=== PATIENT | male | born 1940 | race Caucasian/White ===

== ENCOUNTER → 2017-12-29 06:00 | Outpatient (CLI) | payer MEDICARE, OTHER, SELFPAY ==
--- NOTE | 2017-12-29 15:34 | STRESSREP ---
Stress Test Report Pharmacologic myocardial perfusion stress test. 77-year-old man with a history of coronary artery disease status post carotid bypass surgery. Patient with chest pain. Medications: Iron isosorbide aspirin Cardizem losartan and metformin. Stress protocol: Resting EKG demonstrates normal sinus rhythm with a rate of 67 bpm normal intervals and noted resting blood pressure is 148/72 mmHg. 0.4 mg regadenoson was infused per usual protocol followed by rapid intravenous saline flush injection. Continuous EKG monitoring was performed. Patient maintained sinus rhythm throughout the recording. T-wave inversions were noted in lead I and aVL. The maximum heart rate attained was 84 bpm which was 58% of maximum predicted heart rate maximum workload attained was 1 metabolic equivalent. The final blood pressure is 142/70 mmHg. Myocardial perfusion protocol. 11.5 mCi of technetium 99m sestamibi was injected at rest. 0.4 mg of regadenoson was infused per usual protocol peak infusion 32.9 mCi of technetium 99m sestamibi was injected stress images were obtained stress and rest images were reconstructed and compared in the short axis vertical long and horizontal long axis. Gated images were also obtained pre- Perfusion SPECT analysis: Review of the stress images demonstrate normal uptake of tracer noted in the septum and inferior wall. On the stress images the mid anterolateral segment appears to have reduced perfusion with improvement on the resting images the above is suggestive of mid anterolateral ischemia. The basal to mid inferior wall also has a defect which is present on the stress and resting images there is also GI attenuation noted in this area and this cannot be completely excluded. Gated SPECT analysis: The gated ejection fraction is noted to be 49%. Conclusion: Abnormal pharmacologic myocardial perfusion stress test with evidence of mild to moderate anterolateral ischemia. Previous basal inferior infarct cannot be excluded. Borderline left ventricular systolic function.
== END ==
PROVIDERS: Family Provider Family Medicine; PCP Family Medicine; Visit Provider Physician Assistant Medical
DX: I25.118 Atherosclerotic heart disease of native coronary artery with other forms of angina pectoris (principal); I10 Essential (primary) hypertension; R53.83 Other fatigue
CPT/HCPCS: 78452; 93017; A9500; A4216; J2785

== ENCOUNTER → 2018-01-12 06:45 | Day surgery (SDC) | payer MEDICARE, OTHER, SELFPAY ==
--- NOTE | 2018-01-01 12:58 | RAD_ITS ---
STUDY: X-RAY CHEST REASON FOR EXAM: Male, 77 years old. Preoperative evaluation. TECHNIQUE: PA and lateral views of the chest. COMPARISON: Comparison is made with prior examination dated January 16, 2009. FINDINGS: The lungs are clear and expanded. Calcified granuloma in the right lower lobe. There is no demonstrated pleural abnormality. Sternal cerclage wires and vascular clips are present from a prior sternotomy and coronary artery bypass graft procedure (CABG). Normal mediastinum and dani. Normal visualized pulmonary arteries. There is atherosclerotic calcification of the aortic arch with tortuosity. Normal visualized thoracic spine. Normal visualized ribs, clavicles, and shoulders. There is no demonstrated abnormality of the visualized soft tissue structures of the upper abdomen. RAD/Chest PA and Lateral IMPRESSION: No acute abnormality is seen. Electronically Signed: Alec Thompson MD at 10:26 EDT Tel [phone], Service support ,
[2018-01-01 13:27] LABS: Hematocrit 36.6 % (40-54); Hemoglobin 12.3 g/dl (13.0-16.5); Mean Corp Hgb Conc 33.6 g/gl (32-36); Mean Corpuscular Hgb 32.5 pg (27.0-32.0); Mean Corpuscular Volume 96.6 fL (80-94); Platelet Count 202 K/mm3 (150-450); Red Blood Count 3.79 M/mm3 (4.6-6.2); White Blood Count 8.3 K/mm3 (4.4-11.0)
[2018-01-01 13:28] LABS: Scan Indicated on CBC? Y/N NO
[2018-01-01 13:43] LABS: Anion Gap 9 (5-15); BUN 26 mg/dL (7-18); BUN/Creat Ratio 13.9 RATIO (10-20); Calcium,Total 8.8 mg/dL (8.5-10.1); Chloride 108 mmol/L (98-107); Creatinine, Serum 1.87 mg/dL (0.70-1.30); EST Glomerular Filtration Rate 37 mL/min (>60); Est Glom Filt Rate - Afr Amer 45 mL/min (>60); Glucose 87 mg/dL (74-106); Potassium 4.6 mmol/L (3.5-5.1); Sodium Level 139 mmol/L (136-145)
[2018-01-09 08:09] VITALS: BMI 29.0
--- NOTE | 2018-01-12 14:35 | ECHOD_ITS ---
Reason For Study: SOB, chest pain Procedure This was a 2D Doppler, Color Flow transthoracic echocardiogram. 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 Left Ventricle Normal LV size. Left ventricular systolic function is normal. The estimated ejection fraction is 55 %. Transmitral diastolic flow velocities suggest mild (stage 1) diastolic dysfunction (reversed pattern). No regional wall motion abnormalities noted. Atria The left atrium is moderately enlarged. Normal right atrium. Bubble contrast study negative for right to left interatrial shunt. Mitral Valve There is mild to moderate mitral annular calcification. Mild (1+) eccentric mitral valve insufficiency. Tricuspid Valve Normal tricuspid valve. Mild (1+) tricuspid valve insufficiency. Pulmonary artery systolic pressure is 28 mmHg. Aortic Valve Trisinus/trileaflet aortic valve. Mild focal aortic valve calcification. Mild (1+) eccentric aortic valve insufficiency. Pulmonic Valve Normal pulmonic valve. Great Vessels Normal aortic root. The pulmonary artery is normal size. Normal inferior vena cava. Pericardium/Pleural No pericardial effusion. Medication Performed a rapid injection of agitated mix of 9 cc saline and 1cc air to assess for atrial septal defect. Diluted definity 4.0ml given slow IV push to enhance endocardial definition. MMode/2D Measurements & Calculations LVIDd: 5.3 cm IVSd: 1.1 cm Ao root diam: 3.2 cm LVIDs: 4.0 cm LVPWd: 0.96 cm LA dimension: 4.0 cm RVDd: 2.9 cm FS: 24.3 % LAV(MOD-bp): 73.7 ml LAV(MOD-bp) Indexed: 38.5 ml/m2 LA A4 area: 23.5 cm2 LAV(MOD-sp2): 67.8 ml LAV(MOD-sp4): 77.0 ml Doppler Measurements & Calculations MV E max thang: 68.9 cm/sec Lat Peak E' Thang: 7.9 cm/sec Med Peak E' Thang: 4.9 cm/sec MV A max thang: 102.0 cm/sec E/E' lat: 8.8 E/E' med: 14.0 MV E/A: 0.68 Ao V2 max: 122.3 cm/sec AI max thang: 312.7 cm/sec LV V1 max: 81.0 cm/sec Ao max P.0 mmHg AI max P.2 mmHg LV V1 max P.6 mmHg AI dec slope: 158.5 cm/sec2 AI P1/2t: 577.7 msec PA V2 max: 94.6 cm/sec TR max thang: 250.4 cm/sec TR max P.2 mmHg Interpretation Summary Normal LV size. Left ventricular systolic function is normal. The estimated ejection fraction is 55 %. Transmitral diastolic flow velocities suggest mild (stage 1) diastolic dysfunction (reversed pattern). Mild (1+) tricuspid valve insufficiency. Mild focal aortic valve calcification. Mild (1+) eccentric aortic valve insufficiency. Ordering Physician: Raffaele Theodore Referring Physician: Neal Rodriguez Performed By: Lola Alonso, ADELA, RVT
--- NOTE | 2018-01-19 11:55 | CL.D_ITS ---
Patient Name: JADYN RAMOS Study Date: 01/12/2018 Performing: Raffaele Theodore MD Ht: 66.14 inches 168 cm : 1940 Wt: 180.78 lbs 82 kg Age: 77 Gender: male BSA: 1.92 PROCEDURE(S) PERFORMED [id number]/CABG CLINICAL PROFILE AND INDICATIONS Indications: Stable Known CAD Heart Failure: None Stress/Imaging Stress Test w/SPECT MPI: Yes Result: Positive Intermediate RiskStress Test with SP ECT MPI: Positive Intermediate Risk CAD Presentations: Stable angina. CONCLUSIONS Severe [place] vessel disease, and saphenous vein graft to circumflex artery with a 99% anastomotic si te stenosis and moderate disease of the saphenous vein graft to the right coronary artery RECOMMENDATIONS Interval PCI of the saphenous vein graft to the circumflex artery after appropriate hydration and rep eat chemistry profile obtained DESCRIPTION OF PROCEDURE The patient arrived to the procedure lab. The risks and benefits of the procedure as well as a full d escription of our services here and current unavailability of surgical backup were fully explained to the patient and/or their significant other prior to the catheterization. The Timeout was completed, verifying the correct patient and procedure. The patient's procedural site was prepped and draped in the usual fashion. Local anesthetic was given subcutaneously to right groin region with Lidocaine 2%. Using a modified Seldinger technique, arterial access was obtained via the right femoral artery, a 5 Fr sheath was inserted. Left Coronary Artery selective angiography was performed in multiple views u sing a 5 Fr. JL4 catheter. Right Coronary Artery selective angiography was then performed in multiple views using a 5 Fr. 3DRC (Misha) catheter. Saphenous Vein graft to the Circumflex selective angio graphy was performed in multiple views using a 5 Fr. 3DRC (Misha) catheter. Saphenous Vein graft t o the RCA selective angiography was performed in multiple views using a 5 Fr. 3DRC (Misha) cathete r. Left internal mammary artery graft to the LAD selective angiography was performed in multiple view s using a 5 Fr. 3DRC (Misha) catheter. Saphenous Vein graft to the RCA selective angiography was p erformed in multiple views using a 5 Fr. 3DRC (Misha) catheter.The arterial sheath was pulled and manual compression applied until hemostasis is achieved. CORONARY ANGIOGRAPHY DOMINANCE: Right Dominant LEFT HEART ASSESSMENT Left Ventricular Ejection Fraction: by Echo 50 % Anterior Hypokinesis - Mild LEFT MAIN: 60 % Stenosis LEFT ANTERIOR DECENDING ARTERY: is occluded CIRCUMFLEX ARTERY: MID CIRC: 80 % Stenosis RIGHT CORONARY ARTERY: PROX RCA: Mild luminal irregularities less than 30% MID RCA: Moderate luminal irregularities up to 50% DISTAL RCA: is occluded, 65-70 distal post graft stenosis % Stenosis GRAFTS: Saphenous Vein graft to the 2nd OM has a distal anastomotic lesion of 99 % JOHNSON graft to the LAD is patent Saphenous Vein graft to the RCA has a mid lesion of 50 % Saphenous Vein graft to the RCA has a distal lesion of 65 % Diagnostic Recommendations: Interval PCI of the saphenous vein graft to the circumflex artery after a ppropriate hydration and repeat chemistry profile obtained COMPLICATIONS No Complications PROCEDURE MEDICATIONS Versed 1 mg IV Versed 1 mg IV Fentanyl 50 mcg IV Versed 1 mg IV Oxygen: 2 L/min via nasal cannula IV Bolus: .9 NaCl 500 ml total 01/12/2018 10:38:50 IV Fluids: .9 NaCl decreased to 100 ml/hr 01/12/2018 10:39:02 SUMMARY OF HEMODYNAMIC DATA Time AIR REST ECG 07:12:30 AO 131/53 (82) SA 09:25:52 AO 129/54 (82) 09:47:14 AO 134/58 (86) 10:08:39 Signed By Raffaele Theodore MD On 01/19/2018 11:54:55 Raffaele Theodore MD
== END ==
PROVIDERS: Physician Assistant Medical; Family Provider Family Medicine; PCP Family Medicine; Visit Provider Internal Medicine Cardiovascular Disease
DX: I25.118 Atherosclerotic heart disease of native coronary artery with other forms of angina pectoris (principal); E11.9 Type 2 diabetes mellitus without complications; I10 Essential (primary) hypertension; E78.5 Hyperlipidemia, unspecified; R94.31 Abnormal electrocardiogram [ECG] [EKG]; Z79.84 Long term (current) use of oral hypoglycemic drugs; Z79.02 Long term (current) use of antithrombotics/antiplatelets; Z79.82 Long term (current) use of aspirin; Z79.899 Other long term (current) drug therapy; Z95.5 Presence of coronary angioplasty implant and graft; Z95.1 Presence of aortocoronary bypass graft
CPT/HCPCS: 36415; 71046; 80048; 85027; 93306; 93455; 99152; 99153; J7040; Q9957; Q9967; A4216; C8929

== ENCOUNTER → 2018-01-19 07:12 | Outpatient (CLI) | payer MEDICARE, OTHER, SELFPAY ==
[2018-01-19 07:39] LABS: Anion Gap 8 (5-15); BUN 36 mg/dL (7-18); BUN/Creat Ratio 18.3 RATIO (10-20); Chloride 106 mmol/L (98-107); Creatinine, Serum 1.97 mg/dL (0.70-1.30); EST Glomerular Filtration Rate 35 mL/min (>60); Est Glom Filt Rate - Afr Amer 43 mL/min (>60); Glucose 108 mg/dL (74-106); Potassium 4.6 mmol/L (3.5-5.1); Sodium Level 138 mmol/L (136-145)
== END ==
PROVIDERS: Family Provider Family Medicine; PCP Family Medicine; Visit Provider Internal Medicine Cardiovascular Disease
DX: I10 Essential (primary) hypertension (principal); E78.5 Hyperlipidemia, unspecified; I25.10 Atherosclerotic heart disease of native coronary artery without angina pectoris; R94.31 Abnormal electrocardiogram [ECG] [EKG]; Z95.1 Presence of aortocoronary bypass graft
CPT/HCPCS: 36415; 80048

== ENCOUNTER 2018-01-21 08:11 | Day surgery (SDC) | payer MEDICARE, OTHER, SELFPAY ==
[2018-01-14 07:10] VITALS: BMI 29.0
[2018-01-14 07:43] LABS: Anion Gap 7 (5-15); BUN 30 mg/dL (7-18); BUN/Creat Ratio 14.3 RATIO (10-20); Calcium,Total 8.4 mg/dL (8.5-10.1); Chloride 107 mmol/L (98-107); EST Glomerular Filtration Rate 33 mL/min (>60); Est Glom Filt Rate - Afr Amer 40 mL/min (>60); Estimated Creatinine Clearance 26.58 ml/min; Glucose 123 mg/dL (74-106); Potassium 4.4 mmol/L (3.5-5.1); Sodium Level 138 mmol/L (136-145)
[2018-01-21] VITALS (22 sets, daily range): BP systolic 128–189; BP diastolic 48–142; PULSE 59–82; RESP 12–25; TEMP 36.8; O2SAT 95–100; BMI 63.5; BMI 29.0
[2018-01-21 08:37] LABS: Anion Gap 8 (5-15); BUN 36 mg/dL (7-18); BUN/Creat Ratio 18.8 RATIO (10-20); Chloride 107 mmol/L (98-107); Creatinine, Serum 1.92 mg/dL (0.70-1.30); EST Glomerular Filtration Rate 36 mL/min (>60); Est Glom Filt Rate - Afr Amer 44 mL/min (>60); Estimated Creatinine Clearance 29.08 ml/min; Glucose 119 mg/dL (74-106); Potassium 4.4 mmol/L (3.5-5.1); Sodium Level 140 mmol/L (136-145)
--- NOTE | 2018-01-21 09:26 | PN_ITS ---
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 He is a gentleman with a history of coronary artery disease status post coronary artery bypass surgery. He had a left internal mammary artery to left anterior descending artery which was noted to be preserved and patent the circumflex artery had moderate disease in the mid segment and the saphenous vein graft to the right coronary artery was noted to be patent. Medical therapy was recommended his last stress test was in 2013 which demonstrated a mildly abnormal mid anterior ischemia medical therapy was recommended. He continues to take nitroglycerin prophylactically prior to mowing. He feels that the amount he has been taking has not increased. He has not had any diaphoresis no near syncope or syncope. He has had some dizziness when he changes the position of his head. He denies any claudication. He does not have any palpitations. He does note that when he checks his pulse he has occasional ectopic beats. He does not have any worsening SOB. He does feel that he is more fatigued that he should be. Intake Vital Signs 01/21/18 Height 5 ft 6 in 01/21/18 Weight: 180 lb 01/21/18 Body Mass Index (BMI) 29.0 01/21/18 Blood Pressure 155/80 01/21/18 Blood Pressure Location Lt brachial 01/21/18 Blood Pressure Position Semi-Fowlers 01/21/18 Respiratory Rate 16 01/21/18 Pulse Rate 63 01/21/18 Pulse Source Monitor 01/21/18 Temperature 97.5 F 01/21/18 Pulse Ox 98 Intake Visit Reasons: PCI intervention Allergies ramipril [From Altace] Allergy (Intermediate, Verified 01/21/18 08:42) cough Medications ferrous sulfate 324 mg (65 mg iron) tablet,delayed release 324 mg PO QDAY tab 06/13/17 [History Confirmed 01/13/18] glimepiride 1 mg tablet 1 mg PO QAM 06/13/17 [History Confirmed 01/13/18] isosorbide mononitrate ER 120 mg tablet,extended release 24 hr 120 mg PO QDAY tab 06/13/17 [History Confirmed 01/13/18] loratadine 10 mg tablet 10 mg PO PRN PRN tab 06/13/17 [History Confirmed ] nitroglycerin 0.4 mg sublingual tablet 0.4 mg SUBLINGUAL .COMPLEX PRN 06/13/17 [ History Confirmed 01/13/18] acetaminophen 500 mg tablet 500 mg PO Q4H PRN 06/16/17 [History Confirmed ] multivitamin tablet 1 tab PO QDAY 06/16/17 [History Confirmed 01/13/18] aspirin 81 mg tablet,delayed release 81 mg PO QDAY 06/17/17 [History Confirmed 01/13/18] diltiazem CD 180 mg capsule,extended release 24 hr 180 mg PO ONCE 06/17/17 [ History Confirmed 01/13/18] losartan 50 mg tablet 50 mg PO QDAY 06/17/17 [History Confirmed 01/13/18] metformin ER 500 mg tablet,extended release 24hr 500 mg PO .COMPLEX 12/16/17 [ History Confirmed 01/13/18] clopidogrel 75 mg tablet 75 mg PO QDAY #30 tab 01/01/18 [Rx Confirmed 01/13/18] PFSH Medical History Abnormal nuclear stress test (Acute) steroid injections lumbar (Resolved) HLD (hyperlipidemia) (Chronic) HTN (hypertension) (Chronic) CAD (coronary artery disease) (Chronic) Atherosclerotic heart disease of [place] coronary artery without angina pectoris (Chronic) Abnormal result of cardiovascular function study, unspecified (Chronic) Abnormal electrocardiogram (Chronic) High risk medication use (Chronic) Aftercare following surgery of the circulatory system, NEC (Chronic) Shortness of breath (Chronic) Fatigue (Chronic) Type 2 diabetes mellitus without complications (Chronic) Surgical History Aortocoronary bypass status (Chronic) Hx of CABG (Chronic 08/16/02) S/P PTCA (percutaneous transluminal coronary angioplasty) (Chronic) Family History Father Heart disease Myocardial infarction x3, first CO at age 49 Brother Diabetes History of PTCA Mother HLD (hyperlipidemia) Social History Smoking Status: Never smoker alcohol intake: current alcohol intake frequency: 0-2 drinks per day Alcohol type: hard liquor substance use type: does not use ROS Const Const: Positive for fatigue; negative for weakness, fever(s) or headache(s) Eyes Eyes: Negative for blind spots, loss of peripheral vision or transient loss of vision ENT ENT: Positive for dizziness; negative for headache(s) Cardio Chest Pain: Yes Palpitations: No Edema: None Muscle aches with walking: None Resp Respiratory: Negative for SOB with activity, SOB at rest, SOB orthopnea\SOB lying down or Cough GI GI: Negative nausea, vomiting, heartburn or vomiting blood/hematemesis : Negative for hematuria Musc Musc: Negative for muscle aches/ myalgia Neuro Neuro: Positive for dizziness and lightheadedness; negative for weakness, headache(s), near syncope or syncope Kalpesh Hematologic/Lymphatic: Negative for easy bleeding Endo Endo: Positive for fatigue Cardiology Exam Const Appearance: cooperative, healthy appearing, well developed, well groomed and no acute distress Nutritional Appearance: well nourished and average body habitus Orientation: alert, awake and oriented x3 Head Head: normal to inspection, normocephalic and atraumatic Ears: hearing grossly normal bilaterally and external ears normal Nose: external nose normal, septum normal, no nasal discharge Face and Sinus: face symmetric Mouth: moist mucous membranes Teeth and gingiva: dentition normal Eyes General: appearance normal, both eyes and all related structures Eyelids: eyelids normal Conjunctivae: conjunctivae normal Pupils: PERRL, normal by confrontation and accommodation normal EOM: EOM intact bilaterally Neck Neck: normal visual inspection, trachea midline and no JVD JVD: +5 Carotids: normal carotid upstroke and bounding pulses Chest Chest inspection: normal inspection of the chest, symmetric chest movement and normal respiratory effort Auscultation: Bilateral: Clear to Auscultation Cardio Palpation: normal PMI Rate: regular rate Rhythm: regular rhythm Heart sounds: S1 normal, S2 normal and normal, physiologic split S2; negative rub, gallop or murmur GI GI: normal to inspection, soft, no hepatosplenomegaly and bowel sounds present Neuro General: alert, awake, oriented x3, no focal sensory deficit, gait normal and moves all extremities Skin Skin: no rashes or lesions noted Extremities Pulses: Normal: Right Femoral Pulse, Left Femoral Pulse, Right Dorsalis Pedis Pulse, Left Dorsalis Pedis Pulse, Right Posterior Tibial Pulse, Left Posterior Tibial Pulse, Right Radial Pulse, Left Radial Pulse Lower Extremity Edema: None: Bilateral Musculoskel Musculoskeletal: No joint tenderness Psych Psychological: normal affect Supplemental Info Echocardiogram from January 2018 showed normal LV size, estimated ejection fraction 55%, stage I diastolic dysfunction, mild tricuspid valve insufficiency , mild aortic valve calcification, and mild aortic valve insufficiency. Heart catheterization from January 2018 showed severe [place] vessel disease and SVG to LCx with a 99% anastomotic site stenosis and moderate disease of the SVG to RCA. It was recommended he undergo interval PCI of the SVG to LCx after hydration and repeat chemistry. Stress test from December 2017 was an abnormal pharmacological [place] myocardial perfusion stress test with evidence of mild to moderate anterolateral ischemia, previous basal inferior infarct cannot be excluded, and borderline left ventricular systolic function. Assessment & Plan 1. Atherosclerosis of [place] coronary artery of [place] heart without angina pectoris I25.10 S/P JOHNSON to LAD, SVG to obtuse marginal LCx, sequential SVG to intermediate, and SVG to right PDA in August 2002, PTCA of ramus branch of LCx , PTCA/stent to proximal RCA, PTCA/stent to proximal LCx, attempted/ unsuccessful PTCA LAD in June 2003 Plan - DEANGELO Abreu Patient's most recent heart catheterization showed 99% anastomotic stenosis of SVG to LCx. He will undergo PCI to this vessel. He will continue current medications which include aspirin, Plavix, losartan. 2. Aortocoronary bypass status Z95.1 S/P JOHNSON to LAD, SVG to obtuse marginal branch of LCx, sequential SVG to intermediate coronary artery, and SVG to right PDA in August 1999 Plan - DEANGELO Abreu Patient will proceed with PCI to SVG to OM. 3. Essential hypertension I10 Plan - DEANGELO Abreu Patient's blood pressure is well-controlled today. We will continue to monitor this. We will not make any medication regimen changes. 4. Fatigue, unspecified type R53.83 Plan - DEANGELO Abreu Hopefully after PCI patient's fatigue will improve. She will be recommended that he undergo cardiac rehab to improve overall function and exercise capacity. We will continue to follow this over time. Plan Detail Additional Comments - DEANGELO Abreu Thank you for allowing us to participate in the patients plan of care, if you have any questions please do not hesitate to call. This note was generated using a voice recognition system and there may be incorrect words, spelling or punctuation that were not noted when reviewing the office note prior to saving. Coding Diagnoses Atherosclerosis of [place] coronary artery of [place] heart without angina pectoris I25.10 [place] vs. transplanted heart: [place] heart Aortocoronary bypass status Z95.1 Essential hypertension I10 Hypertension type: essential hypertension Fatigue, unspecified type R53.83 Fatigue type: unspecified
--- NOTE | 2018-01-21 11:00 | EKG12_ITS ---
Test Reason : POSY PCI Blood Pressure : / mmHG Vent. Rate : 076 BPM Atrial Rate : 076 BPM P-R Int : 212 ms QRS Dur : 096 ms QT Int : 416 ms P-R-T Axes : 076 009 093 degrees QTc Int : 468 ms Sinus rhythm with 1st degree A-V block with occasional Premature ventricular complexes Nonspecific ST and T wave abnormality Abnormal ECG When compared with ECG of 08-AUG-2009 11:44, Premature ventricular complexes are now Present T wave inversion less evident in Anterolateral leads Confirmed by MAI MONTE ([id number]), editor producer SAURAV LINARES ([id number]) on 01/27/2018 2:11:49 PM Referred By: Carlos Mujica Confirmed By:MAI MONTE
--- NOTE | 2018-01-21 11:44 | CRPHASE1_ITS ---
Patient Data/Charges Former Patient:: Phase I Waste Hand:: Ramy Rice Phase I Charge:: Level I - Education Risk Factors/Lifestyle Smoking Status: Never smoker Hx Diabetes Mellitus Type 2: Yes - ON MEDS Hx Dyslipidemia: Yes Height: 1.68 m Weight:: 81.647 kg BMI: 29.0 ETOH: No Caffeine: Yes Substance Abuse: No Family History: Family History (Last Reviewed 12/16/17 @ 13:12 by Breanne Adkins) Father Heart disease Myocardial infarction Brother Diabetes History of PTCA Mother HLD (hyperlipidemia) Family History: Heart Disease Past Cardiac Illness: Coronary Artery Disease, Previous PCI w/Stent Phase I Education Given On:: [place], Nutrition, Antiplatelet medication, CHF, Diabetes - Type II Issues Affecting Care:: None Knowledge of Condition:: Yes Hospital Course Cardiac Cath Date:: 01/21/18 Intervention:: CABG 08/2002 AND HE DID CARDIAC REHAB AT THIS TIME Medical/Surgical History CAD:: Yes COPD:: No Asthma:: No Diabetes:: Yes Diabetes Type II:: Yes Hypertension:: Yes Dyslipidemia:: Yes PVD:: No PAD:: No Arthritis:: No GI:: No GERD:: No Cancer:: No Renal:: No Thyroid:: No Depression:: No Anxiety:: No CABG: Yes PTCA:: Yes Discharge/Home/Social Eval Discharge Disposition: Home Marital Status: -
--- NOTE | 2018-01-21 11:46 | CRPH1.INST_ITS ---
General Education CAD and cardiac anatomy and function:: Patient communicates acknowledgment, Family communicates acknowledgment Explanation of diagnoses and procedures:: Patient communicates acknowledgment, Family communicates acknowledgment Sign/Symptoms of CO:: Patient communicates acknowledgment, Family communicates acknowledgment Antiplatelet therapy: Patient communicates acknowledgment, Family communicates acknowledgment Proper use of NTG-SL: Patient communicates acknowledgment, Family communicates acknowledgment Emergency procedures and activation of EMS: Patient communicates acknowledgment , Family communicates acknowledgment Compliance of all prescribed medications: Patient communicates acknowledgment, Family communicates acknowledgment Smoking Patient Nicotine/Smoking Risk Factors Are:: Never smoked Dyslipidemia Recommendations Include:: Lipid profile not available Dyslipidemia Response Code:: Patient communicates acknowledgment, Family communicates acknowledgment Overweight/Obesity Patient Overweight/Obesity Risk Factors Are:: Overweight = 26-29 Hypertension Recommendations Include:: Maintain BP <130/85, BP <130/80 if diabetic, DASH dietary guidelines Hypertension:: Patient communicates acknowledgment, Family communicates acknowledgment Heart Disease Patient Heart Disease Risk Factors Are:: Family history of heart disease < 65 years old, Previous cardiac event Recommendations Include:: Educated family members of their risk Heart Disease Response Code:: Patient communicates acknowledgment, Family communicates acknowledgment Diabetes Recommendations Include:: Maintain fasting blood sugars 70-110 md/dL Diabetes:: Patient communicates acknowledgment, Family communicates acknowledgment Metabolic Syndrome Patient Metabolic Syndrome Risk Factors Are [3 of 5]:: Hypertension, Low HDL < 40 [male] or < 50 [female] Recommendations Include:: Patient is diabetic Sedentary Recommendations Include:: Benefits of regular exercise, Discussed home walking program Sedentary Response Code:: Patient communicates acknowledgment, Family communicates acknowledgment Stress Patient Stress Risk Factors Are:: Patient denies stress as a risk factor
[2018-01-21 12:45] LABS: ACT Activated Clotting Time 235 sec (74-137)
[2018-01-21] MEDS: 0.9% Normal Saline 1,000 ML 150 ML IV (13:30)
[2018-01-21 13:36] LABS: M R Staph aureus DNA By PCR Negative (Negative); Probe Check PASS; Specimen Processing Control PASS
[2018-01-21] MEDS: cloNIDine HCl 0.1 MG Tablet PO (13:55)
[2018-01-21 17:25] LABS: Bedside Glucose 76 mg/dL (70-110)
[2018-01-21 18:16] LABS: Bedside Glucose 138 mg/dL (70-110)
[2018-01-21 21:25] LABS: Bedside Glucose 121 mg/dL (70-110)
[2018-01-22] VITALS (10 sets, daily range): BP systolic 131–171; BP diastolic 45–90; PULSE 60–74; RESP 17–25; TEMP 36.7–36.8; O2SAT 96–97
[2018-01-22 04:10] LABS: Anion Gap 9 (5-15); BUN 36 mg/dL (7-18); BUN/Creat Ratio 20.2 RATIO (10-20); Calcium,Total 8.2 mg/dL (8.5-10.1); Chloride 110 mmol/L (98-107); Creatinine, Serum 1.78 mg/dL (0.70-1.30); EST Glomerular Filtration Rate 40 mL/min (>60); Est Glom Filt Rate - Afr Amer 48 mL/min (>60); Estimated Creatinine Clearance 31.36 ml/min; Glucose 111 mg/dL (74-106); Potassium 4.7 mmol/L (3.5-5.1); Sodium Level 141 mmol/L (136-145)
[2018-01-22 04:11] LABS: Hematocrit 34.7 % (40-54); Hemoglobin 11.9 g/dl (13.0-16.5); Mean Corp Hgb Conc 34.3 g/gl (32-36); Mean Corpuscular Hgb 33.1 pg (27.0-32.0); Mean Corpuscular Volume 96.4 fL (80-94); Mean Platelet Vol. 10.6 fl (6.2-12.0); Platelet Count 173 K/mm3 (150-450); RBC Distribution Width SD 44.8 fl (35.1-43.9); White Blood Count 7.1 K/mm3 (4.4-11.0)
[2018-01-22 04:15] LABS: Scan Indicated on CBC? Y/N NO
--- NOTE | 2018-01-22 07:08 | PCM.DC.CCA ---
Discharge Diet: Low fat/ Low Cholesterol Discharge Activity: Return to Normal Activity May shower in (days): 1 May resume sexual activity in: 1-2 weeks Weight Bearing Status: Weight bearing as tolerated, Full weight bearing, Partial weight bearing, Toe touch weight bearing, No weight bearing Lifting Restrictions: Do not lift anything greater than 10 pounds for 3 days Call your doctor if your incision/area has: Continuous Slow Oozing, Sudden Increased Bleeding, Increased Pain/ Swelling, Increased Redness, Foul Smelling Discharge, Swelling at the incision site Call your doctor if you observe: Fever of 101 or Higher, Shortness of breath, Chest pain Remove Dressing in (days):: 1 Cleanse incision/area with: Soap & Water Additional Instructions: You will remain on Plavix for at least one year. If anyone asks you to stop this, please contact the [facility] first. You will begin your metformin as instructed. You are schedule to see Graciela Physician Board Of Directors, on 02/12/2018 at 10:30 AM. Please contact the [facility] office if you needs this date and time changed. If you have any questions or concerns, please call the [facility] office at [phone]. Allergies/Adverse Reactions: Allergies ramipril [From Altace] Allergy (Intermediate, Verified 01/21/18 08:42) cough Medications to take at Discharge ferrous sulfate 324 mg (65 mg iron) tablet,delayed release 324 mg PO QDAY tab 06/13/17 glimepiride 1 mg tablet 1 mg PO QAM 06/13/17 isosorbide mononitrate ER 120 mg tablet,extended release 24 hr 120 mg PO QDAY tab 06/13/17 loratadine 10 mg tablet 10 mg PO PRN PRN tab 06/13/17 nitroglycerin 0.4 mg sublingual tablet 0.4 mg SUBLINGUAL .COMPLEX PRN 06/13/17 acetaminophen 500 mg tablet 500 mg PO Q4H PRN 06/16/17 multivitamin tablet 1 tab PO QDAY 06/16/17 aspirin 81 mg tablet,delayed release 81 mg PO QDAY 06/17/17 diltiazem CD 180 mg capsule,extended release 24 hr 180 mg PO DAILY 06/17/17 losartan 50 mg tablet 50 mg PO QDAY 06/17/17 metformin ER 500 mg tablet,extended release 24hr 500 mg PO .COMPLEX 12/16/17 clopidogrel 75 mg tablet 75 mg PO QDAY #30 tab 01/01/18 Primary Care Physician: Neal Rodriguez MD [Primary Care Provider] - Test Results: Test results from this visit will be discussed in further detail at your follow-up appointment, if applicable. Please Follow Up With: Graciela Pro Physician Board Of Directors When: 02/12/2018 at 10:30 AM Proposed Discharge Date: 01/22/18 Cardiac Rehabilitation Info Cardiac Rehabilitation Program Information: Cardiac Rehabilitation is important for patients like you who are recovering from a heart problem. Cardiac rehabilitation programs are recognized as integral to the continued care of the patient with coronary heart disease. The cardiac rehabilitation program is designed to optimize a patient's physical, psychological, and social functioning. Health animal caregiver work in cardiac rehabilitation programs and assist you with getting the treatments you need to get stronger and healthier - like exercise, healthy eating habits, and medications. Cardiac rehabilitation has been show to help people with heart problems live longer and have better life enjoyment than people who do not go to cardiac rehabilitation. Please contact the Cardiac Rehabilitation Program at [facility] at in two weeks if you have not heard from them.
--- NOTE | 2018-01-22 07:12 | DCINST_ITS ---
Discharge Diet: Low fat/ Low Cholesterol Discharge Activity: Return to Normal Activity May shower in (days): 1 May resume sexual activity in: 1-2 weeks Weight Bearing Status: Weight bearing as tolerated, Full weight bearing, Partial weight bearing, Toe touch weight bearing, No weight bearing Lifting Restrictions: Do not lift anything greater than 10 pounds for 3 days Call your doctor if your incision/area has: Continuous Slow Oozing, Sudden Increased Bleeding, Increased Pain/ Swelling, Increased Redness, Foul Smelling Discharge, Swelling at the incision site Call your doctor if you observe: Fever of 101 or Higher, Shortness of breath, Chest pain Remove Dressing in (days):: 1 Cleanse incision/area with: Soap & Water Additional Instructions: You will remain on Plavix for at least one year. If anyone asks you to stop this , please contact the [facility] first. You will begin your metformin as instructed. You are schedule to see Graciela Physician Exam Proctor, on 02/12/2018 at 10:30 AM. Please contact the [facility] office if you needs this date and time changed. If you have any questions or concerns, please call the [facility] office at [phone]. Allergies/Adverse Reactions: Allergies ramipril [From Altace] Allergy (Intermediate, Verified 01/21/18 08:42) cough Medications to take at Discharge ferrous sulfate 324 mg (65 mg iron) tablet,delayed release 324 mg PO QDAY tab 06/13/17 glimepiride 1 mg tablet 1 mg PO QAM 06/13/17 isosorbide mononitrate ER 120 mg tablet,extended release 24 hr 120 mg PO QDAY tab 06/13/17 loratadine 10 mg tablet 10 mg PO PRN PRN tab 06/13/17 nitroglycerin 0.4 mg sublingual tablet 0.4 mg SUBLINGUAL .COMPLEX PRN 06/13/17 acetaminophen 500 mg tablet 500 mg PO Q4H PRN 06/16/17 multivitamin tablet 1 tab PO QDAY 06/16/17 aspirin 81 mg tablet,delayed release 81 mg PO QDAY 06/17/17 diltiazem CD 180 mg capsule,extended release 24 hr 180 mg PO DAILY 06/17/17 losartan 50 mg tablet 50 mg PO QDAY 06/17/17 metformin ER 500 mg tablet,extended release 24hr 500 mg PO .COMPLEX 12/16/17 clopidogrel 75 mg tablet 75 mg PO QDAY #30 tab 01/01/18 Primary Care Physician: Neal Rodriguez MD [Primary Care Provider] - Test Results: Test results from this visit will be discussed in further detail at your follow- up appointment, if applicable. Please Follow Up With: Graciela Pro Physician Exam Proctor When: 02/12/2018 at 10:30 AM Proposed Discharge Date: 01/22/18 Cardiac Rehabilitation Info Cardiac Rehabilitation Program Information: Cardiac Rehabilitation is important for patients like you who are recovering from a heart problem. Cardiac rehabilitation programs are recognized as integral to the continued care of the patient with coronary heart disease. The cardiac rehabilitation program is designed to optimize a patient's physical, psychological, and social functioning. Health care transport nurse work in cardiac rehabilitation programs and assist you with getting the treatments you need to get stronger and healthier - like exercise, healthy eating habits, and medications. Cardiac rehabilitation has been show to help people with heart problems live longer and have better life enjoyment than people who do not go to cardiac rehabilitation. Please contact the Cardiac Rehabilitation Program at [facility] at in two weeks if you have not heard from them.
--- NOTE | 2018-01-22 07:24 | PN.CARD_ITS ---
Subjectve: Patient seen and evaluated. Appears to be doing quite well. No chest pain or arm pain. Objective: Vital Signs Temp Pulse Resp BP Pulse Ox 98.1 F 64 20 H 147/60 H 96 01/22/18 04:00 01/22/18 06:00 01/22/18 06:00 01/22/18 06:00 01/22/18 06:00 Oxygen Flow Rate (L/min) 2 Oxygen Delivery Method Room Air Weight: 178 lb 9.191 oz Body Mass Index (BMI) 63.5 Intake and Output for Last 24 Hours 01/20/18 01/21/18 01/22/18 23:59 23:59 23:59 Intake Total 1730 / 1730 350 / 350 Output Total 1600 / 1600 800 / 800 Balance 130 / 130 -450 / -450 General: Awake, Alert, Oriented x 3 HEENT: PERRL, EOMI, Sclera Non Icteric Neck: Supple, Good ROM, No Lymph Node Enlargement Lungs: Clear to auscultation Cardiovascular: Regular Rhythm, Normal S1, Normal S2, No Murmurs, No Rubs, No Gallops Vascular: No Carotid Bruits, Normal Femoral Pulses, Normal Radial Pulses, Normal Dorsalis Pedal Pulse, Normal Posterior Tibial Pulses Abdomen: Bowel Sounds Present, Soft, Non Tender, No HSM, No Organomegaly Extremities: No Cyanosis, No Clubbing, No edema Neurological: No Focal Motor or Sensory Deficit 01/21/18 08:16: Sodium 140, Potassium 4.4, Chloride 107, Carbon Dioxide 25.0, Anion Gap 8, BUN 36 H, Creatinine 1.92 H, Est GFR (MDRD) Af Amer 44 L, Est GFR ( MDRD) Non-Af 36 L, BUN/Creatinine Ratio 18.8, Glucose 119 H, Calcium 9.0 01/22/18 03:50: WBC 7.1, RBC 3.60 L, Hgb 11.9 L, Hct 34.7 L, MCV 96.4 H, MCH 33.1 H, MCHC 34.3, RDW 13.0, RDW Differential 44.8 H, Plt Count 173, MPV 10.6 01/22/18 03:50: Sodium 141, Potassium 4.7, Chloride 110 H, Carbon Dioxide 22.0, Anion Gap 9, BUN 36 H, Creatinine 1.78 H, Est GFR (MDRD) Af Amer 48 L, Est GFR ( MDRD) Non-Af 40 L, BUN/Creatinine Ratio 20.2 H, Glucose 111 H, Calcium 8.2 L Rhythm: EKG: ECHO: Stress Test: Cardiac Cath: PCI: CT Surgery: Holter monitor: EPS: PPM: CXR: Chest CT Scan: Medical Necessity - Tobacco Use Smoking Status: Never smoker Assessment/Plan 1. Coronary artery disease. Patient is status post angioplasty and stenting of the saphenous vein graft to circumflex artery with excellent results. No chest pain noted EKG this morning demonstrates normal sinus rhythm with no acute changes. Hemoglobin has remained stable with no rise in creatinine remains actually lower. Plan will be to discharge patient on the same medications for outpatient follow- up. Follow-up creatinine will be obtained in the week.
--- NOTE | 2018-01-22 07:24 | PCM.DC.CCA ---
Discharge Diet: Low fat/ Low Cholesterol Discharge Activity: Return to Normal Activity May shower in (days): 1 May resume sexual activity in: 1-2 weeks Weight Bearing Status: Weight bearing as tolerated, Full weight bearing, Partial weight bearing, Toe touch weight bearing, No weight bearing Call your doctor if your incision/area has: Continuous Slow Oozing, Sudden Increased Bleeding, Increased Pain/ Swelling, Increased Redness, Foul Smelling Discharge, Swelling at the incision site Call your doctor if you observe: Fever of 101 or Higher, Shortness of breath, Chest pain Remove Dressing in (days):: 1 Cleanse incision/area with: Soap & Water Additional Instructions: You will remain on Plavix for at least one year. If anyone asks you to stop this, please contact the [facility] first. You will begin your metformin as instructed. You are schedule to see Graciela Physician Redeye Gunner, on 02/12/2018 at 10:30 AM. Please contact the [facility] office if you needs this date and time changed. If you have any questions or concerns, please call the [facility] office at [phone]. Allergies/Adverse Reactions: Allergies ramipril [From Altace] Allergy (Intermediate, Verified 01/21/18 08:42) cough Medications to take at Discharge ferrous sulfate 324 mg (65 mg iron) tablet,delayed release 324 mg PO QDAY tab 06/13/17 glimepiride 1 mg tablet 1 mg PO QAM 06/13/17 isosorbide mononitrate ER 120 mg tablet,extended release 24 hr 120 mg PO QDAY tab 06/13/17 loratadine 10 mg tablet 10 mg PO PRN PRN tab 06/13/17 nitroglycerin 0.4 mg sublingual tablet 0.4 mg SUBLINGUAL .COMPLEX PRN 06/13/17 acetaminophen 500 mg tablet 500 mg PO Q4H PRN 06/16/17 multivitamin tablet 1 tab PO QDAY 06/16/17 aspirin 81 mg tablet,delayed release 81 mg PO QDAY 06/17/17 diltiazem CD 180 mg capsule,extended release 24 hr 180 mg PO DAILY 06/17/17 losartan 50 mg tablet 50 mg PO QDAY 06/17/17 metformin ER 500 mg tablet,extended release 24hr 500 mg PO .COMPLEX 12/16/17 clopidogrel 75 mg tablet 75 mg PO QDAY #30 tab 01/01/18 Primary Care Physician: Neal Rodriguez MD [Primary Care Provider] - Test Results: Test results from this visit will be discussed in further detail at your follow-up appointment, if applicable. Please Follow Up With: Graciela Pro Physician Redeye Gunner When: 02/12/2018 at 10:30 AM Proposed Discharge Date: 01/22/18 Cardiac Rehabilitation Info Cardiac Rehabilitation Program Information: Cardiac Rehabilitation is important for patients like you who are recovering from a heart problem. Cardiac rehabilitation programs are recognized as integral to the continued care of the patient with coronary heart disease. The cardiac rehabilitation program is designed to optimize a patient's physical, psychological, and social functioning. Health hiv/aids care nurse work in cardiac rehabilitation programs and assist you with getting the treatments you need to get stronger and healthier - like exercise, healthy eating habits, and medications. Cardiac rehabilitation has been show to help people with heart problems live longer and have better life enjoyment than people who do not go to cardiac rehabilitation. Please contact the Cardiac Rehabilitation Program at [facility] at in two weeks if you have not heard from them.
--- NOTE | 2018-01-22 07:27 | DCINST_ITS ---
Discharge Diet: Low fat/ Low Cholesterol Discharge Activity: Return to Normal Activity May shower in (days): 1 May resume sexual activity in: 1-2 weeks Weight Bearing Status: Weight bearing as tolerated, Full weight bearing, Partial weight bearing, Toe touch weight bearing, No weight bearing Call your doctor if your incision/area has: Continuous Slow Oozing, Sudden Increased Bleeding, Increased Pain/ Swelling, Increased Redness, Foul Smelling Discharge, Swelling at the incision site Call your doctor if you observe: Fever of 101 or Higher, Shortness of breath, Chest pain Remove Dressing in (days):: 1 Cleanse incision/area with: Soap & Water Additional Instructions: You will remain on Plavix for at least one year. If anyone asks you to stop this , please contact the [facility] first. You will begin your metformin as instructed. You are schedule to see Graciela Physician Benefits Representative, on 02/12/2018 at 10:30 AM. Please contact the [facility] office if you needs this date and time changed. If you have any questions or concerns, please call the [facility] office at [phone]. Allergies/Adverse Reactions: Allergies ramipril [From Altace] Allergy (Intermediate, Verified 01/21/18 08:42) cough Medications to take at Discharge ferrous sulfate 324 mg (65 mg iron) tablet,delayed release 324 mg PO QDAY tab 06/13/17 glimepiride 1 mg tablet 1 mg PO QAM 06/13/17 isosorbide mononitrate ER 120 mg tablet,extended release 24 hr 120 mg PO QDAY tab 06/13/17 loratadine 10 mg tablet 10 mg PO PRN PRN tab 06/13/17 nitroglycerin 0.4 mg sublingual tablet 0.4 mg SUBLINGUAL .COMPLEX PRN 06/13/17 acetaminophen 500 mg tablet 500 mg PO Q4H PRN 06/16/17 multivitamin tablet 1 tab PO QDAY 06/16/17 aspirin 81 mg tablet,delayed release 81 mg PO QDAY 06/17/17 diltiazem CD 180 mg capsule,extended release 24 hr 180 mg PO DAILY 06/17/17 losartan 50 mg tablet 50 mg PO QDAY 06/17/17 metformin ER 500 mg tablet,extended release 24hr 500 mg PO .COMPLEX 12/16/17 clopidogrel 75 mg tablet 75 mg PO QDAY #30 tab 01/01/18 Primary Care Physician: Neal Rodriguez MD [Primary Care Provider] - Test Results: Test results from this visit will be discussed in further detail at your follow- up appointment, if applicable. Please Follow Up With: Graciela Pro Physician Benefits Representative When: 02/12/2018 at 10:30 AM Proposed Discharge Date: 01/22/18 Cardiac Rehabilitation Info Cardiac Rehabilitation Program Information: Cardiac Rehabilitation is important for patients like you who are recovering from a heart problem. Cardiac rehabilitation programs are recognized as integral to the continued care of the patient with coronary heart disease. The cardiac rehabilitation program is designed to optimize a patient's physical, psychological, and social functioning. Health foster care case manager work in cardiac rehabilitation programs and assist you with getting the treatments you need to get stronger and healthier - like exercise, healthy eating habits, and medications. Cardiac rehabilitation has been show to help people with heart problems live longer and have better life enjoyment than people who do not go to cardiac rehabilitation. Please contact the Cardiac Rehabilitation Program at [facility] at in two weeks if you have not heard from them.
[2018-01-22] MEDS: Glimepiride 1 MG Tablet PO (08:23)
[2018-01-22] MEDS: Aspirin E.C. 81 MG Tablet PO (08:23)
[2018-01-22] MEDS: dilTIAZem CD 180 MG Capsule PO (08:24)
[2018-01-22] MEDS: Clopidogrel Bisulfate 75 MG Tablet PO (08:24)
--- NOTE | 2018-01-22 08:39 | CL.I_ITS ---
Patient Name: JADYN RAMOS Study Date: 01/21/2018 Performing: Carlos Mujcia MD Ht: 66 inches 168 cm : 1940 Wt: 181 lbs 82 kg Age: 77 Gender: male BSA: 1.92 PROCEDURE(S) PERFORMED [id number] AND/OR PTCA, SINGLE GRAFT CLINICAL PROFILE AND CO-MORBIDITIES Indications: 99% SVG to OM noted on diagnostic cath Heart Failure: None Angina Classification Anginal Classification w/in 2 Weeks: CCS III CAD Presentations: Stable angina. CONCLUSIONS Successful PTCA/ALBAN SVG to OM (distal) using Resolute Integrity 2.75x8 mm RECOMMENDATIONS ASA Indefinitley Plavix for at least 12 months Follow up with Dr. Theodore DESCRIPTION OF PROCEDURE The patient arrived to the procedure lab. The risks and benefits of the procedure as well as a full d escription of our services here and current unavailability of surgical backup were fully explained to the patient and/or their significant other prior to the catheterization. The Timeout was completed, verifying the correct patient and procedure. The patient's procedural site was prepped and draped in the usual fashion. Local anesthetic was given subcutaneously to right radial region with Lidocaine 2% . Using a modified Seldinger technique, arterial access was obtained via the right radial artery, a 6 Fr sheath was inserted.. The images were reviewed and options discussed. A decision was then made to proceed with an Intervention, IVUS or other adjunct procedure. AL 0.75 Guide catheter was inserted and engaged into the SVG to the OM 1. Runthrough Guide wire was a dvanced to SVG to the 1st OM. 2.5 x 8 emerge Balloon catheter was advanced across lesion in the SVG t o first obtuse marginal. PTCA balloon inflated at 6 atms for 10 secs. 2.75 x 8 resolute Drug Eluting stent was inserted. Drug Eluting stent was advanced across the lesion in the SVG to first obtuse danielle inal. Angiogram performed pre stent deployment. Angiogram performed post stent deployment. The arter ial sheath was pulled and a TR Band was applied for hemostasis 18cc INTERVENTION INFORMATION LESION SITE: Vein > to 1st OM Segment Number: 20-First obtuse marginal branch segment - 1st OM , Les ion Location: Body Lesion Complexity: High/C, culprit lesion: Yes Pre Stenosis: 99 % Pre intervention MARY CARMEN flow: 3 PROCEDURE: Drug Eluting Stent with pre dilatation. Post Stenosis: 0 % Post intervention MARY CARMEN flow: 3 Lesion Devices: Terumo .014 Runthrough Extra Floppy 180cm straight Cordis 6 Fr AL.75 100cm Guide Catheter Joaquin Sci EMERGE MR 2.50x08 BALLOON Medtronic Resolute RX ALBAN 2.75x08 COMPLICATIONS No Complications PROCEDURE MEDICATIONS Oxygen: 2 L/min via nasal cannula Adenosine 50 mcg IC 01/21/2018 10:25:44 Adenosine 50 mg IV @ 01/21/2018 10:30:01 Heparin 6000 unit(s) IV 01/21/2018 10:13:49 Heparin given IA 01/21/2018 10:14:18 Heparin 1000 unit(s) IV 01/21/2018 10:45:19 Nipride 20 mcg IC 01/21/2018 10:30:28 Plavix 300 mg PO 01/21/2018 10:47:33 Verapamil 2.5mg, Ntg 100mcgs, 2000 units of Heparin given IA 01/21/2018 10:14:18 SUMMARY OF HEMODYNAMIC DATA Time AIR REST ECG 08:57:10 AO 154/66 (102) SA 10:17:22 Signed By Carlos Mujica MD On 01/22/2018 08:38:40 Carlos Mujica MD
--- NOTE | 2018-01-22 10:00 | EKG12_ITS ---
Test Reason : AM EKG Blood Pressure : / mmHG Vent. Rate : 068 BPM Atrial Rate : 068 BPM P-R Int : 220 ms QRS Dur : 096 ms QT Int : 432 ms P-R-T Axes : 054 002 124 degrees QTc Int : 459 ms Sinus rhythm with 1st degree A-V block with occasional Premature ventricular complexes ST & T wave abnormality, consider lateral ischemia Abnormal ECG When compared with ECG of 21-JAN-2018 11:16, MANUAL COMPARISON REQUIRED, DATA IS UNCONFIRMED Confirmed by MAI MONTE ([id number]), health editor SAURAV LINARES ([id number]) on 01/27/2018 2:13:35 PM Referred By: Carlos Mujica Confirmed By:MAI MONTE
== END 2018-01-22 08:44 | disposition home or self-care (01) ==
LOC: CLSP 08:11 → ICU 10:55
PROVIDERS: Family Provider Family Medicine; PCP Family Medicine; Visit Provider Internal Medicine Cardiovascular Disease
DX: I25.119 Atherosclerotic heart disease of native coronary artery with unspecified angina pectoris (principal); E11.9 Type 2 diabetes mellitus without complications; I10 Essential (primary) hypertension; E78.5 Hyperlipidemia, unspecified; R53.83 Other fatigue; R94.39 Abnormal result of other cardiovascular function study; R94.31 Abnormal electrocardiogram [ECG] [EKG]; Z79.84 Long term (current) use of oral hypoglycemic drugs; Z79.02 Long term (current) use of antithrombotics/antiplatelets; Z79.82 Long term (current) use of aspirin; Z79.899 Other long term (current) drug therapy; Z95.1 Presence of aortocoronary bypass graft
CPT/HCPCS: 36415; 80048; 82962; 85027; 85347; 87641; 92937; 93005; 97802; J7030; J7040; J7050; C1725; C1769; C1874; C1887; C1894; C9604; J0153; Q9967

== ENCOUNTER → 2018-01-30 15:06 | Outpatient (CLI) | payer MEDICARE, OTHER, SELFPAY ==
[2018-01-21 11:44] VITALS: BMI 29.0
[2018-01-30 17:42] LABS: Anion Gap 9 (5-15); BUN 35 mg/dL (7-18); BUN/Creat Ratio 17.9 RATIO (10-20); Calcium,Total 8.6 mg/dL (8.5-10.1); Chloride 107 mmol/L (98-107); Creatinine, Serum 1.96 mg/dL (0.70-1.30); EST Glomerular Filtration Rate 35 mL/min (>60); Est Glom Filt Rate - Afr Amer 43 mL/min (>60); Glucose 84 mg/dL (74-106); Potassium 4.7 mmol/L (3.5-5.1); Sodium Level 140 mmol/L (136-145)
== END ==
PROVIDERS: Family Provider Family Medicine; PCP Family Medicine; Visit Provider Nurse Practitioner Family
DX: I25.10 Atherosclerotic heart disease of native coronary artery without angina pectoris (principal); E11.9 Type 2 diabetes mellitus without complications; I10 Essential (primary) hypertension; E78.5 Hyperlipidemia, unspecified
CPT/HCPCS: 36415; 80048

== ENCOUNTER → 2018-02-25 12:56 | Outpatient (CLI) | payer MEDICARE, OTHER, SELFPAY ==
[2018-01-21 11:44] VITALS: BMI 29.0
--- NOTE | 2018-02-25 13:03 | PCM.CR.HP2 ---
CR - History & Physical - General Arrival date:: 02/25/18 Arrival time:: 13:03 Date of Referral:: 01/21/18 Date of CR Evaluation:: 02/25/18 Referring Physician: Dr. Raffaele Theodore Primary Diagnosis: Z95.5 Coronary artery stenting, I25.10 Atherosclerotic heart disease - History of Present Cardiac Event Onset Date: Enter Onset Date of cardiac illnesses in Comment field below PTCA or coronary stenting:: Yes Interventions with present event:: PTCA - Medications Home Medications: Ambulatory Orders Medication Instructions Recorded ferrous sulfate 324 mg (65 mg 324 mg PO QDAY tab 06/13/17 iron) tablet,delayed release glimepiride 1 mg tablet 1 mg PO QAM 06/13/17 isosorbide mononitrate ER 120 mg 120 mg PO QDAY tab 06/13/17 tablet,extended release 24 hr loratadine 10 mg tablet 10 mg PO PRN PRN tab 06/13/17 nitroglycerin 0.4 mg sublingual 0.4 mg SUBLINGUAL .COMPLEX PRN 06/13/17 tablet acetaminophen 500 mg tablet 500 mg PO Q4H PRN 06/16/17 multivitamin tablet 1 tab PO QDAY 06/16/17 aspirin 81 mg tablet,delayed 81 mg PO QDAY 06/17/17 release diltiazem CD 180 mg 180 mg PO DAILY 06/17/17 capsule,extended release 24 hr losartan 50 mg tablet 50 mg PO QDAY 06/17/17 metformin ER 500 mg 500 mg PO .COMPLEX 12/16/17 tablet,extended release 24hr clopidogrel 75 mg tablet 75 mg PO QDAY #90 tab 01/30/18 - Allergies Allergies/Adverse Reactions: Allergies ramipril [From Altace] Allergy (Intermediate, Verified 02/12/18 10:29) cough - Sleep Disorder Evaluation Hx of Sleep Apnea: No Do you snore loudly (louder than talking or can be heard through closed doors)?: No Do you often feel tired/ fatigued/ sleepy during daytime?: No Has anyone observed you stop breathing during sleep?: Yes History of Hypertension (for STOP score): Yes STOP Results: Positive Advanced Directives - Advanced Directives Power of Storyboard Artist: No Living Will: Yes Advance Directives Information Provided: No Advance Directives on File: No DNR Order?:: No Past Medical History - Past Medical Illness Medical History: Past Medical History (Last Updated 02/12/18 @ 17:18 by BLADIMIR Sandoval) Abnormal nuclear stress test (Acute) R94.39 steroid injections lumbar (Resolved) HLD (hyperlipidemia) (Chronic) E78.5 HTN (hypertension) (Chronic) I10 CAD (coronary artery disease) (Chronic) I25.10 Atherosclerotic heart disease of [place] coronary artery without angina pectoris (Chronic) I25.10 S/P JOHNSON to LAD, SVG to obtuse marginal LCx, sequential SVG to intermediate, and SVG to right PDA in August 2002, PTCA of ramus branch of LCx, PTCA/stent to proximal RCA, PTCA/stent to proximal LCx, attempted/unsuccessful PTCA LAD in June 2003; Stent SVG to OM 2017 Abnormal result of cardiovascular function study, unspecified (Chronic) R94.30 Abnormal electrocardiogram (Chronic) R94.31 High risk medication use (Chronic) Z79.899 Aftercare following surgery of the circulatory system, NEC (Chronic) Z48.812 Shortness of breath (Chronic) R06.02 Fatigue (Chronic) R53.83 Type 2 diabetes mellitus without complications (Chronic) E11.9 - Past Surgical History Surgical History: Past Surgical History (Last Updated 02/12/18 @ 17:18 by BLADIMIR Sandoval) 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 JOHNSON to LAD, SVG to Rt PDA S/P PTCA (percutaneous transluminal coronary angioplasty) Z98.61 PTCA of Ramus branch of CX, PTCA/stent proximal RCA. 03/1999 PTCA/stent proximal CX. Attempted/unsuccessful PTCA LAD 06/2003; stent SVG to OM 2017 - Family History Summary Family History: Family History (Last Reviewed 12/16/17 @ 13:12 by Breanne Adkins) Father Heart disease Myocardial infarction x3, first [place] at age 49 Brother Diabetes History of PTCA Mother HLD (hyperlipidemia) Social History - Smoking History Smoking Status: Never smoker Hx Tobacco Use: No Hx Smoking Exposure: No - Alcohol Use Alcohol Usage: Yes - socially - Substance Abuse Hx Substance Use: No - Occupation Occupation (List type of work in comments):: Retired - Hobbies, Recreation, Social Activities Hobbies: Other - garden Recreational Activities: I am able to engage in a few activities Social Environment - Status Marital Status: - Current Living Arrangements Living Environment:: Spouse - Children How many children do you have?: 2 Do any of your children live nearby?: Yes - Safety Do you feel safe in your surroundings?: Yes - Assistance Do you need any assistance at home?: none Review of Systems - Review of Systems Hints: Right click = Denies ([place]). Left click = Reports ([place]) Review of Present Symptoms: Reports: Fatigue, Heart Arrhythmia/Irregularities, Appetite - Normal, Sleep - Normal. Denies: Shortness of Breath at Rest, Shortness of Breath with Exertion, PVD, Operative Discomfort, Angina, Wound Healing, Dizziness/Lightheadedness, Appetite - Special Diet, Sexual Changes - Pain Is Patient Pain Free?: No Pain Location: back Pain Level: 02/13 Risk Factor Assessment - Chief Complaint Chief Complaint: CP, SOB - Vital Signs Pulse Ox: 97 - Pulse Pulse Rate: 57 Pulse Rhythm: Irregular - Hypertension How long have you been treated?: 20 Blood Pressure Sitting - Left Arm: 132/50 - Diabetes Diabetic History: Type II Nutrition Referral for Diabetes: No - Obesity Height: 1.68 m Weight:: 78.018 kg Weight in Pounds: 172.0 lbs Weight Source: Standing Scale Body Mass Index (BMI): 27.7 Nutritional Referral for Obesity: No - Physical Inactivity Physical Inactivity: None - Risk Stratification Risk Guidelines: Moderate Risk: Risk Factor for Smoking, Risk Factor for Dyslipidemia, Risk Factor for Diabetes, Risk Factor for Obesity, Risk Factor for Hypertension, Risk Factor for Sedentary Lifestyle, Risk Factor for Depression - For Smoking Smoking Risk Guidelines: Smoking Low Risk: None or quit greater than 6 months ago. Smoking Moderate Risk: Smoker or quit 6 months or less ago. Smoking High Risk: Smoker - For Dyslipidemia Dyslipidemia Risk Guidelines: Low Risk: Moderate Risk: High Risk: 15-25% fat 25.1-29% fat >/= 30% fat. <7% sat fat 7-9% sat fat >9% sat fat. <150 mg chol 150-299 mg chol >/= 300 mg chol. LDL <100 LDL 100-129 LDL >/= 130. Chol/HDL ratio <5.0 Chol/HDL ratio 5.0-6.0 Chol/HDL ratio >6.0. Triglycerides <100 Triglycerides 100-149 Triglycerides >/= 150 - For Diabetes Mellitus Diabetes Risk Guidelines: Diabetes Low Risk: HgA1c <6.5% and/or FBG <120. Diabetes Moderate Risk: HgA1c 6.6-7.9% and/or FBG 120-180. Diabetes High Risk: HgA1c >/= 8% and/or FBG >180 - For Obesity/Overweight Obesity/Overweight Risk Guidelines: Obesity Low Risk: BMI <25.0. Obesity Moderate Risk: BMI 25-29.9. Obesity High Risk: BMI >/= 30.0 - For Hypertension Hypertension Risk Guidelines: Hypertension Low Risk: Systolic <120 and Diastolic <80. Hypertension Moderate Risk: Systolic 120-139 and Diastolic 80-89. Hypertension High Risk: Systolic >/= 140 and Diastolic >/= 90 - For Sedentary Lifestyle Sedentary Lifestyle Risk Guidelines: Sedentary Lifestyle Low Risk: >/= 1,500 kcal/week. Sedentary Lifestyle Moderate Risk: 700-1,499 kcal/week. Sedentary Lifestyle High Risk: < 700 kcal/week - For Depression Depression Risk Guidelines: Depression Low Risk: Not clinically depressed. Depression Moderate Risk: Mildly depressed. Depression High Risk: Clinically depressed - Family History Family History: Family History (Last Reviewed 12/16/17 @ 13:12 by Breanne Adkins) Father Heart disease Myocardial infarction Brother Diabetes History of PTCA Mother HLD (hyperlipidemia) Motivation - Motivation to Participate On a scale of 1 to 10, how prepared are you to commit to attending program?: 9 What do you see as barriers to successfully being able to complete the program?: lack of improvement What do you see as the benefits of succesfully completing the program? In other words, what do you hope to get out of participating in the program?: better health Do you have a spouse or signficant other, family or friends who will help support you to complete the program?: yes
--- NOTE | 2018-02-25 13:07 | CR.HP_ITS ---
CR - History & Physical - General Arrival date:: 02/25/18 Arrival time:: 13:03 Date of Referral:: 01/21/18 Date of CR Evaluation:: 02/25/18 Referring Physician: Dr. Raffaele Theodore Primary Diagnosis: Z95.5 Coronary artery stenting, I25.10 Atherosclerotic heart disease - History of Present Cardiac Event Onset Date: Enter Onset Date of cardiac illnesses in Comment field below PTCA or coronary stenting:: Yes Interventions with present event:: PTCA - Medications Home Medications: Ambulatory Orders Medication Instructions Recorded ferrous sulfate 324 mg (65 mg 324 mg PO QDAY tab 06/13/17 iron) tablet,delayed release glimepiride 1 mg tablet 1 mg PO QAM 06/13/17 isosorbide mononitrate ER 120 mg 120 mg PO QDAY tab 06/13/17 tablet,extended release 24 hr loratadine 10 mg tablet 10 mg PO PRN PRN tab 06/13/17 nitroglycerin 0.4 mg sublingual 0.4 mg SUBLINGUAL .COMPLEX PRN 06/13/17 tablet acetaminophen 500 mg tablet 500 mg PO Q4H PRN 06/16/17 multivitamin tablet 1 tab PO QDAY 06/16/17 aspirin 81 mg tablet,delayed 81 mg PO QDAY 06/17/17 release diltiazem CD 180 mg 180 mg PO DAILY 06/17/17 capsule,extended release 24 hr losartan 50 mg tablet 50 mg PO QDAY 06/17/17 metformin ER 500 mg 500 mg PO .COMPLEX 12/16/17 tablet,extended release 24hr clopidogrel 75 mg tablet 75 mg PO QDAY #90 tab 01/30/18 - Allergies Allergies/Adverse Reactions: Allergies ramipril [From Altace] Allergy (Intermediate, Verified 02/12/18 10:29) cough - Sleep Disorder Evaluation Hx of Sleep Apnea: No Do you snore loudly (louder than talking or can be heard through closed doors)? : No Do you often feel tired/ fatigued/ sleepy during daytime?: No Has anyone observed you stop breathing during sleep?: Yes History of Hypertension (for STOP score): Yes STOP Results: Positive Advanced Directives - Advanced Directives Power of Mapping Editor: No Living Will: Yes Advance Directives Information Provided: No Advance Directives on File: No DNR Order?:: No Past Medical History - Past Medical Illness Medical History: Past Medical History (Last Updated 02/12/18 @ 17:18 by BLADIMIR Sandoval) Abnormal nuclear stress test (Acute) R94.39 steroid injections lumbar (Resolved) HLD (hyperlipidemia) (Chronic) E78.5 HTN (hypertension) (Chronic) I10 CAD (coronary artery disease) (Chronic) I25.10 Atherosclerotic heart disease of [place] coronary artery without angina pectoris (Chronic) I25.10 S/P JOHNSON to LAD, SVG to obtuse marginal LCx, sequential SVG to intermediate, and SVG to right PDA in August 2002, PTCA of ramus branch of LCx, PTCA/stent to proximal RCA, PTCA/stent to proximal LCx, attempted/unsuccessful PTCA LAD in June 2003; Stent SVG to OM 2017 Abnormal result of cardiovascular function study, unspecified (Chronic) R94.30 Abnormal electrocardiogram (Chronic) R94.31 High risk medication use (Chronic) Z79.899 Aftercare following surgery of the circulatory system, NEC (Chronic) Z48.812 Shortness of breath (Chronic) R06.02 Fatigue (Chronic) R53.83 Type 2 diabetes mellitus without complications (Chronic) E11.9 - Past Surgical History Surgical History: Past Surgical History (Last Updated 02/12/18 @ 17:18 by BLADIMIR Sandoval ) 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 JOHNSON to LAD, SVG to Rt PDA S/P PTCA (percutaneous transluminal coronary angioplasty) Z98.61 PTCA of Ramus branch of CX, PTCA/stent proximal RCA. 03/1999 PTCA/stent proximal CX. Attempted/unsuccessful PTCA LAD 06/2003; stent SVG to OM 2017 - Family History Summary Family History: Family History (Last Reviewed 12/16/17 @ 13:12 by Breanne Adkins) Father Heart disease Myocardial infarction x3, first [place] at age 49 Brother Diabetes History of PTCA Mother HLD (hyperlipidemia) Social History - Smoking History Smoking Status: Never smoker Hx Tobacco Use: No Hx Smoking Exposure: No - Alcohol Use Alcohol Usage: Yes - socially - Substance Abuse Hx Substance Use: No - Occupation Occupation (List type of work in comments):: Retired - Hobbies, Recreation, Social Activities Hobbies: Other - garden Recreational Activities: I am able to engage in a few activities Social Environment - Status Marital Status: - Current Living Arrangements Living Environment:: Spouse - Children How many children do you have?: 2 Do any of your children live nearby?: Yes - Safety Do you feel safe in your surroundings?: Yes - Assistance Do you need any assistance at home?: none Review of Systems - Review of Systems Hints: Right click = Denies ([place]). Left click = Reports ([place]) Review of Present Symptoms: Reports: Fatigue, Heart Arrhythmia/Irregularities, Appetite - Normal, Sleep - Normal. Denies: Shortness of Breath at Rest, Shortness of Breath with Exertion, PVD, Operative Discomfort, Angina, Wound Healing, Dizziness/Lightheadedness, Appetite - Special Diet, Sexual Changes - Pain Is Patient Pain Free?: No Pain Location: back Pain Level: 02/13 Risk Factor Assessment - Chief Complaint Chief Complaint: CP, SOB - Vital Signs Pulse Ox: 97 - Pulse Pulse Rate: 57 Pulse Rhythm: Irregular - Hypertension How long have you been treated?: 20 Blood Pressure Sitting - Left Arm: 132/50 - Diabetes Diabetic History: Type II Nutrition Referral for Diabetes: No - Obesity Height: 1.68 m Weight:: 78.018 kg Weight in Pounds: 172.0 lbs Weight Source: Standing Scale Body Mass Index (BMI): 27.7 Nutritional Referral for Obesity: No - Physical Inactivity Physical Inactivity: None - Risk Stratification Risk Guidelines: Moderate Risk: Risk Factor for Smoking, Risk Factor for Dyslipidemia, Risk Factor for Diabetes, Risk Factor for Obesity, Risk Factor for Hypertension, Risk Factor for Sedentary Lifestyle, Risk Factor for Depression - For Smoking Smoking Risk Guidelines: Smoking Low Risk: None or quit greater than 6 months ago. Smoking Moderate Risk: Smoker or quit 6 months or less ago. Smoking High Risk: Smoker - For Dyslipidemia Dyslipidemia Risk Guidelines: Low Risk: Moderate Risk: High Risk: 15-25% fat 25.1-29% fat >/= 30% fat. <7% sat fat 7-9% sat fat >9% sat fat. <150 mg chol 150-299 mg chol >/= 300 mg chol. LDL <100 LDL 100-129 LDL >/= 130. Chol/HDL ratio <5.0 Chol/HDL ratio 5.0-6.0 Chol/HDL ratio >6.0. Triglycerides <100 Triglycerides 100-149 Triglycerides >/= 150 - For Diabetes Mellitus Diabetes Risk Guidelines: Diabetes Low Risk: HgA1c <6.5% and/or FBG <120. Diabetes Moderate Risk: HgA1c 6.6-7.9% and/or FBG 120-180. Diabetes High Risk: HgA1c >/= 8% and/or FBG >180 - For Obesity/Overweight Obesity/Overweight Risk Guidelines: Obesity Low Risk: BMI <25.0. Obesity Moderate Risk: BMI 25-29.9. Obesity High Risk: BMI >/= 30.0 - For Hypertension Hypertension Risk Guidelines: Hypertension Low Risk: Systolic <120 and Diastolic <80. Hypertension Moderate Risk: Systolic 120-139 and Diastolic 80-89. Hypertension High Risk: Systolic >/= 140 and Diastolic >/= 90 - For Sedentary Lifestyle Sedentary Lifestyle Risk Guidelines: Sedentary Lifestyle Low Risk: >/= 1 ,500 kcal/week. Sedentary Lifestyle Moderate Risk: 700-1,499 kcal/week. Sedentary Lifestyle High Risk: < 700 kcal/week - For Depression Depression Risk Guidelines: Depression Low Risk: Not clinically depressed. Depression Moderate Risk: Mildly depressed. Depression High Risk: Clinically depressed - Family History Family History: Family History (Last Reviewed 12/16/17 @ 13:12 by Breanne Adkins) Father Heart disease Myocardial infarction Brother Diabetes History of PTCA Mother HLD (hyperlipidemia) Motivation - Motivation to Participate On a scale of 1 to 10, how prepared are you to commit to attending program?: 9 What do you see as barriers to successfully being able to complete the program? : lack of improvement What do you see as the benefits of succesfully completing the program? In other words, what do you hope to get out of participating in the program?: better health Do you have a spouse or signficant other, family or friends who will help support you to complete the program?: yes
[2018-02-25 14:04] VITALS: BP 132/50; PULSE 57; O2SAT 97; BMI 27.7
--- NOTE | 2018-02-25 14:05 | PCM.CR.ITP ---
General Information - General Information Admitting Diagnosis: Z95.5 Coronary artery stenting, I 25.10 atherosclerotic heart disease - Education/Goals Barriers to Learning: None Cardiac Rehabilitation Goals: 1. Maintain the individual as the primary focus of care. 2. To improve the patient's quality of life. 3. Identification of cardiac risk factors and provide cardiac risk factor management. 4. Enhance the psychosocial status of the patient. 5. Reconditioning enough to allow the patient to resume customary activities. 6. Control symptoms of cardiac disease Scale for measuring improvement of personal goals: Enter appropriate number in Comments. 2 = Unchanged. 3 = Slightly Better. 4 = Moderate Improvement. 5 = Met my Goal Personal Goals: Initial Assessment: Improve energy level, Get back to work, or to resume activities faster, Improve muscle strength and endurance Exercise - Initial Assessment - Visit Date of Eval: 02/25/18 - Initial Eval - Stages of Change Stages of Change:: Contemplate - Exercise Prescription Mode:: Treadmill, Biodyne, Rower, Airdyne, NuStep, Arm Ergometer Angina with exercise?: No - Hypertension Do any of the following apply?: Yes Resting Blood Pressure:: 116/56 - Intervention Home Exercise/Activity Goal:: Sitting Time <3 hrs/day - Education Goals:: Warm-up, RPE NISHA Scale, S/S, Safe Exercise, Self-Monitoring - Exercise Program Goals Exercise Program Goals: Aerobic Activity >30 min, B/P <130/80 Nutrition - Initial Assessment - Program Goals Nutrition Program Goals: LDL <70. Total Cholesterol <200. HDL >45. Triglycerides <150. HgbA1C <7%. BMI <25 - Visit Date of Assessment:: 02/25/18 - Stages of Change Stages of Change:: Contemplate - Diabetes Diabetes:: Yes Do you monitor your blood sugar at home?: Yes - Weight Management Height: 1.68 m Weight:: 78.018 kg Total Score:: 2 - Intervention Referral to dietitian:: No Referral to Diabetic Clinic:: No Will attend diet classes:: Yes - Education Gave educational materials for:: Signs & symptoms of hypoglycemia, Signs & symptoms of hyperglycemia, Relate diabetes to coronary artery disease, Healthy eating Tobacco - Initial Assessment - Program Goals Tobacco Program Goals: Complete smoking cessation. Attend education classes. Improve Knowledge Test score - Stage of Change Stages of Change:: Contemplate - Learning Barriers Total Score:: 20 - Family Support Do you have family support?: Yes - Tobacco Use Tobacco Use: Non-smoker Do you use smokeless tobacco?: No - Intervention Smoking Cessation Referral:: No Individual Education/Counseling:: No Education Schedule Given:: Yes - Education Gave educational material for:: Tobacco triggers, Coronary artery disease, Risk factors, Sexuality, Medical compliance, Cardiac A&P, Angina signs & symptoms Psychosocial - Initial Assess - Target Goals Target Goals: Assess presence or absence of depression. Using a valid screening tool, maximizes coping skills. Positive support system - Stages of Change Stages of Change:: Contemplate - Psychosocial Test Tool Used:: HANDS Depression Questionnaire Total Mood Screening Score:: 6 Self-Efficacy Score:: 6 - Intervention PS - Interventions: Yes Attend Stress Management Classes, Yes Uses Stress Management Skills, No Referral to Mental Health, No Referral to [facility] Case Management, No Referral to Physician - Education Gave educational materials for:: Coping techniques, Signs & symptoms of depression, Stress management, Relaxation techniques - Assistive Devices Assistive Devices:: Cane Fall Risk Assessed:: Yes Patient Health Questionnaire Initial Assessment 1. Little interest or pleasure in doing things: Not at all 2. Feeling down, depressed, or hopeless: Not at all 3. Trouble falling or staying asleep, or sleeping too much: Nearly every day 4. Feeling tired or having little energy: Nearly every day 5. Poor appetite or overeating: Not at all 6. Feeling bad about yourself -- or that you are a failure or have let yourself or your family down: Not at all 7. Trouble concentrating on things, such as reading the newspaper or watching television: Not at all 8. Moving or speaking so slowly that other people could have noticed. Or the opposite - being so fidgety or restless that you have been moving around a lot more than usual: Not at all 9. Thoughts that you would be better off , or of hurting yourself in some way: Not at all How difficult have these problems made it for you to do your work, take care of things at home, or get along with other people?: Not difficult at all Total Score: 6 ANDREW-Q SV Test - Statements CAD is a disease of the arteries in the heart: False Examples of risk factors for heart disease: True Angina is chest pain or discomfort: True The benefits of resistance training include: True Eating more meat and dairy products: False Anti-platelet medications such as aspirin are important: True The only effective way to manage stress: False An exercise warm-up slowly increases heart rate: True Prepared, processed foods usually have high sodium: True Depression is common after a heart attack: True The statin medications lower cholesterol: True To control blood pressure, lower the amount of sodium: True If someone gets chest discomfort during walking: False Transfats are partially hydrogenated vegetable oils: True Sleep apnea that is not treated increases the risk: False To control cholesterol, one should become a vegetarian: False Someone knows if he/she is exercising at the right level: True Diabetes cannot be prevented with exercise & health eating: False Stress is a large risk for heart attack: True A diet that can help lower blood pressure is rich in: True - Total Score Total Correct Responses: 20 Self-Efficacy Initial Assessment We would like to know how confident you are in doing certain activities. Please select your confidence level for:: Select your confidence level for the following using the scale 1-10 where 1 is not at all confident and 10 is totally confident. Your score is the average of all 6 responses. Fatigue: How confident are you that you can keep the fatigue caused by your disease from interfering with the things you want to do? Select Number: 5 Physical Discomfort or Pain: How confident are you that you can keep the physical discomfort or pain of your disease from interfering with the things you want to do? Select Number: 5 Emotional Distress: How confident are you that you can keep the emotional distress caused by your disease from interfering with the things you want to do? Select Number: 5 Other Symptoms or Health Problems: How confident are you that you can keep other symptoms or health problems from interfering with the things you want to do? Select Number: 5 Different Tasks and Activities: How confident are you that you can do the different tasks and activities needed to manage your health condition so as to reduce your need to see a doctor? Select Number: 9 Medication: How confident are you that you can do things other than just taking medication to reduce how much your illness affects your everyday life? Select Number: 9 Total Score:: 6 Nutrition Survey - Nutrition Survey Instructions Scoring Instructions: Scoring is as follows: Yes = 1 points. No = 0 point. Patient score that is >/=12 is considered to be at potential nutritional risk and could benefit from a referral to a registered dietitian. - Nutrition Survey Initial Have you lost >10 lbs over the past 2 months without trying?: No Are you following a special diet at home for diabetes, low fat, or low salt?: Yes Are you interested in meeting with a dietitian for help understanding your diet?: No Do you eat less than 3 meals a day?: No Do you eat fatty meats (alberto, sausage, ribs, etc), fried foods, desserts, large amounts of salad dressings, margarine, butter, or cheese most days?: Yes Do you have food allergies? [Enter types in comment field]: No Do you eat in restaurants more than 3 times a week?: No Do you season food with salt, seasoning salt, or garlic salt?: No Do you used canned, boxed, frozen meals, or soups, seasoning packets?: No Total Score:: 2
[2018-02-25 14:21] VITALS: BP 116/56
== END ==
PROVIDERS: Family Provider Family Medicine; PCP Family Medicine; Visit Provider Internal Medicine Cardiovascular Disease
DX: I25.10 Atherosclerotic heart disease of native coronary artery without angina pectoris (principal); Z95.5 Presence of coronary angioplasty implant and graft

== ENCOUNTER 2018-02-27 06:25 | Outpatient (RCR) | payer MEDICARE, OTHER, SELFPAY ==
[2018-01-21 11:44] VITALS: BMI 29.0
== END 2018-03-06 23:59 ==
LOC: CR 06:25
PROVIDERS: Family Provider Family Medicine; PCP Family Medicine; Visit Provider Internal Medicine Cardiovascular Disease
DX: I25.10 Atherosclerotic heart disease of native coronary artery without angina pectoris (principal); E78.5 Hyperlipidemia, unspecified; I10 Essential (primary) hypertension; Z95.5 Presence of coronary angioplasty implant and graft
CPT/HCPCS: 93798

== ENCOUNTER 2018-04-03 13:00 | Outpatient (RCR) | payer MEDICARE, OTHER, SELFPAY ==
[2018-01-21 11:44] VITALS: BMI 29.0
--- NOTE | 2018-04-01 10:13 | CR.ITP_ITS ---
General Information - General Information Admitting Diagnosis: PCI w coronary artery stenting - Education/Goals Cardiac Rehabilitation Goals: 1. Maintain the individual as the primary focus of care. 2. To improve the patient's quality of life. 3. Identification of cardiac risk factors and provide cardiac risk factor management. 4. Enhance the psychosocial status of the patient. 5. Reconditioning enough to allow the patient to resume customary activities. 6. Control symptoms of cardiac disease Scale for measuring improvement of personal goals: Enter appropriate number in Comments. 2 = Unchanged. 3 = Slightly Better. 4 = Moderate Improvement. 5 = Met my Goal Exercise - 30-day Assessment - Visit Date of Eval: 04/01/18 Session #:: 9 - Stages of Change Stages of Change:: Action - Exercise Prescription Mode:: Treadmill, Biodyne, Airdyne, NuStep Frequency (x/week): 3 Duration:: 30 METs - Progression: 0.5-1 MET as tolerated: 2.9 Target Heart Rate:: 107-114 Max HR 112 - Hypertension Resting Blood Pressure:: 122/60 Peak Exercise Blood Pressure:: 140/72 - Intervention Home Exercise/Activity Goal:: Sitting Time <3 hrs/day - Education Goals:: Warm-up, RPE NISHA Scale, S/S, Safe Exercise, Self-Monitoring - Exercise Program Goals Exercise Program Goals: Aerobic Activity >30 min, B/P <130/80 Nutrition - Initial Assessment - Program Goals Nutrition Program Goals: LDL <70. Total Cholesterol <200. HDL >45. Triglycerides <150. HgbA1C <7%. BMI <25 - Diabetes Do you monitor your blood sugar at home?: Yes Nutrition - 30-Day Assessment - Program Goals Nutrition Program Goals: LDL <70. Total Cholesterol <200. HDL >45. Triglycerides <150. HgbA1C <7%. BMI <25 - Visit Date of Eval: 04/01/18 - Stages of Change Stages of Change:: Action - Diabetes Diabetes:: Yes - Weight Management Weight:: 83.007 kg - Intervention Will attend diet classes:: Yes - Education Attended class for:: Signs & symptoms of hypoglycemia, Signs & symptoms of hyperglycemia, Relate diabetes to coronary artery disease, Healthy eating Tobacco - 30-Day Assessment - Program Goals Tobacco Program Goals: Complete smoking cessation. Attend education classes. Improve Knowledge Test score - Stage of Change Stages of Change:: Action - Learning Barriers Learning Barriers: Participates in education - Family Support Do you have family support?: Yes - Tobacco Use Tobacco Use: Non-smoker Do you use smokeless tobacco?: No - Intervention Smoking Cessation Referral:: No Individual Education/Counseling:: No Education Schedule Given:: Yes - Education Attended class for:: Tobacco triggers, Coronary artery disease, Risk factors, Sexuality, Medical compliance, Cardiac A&P, Angina signs & symptoms Psychosocial - Initial Assess - Target Goals Target Goals: Assess presence or absence of depression. Using a valid screening tool, maximizes coping skills. Positive support system - Psychosocial Test Tool Used:: HANDS Depression Questionnaire - Assistive Devices Fall Risk Assessed:: Yes Psychosocial - 30-Day Assess - Target Goals Target Goals: Assess presence or absence of depression. Using a valid screening tool, maximizes coping skills. Positive support system - Stages of Change Stages of Change:: Action - Psychosocial Test Tool Used:: HANDS Depression Questionnaire - Intervention PS - Interventions: Yes Attend Stress Management Classes, Yes Uses Stress Management Skills, No Referral to Mental Health, No Referral to [facility] Case Management, No Referral to Physician - Education Attended classes for:: Coping techniques, Signs & symptoms of depression, Stress management, Relaxation techniques - Assistive Devices Fall Risk Assessed:: Yes Patient Health Questionnaire 30-Day Re-eval Assessment 1. Little interest or pleasure in doing things: Not at all 2. Feeling down, depressed, or hopeless: Not at all 3. Trouble falling or staying asleep, or sleeping too much: Nearly every day 4. Feeling tired or having little energy: Nearly every day 5. Poor appetite or overeating: Not at all 6. Feeling bad about yourself -- or that you are a failure or have let yourself or your family down: Not at all 7. Trouble concentrating on things, such as reading the newspaper or watching television: Not at all 8. Moving or speaking so slowly that other people could have noticed. Or the opposite - being so fidgety or restless that you have been moving around a lot more than usual: Not at all 9. Thoughts that you would be better off , or of hurting yourself in some way: Not at all How difficult have these problems made it for you to do your work, take care of things at home, or get along with other people?: Not difficult at all Total Score: 6 Self-Efficacy 30-Day Re-eval Assessment We would like to know how confident you are in doing certain activities. Please select your confidence level for:: Select your confidence level for the following using the scale 1-10 where 1 is not at all confident and 10 is totally confident. Your score is the average of all 6 responses. Fatigue: How confident are you that you can keep the fatigue caused by your disease from interfering with the things you want to do? Select Number: 6 Physical Discomfort or Pain: How confident are you that you can keep the physical discomfort or pain of your disease from interfering with the things you want to do? Select Number: 6 Emotional Distress: How confident are you that you can keep the emotional distress caused by your disease from interfering with the things you want to do? Select Number: 5 Other Symptoms or Health Problems: How confident are you that you can keep other symptoms or health problems from interfering with the things you want to do? Select Number: 5 Different Tasks and Activities: How confident are you that you can do the different tasks and activities needed to manage your health condition so as to reduce your need to see a doctor? Select Number: 9 Medication: How confident are you that you can do things other than just taking medication to reduce how much your illness affects your everyday life? Select Number: 9 Total Score:: 6
[2018-04-01 10:16] VITALS: BP 122/60; BP 140/72
== END 2018-04-05 23:59 ==
LOC: CR 13:00
PROVIDERS: Family Provider Family Medicine; PCP Family Medicine; Visit Provider Internal Medicine Cardiovascular Disease
DX: I25.10 Atherosclerotic heart disease of native coronary artery without angina pectoris (principal); E78.5 Hyperlipidemia, unspecified; I10 Essential (primary) hypertension; Z95.5 Presence of coronary angioplasty implant and graft
CPT/HCPCS: 93798

== ENCOUNTER 2018-05-06 13:00 | Outpatient (RCR) | payer MEDICARE, OTHER, SELFPAY ==
[2018-01-21 11:44] VITALS: BMI 29.0
[2018-04-06 01:25] VITALS: BP 122/60; BP 140/72
--- NOTE | 2018-05-01 10:26 | PCM.CR.ITP ---
Exercise - 60-Day Assessment - Visit Date of Eval: 05/01/18 Session #:: 21 - Stages of Change Stages of Change:: Action - Exercise Prescription Mode:: Treadmill, Rower, Airdyne, NuStep Frequency (x/week): 3 Duration:: 35 METs: 6 Target Heart Rate:: 107-114 - Hypertension Resting Blood Pressure:: 150/60 Peak Exercise Blood Pressure:: 150/60 Medication Changes:: No - Intervention Home Exercise/Activity Goal:: Moderate Exercise 30 min/day x 5 days/wk - Education Goals:: Warm-up, S/S, Safe Exercise, Self-Monitoring - Exercise Program Goals Exercise Program Goals: Aerobic Activity >30 min Nutrition - Initial Assessment - Program Goals Nutrition Program Goals: LDL <70. Total Cholesterol <200. HDL >45. Triglycerides <150. HgbA1C <7%. BMI <25 - Diabetes Do you monitor your blood sugar at home?: Yes Nutrition - 60-Day Assessment - Program Goals Nutrition Program Goals: LDL <70. Total Cholesterol <200. HDL >45. Triglycerides <150. HgbA1C <7%. BMI <25 - Visit Date of Eval: 05/01/18 - Stages of Change Stages of Change:: Action - Lipids Has the patient seen the dietitian?: No - Diabetes Diabetes:: No - Weight Management Weight:: 183 lb 11.2 oz - Intervention Referral to dietitian:: No Referral to Diabetic Clinic:: No Will attend diet classes:: Yes - Education Attended class for:: Healthy eating Tobacco - 60-Day Assessment - Program Goals Tobacco Program Goals: Complete smoking cessation. Attend education classes. Improve Knowledge Test score - Stage of Change Stages of Change:: Action - Learning Barriers Learning Barriers: Participates in education - Family Support Do you have family support?: Yes - Tobacco Use Tobacco Use: Non-smoker - Intervention Smoking Cessation Referral:: No Individual Education/Counseling:: No Education Schedule Given:: Yes - Education Attended class for:: Coronary artery disease, Risk factors, Sexuality, Medical compliance, Cardiac A&P, Angina signs & symptoms Psychosocial - Initial Assess - Target Goals Target Goals: Assess presence or absence of depression. Using a valid screening tool, maximizes coping skills. Positive support system - Psychosocial Test Tool Used:: HANDS Depression Questionnaire - Assistive Devices Fall Risk Assessed:: Yes Psychosocial - 60-Day Assess - Target Goals Target Goals: Assess presence or absence of depression. Using a valid screening tool, maximizes coping skills. Positive support system - Stages of Change Stages of Change:: Action - Psychosocial Test Tool Used:: HANDS Depression Questionnaire - Intervention PS - Interventions: Yes Attend Stress Management Classes, Yes Uses Stress Management Skills, No Referral to Mental Health, No Referral to [facility] Case Management, No Referral to Physician - Education Attended classes for:: Coping techniques, Signs & symptoms of depression, Stress management, Relaxation techniques - Patient/Program Goal Preventative Medication(s):: Aspirin, Clopidogrel, Beta deneen, Statin/lipid - Assistive Devices Assistive Devices:: None Fall Risk Assessed:: Yes Patient Health Questionnaire 60-Day Re-eval Assessment 1. Little interest or pleasure in doing things: Not at all 2. Feeling down, depressed, or hopeless: Not at all 3. Trouble falling or staying asleep, or sleeping too much: Not at all 4. Feeling tired or having little energy: Not at all 5. Poor appetite or overeating: Not at all 6. Feeling bad about yourself -- or that you are a failure or have let yourself or your family down: Not at all 7. Trouble concentrating on things, such as reading the newspaper or watching television: Not at all 8. Moving or speaking so slowly that other people could have noticed. Or the opposite - being so fidgety or restless that you have been moving around a lot more than usual: Not at all 9. Thoughts that you would be better off , or of hurting yourself in some way: Not at all Total Score: 0 Self-Efficacy 60-Day Re-eval Assessment We would like to know how confident you are in doing certain activities. Please select your confidence level for:: Select your confidence level for the following using the scale 1-10 where 1 is not at all confident and 10 is totally confident. Your score is the average of all 6 responses. Fatigue: How confident are you that you can keep the fatigue caused by your disease from interfering with the things you want to do? Select Number: 10 Physical Discomfort or Pain: How confident are you that you can keep the physical discomfort or pain of your disease from interfering with the things you want to do? Select Number: 10 Emotional Distress: How confident are you that you can keep the emotional distress caused by your disease from interfering with the things you want to do? Select Number: 10 Other Symptoms or Health Problems: How confident are you that you can keep other symptoms or health problems from interfering with the things you want to do? Select Number: 10 Different Tasks and Activities: How confident are you that you can do the different tasks and activities needed to manage your health condition so as to reduce your need to see a doctor? Select Number: 10 Medication: How confident are you that you can do things other than just taking medication to reduce how much your illness affects your everyday life? Select Number: 10 Total Score:: 10
[2018-05-01 10:29] VITALS: BP 150/60
== END 2018-05-06 23:59 ==
LOC: CR 13:00
PROVIDERS: Family Provider Family Medicine; PCP Family Medicine; Referring Provider Internal Medicine Cardiovascular Disease; Visit Provider Internal Medicine Cardiovascular Disease
DX: I25.10 Atherosclerotic heart disease of native coronary artery without angina pectoris (principal); E78.5 Hyperlipidemia, unspecified; I10 Essential (primary) hypertension; Z95.5 Presence of coronary angioplasty implant and graft
CPT/HCPCS: 93798

== ENCOUNTER → 2018-05-11 11:29 | Outpatient (CLI) | payer MEDICARE, OTHER, SELFPAY ==
[2018-01-21 11:44] VITALS: BMI 29.0
[2018-05-11 13:02] LABS: Absolute Lymphocyte Count 2.56 X10^3/ul (0.83-4.51); Absolute Neutrophil Count 4.4 X10^3/uL (2.0-7.7); Basophil# 0.03 X10^3/uL; Basophil% 0.4 % (0-1); Eosinophil# 0.21 X10^3/uL; Eosinophils% 2.6 % (0-5); Hematocrit 36.7 % (40-54); Hemoglobin 11.8 g/dl (13.0-16.5); Lymphocyte # 2.56 X10^3/ul (4.0); Lymphocyte % 31.8 % (19-41); Mean Corp Hgb Conc 32.2 g/gl (32-36); Mean Corpuscular Hgb 31.7 pg (27.0-32.0); Mean Corpuscular Volume 98.7 fL (80-94); Mean Platelet Vol. 10.3 fl (6.2-12.0); Monocyte# 0.84 X10^3/uL; Monocyte% 10.4 % (0-10); Neutrophil % 54.7 % (47-70); Platelet Count 229 K/mm3 (150-450); RBC Distribution Width CV 14.5 % (11.6-14.6); RBC Distribution Width SD 51.8 fl (35.1-43.9); Red Blood Count 3.72 M/mm3 (4.6-6.2); White Blood Count 8.1 K/mm3 (4.4-11.0)
[2018-05-11 13:05] LABS: POSITIVE COUNT NO; POSITIVE DIFFERENTIAL NO; POSITIVE MORPHOLOGY NO
[2018-05-11 13:21] LABS: Albumin, Serum 3.6 g/dL (3.2-5.0); BUN 40 mg/dL (7-18); Calcium,Total 8.7 mg/dL (8.5-10.1); Chloride 107 mmol/L (98-107); EST Glomerular Filtration Rate 33 mL/min (>60); Est Glom Filt Rate - Afr Amer 40 mL/min (>60); Glucose 78 mg/dL (74-106); Phosphorus 3.7 mg/dL (2.5-4.9); Potassium 4.8 mmol/L (3.5-5.1); Sodium Level 140 mmol/L (136-145)
[2018-05-11 13:30] LABS: Vitamin D,25 Hydroxy 19.9 ng/mL (29.95-100.01)
[2018-05-11 15:15] LABS: Protein, Urine (Random) 309.2 mg/dL (<11.9); Protein:Creat Ratio 3725 mg/g CRE (0-200)
[2018-05-11 16:42] LABS: Magnesium 1.9 mg/dL (1.6-2.6)
== END ==
PROVIDERS: Family Provider Family Medicine; PCP Family Medicine; Referring Provider Internal Medicine Nephrology; Visit Provider Internal Medicine Nephrology
DX: I12.9 Hypertensive chronic kidney disease with stage 1 through stage 4 chronic kidney disease, or unspecified chronic kidney disease (principal); N18.3 Chronic kidney disease, stage 3 (moderate); I49.9 Cardiac arrhythmia, unspecified; Z13.0 Encounter for screening for diseases of the blood and blood-forming organs and certain disorders involving the immune mechanism; I25.10 Atherosclerotic heart disease of native coronary artery without angina pectoris; E78.5 Hyperlipidemia, unspecified; Z95.5 Presence of coronary angioplasty implant and graft
CPT/HCPCS: 36415; 80069; 82306; 82570; 83735; 83970; 84156; 85025; 93798

== ENCOUNTER 2018-05-20 13:00 | Outpatient (RCR) | payer MEDICARE, OTHER, SELFPAY ==
[2018-01-21 11:44] VITALS: BMI 29.0
[2018-05-07 01:23] VITALS: BP 150/60
--- NOTE | 2018-05-27 13:33 | PCM.CR.ITP ---
Exercise - 90-Day Assessment - Visit Date of Eval: 05/27/18 Session #:: 30 - Stages of Change Stages of Change:: Action - Exercise Prescription Mode:: Treadmill, Rower, NuStep Frequency (x/week): 3 Duration:: 35 METs: 7 Target Heart Rate:: 107-114 - Hypertension Resting Blood Pressure:: 126/60 Peak Exercise Blood Pressure:: 132/54 Medication Changes:: No - Intervention Home Exercise/Activity Goal:: Moderate Exercise 30 min/day x 5 days/wk - Education Goals:: Warm-up, RPE NISHA Scale, S/S, Safe Exercise, Self-Monitoring - Exercise Program Goals Exercise Program Goals: Aerobic Activity >30 min Nutrition - Initial Assessment - Program Goals Nutrition Program Goals: LDL <70. Total Cholesterol <200. HDL >45. Triglycerides <150. HgbA1C <7%. BMI <25 - Diabetes Do you monitor your blood sugar at home?: Yes Nutrition - 90-Day Assessment - Program Goals Nutrition Program Goals: LDL <70. Total Cholesterol <200. HDL >45. Triglycerides <150. HgbA1C <7%. BMI <25 - Visit Date of Eval: 05/27/18 - Stages of Change Stages of Change:: Action - Lipids Has the patient seen the dietitian?: No - Diabetes Diabetes:: No - Weight Management Weight:: 184 lb 4.8 oz - Intervention Referral to dietitian:: No Referral to Diabetic Clinic:: No Will attend diet classes:: Yes - Education Attended class for:: Healthy eating Tobacco - 90-Day Assessment - Program Goals Tobacco Program Goals: Complete smoking cessation. Attend education classes. Improve Knowledge Test score - Stage of Change Stages of Change:: Action - Learning Barriers Learning Barriers: Participates in education - Family Support Do you have family support?: Yes - Tobacco Use Tobacco Use: Non-smoker Do you use smokeless tobacco?: No - Intervention Education Schedule Given:: Yes - Education Attended class for:: Coronary artery disease, Risk factors, Sexuality, Medical compliance, Cardiac A&P, Angina signs & symptoms Psychosocial - 90-Day Assess - Target Goals Target Goals: Assess presence or absence of depression. Using a valid screening tool, maximizes coping skills. Positive support system - Stages of Change Stages of Change:: Action - Psychosocial Test Tool Used:: HANDS Depression Questionnaire - Intervention PS - Interventions: Yes Attend Stress Management Classes, Yes Uses Stress Management Skills, No Referral to Mental Health, No Referral to [facility] Case Management, No Referral to Physician - Education Attended classes for:: Coping techniques, Signs & symptoms of depression, Stress management, Relaxation techniques - Patient/Program Goal Preventative Medication(s):: Aspirin, Clopidogrel, Beta deneen, Statin/lipid - Assistive Devices Assistive Devices:: None Fall Risk Assessed:: Yes Patient Health Questionnaire 90-Day Re-eval Assessment 1. Little interest or pleasure in doing things: Not at all 2. Feeling down, depressed, or hopeless: Not at all 3. Trouble falling or staying asleep, or sleeping too much: Not at all 4. Feeling tired or having little energy: Not at all 5. Poor appetite or overeating: Not at all 6. Feeling bad about yourself -- or that you are a failure or have let yourself or your family down: Not at all 7. Trouble concentrating on things, such as reading the newspaper or watching television: Not at all 8. Moving or speaking so slowly that other people could have noticed. Or the opposite - being so fidgety or restless that you have been moving around a lot more than usual: Not at all 9. Thoughts that you would be better off , or of hurting yourself in some way: Not at all Total Score: 0 ANDREW-Q SV Test - Statements CAD is a disease of the arteries in the heart: False Examples of risk factors for heart disease: True Angina is chest pain or discomfort: True The benefits of resistance training include: True Eating more meat and dairy products: False Anti-platelet medications such as aspirin are important: True The only effective way to manage stress: False An exercise warm-up slowly increases heart rate: True Prepared, processed foods usually have high sodium: True Depression is common after a heart attack: True The statin medications lower cholesterol: True To control blood pressure, lower the amount of sodium: True If someone gets chest discomfort during walking: False Transfats are partially hydrogenated vegetable oils: True Sleep apnea that is not treated increases the risk: False To control cholesterol, one should become a vegetarian: False Someone knows if he/she is exercising at the right level: True Diabetes cannot be prevented with exercise & health eating: False Stress is a large risk for heart attack: True A diet that can help lower blood pressure is rich in: True - Total Score Total Correct Responses: 20 Self-Efficacy 90-Day Re-eval Assessment We would like to know how confident you are in doing certain activities. Please select your confidence level for:: Select your confidence level for the following using the scale 1-10 where 1 is not at all confident and 10 is totally confident. Your score is the average of all 6 responses. Fatigue: How confident are you that you can keep the fatigue caused by your disease from interfering with the things you want to do? Select Number: 10 Physical Discomfort or Pain: How confident are you that you can keep the physical discomfort or pain of your disease from interfering with the things you want to do? Select Number: 10 Emotional Distress: How confident are you that you can keep the emotional distress caused by your disease from interfering with the things you want to do? Select Number: 10 Other Symptoms or Health Problems: How confident are you that you can keep other symptoms or health problems from interfering with the things you want to do? Select Number: 10 Different Tasks and Activities: How confident are you that you can do the different tasks and activities needed to manage your health condition so as to reduce your need to see a doctor? Select Number: 10 Medication: How confident are you that you can do things other than just taking medication to reduce how much your illness affects your everyday life? Select Number: 10 Total Score:: 10 Nutrition Survey - Nutrition Survey Instructions Scoring Instructions: Scoring is as follows: Yes = 1 points. No = 0 point. Patient score that is >/=12 is considered to be at potential nutritional risk and could benefit from a referral to a registered dietitian. - Nutrition Survey Discharge Have you lost >10 lbs over the past 2 months without trying?: No Are you following a special diet at home for diabetes, low fat, or low salt?: Yes Are you interested in meeting with a dietitian for help understanding your diet?: No Do you eat less than 3 meals a day?: No Do you eat fatty meats (alberto, sausage, ribs, etc), fried foods, desserts, large amounts of salad dressings, margarine, butter, or cheese most days?: No - have cut back on frequency Do you have food allergies? [Enter types in comment field]: No Do you eat in restaurants more than 3 times a week?: No Do you season food with salt, seasoning salt, or garlic salt?: No Do you used canned, boxed, frozen meals, or soups, seasoning packets?: No Total Score:: 1
[2018-05-27 13:39] VITALS: BP 126/60; BP 132/54
== END 2018-06-05 23:59 ==
LOC: CR 13:00
PROVIDERS: Family Provider Family Medicine; PCP Family Medicine; Referring Provider Internal Medicine Cardiovascular Disease; Visit Provider Internal Medicine Cardiovascular Disease
DX: I25.10 Atherosclerotic heart disease of native coronary artery without angina pectoris (principal); E78.5 Hyperlipidemia, unspecified; I10 Essential (primary) hypertension; Z95.5 Presence of coronary angioplasty implant and graft
CPT/HCPCS: 93798

== ENCOUNTER → 2018-05-20 14:14 | Outpatient (CLI) | payer MEDICARE, OTHER, SELFPAY ==
[2018-01-21 11:44] VITALS: BMI 29.0
--- NOTE | 2018-05-20 14:18 | RAD_ITS ---
STUDY: X-RAY - LEFT KNEE REASON FOR EXAM: Male, 77 years old. Pain. TECHNIQUE: 3 view(s) of the knee. COMPARISON: None. FINDINGS: Normal visualized distal femur. Normal visualized proximal tibia and fibula. Normal proximal tibiofibular articulation. There is no demonstrated fracture. Normal medial femorotibial compartment. Normal lateral femorotibial compartment. Normal patellofemoral articulation. There is no demonstrated joint effusion. Soft tissue swelling seen anterior to the patella. This may be prepatellar bursitis. Surgical vascular clips are seen along the medial aspect of the knee. RAD/Knee 3 Views IMPRESSION: Soft tissue swelling seen anterior to the patella. This may be prepatellar bursitis. No fracture or dislocation. Electronically Signed: Drew Jara MD at 13:40 EST , Service support ,
== END ==
PROVIDERS: Family Provider Family Medicine; PCP Family Medicine; Referring Provider Nurse Practitioner Family; Visit Provider Nurse Practitioner Family
DX: M25.562 Pain in left knee (principal); I25.10 Atherosclerotic heart disease of native coronary artery without angina pectoris; E78.5 Hyperlipidemia, unspecified; I10 Essential (primary) hypertension; Z95.5 Presence of coronary angioplasty implant and graft
CPT/HCPCS: 73562; 93798

== ENCOUNTER → 2018-05-21 16:20 | Outpatient (CLI) | payer MEDICARE, OTHER, SELFPAY ==
[2018-01-21 11:44] VITALS: BMI 29.0
[2018-05-21 18:26] LABS: Pathologist Comment May follow
[2018-05-21 18:47] LABS: RBC /Synovial Fluid 0.021 10^6/uL (0); Synovial Fld Mononuclear WBC % 79.4 %; Synovial Fld Polynuclear WBC # 0.039 10^3/ul; Synovial Fld Polynuclear WBC % 20.6 %
[2018-05-21 22:04] LABS: Lymph 15 %; Monocyte /Synovial Fluid 34 %; Neutrophil 26 % (0-25)
[2018-05-21 22:06] LABS: AUTO B FLUID DILUENT BKGD CT WBC <0.1 RBC <0.01 (W<.1,R<.01); Color / Synovial Fluid Pink (Pale Yellow); Source / Synovial Fluid LEFT KNEE; Source- Body Fluid SYNOVIAL
[2018-05-21 22:07] LABS: Appearance /Synovial Fluid Cloudy (CLEAR); Body Fluid QC Type(s) BF1Q,BF2Q
[2018-05-21 22:08] LABS: Other Cell /Synovial Fluid 25 %
[2018-05-25 12:51] LABS: Pathologist Review Reviewed
== END ==
PROVIDERS: Family Provider Family Medicine; PCP Family Medicine; Referring Provider Specialist; Visit Provider Specialist
DX: M25.462 Effusion, left knee (principal)
CPT/HCPCS: 87015; 87070; 87075; 87101; 87116; 87205; 87206; 89050; 89051; 89060

== ENCOUNTER → 2019-04-30 14:25 | Outpatient (CLI) | payer MEDICARE, OTHER, SELFPAY ==
[2018-01-21 11:44] VITALS: BMI 29.0
[2019-04-01 08:29] VITALS: BMI 26.9
--- NOTE | 2019-04-30 14:32 | EKG12_ITS ---
Test Reason : PRE OP Blood Pressure : / mmHG Vent. Rate : 065 BPM Atrial Rate : 065 BPM P-R Int : 256 ms QRS Dur : 100 ms QT Int : 430 ms P-R-T Axes : 070 -06 122 degrees QTc Int : 447 ms Sinus rhythm with 1st degree A-V block ST & T wave abnormality, consider lateral ischemia Abnormal ECG Confirmed by JAYMIE ZAMORA, SUKUMAR ([id number]), television news video editor JASMIN HAND ([id number]) on 05/03/2019 10:45:43 AM Referred By: Dileep Guy Confirmed By:SUKUMAR COON MD
== END ==
PROVIDERS: Family Provider Family Medicine; PCP Family Medicine; Referring Provider Specialist; Visit Provider Specialist
DX: Z01.818 Encounter for other preprocedural examination (principal); E11.9 Type 2 diabetes mellitus without complications
CPT/HCPCS: 93005

== ENCOUNTER 2019-05-24 09:55 | Inpatient (IN) | payer MEDICARE, OTHER, SELFPAY ==
[2018-01-21 11:44] VITALS: BMI 29.0
[2019-04-01 08:29] VITALS: BMI 26.9
[2019-05-24] VITALS (36 sets, daily range): BP systolic 107–160; BP diastolic 63–125; PULSE 81–120; RESP 12–40; TEMP 36.9–37.1; O2SAT 75–100; BMI 30.5; BMI 28.9; BMI 30.6
--- NOTE | 2019-05-24 10:13 | EKG12_ITS ---
Test Reason : POSTERIOR Blood Pressure : / mmHG Vent. Rate : 104 BPM Atrial Rate : 174 BPM P-R Int : 000 ms QRS Dur : 096 ms QT Int : 350 ms P-R-T Axes : 000 -02 149 degrees QTc Int : 460 ms Ectopic Atrial Rhythm Marked ST-abnormalities: consider myocardial ischemia: Anterior Lateral Abnormal ECG Confirmed by EFE ZAMORA, EDWINA ([id number]), news assignment editor SANTIAGO CHAVEZ ([id number]) on 05/26/2019 1:57:09 PM Referred By: Samir Birmingham Confirmed By:EDWINA WILSK MD
--- NOTE | 2019-05-24 10:19 | RAD_ITS ---
STUDY: X-RAY CHEST REASON FOR EXAM: Male, 78 years old. Chest pain and shortness of breath. TECHNIQUE: Single AP portable view of the chest. COMPARISON: Comparison is made with prior study dated January 01, 2018. FINDINGS: EKG electrodes are seen. Patchy bilateral airspace disease more prominent in the right hemithorax. This may represent pulmonary edema or infectious process. Clinical correlation is recommended. Blunting of the costophrenic angles. Sternal cerclage wires and vascular clips are present from a prior sternotomy and coronary artery bypass graft procedure (CABG). Normal mediastinum and dani. Normal visualized pulmonary arteries. There is atherosclerotic calcification of the aortic arch with tortuosity. There are diffuse degenerative changes of the visualized thoracic spine. Normal visualized ribs, clavicles, and shoulders. There is no demonstrated abnormality of the visualized soft tissue structures of the upper abdomen. RAD/Chest 1 View (Portable) IMPRESSION: Bilateral patchy airspace disease worse on the right side. Blunting of both costophrenic angles. Findings suggestive of pulmonary edema versus infectious process. Electronically Signed: Alec Thompson, at 11:08 EST , Service support ,
--- NOTE | 2019-05-24 10:30 | EKG12_ITS ---
Test Reason : SOB Blood Pressure : / mmHG Vent. Rate : 102 BPM Atrial Rate : 105 BPM P-R Int : 000 ms QRS Dur : 098 ms QT Int : 354 ms P-R-T Axes : 000 010 140 degrees QTc Int : 461 ms Sinus vs. Ectopic Atrial Rhythm Marked ST abnormality, possible anterior-lateral subendocardial injury Abnormal ECG Confirmed by EFE ZAMORA, EDWINA ([id number]), avid editor SANTIAGO CHAVEZ ([id number]) on 05/26/2019 1:59:20 PM Referred By: Samir Birmingham Confirmed By:EDWINA WILKS MD
--- NOTE | 2019-05-24 10:31 | ED.DCSUM_ITS ---
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 Has had shortness of breath for the past week. It started about 2 or 3 days after he had a knee surgery. He developed bilateral lower extremity edema, as well as worsening shortness of breath. He has a history of bypass surgery about 20 years ago. He tells me he does not think he had reperfusion since then. He denies any chest pain. Past Medical History - Allergies and Home Meds Allergies/Adverse Reactions: Allergies ramipril [From Altace] Allergy (Intermediate, Verified 05/24/19 10:01) cough Primary Care Physician: Neal Rodrgiuez MD [Primary Care Provider] - Past Medical History: - - Hypertension, hypercholesterolemia, diabetes, or prior heart disease Surgical History: coronary bypass surgery, - - Recent knee surgery as in HPI Smoking Status: Never smoker Review of Systems General: Denies: Fever ENT: Denies: Sore throat Cardiovascular: Denies: Chest pain Respiratory: Reports: Dyspnea, Cough Gastrointestinal: Denies: Abdominal pain, Nausea Genitourinary: Denies: Dysuria, Hematuria Musculoskeletal: Denies: Myalgias, Arthralgias, Neck pain Neurological: Denies: Weakness Psych: Denies: Depression Hematologic: Denies: Easy bruising Allergy: Denies: Uticaria Physical Exam Vital Signs/Narrative: Vital Signs Temp Pulse Resp BP Pulse Ox 05/24/19 10:18 100 05/24/19 10:04 155/79 H 05/24/19 10:01 28 H 05/24/19 09:56 98.7 F 107 H 37 H 155/71 H 75 General: - - When I walked in the room patient was on a BiPAP machine, apparently he was hypoxic on nonrebreather mask per paramedics. He is able to speak in 3-4 word sentences on the BiPAP Head: Normocephalic ENT: Moist mucous membranes Neck: Supple Cardiovascular: Regular rate, Regular rhythm, - - Muffled heart sounds secondary to lung sounds Respiratory: - - Rales present in all lung [place], he is tachypneic Abdomen: Soft Back: Nontender, Normal Inspection. Negative for: CVA tenderness Extremities: Nontender, Edema, - - Symmetric bilateral lower extremity edema. Left knee shows a clean dry and intact incision Skin: Normal color Neurological: Alert Psychological: Normal affect Diagnostic/Tx/Re-eval - Rhythm Strip Rhythm Strip: Sinus Rhythm Rate: 100 Ectopy: None - EKG Initial EKG Interpretation: - - Initial EKG shows sinus rhythm with a rate of 102. There is diffuse ST depression in the precordial leads, as well as T wave inversion in V2 through V6. There is T wave inversion in [address] is [address] elevation in aVR. This EKG shows no acute injury pattern. Follow-up EKG Interpretation: - - A posterior EKG shows widespread ST depression and T wave inversions in the precordial leads T wave inversion in [address] elevation in aVR. This is an acute injury pattern. - Medical Decision Making Based on physical exam as well as chest x-ray patient is fluid overloaded and an acute heart failure. Based on the initial EKG I called interventional cardiology, Dr. Olvera with my concerned for an acute injury pattern on the EKG. He should up to the emergency department right away within 2 to 3 minutes and saw the patient and reviewed both of the initial EKGs. Patient is found to have elevated troponin, as well as acute renal insufficiency which is significantly worsened than before. The decision by fine chemicals operator was made not to do immediate catheterization. I do agree with this decision. Patient continues to be on BiPAP. I will admit him to the intensive care unit I talked to the hospitalist and ICU physician. Patient is on heparin, also received Lasix. - Critical Care Time Critical care time (excluding procedures): 30-74 minutes, Discussing w/Patient &/or Family/Dean Of Graduate Studies, Discussing w/Consultants, Arranging Admission or Transfer, Performing Direct Patient Care at Bedside ED Disposition - Plan for ED Patient: Disposition: Acute Care Hospital [facility] Diagnosis: Acute coronary syndrome, CHF (congestive heart failure), Respiratory failure Referrals: Neal Rodriguez MD [Primary Care Provider] -
[2019-05-24] MEDS: HEPARIN/D5w 25,000 UNITS 25,000 UNITS/250 ML IV.SOLN. 12 UNITS IV (10:49)
[2019-05-24] MEDS: Heparin Injection (Vial) 5,000 UNIT/ML VIAL 6000 UNIT IV (10:52)
--- NOTE | 2019-05-24 10:54 | EKG12_ITS ---
Test Reason : REPEAT Blood Pressure : / mmHG Vent. Rate : 099 BPM Atrial Rate : 099 BPM P-R Int : 204 ms QRS Dur : 094 ms QT Int : 350 ms P-R-T Axes : 072 -02 144 degrees QTc Int : 449 ms Normal sinus rhythm with sinus arrhythmia Marked ST abnormality, possible anterior lateral sebendocardial injury Abnormal ECG Confirmed by EFE ZAMORA, EDWINA ([id number]), movie editor SANTIAGO CHAVEZ ([id number]) on 05/26/2019 2:00:45 PM Referred By: Samir Birmingham Confirmed By:EDWINA WILKS MD
[2019-05-24 10:55] LABS: Absolute Lymphocyte Count 0.76 X10^3/uL (0.83-4.51); Absolute Neutrophil Count 15.3 X10^3/uL (2.0-7.7); Basophil# 0.03 X10^3/uL; Basophil% 0.2 % (0-1); Hematocrit 24.3 % (40-54); Hemoglobin 8.1 g/dL (13.0-16.5); Lymphocyte # 0.76 X10^3/ul (4.0); Lymphocyte % 4.4 % (19-41); Mean Corp Hgb Conc 33.3 g/dL (32-36); Mean Corpuscular Hgb 33.2 pg (27.0-32.0); Mean Corpuscular Volume 99.6 fL (80-94); Mean Platelet Vol. 11.2 fl (6.2-12.0); Monocyte# 1.12 X10^3/uL; Monocyte% 6.5 % (0-10); NRBC Flagged by Analyzer 0 % (0-5); Neutrophil # 15.31 X10^3/uL (2.7-7.7); Neutrophil % 88.1 % (47-70); Platelet Count 179 K/mm3 (150-450); RBC Distribution Width SD 51.4 fl (35.1-43.9); Red Blood Count 2.44 M/mm3 (4.6-6.2); White Blood Count 17.4 K/mm3 (4.4-11.0)
--- NOTE | 2019-05-24 11:04 | CPS ---
Results on ABG given to , results not critical. Ramirez TENTERING MACHINE OFF BEARER
[2019-05-24] MEDS: Furosemide 40 MG/4 ML Vial IV (11:11)
[2019-05-24 11:18] LABS: Anion Gap 11 (5-15); BUN 65 mg/dL (7-18); BUN/Creat Ratio 19.6 RATIO (10-20); Chloride 109 mmol/L (98-107); Creatinine, Serum 3.32 mg/dL (0.70-1.30); EST Glomerular Filtration Rate 19 mL/min (>60); Est Glom Filt Rate - Afr Amer 23 mL/min (>60); Estimated Creatinine Clearance 16.55 ml/min; Glucose 179 mg/dL (74-106); Potassium 5.8 mmol/L (3.5-5.1); Sodium Level 135 mmol/L (136-145)
[2019-05-24 11:21] LABS: BNP,B-Type NATRIURETIC PEPTIDE 2284.2 pg/mL (0-100)
--- NOTE | 2019-05-24 11:21 | ED.RN ---
trop 1.93 called from the lab dr britt aware
[2019-05-24 11:41] LABS: Allen Test POS; Base Excess -12 mmol/L (-2 to +2); Bicarbonate 13.8 mmol/L (22-26); Blood Gas Specimen Type ART; EPAP 8; FI02 70; IPAP 14; PO2 117 mmHG (75-100); SITE R Radial; SO2 99 % (95-99); Time Given 1040; Total Carbon Dioxide 14 mmol/L; pCO2 24.1 mmHg (35-45); pH 7.36 (7.35-7.45)
--- NOTE | 2019-05-24 12:07 | PCM.HP.STD ---
Problem List (1) Acute coronary syndrome Status: Acute (2) CHF (congestive heart failure) Status: Acute (3) Respiratory failure Status: Acute (4) Chronic kidney disease (CKD) Status: Chronic (5) Atherosclerosis of coronary artery bypass graft without angina pectoris Status: Chronic Comment: CABG x 4 JOHNSON to LAD, Sequential SVG-OM and Ramus, RVG-RPDA 08/16/2002 PAO-MOB-FJR-OM w/ 2.75 x 8 mm Resolute 01/21/18 (6) History of coronary artery stent placement Status: Resolved Comment: UKA-VIJ-LSE-OM of LCx w/ 2.75 x 8 mm Resolute 01/22/18 PTCA of ramus branch of LCx, PTCA/stent to proximal RCA, PTCA/stent to proximal LCx, 1998; unsuccessful PTCA LAD 06/2003; (7) H/O coronary artery bypass surgery Status: Chronic Comment: CABG x 4 JOHNSON to LAD, Sequential SVG-OM and Ramus, RVG-RPDA 08/16/2002 (8) Essential (primary) hypertension Status: Chronic (9) HLD (hyperlipidemia) Status: Chronic Qualifiers: Hyperlipidemia type: pure hypercholesterolemia Qualified Code(s): E78.00 - Pure hypercholesterolemia, unspecified; E78.00 - Pure hypercholesterolemia, unspecified; E78.00 - Pure hypercholesterolemia, unspecified; E78.0 - Pure hypercholesterolemia (10) Atherosclerotic heart disease of [place] coronary artery without angina pectoris Status: Chronic Qualifiers: [place] vs. transplanted heart: [place] heart Qualified Code(s): I25.10 - Atherosclerotic heart disease of [place] coronary artery without angina pectoris Comment: CABG x 4 JOHNSON to LAD, SVG to obtuse marginal LCx, sequential SVG to intermediate, and SVG to right PDA 08/2002 PTCA of ramus branch of LCx, PTCA/stent to proximal RCA, PTCA/stent to proximal LCx, 1998; unsuccessful PTCA LAD 06/2003; TSD-LPX-AYN-OM of LCx w/ 2.75 x 8 mm Resolute 01/21/18 History of Present Illness Date of Admission: 05/24/19 Chief Complaint: Shortness of breath The patient is a 78 year old M with past medical history single for CAD with previous CABG and subsequent stent placement, recent arthroscopic knee surgery on 05/14/2019 who presented with shortness of breath. Patient symptoms started 4 days prior to his admission. His had encouraged him to present to the emergency department however patient declined. Over the past couple of days he did notice his breathing was becoming more dyspneic with minimal activity. On the morning of his presentation found patient barely responsive and diaphoretic EMS squad was called and patient was brought to the emergency department in the ED patient was found to be in acute hypoxic respiratory failure secondary to pulmonary edema was placed on BiPAP did receive Lasix. Troponin obtained as part of his initial evaluation came back consistent with non-STEMI patient was started on heparin. Cardiology and adhesive sprayer notified from the ED patient admitted to the intensive care unit for further management. Past Medical History Past Medical History (Chronic Problems): Chronic Problems (Last Reviewed 05/24/19 @ 12:27 by Samir Birmingham MD) Chronic kidney disease (CKD) (Chronic) Atherosclerosis of coronary artery bypass graft without angina pectoris (Chronic) CABG x 4 JOHNSON to LAD, Sequential SVG-OM and Ramus, RVG-RPDA 08/16/2002 QLY-TYU-LEQ-OM w/ 2.75 x 8 mm Resolute 01/21/18 H/O coronary artery bypass surgery (Chronic 08/16/02) CABG x 4 JOHNSON to LAD, Sequential SVG-OM and Ramus, RVG-RPDA 08/16/2002 Essential (primary) hypertension (Chronic) HLD (hyperlipidemia) (Chronic) Atherosclerotic heart disease of [place] coronary artery without angina pectoris (Chronic) CABG x 4 JOHNSON to LAD, SVG to obtuse marginal LCx, sequential SVG to intermediate, and SVG to right PDA 08/2002 PTCA of ramus branch of LCx, PTCA/stent to proximal RCA, PTCA/stent to proximal LCx, 1998; unsuccessful PTCA LAD 06/2003; HDN-NLB-IHB-OM of LCx w/ 2.75 x 8 mm Resolute 01/21/18 Medical History: Medical History (Last Reviewed 05/24/19 @ 12:27 by Samir Birmingham MD) Chronic kidney disease (CKD) (Chronic) N18.9 Atherosclerosis of coronary artery bypass graft without angina pectoris (Chronic) I25.810 CABG x 4 JOHNSON to LAD, Sequential SVG-OM and Ramus, RVG-RPDA 08/16/2002 YPJ-QVL-LRQ-OM w/ 2.75 x 8 mm Resolute 01/21/18 Essential (primary) hypertension (Chronic) I10 HLD (hyperlipidemia) (Chronic) E78.5 Atherosclerotic heart disease of [place] coronary artery without angina pectoris (Chronic) I25.10 CABG x 4 JOHNSON to LAD, SVG to obtuse marginal LCx, sequential SVG to intermediate, and SVG to right PDA 08/2002 PTCA of ramus branch of LCx, PTCA/stent to proximal RCA, PTCA/stent to proximal LCx, 1998; unsuccessful PTCA LAD 06/2003; EQT-BCP-MIZ-OM of LCx w/ 2.75 x 8 mm Resolute 01/21/18 Type 2 diabetes mellitus E11.9 Abnormal nuclear stress test (Resolved) R94.39 Abnormal result of cardiovascular function study, unspecified (Resolved) R94.30 steroid injections lumbar (Resolved) Abnormal electrocardiogram (Inactive) R94.31 Fatigue (Inactive) R53.83 High risk medication use (Inactive) Z79.899 Shortness of breath (Inactive) R06.02 Allergies ramipril [From Altace] Allergy (Intermediate, Verified 05/24/19 10:01) cough Home Medications: Ambulatory Orders Medication Instructions Recorded glimepiride 1 mg tablet 1 mg PO QAM 06/13/17 isosorbide mononitrate ER 120 mg 120 mg PO QDAY tab 06/13/17 tablet,extended release 24 hr aspirin 81 mg tablet,delayed 81 mg PO QDAY 06/17/17 release losartan 50 mg tablet 50 mg PO QDAY 06/17/17 nitroglycerin 0.4 mg sublingual 0.4 mg SUBLINGUAL .COMPLEX PRN #25 05/15/18 tablet tab oxycodone-acetaminophen 5 mg-325 PO 30 Days #90 tab 11/17/18 mg tablet tamsulosin 0.4 mg capsule 0.4 mg PO QHS 90 Days #90 cap 11/17/18 amlodipine 10 mg tablet 10 mg PO DAILY #90 tab 04/01/19 Acetaminophen [Tylenol Extra 500 mg PO TID PRN PRN 05/24/19 Strength] Multivitamin with Minerals 1 tab PO DAILY 05/24/19 [Multiple Vitamin] Surgical History: Surgical History (Last Reviewed 05/24/19 @ 12:24 by Samir Birmingham MD) History of coronary artery stent placement (Resolved) Onset Date: 01/21/18 Z95.5 YYK-DUX-ZKD-OM of LCx w/ 2.75 x 8 mm Resolute 01/22/18 PTCA of ramus branch of LCx, PTCA/stent to proximal RCA, PTCA/stent to proximal LCx, 1998; unsuccessful PTCA LAD 06/2003; H/O coronary artery bypass surgery (Chronic) Onset Date: 08/16/02 Z95.1 CABG x 4 JOHNSON to LAD, Sequential SVG-OM and Ramus, RVG-RPDA 08/16/2002 History of total right knee replacement Z96.651 uvulectomy S/P PTCA (percutaneous transluminal coronary angioplasty) Z98.61 PTCA of Ramus branch of CX, PTCA/stent proximal RCA. 03/1999 PTCA/stent proximal CX. Attempted/unsuccessful PTCA LAD 06/2003; stent SVG to OM 2017 Surgical History: coronary bypass surgery, - - Recent knee surgery as in HPI Smoking Status: Never smoker - *Family History Maternal Family History: Family History (Last Reviewed 05/24/19 @ 12:24 by Samir Birmingham MD) Father Heart disease Myocardial infarction Brother Diabetes History of PTCA Mother HLD (hyperlipidemia) Review of Systems Unable to obtain accurate/complete ROS d/t: Patient being secondarily dyspneic and on BiPAP VTE Information - Inpt Only VTE Present on Admission: No VTE Mechan Device Prophylaxis: None VTE Pharm Prophylaxis ordered?: Yes Patient Problems: Active and Suspected Problems (Last Reviewed 05/24/19 @ 12:27 by Samir Birmingham MD) Acute coronary syndrome (Acute) CHF (congestive heart failure) (Acute) Respiratory failure (Acute) Objective: GENERAL: Dyspneic at rest and on BiPAP HEENT: Atraumatic; EYES; Anicteric, Normal Conjunctiva NECK; supple, normal thyroid, RESPIRATORY: Diminished to auscultation lateral crackles CARDIOVASCULAR: Regular S1 S2, GI: soft, normoactive bowel sounds, : No Renal angle tenderness; EXTREMITIES: No cyanosis, no clubbing, MUSCULOSKELETAL: no muscle waisting NEURO: Awake; no lateralizing signs. SKIN: No Rash PSYCH; Flat affect - Physical Exam Vitals/I&O's: Vital Signs Temp Pulse Resp BP Pulse Ox 98.7 F 98 25 H 136/96 H 97 05/24/19 09:56 05/24/19 11:10 05/24/19 11:10 05/24/19 11:10 05/24/19 11:10 Oxygen Delivery Method Bi-pap Weight: 85.9 kg Body Mass Index (BMI) 30.5 Laboratory Results 05/24/19 10:39: WBC 17.4 H, RBC 2.44 L, Hgb 8.1 L, Hct 24.3 L, MCV 99.6 H, MCH 33.2 H, MCHC 33.3, RDW Std Deviation 51.4 H, RDW Coeff of Nica 14.0, Plt Count 179, MPV 11.2, Immature Gran % (Auto) 0.800, Neut % (Auto) 88.1 H, Lymph % (Auto) 4.4 L, Person % (Auto) 6.5, Eos % (Auto) 0.0, Baso % (Auto) 0.2, Absolute Neuts (auto) 15.3 H, Absolute Lymphs (auto) 0.76 L, Nucleated RBC % 0 05/24/19 10:39: Sodium 135 L, Potassium 5.8 H, Chloride 109 H, Carbon Dioxide 15.0 L, Anion Gap 11, BUN 65 H, Creatinine 3.32 H, Estim Creat Clear Calc 16.55, Est GFR (MDRD) Af Amer 23 L, Est GFR (MDRD) Non-Af 19 L, BUN/Creatinine Ratio 19.6, Glucose 179 H, Calcium 9.0, Troponin I 1.930 H* 05/24/19 10:39: B-Natriuretic Peptide 2284.2 H 05/24/19 10:50: Specimen Type ART, Sample Site R Radial, pH 7.36, Bicarbonate Actual 13.8 L, POC Total CO2 14, Base Excess -12 L, O2 Saturation 99, O2 % 70, ABG pCO2 24.1 L, ABG pO2 117 H, Douglas Test POS, O2 Delivery Device Bi / C PAP, EPAP 8, IPAP 14, Blood Gas Notified Whom ED , Blood Gas Notified Time 1040 Current Medications Heparin Sodium (Porcine) (Heparin Na) 0 unit IV UD PRN; Protocol Heparin Sodium/Dextrose () 25,000 units in 250 mls @ 12 mls/hr IV .[id number] [facility]; Protocol Last Admin: 05/24/19 10:49 Dose: 12 mls/hr Documented by: Assessment/Plan All Active Problems (Last Reviewed 05/24/19 @ 12:27 by Samir Birmingham MD) Acute coronary syndrome (Acute) CHF (congestive heart failure) (Acute) Respiratory failure (Acute) History of coronary artery stent placement (Resolved 01/21/18) Abnormal nuclear stress test (Resolved) Abnormal result of cardiovascular function study, unspecified (Resolved) steroid injections lumbar (Resolved) Patient is a 78-year-old gentleman presented with exertional dyspnea found to be in acute hypoxic respiratory failure secondary to congestive heart failure. Patient was also found to have acute NSTEMI 1. Acute hypoxic respiratory failure secondary to pulmonary edema ~Patient placed on noninvasive ventilation BiPAP admitted to the intensive care unit consultation placed to adhesive sprayer 2. 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 Patient has been placed on noninvasive ventilation BiPAP as stated above, fluid restriction IV Lasix as well as nitroglycerin drip and consultation placed to cardiology. As part of patient's management ordered serial cardiac enzymes and a repeat echo 2. Acute non-STEMI probably precipitated above ?Patient placed on nitroglycerin drip as well as heparin with consultation placed to cardiology. Also did initiate patient on beta-blockers and statin therapy in addition to aspirin 4. Coronary artery disease with previous CABG and subsequent stent placement ~ CABG x 4 JOHNSON to LAD, Sequential SVG-OM and Ramus, RVG-RPDA 08/16/2002 ; QNI-EBK-SBJ-OM w/ 2.75 x 8 mm Resolute 01/21/18 5. 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 Placed on long acting insulin, Accu-Cheks a.c. and at bedtime and covered with sliding scale insulin 6. 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 Hypertension ~ blood pressure controlled, home medications continued with dose adjustment as needed 8. Dyslipidemia ~patient is on statin therapy, continued at home dose 9. DVT prophylaxis ?Patient is on heparin Advance planning; did discuss with the patient and family regarding advanced directives as well as CODE STATUS. Did explain the various scenarios involved ( FULL CODE, DNR CCA, DNR CCA with no intubation, and DNR CC and what each meant) patient elected to be DNR CCA no intubation. Order was placed. Time spent on discussion 18 minutes. Clinical Impression(s) from Imaging Studies Chest X-Ray 05/24/19 10:19 IMPRESSION: Bilateral patchy airspace disease worse on the right side. Blunting of both costophrenic angles. Findings suggestive of pulmonary edema versus infectious process. Electronically Signed: Alec Thompson, at 11:08 EST , Service support , Code Visit Inpatient E&M: 39023 Init Hosp L3 Procedures: 01827 Advncd Care Plan 30 Min
--- NOTE | 2019-05-24 12:16 | CHAPLAIN ---
Type of Pastoral Visit ___ Initial Visit ___ Follow-up Visit ___ On-call Visit ___ General Patient Visit ___ Spiritual Assessment ___ Family Conference ___ Bereavement _x__ Rapid Response ___ Code Blue ___ Other (describe below) Pastoral Care Referral From ___ Patient ___ Family _x__ Nurse ___ Physician ___ Salsa Dance Instructor ___ Dural Mechanic ___ Other (describe below) Sacrament/Intervention ___ Active listening ___ Anointing ___ Episcopal ___ Bereavement ___ Communion ___ Rebecca exploration ___ ___ Life review ___ Prayer ___ Reconciliation ___ Sacrament of Sick _x__ Supportive presence ___ Wedding ___ Other (describe below) Pastoral Comments offer of presence and support given to patient and spouse
--- NOTE | 2019-05-24 12:39 | CON.PCM_ITS ---
Capacity - Capacity Assessment Tool Can the patient make a choice & communicate that choice?: Yes Can the patient understand benefits, risks and alternatives?: Yes Can the patient make a logical, rational choice?: Yes Is there a Surrogate Available?: Yes Reason for Consult Date of Consultation: 05/24/19 Reason for Consultation: Acute respiratory failure History of Present Illness: The patient is a 78-year-old male, with a history as outlined below, who presented to the emergency department on May 24 with complaints of shortness of breath of 1 weeks duration. The patient reports that his dyspnea initially began following arthroscopic knee surgery 1 week ago. The patient does have a known history of coronary artery disease status post CABG x4 in 2002, followed by PCI in January 2018. He is currently followed by Dr. Theodore in the cardiology clinic. The patient has no known history of pulmonary disease. He does not utilize supplemental oxygen at his baseline. The patient denies a history of fevers, chills or night sweats. He denies recent sick contact exposure. He denies the presence of a cough or sputum production. On presentation to the emergency department, the patient was noted to be afebrile, but was mildly tachycardic, tachypneic and hypoxic, noted to be saturating 75% on room air. Initial laboratory evaluation revealed an elevated white blood cell count to 17,000. The patient was also anemic with a hemoglobin of 8.1, previously noted to be around 11 g/dL in May 2018. Chemistry profile was notable for a potassium of 5.8, bicarbonate of 15 and creatinine of 3.32. Initial troponin was elevated to 1.93. BNP was increased to 2284. Plain film chest x-ray revealed multifocal airspace opacities bilaterally. EKG revealed findings concerning for acute coronary syndrome. Cardiology was subsequently contacted, who felt that the patient need to be optimized prior to consideration for cardiac catheterization. Given the patient's tenuous respiratory status, he was placed on BiPAP. Arterial blood gas obtained on BiPAP revealed a pH of 7.36 with a corresponding PO2 of 117 and PCO2 of 24. The patient was subsequently transferred to the medical intensive care unit for further management. Past Medical History Past Medical History (Chronic Problems): Chronic Problems (Last Reviewed 05/24/19 @ 12:27 by Samir Birmingham MD) Chronic kidney disease (CKD) (Chronic) Atherosclerosis of coronary artery bypass graft without angina pectoris (Chronic) CABG x 4 JOHNSON to LAD, Sequential SVG-OM and Ramus, RVG-RPDA 08/16/2002 [id number]-QQL-[id number]-OM w/ 2.75 x 8 mm Resolute 01/21/18 H/O coronary artery bypass surgery (Chronic 08/16/02) CABG x 4 JOHNSON to LAD, Sequential SVG-OM and Ramus, RVG-RPDA 08/16/2002 Essential (primary) hypertension (Chronic) HLD (hyperlipidemia) (Chronic) Atherosclerotic heart disease of [place] coronary artery without angina pectoris (Chronic) CABG x 4 JOHNSON to LAD, SVG to obtuse marginal LCx, sequential SVG to intermediate, and SVG to right PDA 08/2002 PTCA of ramus branch of LCx, PTCA/stent to proximal RCA, PTCA/stent to proximal LCx, 1998; unsuccessful PTCA LAD 06/2003; [id number]-[id number]-OM of LCx w/ 2.75 x 8 mm Resolute 01/21/18 Medical History: Medical History (Last Reviewed 05/24/19 @ 12:27 by Samir Birmingham MD) Chronic kidney disease (CKD) (Chronic) N18.9 Atherosclerosis of coronary artery bypass graft without angina pectoris (Chronic) I25.810 CABG x 4 JOHNSON to LAD, Sequential SVG-OM and Ramus, RVG-RPDA 08/16/2002 UMW-[id number]-[id number]-OM w/ 2.75 x 8 mm Resolute 01/21/18 Essential (primary) hypertension (Chronic) I10 HLD (hyperlipidemia) (Chronic) E78.5 Atherosclerotic heart disease of [place] coronary artery without angina pectoris (Chronic) I25.10 CABG x 4 JOHNSON to LAD, SVG to obtuse marginal LCx, sequential SVG to intermediate, and SVG to right PDA 08/2002 PTCA of ramus branch of LCx, PTCA/stent to proximal RCA, PTCA/stent to proximal LCx, 1998; unsuccessful PTCA LAD 06/2003; [id number]-[id number]-OM of LCx w/ 2.75 x 8 mm Resolute 01/21/18 Type 2 diabetes mellitus E11.9 Abnormal nuclear stress test (Resolved) R94.39 Abnormal result of cardiovascular function study, unspecified (Resolved) R94.30 steroid injections lumbar (Resolved) Abnormal electrocardiogram (Inactive) R94.31 Fatigue (Inactive) R53.83 High risk medication use (Inactive) Z79.899 Shortness of breath (Inactive) R06.02 Allergies ramipril [From Altace] Allergy (Intermediate, Verified 05/24/19 10:01) cough Home Medications: Ambulatory Orders Medication Instructions Recorded glimepiride 1 mg tablet 1 mg PO DAILY 06/13/17 isosorbide mononitrate ER 120 mg 120 mg PO QDAY tab 06/13/17 tablet,extended release 24 hr aspirin 81 mg tablet,delayed 324 mg PO DAILY 06/17/17 release losartan 50 mg tablet 50 mg PO DAILY 06/17/17 nitroglycerin 0.4 mg sublingual 0.4 mg SUBLINGUAL .COMPLEX PRN #25 05/15/18 tablet tab oxycodone-acetaminophen 5 mg-325 1 tab PO TID PRN 30 Days #90 tab 11/17/18 mg tablet tamsulosin 0.4 mg capsule 0.4 mg PO QHS 90 Days #90 cap 11/17/18 amlodipine 10 mg tablet 10 mg PO DAILY #90 tab 04/01/19 Acetaminophen [Tylenol Extra 500 mg PO TID PRN PRN 05/24/19 Strength] Multivitamin with Minerals 1 tab PO DAILY 05/24/19 [Multiple Vitamin] Surgical History: Surgical History (Last Reviewed 05/24/19 @ 12:24 by Samir Birmingham MD) History of coronary artery stent placement (Resolved) Onset Date: 01/21/18 Z95.5 PXF-KIP-AJG-OM of LCx w/ 2.75 x 8 mm Resolute 01/22/18 PTCA of ramus branch of LCx, PTCA/stent to proximal RCA, PTCA/stent to pro ximal LCx, 1998; unsuccessful PTCA LAD 06/2003; H/O coronary artery bypass surgery (Chronic) Onset Date: 08/16/02 Z95.1 CABG x 4 JOHNSON to LAD, Sequential SVG-OM and Ramus, RVG-RPDA 08/16/2002 History of total right knee replacement Z96.651 uvulectomy S/P PTCA (percutaneous transluminal coronary angioplasty) Z98.61 PTCA of Ramus branch of CX, PTCA/stent proximal RCA. 03/1999 PTCA/stent proximal CX. Attempted/unsuccessful PTCA LAD 06/2003; stent SVG to OM 2018 Surgical History: coronary bypass surgery, - - Recent knee surgery as in HPI Smoking Status: Never smoker - *Family History Maternal Family History: Family History (Last Reviewed 05/24/19 @ 12:24 by Samir Birmingham MD) Father Heart disease Myocardial infarction Brother Diabetes History of PTCA Mother HLD (hyperlipidemia) Review of Systems Constitutional: Denies: Chills, Fever, Night Sweats Eyes: Denies: Blurred vision, Double vision HEENT: Denies: Head Aches, Sinus Congestion, Sinus Drainage Cardiovascular: Denies: Chest Pain, Palpitations Respiratory: Reports: Shortness of Breath. Denies: Cough, Sputum production Gastrointestinal: Denies: Abdominal Pain, Nausea, Vomiting Genitourinary: Denies: Dysuria Musculoskeletal: Denies: Joint Pain, Joint Tenderness Skin: Denies: Rash, Wounds Neurological: Denies: Numbness, Tingling, Focal weakness Psychiatric: Denies: Anxiety, Depression, Homicidal Ideations, Suicidal Ideations Hematologic/ Lymphatic: Reports: Anemia Patient Problems: Active and Suspected Problems (Last Reviewed 05/24/19 @ 12:27 by Samir Birmingham MD) Acute coronary syndrome (Acute) CHF (congestive heart failure) (Acute) Respiratory failure (Acute) Objective: The patient's most recent lab work, culture data and imaging studies have all been personally reviewed. - Physical Exam Vitals/I&O's: Vital Signs Temp Pulse Resp BP Pulse Ox 98.7 F 99 24 H 135/74 H 97 05/24/19 09:56 05/24/19 12:33 05/24/19 12:33 05/24/19 12:33 05/24/19 12:33 Oxygen Delivery Method Bi-pap Weight: 189 lb 6.033 oz Body Mass Index (BMI) 30.5 General: Alert, Cooperative, - - Appears comfortable with BiPAP in place. HEENT: Atraumatic, PERRLA, Normocephalic Oral: Dry Mucosa Neck: Supple, No Nodes, Trachea Midline Lungs: No rhonchi, No wheeze, Diminished, Rales, Tachypneic Cardiovascular: Regular rate, Regular Rhythm, Normal S1, Normal S2 Abdomen: Bowel Sounds Present, Soft, Non Tender Extremities: No clubbing, No cyanosis, Edema Skin: No breakdown Musculoskeletal: No Muscle Wasting Lymphatic: No Cervical, Supraclavicular, or Inguinal Adenopathy Neurological: Cranial nerves II-XII grossly intact, Neuro grossly intact Psych/Mental Status: Normal Affect, Appropriate Labs (Last 48 Hours) 05/24/19 05/24/19 05/24/19 10:39 10:39 10:39 WBC 17.4 H RBC 2.44 L Hgb 8.1 L Hct 24.3 L MCV 99.6 H MCH 33.2 H MCHC 33.3 RDW Std Deviation 51.4 H RDW Coeff of Nica 14.0 Plt Count 179 MPV 11.2 Immature Gran % (Auto) 0.800 Neut % (Auto) 88.1 H Lymph % (Auto) 4.4 L [place] % (Auto) 6.5 Eos % (Auto) 0.0 Baso % (Auto) 0.2 Absolute Neuts (auto) 15.3 H Absolute Lymphs (auto) 0.76 L Nucleated RBC % 0 Specimen Type Sample Site pH Bicarbonate Actual POC Total CO2 Base Excess O2 Saturation O2 % ABG pCO2 ABG pO2 Douglas Test O2 Delivery Device EPAP IPAP Blood Gas Notified Whom Blood Gas Notified Time Sodium 135 L Potassium 5.8 H Chloride 109 H Carbon Dioxide 15.0 L Anion Gap 11 BUN 65 H Creatinine 3.32 H Estim Creat Clear Calc 16.55 Est GFR (MDRD) Af Amer 23 L Est GFR (MDRD) Non-Af 19 L BUN/Creatinine Ratio 19.6 Glucose 179 H Calcium 9.0 Troponin I 1.930 H* B-Natriuretic Peptide 2284.2 H 05/24/19 10:50 WBC RBC Hgb Hct MCV MCH MCHC RDW Std Deviation RDW Coeff of Nica Plt Count MPV Immature Gran % (Auto) Neut % (Auto) Lymph % (Auto) [place] % (Auto) Eos % (Auto) Baso % (Auto) Absolute Neuts (auto) Absolute Lymphs (auto) Nucleated RBC % Specimen Type ART Sample Site R Radial pH 7.36 Bicarbonate Actual 13.8 L POC Total CO2 14 Base Excess -12 L O2 Saturation 99 O2 % 70 ABG pCO2 24.1 L ABG pO2 117 H Douglas Test POS O2 Delivery Device Bi / C PAP EPAP 8 IPAP 14 Blood Gas Notified Whom ED Blood Gas Notified Time 1040 Sodium Potassium Chloride Carbon Dioxide Anion Gap BUN Creatinine Estim Creat Clear Calc Est GFR (MDRD) Af Amer Est GFR (MDRD) Non-Af BUN/Creatinine Ratio Glucose Calcium Troponin I B-Natriuretic Peptide Clinical Impression(s) from Imaging Studies Chest X-Ray 05/24/19 10:19 IMPRESSION: Bilateral patchy airspace disease worse on the right side. Blunting of both costophrenic angles. Findings suggestive of pulmonary edema versus infectious process. Electronically Signed: Alec Thompson, at 11:08 EST , Service support , Current Medications Heparin Sodium (Porcine) (Heparin Na) 0 unit IV UD PRN; Protocol Heparin Sodium/Dextrose () 25,000 units in 250 mls @ 12 mls/hr IV .[id number] [facility]; Protocol Last Admin: 05/24/19 10:49 Dose: 12 mls/hr Documented by: Assessment/Plan Active and Suspected Problems (Last Reviewed 05/24/19 @ 12:27 by Samir Birmingham MD) Acute coronary syndrome (Acute) CHF (congestive heart failure) (Acute) Respiratory failure (Acute) RECOMMENDATIONS: 1. Continue heparin infusion and await additional cardiology recommendations. 2. Continue diuretic therapy. 3. Continue BiPAP and wean FiO2 to maintain oxygen saturations at or above 90%. 4. Trend troponins and obtain echocardiogram. 5. Patient to remain n.p.o., given need for BiPAP utilization. IMPRESSIONS: 1. Acute hypoxemic respiratory failure Appears to be secondary to decompensated heart failure with subsequent development of pulmonary edema. While infectious etiologies would also be a consideration, especially in light of the patient's elevated white blood cell count, tachypnea and respiratory failure, he denies any systemic signs or symptoms of infection and denies the presence of a cough or sputum production. Recommend continuing current supportive measures with the use of noninvasive positive pressure ventilatory support as needed and IV diuretic therapy. Cardiology has been consulted. Anticipate upcoming need for cardiac catheterization in the near future. Wean supplemental oxygen to maintain saturations at or above 90%. 2. Non-ST segment elevation IL/personal history of coronary artery disease status post CABG Continue current medical management with heparin infusion, pending cardiology evaluation. Trend troponins and await echocardiogram. 3. Acute on chronic kidney disease/non-gap metabolic acidosis/hyperkalemia Unclear etiology, although passive vascular congestion is a possibility. As noted above, IV diuretic therapy will be employed. Plan to recheck chemistry profile and treat elevated potassium medically, if still present. 4. Anemia The patient presented to the hospital with a hemoglobin noted to be 8.1 g/dL. This may be delusional in nature, given the patient's volume overloaded state. Nevertheless, he was previously noted to have a hemoglobin of nearly 12 g/dL in May 2018. Therefore, would recommend sending a type and screen. If hemoglobin remains low in light of active diuresis, will need to consider transfusion of blood products, especially in the setting of an acute coronary syndrome. 5. Diabetes mellitus/hypertension/hyperlipidemia/recent knee surgery Complicates care, management, recovery and prognosis. Patient to be n.p.o. for now, given BiPAP need. Start sliding scale insulin coverage. TIME: 38 minutes of critical care time was spent addressing the patient's acute hypoxemic respiratory failure, non-ST segment elevation IL, acute decompensated heart failure, acute on chronic kidney disease, anemia, review of all data and collaboration with the care team. ([id number]) Code Visit [id number]: [id number] Critical care first hour
--- NOTE | 2019-05-24 13:57 | ECHOD_ITS ---
Reason For Study: S/P [place] Procedure This was a 2D Doppler, Color Flow transthoracic echocardiogram. Technically difficult - pt sitting upright on O2 mask with SOB. Exam performed portable in ICU/CCU. Left Ventricle Normal LV size. The estimated ejection fraction is 40 %. Stage 3 diastolic dysfunction. The rest of the wall segments are hypokinetic. Right Ventricle Normal RV size. Mild global right ventricular systolic dysfunction. Atria Normal left atrium. Normal right atrium. Mitral Valve Bileaflet diffuse mitral valve thickening. Mild-Moderate (1-2+) eccentric mitral valve insufficiency. Tricuspid Valve Normal tricuspid valve. Moderate (2+) tricuspid valve insufficiency. Pulmonary artery systolic pressure is 71 mmHg. Aortic Valve Trisinus/trileaflet aortic valve. Mild focal aortic valve thickening. Mild-Moderate (1-2+) eccentric aortic valve insufficiency. Pulmonic Valve Normal pulmonic valve. Great Vessels Normal aortic root. The pulmonary artery is normal size. Normal inferior vena cava. Pericardium/Pleural No pericardial effusion. Medication Definity deferred due to elevated PAP. MMode/2D Measurements & Calculations LVIDd: 5.2 cm IVSd: 0.82 cm Ao root diam: 3.4 cm LVIDs: 4.7 cm LVPWd: 0.86 cm RVDd: 5.3 cm FS: 10.5 % LAV(MOD-bp): 61.6 ml LA A4 area: 19.7 cm2 LA dimension(2D): 5.3 cm LAV(MOD-bp) Indexed: 31.6 ml/m2 LAV(MOD-sp2): 74.7 ml LAV(MOD-sp4): 51.9 ml RA A4 area: 18.7 cm2 Time Measurements MV dec time: 0.13 sec Doppler Measurements & Calculations MV E max thang: 123.7 cm/sec Lat Peak E' Thang: 8.5 cm/sec Med Peak E' Thang: 5.6 cm/sec MV A max thang: 51.2 cm/sec E/E' lat: 14.6 E/E' med: 22.3 MV E/A: 2.4 Ao V2 max: 135.6 cm/sec LV V1 max: 83.9 cm/sec PA V2 max: 107.5 cm/sec Ao max P.4 mmHg LV V1 max P.9 mmHg TR max thang: 410.4 cm/sec TR max P.4 mmHg Interpretation Summary Normal LV size. The estimated ejection fraction is 40 %. The rest of the wall segments are hypokinetic. Stage 3 diastolic dysfunction. Compared to previous study, the left ventricular systolic function has worsened.. Ordering Physician: Samir Birmingham Referring Physician: MAULIK KIRKLAND Performed By: Leigh Beatty RDCS, RVT
[2019-05-24] MEDS: Nitroglycerin Infusion 250 ML 6 MG IV (14:27)
[2019-05-24] MEDS: oxyCODONE 5 MG Tablet PO (14:36)
[2019-05-24 14:59] LABS: ALB/GLOB Ratio 0.8 RATIO (0.9-2.4); AST(SGOT) 48 U/L (15-37); Alanine Aminotransfer ALT/SGPT 46 U/L (16-61); Albumin, Serum 3.3 g/dL (3.2-5.0); Alkaline Phosphatase 78 U/L (45-117); Anion Gap 8 (5-15); BUN 68 mg/dL (7-18); BUN/Creat Ratio 22.1 RATIO (10-20); Calcium,Total 8.8 mg/dL (8.5-10.1); Chloride 109 mmol/L (98-107); Creatinine, Serum 3.08 mg/dL (0.70-1.30); EST Glomerular Filtration Rate 21 mL/min (>60); Est Glom Filt Rate - Afr Amer 25 mL/min (>60); Estimated Creatinine Clearance 17.84 ml/min; Glucose 152 mg/dL (74-106); Potassium 5.2 mmol/L (3.5-5.1); Protein, Total 7.3 g/dL (6.4-8.2); Sodium Level 136 mmol/L (136-145)
--- NOTE | 2019-05-24 17:00 | PCM.PN.BLA ---
Progress Note Had a second discussion with the patient and the family regarding his prognosis. Patient had apparently changed his mind regarding his CODE STATUS. He did agreed to be intubated if needed for maximum of 5 days. Did explain further to the patient that this will involve changing his CODE STATUS from DNR CCA to full code. He understood the implication of his decision. His was with him in the ICU also did express understanding of the conversation Did further review patient checks history as well as diagnostic work-up performed on admission. Patient was noted to have leukocytosis with WBC count of 17, 3 was also questionable for an infectious etiology. In addition to patient being managed as a case of acute congestive heart failure patient was started on broad-spectrum antibiotic therapy with cefepime, azithromycin and vancomycin and cultures sent. Patient still remains on BiPAP Spent on further discussion; 20-minute STROKE Vital Signs/Narrative: Vital Signs Pulse Resp BP Pulse Ox 05/24/19 15:47 33 H 91 05/24/19 14:27 104 H 139/79 H
--- NOTE | 2019-05-24 17:21 | PCM.RX.CS ---
Consult Pharmacy has been consulted to manage selected antiobiotic: Vancomycin Type of Consult: New start Suspected Infection: Other Labs: Sodium 136 mmol/L (136-145) 05/24/19 14:29 Potassium 5.2 mmol/L (3.5-5.1) H 05/24/19 14:29 Chloride 109 mmol/L (98-107) H 05/24/19 14:29 Carbon Dioxide 19.0 mmol/L (21.0-32.0) L 05/24/19 14:29 Anion Gap 8 (5-15) 05/24/19 14:29 BUN 68 mg/dL (7-18) H 05/24/19 14:29 Creatinine 3.08 mg/dL (0.70-1.30) H 05/24/19 14:29 Est GFR (MDRD) Af Amer 25 mL/min (>60) L 05/24/19 14:29 Est GFR (MDRD) Non-Af 21 mL/min (>60) L 05/24/19 14:29 BUN/Creatinine Ratio 22.1 RATIO (10-20) H 05/24/19 14:29 Glucose 152 mg/dL (74-106) H 05/24/19 14:29 Weight used for dosin lb 6.287 oz Goal Trough: 15-20 mcg/mL Pharmacy Plan for Drug Dosing: Pharmacy Service will continue to monitor and adjust dosing as required. Vancomycin 1250mg ordered for 05/24 at 1999 Since patient's CrCl is < 20 a random level will be obtained 05/26 in am Subsequent doses will be calculated based on random level
[2019-05-24] MEDS: Furosemide 100 MG/10 ML Vial 60 MG IV ×2 (18:03→22:02)
--- NOTE | 2019-05-24 18:06 | CON.PCM_ITS ---
Reason for Consult Date of Consultation: 05/24/19 Reason for Consultation: Shortness of breath and abnormal troponin History of Present Illness: [] JADYN RAMOS, is a 78 M who presented to the emergency room today after complaining of shortness of breath. He is a gentleman with a history of coronary artery disease status post coronary artery bypass surgery. He had a left internal mammary artery to left anterior descending artery which was noted to be patent and the circumflex artery had moderate disease in the mid segment and the saphenous vein graft to the right coronary artery was noted to be patent. He had a stress test which was abnormal and underwent a diagnostic heart catheterization where he was noted to have a 99% stenosis of the SVG to the OM. He underwent stenting of this vessel. He had been doing well until he underwent arthroscopic knee surgery on 05/14/2019. Since then he has been short of breath to the extent that he really could not function. He presented to the emergency room today and was noted to be markedly short of breath and was noted to have EKG changes as well as evidence of further renal dysfunction and marked hypertension. He was started on a BiPAP mask and started on intravenous nitroglycerin as well as diuresis. He was admitted to the intensive care unit he does not have any palpitations. He does not have any lightheadedness, dizziness, syncopal episodes. He does have any lower extremity edema. Cardiology was called to see him due to his EKG changes Past Medical History Allergies/Adverse Reactions: Allergies ramipril [From Altace] Allergy (Intermediate, Verified 05/24/19 10:01) cough Home Medications: Ambulatory Orders Medication Instructions Recorded glimepiride 1 mg tablet 1 mg PO DAILY 06/13/17 isosorbide mononitrate ER 120 mg 120 mg PO QDAY tab 06/13/17 tablet,extended release 24 hr aspirin 81 mg tablet,delayed 324 mg PO DAILY 06/17/17 release losartan 50 mg tablet 50 mg PO DAILY 06/17/17 nitroglycerin 0.4 mg sublingual 0.4 mg SUBLINGUAL .COMPLEX PRN #25 05/15/18 tablet tab oxycodone-acetaminophen 5 mg-325 1 tab PO TID PRN 30 Days #90 tab 11/17/18 mg tablet tamsulosin 0.4 mg capsule 0.4 mg PO QHS 90 Days #90 cap 05/14/19 amlodipine 10 mg tablet 10 mg PO DAILY #90 tab 04/01/19 Acetaminophen [Tylenol Extra 500 mg PO TID PRN PRN 05/24/19 Strength] Multivitamin with Minerals 1 tab PO DAILY 05/24/19 [Multiple Vitamin] Past Medical History (Chronic Problems): Chronic Problems (Last Reviewed 05/24/19 @ 12:27 by Samir Birmingham MD) Chronic kidney disease (CKD) (Chronic) Atherosclerosis of coronary artery bypass graft without angina pectoris (Chronic) CABG x 4 JOHNSON to LAD, Sequential SVG-OM and Ramus, RVG-RPDA 08/16/2002 [id number] w/ 2.75 x 8 mm Resolute 01/21/18 H/O coronary artery bypass surgery (Chronic 08/16/02) CABG x 4 JOHNSON to LAD, Sequential SVG-OM and Ramus, RVG-RPDA 08/16/2002 Essential (primary) hypertension (Chronic) HLD (hyperlipidemia) (Chronic) Atherosclerotic heart disease of [place] coronary artery without angina pectoris (Chronic) CABG x 4 JOHNSON to LAD, SVG to obtuse marginal LCx, sequential SVG to intermediate, and SVG to right PDA 08/2002 PTCA of ramus branch of LCx, PTCA/stent to proximal RCA, PTCA/stent to proximal LCx, 1998; unsuccessful PTCA LAD 06/2003; [id number] of LCx w/ 2.75 x 8 mm Resolute 01/21/18 Surgical History: coronary bypass surgery, - - Recent knee surgery as in HPI - *Family History Maternal Family History: Family History (Last Reviewed 05/24/19 @ 12:24 by Samir Birmingham MD) Father Heart disease Myocardial infarction Brother Diabetes History of PTCA Mother HLD (hyperlipidemia) Smoking Status: Never smoker Alcohol: None Drugs: None Review of Systems - Review of Systems General: Denies: Fever, Night Sweats, Fatigue HEENT: Denies: Vision Change Cardiovascular: Reports: Shortness of Breath, Shortness of Breath at Rest, Shortness of Breath with Exertion. Denies: Chest Discomfort, Orthopnea, PND, Peripheral Edema, Palpitations, Lightheadedness, Dizziness, Near Syncope, Syncope Respiratory: Denies: Cough, Sputum Production, Hemoptysis Gastrointestinal: Denies: Hematemesis, Hematochezia, Melena Genitourinary: Denies: Dysuria, Hematuria Skin: Denies: Rash Neurological: Reports: Dizziness Psychiatric: Reports: Anxiety Endocrine: Reports: Heat Intolerance Hematologic/ Lymphatic: Reports: Anemia Subjectve: Pleasant gentleman in respiratory distress Objective: Vital Signs Temp Pulse Resp BP Pulse Ox 98.7 F 104 H 33 H 139/79 H 91 05/24/19 09:56 05/24/19 14:27 05/24/19 15:47 05/24/19 14:27 05/24/19 15:47 Oxygen Flow Rate (L/min) 15 Oxygen Delivery Method Non-Rebreather Weight: 189 lb 6.033 oz Body Mass Index (BMI) 28.9 General: Awake, Alert, Oriented x 3 HEENT: PERRL, EOMI, Sclera Non Icteric Neck: Supple, Good ROM, No Lymph Node Enlargement Lungs: Diminished [place] Cardiovascular: Regular Rhythm, Normal S1, Normal S2, No Murmurs, No Rubs, No Gallops Vascular: No Carotid Bruits, Normal Femoral Pulses, Normal Radial Pulses, Normal Dorsalis Pedal Pulse, Normal Posterior Tibial Pulses Abdomen: Bowel Sounds Present, Soft, Non Tender, No HSM, No Organomegaly Extremities: No Cyanosis, No Clubbing, No edema Musculoskeletal: No Erythema Skin: No Rashes Lymphatic: No Lymph Node Enlargement Neurological: No Focal Motor or Sensory Deficit Psych/Mental Status: Appropriate 05/24/19 10:39: WBC 17.4 H, RBC 2.44 L, Hgb 8.1 L, Hct 24.3 L, MCV 99.6 H, MCH 33.2 H, MCHC 33.3, Plt Count 179, MPV 11.2, Immature Gran % (Auto) 0.800, Neut % (Auto) 88.1 H, Lymph % (Auto) 4.4 L, [place] % (Auto) 6.5, Eos % (Auto) 0.0, Baso % (Auto) 0.2, Absolute Neuts (auto) 15.3 H, Nucleated RBC % 0 05/24/19 10:39: Sodium 135 L, Potassium 5.8 H, Chloride 109 H, Carbon Dioxide 15.0 L, Anion Gap 11, BUN 65 H, Creatinine 3.32 H, Est GFR (MDRD) Af Amer 23 L, Est GFR (MDRD) Non-Af 19 L, BUN/Creatinine Ratio 19.6, Glucose 179 H, Calcium 9.0, Troponin I 1.930 H* 05/24/19 10:39: B-Natriuretic Peptide 2284.2 H 05/24/19 10:50: pH 7.36, Bicarbonate Actual 13.8 L, POC Total CO2 14, Base Excess -12 L, O2 Saturation 99, ABG pCO2 24.1 L, ABG pO2 117 H, Douglas Test POS 05/24/19 14:29: Sodium 136, Potassium 5.2 H, Chloride 109 H, Carbon Dioxide 19.0 L, Anion Gap 8, BUN 68 H, Creatinine 3.08 H, Est GFR (MDRD) Af Amer 25 L, Est GFR (MDRD) Non-Af 21 L, BUN/Creatinine Ratio 22.1 H, Glucose 152 H, Calcium 8.8, Total Bilirubin 1.40 H, Troponin I 3.030 H* Rhythm: EKG: Normal sinus rhythm with a rate of 99 bpm. Deep T wave inversions noted in leads I and aVL and V2 through the 6 with prominent R waves. Posterior infarct cannot be completely excluded. ECHO: Overall left ventricular systolic dysfunction with estimated ejection fraction at 40 to 45% Assessment/Plan 1. Acute hypoxic respiratory failure secondary to pulmonary edema ~Patient placed on noninvasive ventilation BiPAP admitted to the intensive care unit. * We will continue with intravenous Lasix * The above is likely secondary to progressive coronary artery disease. * 2. 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 His ejection fraction by echocardiogram today demonstrates globally reduced left ventricular systolic function. Patient has been placed on noninvasive ventilation BiPAP as stated above, fluid restriction IV Lasix as well as nitroglycerin dri 3. Acute non-STEMI ?Patient placed on nitroglycerin drip as well as heparin with consultation placed to cardiology. Also did initiate patient on beta-blockers and statin therapy in addition to aspirin May eventually need a cardiac catheterization. We will need to coordinate the above with nephrology due to his worsening renal function 4. Coronary artery disease with previous CABG and subsequent stent placement ~ CABG x 4 JOHNSON to LAD, Sequential SVG-OM and Ramus, RVG-RPDA 08/16/2002 ; patient underwent [id number] w/ 2.75 x 8 mm Resolute 01/21/18 5. 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 Placed on long acting insulin, Accu-Cheks a.c. and at bedtime and covered with sliding scale insulin 6. 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 Hypertension ~ blood pressure controlled, home medications continued with dose adjustment as needed 8. Dyslipidemia ~patient is on statin therapy, continued at home dose 9. DVT prophylaxis ?Patient is on heparin At this time the patient appears to be in rather guarded condition and would be observed in the intensive care unit. Thank you for allowing me to participate in the care of your patient. Please don't hesitate to call if any issues arise
[2019-05-24 18:10] LABS: Bacteria 0 SEEN /hpf (None Seen); Mucous, Urine 0 SEEN /hpf (<or=2+); Squamous Epithelial Cells - UA 0 SEEN /hpf (0-5)
[2019-05-24 18:11] LABS: Glucose, Dipstick Normal (Normal); Ketone-Dipstick Negative (Negative); Leukocyte Esterase-Dipstick 500 /ul (Negative); Nitrite-Dipstick Negative (Negative); Occult Blood-Urine 250 /ul (Negative); Protein-Dipstick 100 mg/dl (Negative); Specific Gravity, Urine 1.015 (1.002-1.030); Urine Bilirubin Dipstick Negative (Negative); Urine Clarity Sl. Cloudy (Clear); Urine Urobilinogen Normal (Normal)
[2019-05-24 18:13] LABS: Color, Urine SEE COMMENT BELOW (Yellow)
[2019-05-24 18:19] LABS: Red Blood Cells-Urine > 100 SEEN /hpf (0-5); White Blood Cells 50-100 SEEN /hpf (0-5)
[2019-05-24 18:34] LABS: Lactic Acid 1.4 mmol/L (0.4-2.0)
[2019-05-24 19:00] LABS: Bedside Glucose 110 mg/dL (70-110)
[2019-05-24 20:08] LABS: M R Staph aureus DNA By PCR Negative (Negative); Probe Check PASS; Specimen Processing Control PASS
[2019-05-24] MEDS: Metoprolol Tartrate 25 MG Tablet PO (22:02)
[2019-05-24] MEDS: Ranolazine 500 MG Tablet 1000 MG PO (22:03)
[2019-05-24] MEDS: Tamsulosin HCl 0.4 MG Capsule PO (22:03)
[2019-05-24] MEDS: Atorvastatin Calcium 40 MG Tablet PO (22:03)
[2019-05-24 23:50] LABS: Bedside Glucose 110 mg/dL (70-110)
[2019-05-25] VITALS (39 sets, daily range): BP systolic 92–159; BP diastolic 49–118; PULSE 68–114; RESP 8–29; TEMP 36.8–37.4; O2SAT 93–100
[2019-05-25 04:16] LABS: Absolute Lymphocyte Count 1.22 X10^3/uL (0.83-4.51); Absolute Neutrophil Count 13.6 X10^3/uL (2.0-7.7); Basophil# 0.02 X10^3/uL; Basophil% 0.1 % (0-1); Hematocrit 22.6 % (40-54); Hemoglobin 7.6 g/dL (13.0-16.5); Lymphocyte # 1.22 X10^3/ul (4.0); Lymphocyte % 7.8 % (19-41); Mean Corp Hgb Conc 33.6 g/dL (32-36); Mean Corpuscular Hgb 33.3 pg (27.0-32.0); Mean Corpuscular Volume 99.1 fL (80-94); Mean Platelet Vol. 11.1 fl (6.2-12.0); Monocyte# 0.81 X10^3/uL; Monocyte% 5.1 % (0-10); NRBC Flagged by Analyzer 0 % (0-5); Neutrophil # 13.59 X10^3/uL (2.7-7.7); Neutrophil % 86.4 % (47-70); Platelet Count 183 K/mm3 (150-450); RBC Distribution Width CV 13.6 % (11.6-14.6); RBC Distribution Width SD 49.2 fl (35.1-43.9); Red Blood Count 2.28 M/mm3 (4.6-6.2); White Blood Count 15.7 K/mm3 (4.4-11.0)
[2019-05-25] MEDS: Furosemide 100 MG/10 ML Vial 60 MG IV ×4 (05:22→23:33)
[2019-05-25] MEDS: 0.9% Saline Lock 10 ML Syringe IV ×5 (05:23→23:33)
[2019-05-25 05:30] LABS: Anion Gap 11 (5-15); BUN 72 mg/dL (7-18); BUN/Creat Ratio 22.8 RATIO (10-20); Calcium,Total 8.5 mg/dL (8.5-10.1); Chloride 106 mmol/L (98-107); Creatinine, Serum 3.16 mg/dL (0.70-1.30); EST Glomerular Filtration Rate 20 mL/min (>60); Est Glom Filt Rate - Afr Amer 25 mL/min (>60); Estimated Creatinine Clearance 17.39 ml/min; Glucose 122 mg/dL (74-106); Potassium 4.4 mmol/L (3.5-5.1); Sodium Level 136 mmol/L (136-145)
[2019-05-25 05:36] LABS: Bedside Glucose 111 mg/dL (70-110)
--- NOTE | 2019-05-25 06:21 | PN_ITS ---
Subjective: The patient was seen and examined at the bedside this morning. Events from the last 24 hours have been reviewed. The patient is currently afebrile, hemodynamically stable and maintaining appropriate oxygen saturations on BiPAP with an FiO2 requirement of 40%. Although the patient remains tachypneic on BiPAP, he is saturating 100% on his current FiO2 requirement. The patient continues to deny the presence of a cough or sputum production. He denies the presence of chest pain. Hemoglobin is low this morning at 7.6 g/dL. Last evening, the patient's CODE STATUS was changed to full code, as the patient reported that he would in fact want to be intubated if necessary. In addition, he was started on antibiotics as well. Overnight, the covering hospitalist placed an order for CTA chest. However, the patient's renal function would preclude such testing from being performed. Troponin continues to climb and was last noted to be 3.59. The patient is currently documented to be overall net - 2.3 L for the hospital admission. Objective: The patient's most recent lab work, culture data and imaging studies have all been personally reviewed. Rapid influenza screen was negative. Respiratory viral panel was pending. Blood and urine cultures are pending. Surface echocardiogram revealed normal LV size with an ejection fraction of 40% and stage III diastolic dysfunction. There was evidence of mild global RV systolic dysfunction and a pulmonary artery systolic pressure estimated to be 71 mmHg. General: Alert, Cooperative, - - Fatigued in appearance. BiPAP currently in place. HEENT: Atraumatic, PERRLA, Normocephalic Oral: Dry Mucosa Neck: Supple, No Nodes, Trachea Midline Lungs: Diminished, Rales - Basilar, Tachypneic Cardiovascular: Regular rate, Regular Rhythm, Normal S1, Normal S2 Abdomen: Bowel Sounds Present, Soft, Non Tender Extremities: No clubbing, No cyanosis, Edema Skin: No breakdown Musculoskeletal: No Tenderness to Palpation of Joints or Extremities Lymphatic: No Cervical, Supraclavicular, or Inguinal Adenopathy Neurological: Cranial nerves II-XII grossly intact, Neuro grossly intact Psych/Mental Status: Normal Affect, Appropriate Vital Signs Temp Pulse Resp BP Pulse Ox 98.8 F 98 26 H 97/56 L 98 05/25/19 04:00 05/25/19 06:00 05/25/19 06:00 05/25/19 06:00 05/25/19 06:00 Oxygen Flow Rate (L/min) 15 Oxygen Delivery Method Bi-pap Weight: 177 lb 11.081 oz Body Mass Index (BMI) 28.9 Intake and Output for Last 24 Hours 05/23/19 05/24/19 05/25/19 23:59 23:59 23:59 Intake Total 778.65 / 778.65 143.80 / 143.80 Output Total 2675 / 2675 625 / 625 Balance -1896.35 / -1896.35 -481.20 / -481.20 Labs (Last 48 Hours) 05/24/19 05/24/19 05/24/19 10:39 10:39 10:39 WBC 17.4 H RBC 2.44 L Hgb 8.1 L Hct 24.3 L MCV 99.6 H MCH 33.2 H MCHC 33.3 RDW Std Deviation 51.4 H RDW Coeff of [place] 14.0 Plt Count 179 MPV 11.2 Immature Gran % (Auto) 0.800 Neut % (Auto) 88.1 H Lymph % (Auto) 4.4 L [place] % (Auto) 6.5 Eos % (Auto) 0.0 Baso % (Auto) 0.2 Absolute Neuts (auto) 15.3 H Absolute Lymphs (auto) 0.76 L Nucleated RBC % 0 Specimen Type Sample Site pH Bicarbonate Actual POC Total CO2 Base Excess O2 Saturation O2 % ABG pCO2 ABG pO2 Douglas Test O2 Delivery Device EPAP IPAP Blood Gas Notified Whom Blood Gas Notified Time Sodium 135 L Potassium 5.8 H Chloride 109 H Carbon Dioxide 15.0 L Anion Gap 11 BUN 65 H Creatinine 3.32 H Estim Creat Clear Calc 16.55 Est GFR (MDRD) Af Amer 23 L Est GFR (MDRD) Non-Af 19 L BUN/Creatinine Ratio 19.6 Glucose 179 H Lactic Acid Calcium 9.0 Total Bilirubin AST ALT Alkaline Phosphatase Troponin I 1.930 H* B-Natriuretic Peptide 2284.2 H Total Protein Albumin Globulin Albumin/Globulin Ratio Urine Color Urine Clarity Urine pH Ur Specific [place] Urine Protein Urine Glucose (UA) Urine Ketones Urine Occult Blood Urine Nitrite Urine Bilirubin Urine Urobilinogen Ur Leukocyte Esterase Urine RBC Urine WBC Ur Squamous Epith Cells Urine Bacteria Urine Mucus MRSA (PCR) POC Glucose Blood Type Antibody Screen 11/05/24/19 05/24/19 10:50 14:29 14:29 WBC RBC Hgb Hct MCV MCH MCHC RDW Std Deviation RDW Coeff of Nica Plt Count MPV Immature Gran % (Auto) Neut % (Auto) Lymph % (Auto) [place] % (Auto) Eos % (Auto) Baso % (Auto) Absolute Neuts (auto) Absolute Lymphs (auto) Nucleated RBC % Specimen Type ART Sample Site R Radial pH 7.36 Bicarbonate Actual 13.8 L POC Total CO2 14 Base Excess -12 L O2 Saturation 99 O2 % 70 ABG pCO2 24.1 L ABG pO2 117 H Douglas Test POS O2 Delivery Device Bi / C PAP EPAP 8 IPAP 14 Blood Gas Notified Whom ED Blood Gas Notified Time 1040 Sodium 136 Potassium 5.2 H Chloride 109 H Carbon Dioxide 19.0 L Anion Gap 8 BUN 68 H Creatinine 3.08 H Estim Creat Clear Calc 17.84 Est GFR (MDRD) Af Amer 25 L Est GFR (MDRD) Non-Af 21 L BUN/Creatinine Ratio 22.1 H Glucose 152 H Lactic Acid Calcium 8.8 Total Bilirubin 1.40 H AST 48 H ALT 46 Alkaline Phosphatase 78 Troponin I 3.030 H* B-Natriuretic Peptide Total Protein 7.3 Albumin 3.3 Globulin 4.0 Albumin/Globulin Ratio 0.8 L Urine Color Urine Clarity Urine pH Ur Specific [place] Urine Protein Urine Glucose (UA) Urine Ketones Urine Occult Blood Urine Nitrite Urine Bilirubin Urine Urobilinogen Ur Leukocyte Esterase Urine RBC Urine WBC Ur Squamous Epith Cells Urine Bacteria Urine Mucus MRSA (PCR) POC Glucose Blood Type A POSITIVE Antibody Screen NEGATIVE 05/24/19 05/24/19 05/24/19 17:45 17:45 17:45 WBC RBC Hgb Hct MCV MCH MCHC RDW Std Deviation RDW Coeff of Nica Plt Count MPV Immature Gran % (Auto) Neut % (Auto) Lymph % (Auto) [place] % (Auto) Eos % (Auto) Baso % (Auto) Absolute Neuts (auto) Absolute Lymphs (auto) Nucleated RBC % Specimen Type Sample Site pH Bicarbonate Actual POC Total CO2 Base Excess O2 Saturation O2 % ABG pCO2 ABG pO2 Douglas Test O2 Delivery Device EPAP IPAP Blood Gas Notified Whom Blood Gas Notified Time Sodium Potassium Chloride Carbon Dioxide Anion Gap BUN Creatinine Estim Creat Clear Calc Est GFR (MDRD) Af Amer Est GFR (MDRD) Non-Af BUN/Creatinine Ratio Glucose Lactic Acid 1.4 Calcium Total Bilirubin AST ALT Alkaline Phosphatase Troponin I 3.110 H* B-Natriuretic Peptide Total Protein Albumin Globulin Albumin/Globulin Ratio Urine Color SEE COMMENT BELOW Urine Clarity Sl. Cloudy Urine pH 5.0 Ur Specific [place] 1.015 Urine Protein 100 H Urine Glucose (UA) Normal Urine Ketones Negative Urine Occult Blood 250 H Urine Nitrite Negative Urine Bilirubin Negative Urine Urobilinogen Normal Ur Leukocyte Esterase 500 H Urine RBC > 100 SEEN Urine WBC 50-100 SEEN Ur Squamous Epith Cells 0 SEEN Urine Bacteria 0 SEEN Urine Mucus 0 SEEN MRSA (PCR) POC Glucose Blood Type Antibody Screen 05/24/19 05/24/19 05/24/19 17:45 18:46 20:30 WBC RBC Hgb Hct MCV MCH MCHC RDW Std Deviation RDW Coeff of Nica Plt Count MPV Immature Gran % (Auto) Neut % (Auto) Lymph % (Auto) [place] % (Auto) Eos % (Auto) Baso % (Auto) Absolute Neuts (auto) Absolute Lymphs (auto) Nucleated RBC % Specimen Type Sample Site pH Bicarbonate Actual POC Total CO2 Base Excess O2 Saturation O2 % ABG pCO2 ABG pO2 Douglas Test O2 Delivery Device EPAP IPAP Blood Gas Notified Whom Blood Gas Notified Time Sodium Potassium Chloride Carbon Dioxide Anion Gap BUN Creatinine Estim Creat Clear Calc Est GFR (MDRD) Af Amer Est GFR (MDRD) Non-Af BUN/Creatinine Ratio Glucose Lactic Acid Calcium Total Bilirubin AST ALT Alkaline Phosphatase Troponin I 3.590 H* B-Natriuretic Peptide Total Protein Albumin Globulin Albumin/Globulin Ratio Urine Color Urine Clarity Urine pH Ur Specific [place] Urine Protein Urine Glucose (UA) Urine Ketones Urine Occult Blood Urine Nitrite Urine Bilirubin Urine Urobilinogen Ur Leukocyte Esterase Urine RBC Urine WBC Ur Squamous Epith Cells Urine Bacteria Urine Mucus MRSA (PCR) Negative POC Glucose 110 Blood Type Antibody Screen 05/24/19 05/25/19 05/25/19 23:43 04:05 04:05 WBC 15.7 H RBC 2.28 L Hgb 7.6 L Hct 22.6 L MCV 99.1 H MCH 33.3 H MCHC 33.6 RDW Std Deviation 49.2 H RDW Coeff of [place] 13.6 Plt Count 183 MPV 11.1 Immature Gran % (Auto) 0.600 Neut % (Auto) 86.4 H Lymph % (Auto) 7.8 L [place] % (Auto) 5.1 Eos % (Auto) 0.0 Baso % (Auto) 0.1 Absolute Neuts (auto) 13.6 H Absolute Lymphs (auto) 1.22 Nucleated RBC % 0 Specimen Type Sample Site pH Bicarbonate Actual POC Total CO2 Base Excess O2 Saturation O2 % ABG pCO2 ABG pO2 Douglas Test O2 Delivery Device EPAP IPAP Blood Gas Notified Whom Blood Gas Notified Time Sodium 136 Potassium 4.4 Chloride 106 Carbon Dioxide 19.0 L Anion Gap 11 BUN 72 H Creatinine 3.16 H Estim Creat Clear Calc 17.39 Est GFR (MDRD) Af Amer 25 L Est GFR (MDRD) Non-Af 20 L BUN/Creatinine Ratio 22.8 H Glucose 122 H Lactic Acid Calcium 8.5 Total Bilirubin AST ALT Alkaline Phosphatase Troponin I B-Natriuretic Peptide Total Protein Albumin Globulin Albumin/Globulin Ratio Urine Color Urine Clarity Urine pH Ur Specific [place] Urine Protein Urine Glucose (UA) Urine Ketones Urine Occult Blood Urine Nitrite Urine Bilirubin Urine Urobilinogen Ur Leukocyte Esterase Urine RBC Urine WBC Ur Squamous Epith Cells Urine Bacteria Urine Mucus MRSA (PCR) POC Glucose 110 Blood Type Antibody Screen 05/25/19 05:24 WBC RBC Hgb Hct MCV MCH MCHC RDW Std Deviation RDW Coeff of Nica Plt Count MPV Immature Gran % (Auto) Neut % (Auto) Lymph % (Auto) [place] % (Auto) Eos % (Auto) Baso % (Auto) Absolute Neuts (auto) Absolute Lymphs (auto) Nucleated RBC % Specimen Type Sample Site pH Bicarbonate Actual POC Total CO2 Base Excess O2 Saturation O2 % ABG pCO2 ABG pO2 Douglas Test O2 Delivery Device EPAP IPAP Blood Gas Notified Whom Blood Gas Notified Time Sodium Potassium Chloride Carbon Dioxide Anion Gap BUN Creatinine Estim Creat Clear Calc Est GFR (MDRD) Af Amer Est GFR (MDRD) Non-Af BUN/Creatinine Ratio Glucose Lactic Acid Calcium Total Bilirubin AST ALT Alkaline Phosphatase Troponin I B-Natriuretic Peptide Total Protein Albumin Globulin Albumin/Globulin Ratio Urine Color Urine Clarity Urine pH Ur Specific [place] Urine Protein Urine Glucose (UA) Urine Ketones Urine Occult Blood Urine Nitrite Urine Bilirubin Urine Urobilinogen Ur Leukocyte Esterase Urine RBC Urine WBC Ur Squamous Epith Cells Urine Bacteria Urine Mucus MRSA (PCR) POC Glucose 111 H Blood Type Antibody Screen Microbiology 05/24/19 17:55 Mucosa - Nose Influenza Types A,B Direct FA (ABIGAIL) - Final Clinical Impression(s) from Imaging Studies Chest X-Ray 05/24/19 10:19 IMPRESSION: Bilateral patchy airspace disease worse on the right side. Blunting of both costophrenic angles. Findings suggestive of pulmonary edema versus infectious process. Electronically Signed: Alec Thompson, at 11:08 EST , Service support , Medical Necessity - Tobacco Use Smoking Status: Never smoker Assessment/Plan All Active Problems (Last Reviewed 05/24/19 @ 12:27 by Samir Birmingham MD) Acute coronary syndrome (Acute) CHF (congestive heart failure) (Acute) Respiratory failure (Acute) History of coronary artery stent placement (Resolved 01/21/18) Abnormal nuclear stress test (Resolved) Abnormal result of cardiovascular function study, unspecified (Resolved) steroid injections lumbar (Resolved) RECOMMENDATIONS: 1. Continue empiric antimicrobials, pending infectious work-up. 2. Continue diuretic therapy for volume optimization. 3. Continue BiPAP and wean FiO2 to maintain oxygen saturations at or above 90%. 4. Obtain repeat plain film chest x-ray. 5. Maintain patient n.p.o. until he can be weaned from continuous BiPAP support. IMPRESSIONS: 1. Acute hypoxemic respiratory failure Appears to be secondary to decompensated heart failure with subsequent development of pulmonary edema. While infectious etiologies would also be a consideration, especially in light of the patient's elevated white blood cell count, tachypnea and respiratory failure, he denies any systemic signs or symptoms of infection and denied the presence of a cough or sputum production. Nevertheless, empiric antimicrobials will be continued pending infectious work- up. Volume optimization through IV diuretic therapy will be continued. Cardiol wanda is following. Wean FiO2 to maintain oxygen saturations at or above 90%. If there is no significant improvement the patient's respiratory status in the next 24 hours, intubation will be considered. 2. Non-ST segment elevation AR/personal history of coronary artery disease status post CABG Continue current medical management per cardiology recommendations. 3. Acute on chronic kidney disease/non-gap metabolic acidosis/hyperkalemia Unclear etiology, although passive vascular congestion in the setting of cardiorenal syndrome is a possibility. As noted above, IV diuretic therapy will be employed. Nephrology is following to assist with management. 4. Anemia The patient's hemoglobin fell to 7.6 g/dL this morning. Following discussion with cardiology, plan will include transfusion of 2 units of packed red blood cells. Plan to recheck H&H posttransfusion. 5. Diabetes mellitus/hypertension/hyperlipidemia/recent knee surgery Complicates care, management, recovery and prognosis. Patient to be n.p.o. for now, given BiPAP need. Continue sliding scale insulin coverage. TIME: 40 minutes of critical care time was spent addressing the patient's acute hypoxemic respiratory failure, non-ST segment elevation AR, acute decompensated heart failure, acute on chronic kidney disease, anemia, review of all data and collaboration with the care team. ([id number]) Code Visit [id number]: [id number] Critical care first hour
--- NOTE | 2019-05-25 07:08 | PCM.PN.CARD ---
Subjectve: Patient seen and evaluated. Was on BiPAP overnight. Appears to be doing fair Objective: Vital Signs Temp Pulse Resp BP Pulse Ox 98.8 F 98 26 H 97/56 L 98 05/25/19 04:00 05/25/19 06:00 05/25/19 06:00 05/25/19 06:00 05/25/19 06:00 Oxygen Flow Rate (L/min) 15 Oxygen Delivery Method Bi-pap Weight: 177 lb 11.081 oz Body Mass Index (BMI) 28.9 Intake and Output for Last 24 Hours 05/23/19 05/24/19 05/25/19 23:59 23:59 23:59 Intake Total 778.65 / 778.65 143.80 / 143.80 Output Total 2675 / 2675 625 / 625 Balance -1896.35 / -1896.35 -481.20 / -481.20 General: Awake, Alert, Oriented x 3 HEENT: PERRL, EOMI, Sclera Non Icteric Neck: Supple, Good ROM, No Lymph Node Enlargement Lungs: Clear to auscultation Cardiovascular: Regular Rhythm, Normal S1, Normal S2, No Murmurs, No Rubs, No Gallops Vascular: No Carotid Bruits, Normal Femoral Pulses, Normal Radial Pulses, Normal Dorsalis Pedal Pulse, Normal Posterior Tibial Pulses Abdomen: Bowel Sounds Present, Soft, Non Tender, No HSM, No Organomegaly Extremities: No Cyanosis, No Clubbing, No edema Musculoskeletal: No Erythema Skin: No Rashes Lymphatic: No Lymph Node Enlargement Neurological: No Focal Motor or Sensory Deficit Psych/Mental Status: Appropriate 05/24/19 10:39: WBC 17.4 H, RBC 2.44 L, Hgb 8.1 L, Hct 24.3 L, MCV 99.6 H, MCH 33.2 H, MCHC 33.3, Plt Count 179, MPV 11.2, Immature Gran % (Auto) 0.800, Neut % (Auto) 88.1 H, Lymph % (Auto) 4.4 L, Stevens % (Auto) 6.5, Eos % (Auto) 0.0, Baso % (Auto) 0.2, Absolute Neuts (auto) 15.3 H, Nucleated RBC % 0 05/24/19 10:39: Sodium 135 L, Potassium 5.8 H, Chloride 109 H, Carbon Dioxide 15.0 L, Anion Gap 11, BUN 65 H, Creatinine 3.32 H, Est GFR (MDRD) Af Amer 23 L, Est GFR (MDRD) Non-Af 19 L, BUN/Creatinine Ratio 19.6, Glucose 179 H, Calcium 9.0, Troponin I 1.930 H* 05/24/19 10:39: B-Natriuretic Peptide 2284.2 H 05/24/19 10:50: pH 7.36, Bicarbonate Actual 13.8 L, POC Total CO2 14, Base Excess -12 L, O2 Saturation 99, ABG pCO2 24.1 L, ABG pO2 117 H, Douglas Test POS 05/24/19 14:29: Sodium 136, Potassium 5.2 H, Chloride 109 H, Carbon Dioxide 19.0 L, Anion Gap 8, BUN 68 H, Creatinine 3.08 H, Est GFR (MDRD) Af Amer 25 L, Est GFR (MDRD) Non-Af 21 L, BUN/Creatinine Ratio 22.1 H, Glucose 152 H, Calcium 8.8, Total Bilirubin 1.40 H, Troponin I 3.030 H* 05/24/19 17:45: Troponin I 3.110 H* 05/24/19 17:45: Lactic Acid 1.4 05/24/19 17:45: Urine Color SEE COMMENT BELOW, Urine Clarity Sl. Cloudy, Urine pH 5.0, Ur Specific [place] 1.015, Urine Protein 100 H, Urine Glucose (UA) Normal, Urine Ketones Negative, Urine Occult Blood 250 H, Urine Nitrite Negative, Urine Bilirubin Negative, Urine Urobilinogen Normal, Ur Leukocyte Esterase 500 H, Urine RBC > 100 SEEN, Urine WBC 50-100 SEEN 05/24/19 20:30: Troponin I 3.590 H* 05/25/19 04:05: WBC 15.7 H, RBC 2.28 L, Hgb 7.6 L, Hct 22.6 L, MCV 99.1 H, MCH 33.3 H, MCHC 33.6, Plt Count 183, MPV 11.1, Immature Gran % (Auto) 0.600, Neut % (Auto) 86.4 H, Lymph % (Auto) 7.8 L, Stevens % (Auto) 5.1, Eos % (Auto) 0.0, Baso % (Auto) 0.1, Absolute Neuts (auto) 13.6 H, Nucleated RBC % 0 05/25/19 04:05: Sodium 136, Potassium 4.4, Chloride 106, Carbon Dioxide 19.0 L, Anion Gap 11, BUN 72 H, Creatinine 3.16 H, Est GFR (MDRD) Af Amer 25 L, Est GFR (MDRD) Non-Af 20 L, BUN/Creatinine Ratio 22.8 H, Glucose 122 H, Calcium 8.5 Rhythm: EKG: ECHO: Stress Test: Cardiac Cath: PCI: CT Surgery: Holter monitor: EPS: PPM: CXR: Chest CT Scan: Medical Necessity - Tobacco Use Smoking Status: Never smoker Assessment/Plan 1. Acute hypoxic respiratory failure secondary to pulmonary edema ~Patient placed on noninvasive ventilation BiPAP admitted to the intensive care unit. We will continue with intravenous Lasix The above is likely secondary to progressive coronary artery disease. 2. 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 His ejection fraction by echocardiogram today demonstrates globally reduced left ventricular systolic function. Estimated EF 40 to 45%. Patient has been placed on noninvasive ventilation BiPAP as stated above, fluid restriction IV Lasix as well as nitroglycerin dri 3. Acute non-STEMI ?Patient placed on nitroglycerin drip as well as heparin with consultation placed to cardiology. Also did initiate patient on beta-blockers and statin therapy in addition to aspirin May eventually need a cardiac catheterization. We will need to coordinate the above with nephrology due to his worsening renal function Will need to be stabilized from the respiratory standpoint before any intervention undertaken 4. Coronary artery disease with previous CABG and subsequent stent placement ~ CABG x 4 JOHNSON to LAD, Sequential SVG-OM and Ramus, RVG-RPDA 08/16/2002 ; patient underwent ERM-SMF-[id number]-OM w/ 2.75 x 8 mm Resolute 01/21/18 5. 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 Placed on long acting insulin, Accu-Cheks a.c. and at bedtime and covered with sliding scale insulin 6. 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 Hypertension ~ blood pressure controlled, home medications continued with dose adjustment as needed 8. Dyslipidemia ~patient is on statin therapy, continued at home dose 9. DVT prophylaxis ?Patient is on Lovenox At this time the patient appears to be in rather guarded condition and would be observed in the intensive care unit. 10. Anemia Patient is noted to be anemic. I would recommend at this stage that we transfuse with at least 2 units of packed red blood cells while in the intensive care unit. Above discussed with community education specialist Thank you for allowing me to participate in the care of your patient. Please don't hesitate to call if any issues arise
--- NOTE | 2019-05-25 07:13 | RAD_ITS ---
STUDY: X-RAY CHEST REASON FOR EXAM: Male, 78 years old. Shortness of breath. TECHNIQUE: Single AP portable view of the chest. COMPARISON: Comparison is made with prior study dated May 24, 2019. FINDINGS: Minimal improved aeration of both lungs although residual bilateral airspace disease is present. Stable blunting of the costophrenic angles bilaterally. Sternal cerclage wires and vascular clips are present from a prior sternotomy and coronary artery bypass graft procedure (CABG). Normal mediastinum and dani. Normal visualized pulmonary arteries. There is atherosclerotic calcification of the aortic arch with tortuosity. There are diffuse degenerative changes of the visualized thoracic spine. Normal visualized ribs, clavicles, and shoulders. There is no demonstrated abnormality of the visualized soft tissue structures of the upper abdomen. RAD/Chest 1 View (Portable) IMPRESSION: Mild degree of improved aeration of both lungs. Persistent bilateral patchy airspace disease is present. Electronically Signed: Alec Thompson, at 8:17 EST , Service support ,
--- NOTE | 2019-05-25 07:17 | PCM.PN.HOSP ---
Patient Problems: Active and Suspected Problems (Last Reviewed 05/24/19 @ 12:27 by Samir Birmingham MD) Acute coronary syndrome (Acute) CHF (congestive heart failure) (Acute) Respiratory failure (Acute) Subjective: CC follow-up acute hypoxic respiratory failure Patient seen in the ICU tolerated BiPAP during the night. Is been a precipitous drop in his hemoglobin to 7.5. Troponin is trending up patient was empirically started on broad-spectrum antibiotic therapy for suspected pneumonia given his elevated white cell count and questionable infectious infiltrates on chest x-ray. Also remains on Lasix Objective: GENERAL: Dyspneic at rest and on BiPAP HEENT: Atraumatic; EYES; Anicteric, Normal Conjunctiva NECK; supple, normal thyroid, RESPIRATORY: Diminished to auscultation lateral crackles CARDIOVASCULAR: Regular S1 S2, GI: soft, normoactive bowel sounds, : No Renal angle tenderness; EXTREMITIES: No cyanosis, no clubbing, MUSCULOSKELETAL: no muscle waisting NEURO: Awake; no lateralizing signs. SKIN: No Rash PSYCH; Flat affect Vitals/I&O's: Vital Signs Temp Pulse Resp BP Pulse Ox 98.8 F 98 26 H 97/56 L 98 05/25/19 04:00 05/25/19 06:00 05/25/19 06:00 05/25/19 06:00 05/25/19 06:00 Oxygen Flow Rate (L/min) 15 Oxygen Delivery Method Bi-pap Weight: 80.6 kg Body Mass Index (BMI) 28.9 Intake and Output for Last 24 Hours 05/23/19 05/24/19 05/25/19 23:59 23:59 23:59 Intake Total 778.65 / 778.65 143.80 / 143.80 Output Total 2675 / 2675 625 / 625 Balance -1896.35 / -1896.35 -481.20 / -481.20 Microbiology Past 72 Hours 05/24/19 17:55 Mucosa - Nose Influenza Types A,B Direct FA (ABIGAIL) - Final Laboratory Results 05/24/19 10:39: WBC 17.4 H, RBC 2.44 L, Hgb 8.1 L, Hct 24.3 L, MCV 99.6 H, MCH 33.2 H, MCHC 33.3, RDW Std Deviation 51.4 H, RDW Coeff of Nica 14.0, Plt Count 179, MPV 11.2, Immature Gran % (Auto) 0.800, Neut % (Auto) 88.1 H, Lymph % (Auto) 4.4 L, [place] % (Auto) 6.5, Eos % (Auto) 0.0, Baso % (Auto) 0.2, Absolute Neuts (auto) 15.3 H, Absolute Lymphs (auto) 0.76 L, Nucleated RBC % 0 05/24/19 10:39: Sodium 135 L, Potassium 5.8 H, Chloride 109 H, Carbon Dioxide 15.0 L, Anion Gap 11, BUN 65 H, Creatinine 3.32 H, Estim Creat Clear Calc 16.55, Est GFR (MDRD) Af Amer 23 L, Est GFR (MDRD) Non-Af 19 L, BUN/Creatinine Ratio 19.6, Glucose 179 H, Calcium 9.0, Troponin I 1.930 H* 05/24/19 10:39: B-Natriuretic Peptide 2284.2 H 05/24/19 10:50: Specimen Type ART, Sample Site R Radial, pH 7.36, Bicarbonate Actual 13.8 L, POC Total CO2 14, Base Excess -12 L, O2 Saturation 99, O2 % 70, ABG pCO2 24.1 L, ABG pO2 117 H, Douglas Test POS, O2 Delivery Device Bi / C PAP, EPAP 8, IPAP 14, Blood Gas Notified Whom ED , Blood Gas Notified Time 1040 05/24/19 14:29: Sodium 136, Potassium 5.2 H, Chloride 109 H, Carbon Dioxide 19.0 L, Anion Gap 8, BUN 68 H, Creatinine 3.08 H, Estim Creat Clear Calc 17.84, Est GFR (MDRD) Af Amer 25 L, Est GFR (MDRD) Non-Af 21 L, BUN/Creatinine Ratio 22.1 H, Glucose 152 H, Calcium 8.8, Total Bilirubin 1.40 H, AST 48 H, ALT 46, Alkaline Phosphatase 78, Troponin I 3.030 H*, Total Protein 7.3, Albumin 3.3, Globulin 4.0, Albumin/Globulin Ratio 0.8 L 05/24/19 14:29: Blood Type A POSITIVE, Antibody Screen NEGATIVE 05/24/19 17:45: Troponin I 3.110 H* 05/24/19 17:45: Lactic Acid 1.4 05/24/19 17:45: Urine Color SEE COMMENT BELOW, Urine Clarity Sl. Cloudy, Urine pH 5.0, Ur Specific [place] 1.015, Urine Protein 100 H, Urine Glucose (UA) Normal, Urine Ketones Negative, Urine Occult Blood 250 H, Urine Nitrite Negative, Urine Bilirubin Negative, Urine Urobilinogen Normal, Ur Leukocyte Esterase 500 H, Urine RBC > 100 SEEN, Urine WBC 50-100 SEEN, Ur Squamous Epith Cells 0 SEEN, Urine Bacteria 0 SEEN, Urine Mucus 0 SEEN 05/24/19 17:45: MRSA (PCR) Negative 05/24/19 18:46: POC Glucose 110 05/24/19 20:30: Troponin I 3.590 H* 05/24/19 23:43: POC Glucose 110 05/25/19 04:05: WBC 15.7 H, RBC 2.28 L, Hgb 7.6 L, Hct 22.6 L, MCV 99.1 H, MCH 33.3 H, MCHC 33.6, RDW Std Deviation 49.2 H, RDW Coeff of Nica 13.6, Plt Count 183, MPV 11.1, Immature Gran % (Auto) 0.600, Neut % (Auto) 86.4 H, Lymph % (Auto) 7.8 L, [place] % (Auto) 5.1, Eos % (Auto) 0.0, Baso % (Auto) 0.1, Absolute Neuts (auto) 13.6 H, Absolute Lymphs (auto) 1.22, Nucleated RBC % 0 05/25/19 04:05: Sodium 136, Potassium 4.4, Chloride 106, Carbon Dioxide 19.0 L, Anion Gap 11, BUN 72 H, Creatinine 3.16 H, Estim Creat Clear Calc 17.39, Est GFR (MDRD) Af Amer 25 L, Est GFR (MDRD) Non-Af 20 L, BUN/Creatinine Ratio 22.8 H, Glucose 122 H, Calcium 8.5 05/25/19 05:24: POC Glucose 111 H Current Medications Albuterol Sulfate (Ventolin Aerosols) 2.5 mg INHALATION Q2H PRN PRN PRN Reason: SOB/Wheezing Amlodipine Besylate (Norvasc) 10 mg PO DAILY [facility] Aspirin (Ecotrin) 81 mg PO DAILYCM [facility] Atorvastatin Calcium (Lipitor) 40 mg PO QHS [facility] Last Admin: 05/24/19 22:03 Dose: 40 mg Documented by: Dextrose (D50w Syringe) 0 gm IV X1 PRN; Protocol PRN Reason: Hypoglycemia Enoxaparin Sodium (Lovenox) 90 mg SC X1 ONE Stop: 05/25/19 08:01 Famotidine (Pepcid) 20 mg PO DAILY [facility] Furosemide (Lasix) 60 mg IV Q8 [facility] Last Admin: 05/25/19 05:22 Dose: 60 mg Documented by: Glucagon () 1 mg IM .X1 PRN PRN Reason: Hypoglycemia Guaifenesin (Robitussin) 10 ml PO Q4H PRN PRN PRN Reason: COUGH Nitroglycerin/Dextrose () 250 mls @ 6 mls/hr IV .[id number] [facility] Last Infusion: 05/25/19 05:32 Dose: 10 mcg/min, 6 mls/hr Documented by: Sodium Chloride () 250 mls @ 15 mls/hr IV .[id number] PRN PRN Reason: Saline Flush Last Infusion: 05/25/19 05:31 Dose: 15 mls/hr Documented by: Vancomycin IV Pharmacy to Dose (1 ea/ Sodium Chloride) 500 mls @ 250 mls/hr IV X1 PRN; Protocol PRN Reason: Rx to Dose Cefepime HCl 2 gm/ Sodium (Chloride) 100 mls @ 200 mls/hr IV Q24@2200 [facility] Insulin Human Lispro (Humalog Kwikpen (Bkc)) 0 unit SC Q6 [facility]; Protocol Last Admin: 05/25/19 05:42 Dose: Not Given Documented by: Metoprolol Tartrate (Lopressor (Beta Janee)) 25 mg PO BID [facility] Last Admin: 05/24/19 22:02 Dose: 25 mg Documented by: Multivitamins (Multivitamin) 1 tablet PO DAILY@0800 [facility] Nitroglycerin (Nitrostat) 0.4 mg SUBLINGUAL Q5M PRN PRN Reason: CARDIAC/CHEST PAIN Ondansetron HCl (Zofran) 4 mg IV Q8H PRN PRN PRN Reason: Nausea Oxycodone HCl (Oxyir) 5 mg PO Q4H PRN PRN PRN Reason: Pain Score 4-5/10 Last Admin: 05/24/19 14:36 Dose: 5 mg Documented by: Oxycodone HCl (Oxyir) 10 mg PO Q4H PRN PRN PRN Reason: Pain Score 6-10/10 Pantoprazole Sodium (Protonix) 40 mg PO DAILY [facility] Promethazine HCl (Phenergan) 25 mg IM Q6H PRN PRN PRN Reason: Breakthrough Nausea/Vomiting Ranolazine (Ranexa) 1,000 mg PO BID [facility] Last Admin: 05/24/19 22:03 Dose: 1,000 mg Documented by: Senna/Docusate Sodium (Senokot-S, Rose-Colace) 2 tablet PO BID PRN PRN Reason: Constipation Sodium Chloride () 10 - 40 ml IV UD PRN PRN Reason: SALINE FLUSH Last Admin: 05/25/19 05:23 Dose: 10 ml Documented by: Tamsulosin HCl (Flomax) 0.4 mg PO QHS [facility] Last Admin: 05/24/19 22:03 Dose: 0.4 mg Documented by: STROKE Vital Signs/Narrative: Vital Signs Temp Pulse Resp BP Pulse Ox 05/25/19 06:00 98 26 H 97/56 L 98 05/25/19 05:00 107 H 26 H 106/72 100 05/25/19 04:00 98.8 F 68 14 139/88 H 93 05/25/19 03:33 104 H 28 H 100 Medical Necessity - Tobacco Use Smoking Status: Never smoker Assessment/Plan All Active Problems (Last Reviewed 05/24/19 @ 12:27 by Samir Birmingham MD) Acute coronary syndrome (Acute) CHF (congestive heart failure) (Acute) Respiratory failure (Acute) History of coronary artery stent placement (Resolved 01/21/18) Abnormal nuclear stress test (Resolved) Abnormal result of cardiovascular function study, unspecified (Resolved) steroid injections lumbar (Resolved) Patient is a 78-year-old gentleman presented with exertional dyspnea found to be in acute hypoxic respiratory failure secondary to congestive heart failure. Patient was also found to have acute NSTEMI 1. 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 Cr Case discussed with him also did review his notes 2. 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 Patient has been placed on noninvasive ventilation BiPAP as stated above, fluid restriction IV Lasix as well as nitroglycerin drip and consultation placed to cardiology. As part of patient's management ordered serial cardiac enzymes and a repeat echo - Patient has been seen in consultation by cardiology for his note and recommendations reviewed 3. Acute non-STEMI probably precipitated above ?Patient placed on nitroglycerin drip as well as heparin with consultation placed to cardiology. Also did initiate patient on beta-blockers and statin therapy in addition to aspirin -Clear on optimal therapy 4. Suspected pneumonia -patient was managed with Cefepime Zithromax as well as vancomycin. Vancomycin discontinued since his nasal MRSA came back negative 5. Coronary artery disease with previous CABG and subsequent stent placement ~ CABG x 4 OJHNSON to LAD, Sequential SVG-OM and Ramus, RVG-RPDA 08/16/2002 ; DCU-OMP-XQX-OM w/ 2.75 x 8 mm Resolute 01/21/18 6. 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 Placed on long acting insulin, Accu-Cheks a.c. and at bedtime and covered with sliding scale insulin 7. 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 Hypertension ~ blood pressure controlled, home medications continued with dose adjustment as needed 9. Dyslipidemia ~patient is on statin therapy, continued at home dose 10. DVT prophylaxis ?Patient is on heparin Code Visit Inpatient E&M: [id number] [facility] L3
[2019-05-25] MEDS: Enoxaparin 100 MG/ML Syringe 90 MG SC (08:00)
--- NOTE | 2019-05-25 10:18 | CASEMGMT ---
RN CM Assessment Presentation: Resp Faillure, ACS Intro role of CM and purpose of RN CM assessment to patient and his . Pt currently on Bipap, unable to participate. able to assist with RN CM Assessment.. Demographics, PCP and Pharmacy verified. states pt is generally independent, does cooking and shopping. is available if care needs arise. Chair lift to second floor bedrooms. PCP: Dr. Quinones Specialists: Dr. Olvera Preferred Pharmacy: [facility] Pharmacy Insurance: [facility] Prescription Benefit: yes LNOK: Living Arrangements: Lives in two story home with . Bedrooms on second floor. Pt independent with bathing, dressing. Has chair lift to second floor. Per does shopping and cooking. Transportation: drives DME: walker, cane. No oxygen or cpap used at home. HHC: none Patient DC goals: home DC PLAN: undetermined. Will follow and assist with dc planning. PT/OT evals held for today due to medical condition. Mimi ARAYAN RN ACM
--- NOTE | 2019-05-25 12:17 | PCM.CONS.GEN ---
Reason for Consult Date of Consultation: 05/25/19 Reason for Consultation: libia History of Present Illness: The patient is a 78 year old M with a history of coronary artery disease status post CABG and PCI with stent who presented with shortness of breath. He started having shortness of breath about 4 days prior to admission gradually getting worse. When he became short of breath on minimal activity he agreed to come in the. He is found to be in high acute hypoxic respiratory failure secondary to pulmonary edema was placed on BiPAP and was started on IV Lasix. Currently he is getting 2 units of PRBC transfused. He was admitted to the ICU. His baseline serum creatinine last year was between 1.9-2.1. And presented with a creatinine of 3.2 which prompted renal consult. The patient follows up with for his CKD. He denies chest pain at this time denies abdominal pain nausea vomiting diarrhea fever chills. He denies dysuria hematuria. He states the shortness of breath is slightly better now. Review of systems otherwise negative unless noted above. Past Medical History Past Medical History (Chronic Problems): Chronic Problems (Last Reviewed 05/24/19 @ 12:27 by Samir Birmingham MD) Chronic kidney disease (CKD) (Chronic) Atherosclerosis of coronary artery bypass graft without angina pectoris (Chronic) CABG x 4 JOHNSON to LAD, Sequential SVG-OM and Ramus, RVG-RPDA 08/16/2002 [id number]-OM w/ 2.75 x 8 mm Resolute 01/21/18 H/O coronary artery bypass surgery (Chronic 08/16/02) CABG x 4 JOHNSON to LAD, Sequential SVG-OM and Ramus, RVG-RPDA 08/16/2002 Essential (primary) hypertension (Chronic) HLD (hyperlipidemia) (Chronic) Atherosclerotic heart disease of [place] coronary artery without angina pectoris (Chronic) CABG x 4 JOHNSON to LAD, SVG to obtuse marginal LCx, sequential SVG to intermediate, and SVG to right PDA 08/2002 PTCA of ramus branch of LCx, PTCA/stent to proximal RCA, PTCA/stent to proximal LCx, 1998; unsuccessful PTCA LAD 06/2003; [id number] of LCx w/ 2.75 x 8 mm Resolute 01/21/18 Medical History: Medical History (Last Reviewed 05/24/19 @ 12:27 by Samir Birmingham MD) Chronic kidney disease (CKD) (Chronic) N18.9 Atherosclerosis of coronary artery bypass graft without angina pectoris (Chronic) I25.810 CABG x 4 JOHNSON to LAD, Sequential SVG-OM and Ramus, RVG-RPDA 08/16/2002 [id number]-UMN-[id number]-OM w/ 2.75 x 8 mm Resolute 01/21/18 Essential (primary) hypertension (Chronic) I10 HLD (hyperlipidemia) (Chronic) E78.5 Atherosclerotic heart disease of [place] coronary artery without angina pectoris (Chronic) I25.10 CABG x 4 JOHNSON to LAD, SVG to obtuse marginal LCx, sequential SVG to intermediate, and SVG to right PDA 08/2002 PTCA of ramus branch of LCx, PTCA/stent to proximal RCA, PTCA/stent to proximal LCx, 1998; unsuccessful PTCA LAD 06/2003; [id number]-[id number]-OM of LCx w/ 2.75 x 8 mm Resolute 01/21/18 Type 2 diabetes mellitus E11.9 Abnormal nuclear stress test (Resolved) R94.39 Abnormal result of cardiovascular function study, unspecified (Resolved) R94.30 steroid injections lumbar (Resolved) Abnormal electrocardiogram (Inactive) R94.31 Fatigue (Inactive) R53.83 High risk medication use (Inactive) Z79.899 Shortness of breath (Inactive) R06.02 Allergies ramipril [From Altace] Allergy (Intermediate, Verified 05/24/19 10:01) cough Home Medications: Ambulatory Orders Medication Instructions Recorded glimepiride 1 mg tablet 1 mg PO DAILY 06/13/17 isosorbide mononitrate ER 120 mg 120 mg PO QDAY tab 06/13/17 tablet,extended release 24 hr aspirin 81 mg tablet,delayed 324 mg PO DAILY 06/17/17 release losartan 50 mg tablet 50 mg PO DAILY 06/17/17 nitroglycerin 0.4 mg sublingual 0.4 mg SUBLINGUAL .COMPLEX PRN #25 05/15/18 tablet tab oxycodone-acetaminophen 5 mg-325 1 tab PO TID PRN 30 Days #90 tab 11/17/18 mg tablet tamsulosin 0.4 mg capsule 0.4 mg PO QHS 90 Days #90 cap 11/17/18 amlodipine 10 mg tablet 10 mg PO DAILY #90 tab 04/01/19 Acetaminophen [Tylenol Extra 500 mg PO TID PRN PRN 05/24/19 Strength] Multivitamin with Minerals 1 tab PO DAILY 05/24/19 [Multiple Vitamin] Surgical History: Surgical History (Last Reviewed 05/24/19 @ 12:24 by Samir Birmingham MD) History of coronary artery stent placement (Resolved) Onset Date: 01/21/18 Z95.5 [id number]-XAA-[id number]-OM of LCx w/ 2.75 x 8 mm Resolute 01/22/18 PTCA of ramus branch of LCx, PTCA/stent to proximal RCA, PTCA/stent to proximal LCx, 1998; unsuccessful PTCA LAD 06/2003; H/O coronary artery bypass surgery (Chronic) Onset Date: 08/16/02 Z95.1 CABG x 4 JOHNSON to LAD, Sequential SVG-OM and Ramus, RVG-RPDA 08/16/2002 History of total right knee replacement Z96.651 uvulectomy S/P PTCA (percutaneous transluminal coronary angioplasty) Z98.61 PTCA of Ramus branch of CX, PTCA/stent proximal RCA. 03/1999 PTCA/stent proximal CX. Attempted/unsuccessful PTCA LAD 06/2003; stent SVG to OM 2017 Surgical History: coronary bypass surgery, - - Recent knee surgery as in HPI Smoking Status: Never smoker Alcohol: None Drugs: None - *Family History Maternal Family History: Family History (Last Reviewed 05/24/19 @ 12:24 by Samir Birmingham MD) Father Heart disease Myocardial infarction Brother Diabetes History of PTCA Mother HLD (hyperlipidemia) Review of Systems Eyes: Reports: - - Review of systems otherwise negative unless noted in the HPI Patient Problems: Active and Suspected Problems (Last Reviewed 05/24/19 @ 12:27 by Samir Birmingham MD) Acute coronary syndrome (Acute) CHF (congestive heart failure) (Acute) Respiratory failure (Acute) - Physical Exam Vitals/I&O's: Vital Signs Temp Pulse Resp BP Pulse Ox 98.2 F 105 H 23 H 107/72 99 05/25/19 08:32 05/25/19 10:00 05/25/19 10:00 05/25/19 10:00 05/25/19 10:00 Oxygen Flow Rate (L/min) 15 Oxygen Delivery Method Bi-pap Weight: 80.6 kg Body Mass Index (BMI) 28.9 Intake and Output for Last 24 Hours 05/23/19 05/24/19 05/25/19 23:59 23:59 23:59 Intake Total 778.65 / 778.65 227.85 / 227.85 Output Total 2675 / 2675 1325 / 1325 Balance -1896.35 / -1896.35 -1097.15 / -1097.15 General: Alert, Oriented x3, Cooperative HEENT: Atraumatic, PERRLA, EOMI, Normocephalic Neck: Supple, No JVD, Negative Carotid Bruits Lungs: Normal air movement, Rhonchi, Short of Breath Cardiovascular: Regular rate, No murmurs Abdomen: Bowel Sounds Present, Soft, Non Tender Extremities: Capillary Refill Less than 3 Seconds, Edema Skin: No rashes, No breakdown Musculoskeletal: No Tenderness to Palpation of Joints or Extremities Neurological: Cranial nerves II-XII grossly intact Psych/Mental Status: Normal Affect, Appropriate Microbiology Past 72 Hours 05/24/19 17:55 Mucosa - Nose Respiratory Panel (PCR) - Final 05/24/19 17:55 Mucosa - Nose Influenza Types A,B Direct FA (ABIGAIL) - Final Laboratory Results 05/24/19 14:29: Sodium 136, Potassium 5.2 H, Chloride 109 H, Carbon Dioxide 19.0 L, Anion Gap 8, BUN 68 H, Creatinine 3.08 H, Estim Creat Clear Calc 17.84, Est GFR (MDRD) Af Amer 25 L, Est GFR (MDRD) Non-Af 21 L, BUN/Creatinine Ratio 22.1 H, Glucose 152 H, Calcium 8.8, Total Bilirubin 1.40 H, AST 48 H, ALT 46, Alkaline Phosphatase 78, Troponin I 3.030 H*, Total Protein 7.3, Albumin 3.3, Globulin 4.0, Albumin/Globulin Ratio 0.8 L 05/24/19 14:29: Blood Type A POSITIVE, Antibody Screen NEGATIVE 05/24/19 14:30: Crossmatch See Detail 05/24/19 17:45: Troponin I 3.110 H* 05/24/19 17:45: Lactic Acid 1.4 05/24/19 17:45: Urine Color SEE COMMENT BELOW, Urine Clarity Sl. Cloudy, Urine pH 5.0, Ur Specific Russell 1.015, Urine Protein 100 H, Urine Glucose (UA) Normal, Urine Ketones Negative, Urine Occult Blood 250 H, Urine Nitrite Negative, Urine Bilirubin Negative, Urine Urobilinogen Normal, Ur Leukocyte Esterase 500 H, Urine RBC > 100 SEEN, Urine WBC 50-100 SEEN, Ur Squamous Epith Cells 0 SEEN, Urine Bacteria 0 SEEN, Urine Mucus 0 SEEN 05/24/19 17:45: MRSA (PCR) Negative 05/24/19 18:46: POC Glucose 110 05/24/19 20:30: Troponin I 3.590 H* 05/24/19 23:43: POC Glucose 110 05/25/19 04:05: WBC 15.7 H, RBC 2.28 L, Hgb 7.6 L, Hct 22.6 L, MCV 99.1 H, MCH 33.3 H, MCHC 33.6, RDW Std Deviation 49.2 H, RDW Coeff of Nica 13.6, Plt Count 183, MPV 11.1, Immature Gran % (Auto) 0.600, Neut % (Auto) 86.4 H, Lymph % (Auto) 7.8 L, Becker % (Auto) 5.1, Eos % (Auto) 0.0, Baso % (Auto) 0.1, Absolute Neuts (auto) 13.6 H, Absolute Lymphs (auto) 1.22, Nucleated RBC % 0 05/25/19 04:05: Sodium 136, Potassium 4.4, Chloride 106, Carbon Dioxide 19.0 L, Anion Gap 11, BUN 72 H, Creatinine 3.16 H, Estim Creat Clear Calc 17.39, Est GFR (MDRD) Af Amer 25 L, Est GFR (MDRD) Non-Af 20 L, BUN/Creatinine Ratio 22.8 H, Glucose 122 H, Calcium 8.5 05/25/19 05:24: POC Glucose 111 H Current Medications Albuterol Sulfate (Ventolin Aerosols) 2.5 mg INHALATION Q2H PRN PRN PRN Reason: SOB/Wheezing Dextrose (D50w Syringe) 0 gm IV X1 PRN; Protocol PRN Reason: Hypoglycemia Enoxaparin Sodium (Lovenox) 90 mg SC DAILY HAL Furosemide (Lasix) 60 mg IV Q8 HAL Last Admin: 05/25/19 05:22 Dose: 60 mg Documented by: Glucagon () 1 mg IM .X1 PRN PRN Reason: Hypoglycemia Guaifenesin (Robitussin) 10 ml PO Q4H PRN PRN PRN Reason: COUGH Sodium Chloride () 250 mls @ 15 mls/hr IV .[id number] PRN PRN Reason: Saline Flush Last Infusion: 05/25/19 08:00 Dose: 15 mls/hr Documented by: Cefepime HCl 2 gm/ Sodium (Chloride) 100 mls @ 200 mls/hr IV Q24@2200 HAL Pantoprazole Sodium 40 mg/ (Sodium Chloride) 110 mls @ 330 mls/hr IV DAILY HAL Insulin Human Lispro (Humalog Kwikpen (Bkc)) 0 unit SC Q6 HAL; Protocol Last Admin: 05/25/19 12:15 Dose: Not Given Documented by: Nitroglycerin (Nitrostat) 0.4 mg SUBLINGUAL Q5M PRN PRN Reason: CARDIAC/CHEST PAIN Ondansetron HCl (Zofran) 4 mg IV Q8H PRN PRN PRN Reason: Nausea Oxycodone HCl (Oxyir) 5 mg PO Q4H PRN PRN PRN Reason: Pain Score 4-5/10 Last Admin: 05/24/19 14:36 Dose: 5 mg Documented by: Oxycodone HCl (Oxyir) 10 mg PO Q4H PRN PRN PRN Reason: Pain Score 6-10/10 Promethazine HCl (Phenergan) 25 mg IM Q6H PRN PRN PRN Reason: Breakthrough Nausea/Vomiting Sodium Chloride () 10 - 40 ml IV UD PRN PRN Reason: SALINE FLUSH Last Admin: 05/25/19 08:00 Dose: 10 ml Documented by: Assessment/Plan All Active Problems (Last Reviewed 05/24/19 @ 12:27 by Samir Birmingham MD) Acute coronary syndrome (Acute) CHF (congestive heart failure) (Acute) Respiratory failure (Acute) History of coronary artery stent placement (Resolved 01/21/18) Abnormal nuclear stress test (Resolved) Abnormal result of cardiovascular function study, unspecified (Resolved) steroid injections lumbar (Resolved) LIBIA likely cardiorenal syndrome CKD baseline 1.9-2.1 Lower extremity edema Metabolic acidosis Pulmonary edema NSTEMI The patient is still symptomatic with dyspnea will increase Lasix to 60 mg IV every 6. Continue strict I's and O's. Will monitor daily needs for dialysis. check ultrasound On a nitroglycerin drip blood pressure acceptable. Avoid nephrotoxins and overdiuresis. If he has persistent metabolic acidosis despite diuretics will add gentle sodium bicarbonate p.o. 1 dose of metolazone today. The above assessment and plan was discussed at length with the patient and his family present at bedside and they both voiced understanding and agreed to proceed with the plan as outlined above. They were given the opportunity to ask questions and stated that those were answered to their satisfaction. Thank you very much for allowing me to participate in the care of this patient. Please do not hesitate to call if you have any questions or concerns.
[2019-05-25 12:21] LABS: Bedside Glucose 84 mg/dL (70-110)
--- NOTE | 2019-05-25 13:06 | US_ITS ---
STUDY: RENAL ULTRASOUND - COMPLETE REASON FOR EXAM: Male, 78 years old. Acute kidney injury TECHNIQUE: Ultrasound evaluation of the kidneys was performed with real-time and static robertson-scale imaging. COMPARISON: None. FINDINGS: RIGHT KIDNEY: Normal location of the right kidney, which is normal in size. The right kidney measures 10.6 x 5.6 x 5.9 cm. There is a normal cortex of the right kidney. The renal cortex measures 1.3 cm. There is no right renal mass or cyst. There are no right renal calculi. There is no right hydronephrosis. DISTAL RIGHT URETER: There is non-visualization of the distal right ureter. LEFT KIDNEY: Normal location of the left kidney, which is normal in size. The left kidney measures 10.7 x 4.5 x 5.9 cm. There is a normal cortex of the left kidney. The renal cortex measures 1.2 cm. There is no left renal mass or cyst. There are no left renal calculi. There is no left hydronephrosis. DISTAL LEFT URETER: There is non-visualization of the distal left ureter. BLADDER: The urinary bladder is not distended with a Kimble catheter limiting evaluation. US/Kidney and Bladder IMPRESSION: Normal ultrasound of the kidneys. Electronically Signed: Dakota Sim DO at 18:56 EST Tel [phone], Service support ,
--- NOTE | 2019-05-25 14:01 | CASEMGMT ---
Social Work Met with pt in pt room as RN stating is upset. Loren willing to talk with social work and expressing feelings of concern and anxiety about caring for things at home while pt in the hospital as pt normally cares for day to day tasks of bill paying, errands, groceries, cooking ect. Emotional support provided. Explored support system and pt denies local family, friends or [employer] affiliation. Loren does state there are two sons. Son from [place] was here last night and son from [place] is on his way. SW strongly encouraged Loren to talk to sons about her concerns and allow them to assist her in learning some tasks taken on by pt. Loren agreed she can talk to sons and they can be helpful. SW provided active listening to Pt 's concerns and encourage verbalization of feelings. Will remain available should further needs arise. TATIANA Ramirez
[2019-05-25] MEDS: Metolazone 2.5 MG Tablet PO (16:48)
[2019-05-25 18:10] LABS: Bedside Glucose 70 mg/dL (70-110)
[2019-05-26] VITALS (28 sets, daily range): BP systolic 107–141; BP diastolic 55–92; PULSE 71–111; RESP 16–27; TEMP 36.4–36.7; O2SAT 90–99
[2019-05-26] LABS: Bedside Glucose 75 mg/dL (70-110)
[2019-05-26 05:44] LABS: Absolute Neutrophil Count 9.7 X10^3/uL (2.0-7.7); Basophil# 0.04 X10^3/uL; Basophil% 0.3 % (0-1); Eosinophil# 0.08 X10^3/uL; Eosinophils% 0.6 % (0-5); Hematocrit 30.3 % (40-54); Hemoglobin 10.6 g/dL (13.0-16.5); Lymphocyte % 13.6 % (19-41); Mean Corpuscular Hgb 32.7 pg (27.0-32.0); Mean Corpuscular Volume 93.5 fL (80-94); Monocyte# 0.89 X10^3/uL; Monocyte% 7.1 % (0-10); NRBC Flagged by Analyzer 0 % (0-5); Neutrophil # 9.69 X10^3/uL (2.7-7.7); Neutrophil % 77.9 % (47-70); Platelet Count 188 K/mm3 (150-450); RBC Distribution Width CV 15.3 % (11.6-14.6); Red Blood Count 3.24 M/mm3 (4.6-6.2); White Blood Count 12.5 K/mm3 (4.4-11.0)
[2019-05-26 05:59] LABS: Anion Gap 14 (5-15); BUN 86 mg/dL (7-18); BUN/Creat Ratio 24.2 RATIO (10-20); Calcium,Total 8.8 mg/dL (8.5-10.1); Chloride 103 mmol/L (98-107); Creatinine, Serum 3.55 mg/dL (0.70-1.30); EST Glomerular Filtration Rate 18 mL/min (>60); Est Glom Filt Rate - Afr Amer 22 mL/min (>60); Estimated Creatinine Clearance 15.48 ml/min; Glucose 115 mg/dL (74-106); Potassium 3.7 mmol/L (3.5-5.1); Sodium Level 139 mmol/L (136-145)
[2019-05-26] MEDS: Furosemide 100 MG/10 ML Vial 60 MG IV (06:03)
[2019-05-26] MEDS: 0.9% Saline Lock 10 ML Syringe IV ×3 (06:03→21:43)
[2019-05-26 06:23] LABS: Vancomycin, Random Level 11.5 ug/mL (0.0-15.0)
--- NOTE | 2019-05-26 06:58 | PCM.PN.INT ---
Subjective: The patient was seen and examined at the bedside this morning. Events from the last 24 hours have been reviewed. The patient is currently afebrile, hemodynamically stable and maintaining appropriate oxygen saturations on 6 L/min via nasal cannula. The patient was able to come off of BiPAP at approximately 2300 hrs. last evening. He is currently documented to be overall net -6 L for the admission. The patient does report improvement in his breathing quality with less shortness of breath this morning. Objective: The patient's most recent lab work, culture data and imaging studies have all been personally reviewed. Rapid influenza screen was negative. Respiratory viral panel was pending. Blood and urine cultures are pending. Surface echocardiogram revealed normal LV size with an ejection fraction of 40% and stage III diastolic dysfunction. There was evidence of mild global RV systolic dysfunction and a pulmonary artery systolic pressure estimated to be 71 mmHg. Renal ultrasound was unremarkable. General: Alert, Cooperative, No apparent distress HEENT: Atraumatic, PERRLA, Normocephalic Oral: No Gingival or Mucosal Lesions/ Ulcerations Neck: Supple, No Nodes, Trachea Midline Lungs: No rhonchi, No wheeze, Diminished, Rales Cardiovascular: Regular rate, Regular Rhythm, Normal S1, Normal S2 Abdomen: Bowel Sounds Present, Soft, Non Tender Extremities: No clubbing, No cyanosis Skin: No breakdown Musculoskeletal: No Tenderness to Palpation of Joints or Extremities, No Muscle Wasting Lymphatic: No Cervical, Supraclavicular, or Inguinal Adenopathy Neurological: Cranial nerves II-XII grossly intact, Neuro grossly intact Psych/Mental Status: Normal Affect, Appropriate Vital Signs Temp Pulse Resp BP Pulse Ox 98.1 F 102 H 26 H 109/67 95 05/26/19 04:00 05/26/19 06:00 05/26/19 06:00 05/26/19 06:00 05/26/19 06:00 Oxygen Flow Rate (L/min) 6 Oxygen Delivery Method Nasal Cannula Weight: 174 lb 9.698 oz Body Mass Index (BMI) 28.9 Intake and Output for Last 24 Hours 05/24/19 05/25/19 05/26/19 23:59 23:59 23:59 Intake Total 778.65 / 778.65 1083.85 / 1083.85 120 / 120 Output Total 2675 / 2675 3925 / 3925 1300 / 1300 Balance -1896.35 / -1896.35 -2841.15 / -2841.15 -1180 / -1180 Labs (Last 48 Hours) 05/24/19 05/24/19 05/24/19 10:39 10:39 10:39 WBC 17.4 H RBC 2.44 L Hgb 8.1 L Hct 24.3 L MCV 99.6 H MCH 33.2 H MCHC 33.3 RDW Std Deviation 51.4 H RDW Coeff of Nica 14.0 Plt Count 179 MPV 11.2 Immature Gran % (Auto) 0.800 Neut % (Auto) 88.1 H Lymph % (Auto) 4.4 L [place] % (Auto) 6.5 Eos % (Auto) 0.0 Baso % (Auto) 0.2 Absolute Neuts (auto) 15.3 H Absolute Lymphs (auto) 0.76 L Nucleated RBC % 0 Specimen Type Sample Site pH Bicarbonate Actual POC Total CO2 Base Excess O2 Saturation O2 % ABG pCO2 ABG pO2 Douglas Test O2 Delivery Device EPAP IPAP Blood Gas Notified Whom Blood Gas Notified Time Sodium 135 L Potassium 5.8 H Chloride 109 H Carbon Dioxide 15.0 L Anion Gap 11 BUN 65 H Creatinine 3.32 H Estim Creat Clear Calc 16.55 Est GFR (MDRD) Af Amer 23 L Est GFR (MDRD) Non-Af 19 L BUN/Creatinine Ratio 19.6 Glucose 179 H Lactic Acid Calcium 9.0 Total Bilirubin AST ALT Alkaline Phosphatase Troponin I 1.930 H* B-Natriuretic Peptide 2284.2 H Total Protein Albumin Globulin Albumin/Globulin Ratio Urine Color Urine Clarity Urine pH Ur Specific [place] Urine Protein Urine Glucose (UA) Urine Ketones Urine Occult Blood Urine Nitrite Urine Bilirubin Urine Urobilinogen Ur Leukocyte Esterase Urine RBC Urine WBC Ur Squamous Epith Cells Urine Bacteria Urine Mucus Random Vancomycin MRSA (PCR) POC Glucose Blood Type Antibody Screen Crossmatch 05/24/19 05/24/19 05/24/19 10:50 14:29 14:29 WBC RBC Hgb Hct MCV MCH MCHC RDW Std Deviation RDW Coeff of Nica Plt Count MPV Immature Gran % (Auto) Neut % (Auto) Lymph % (Auto) [place] % (Auto) Eos % (Auto) Baso % (Auto) Absolute Neuts (auto) Absolute Lymphs (auto) Nucleated RBC % Specimen Type ART Sample Site R Radial pH 7.36 Bicarbonate Actual 13.8 L POC Total CO2 14 Base Excess -12 L O2 Saturation 99 O2 % 70 ABG pCO2 24.1 L ABG pO2 117 H Douglas Test POS O2 Delivery Device Bi / C PAP EPAP 8 IPAP 14 Blood Gas Notified Whom ED Blood Gas Notified Time 1040 Sodium 136 Potassium 5.2 H Chloride 109 H Carbon Dioxide 19.0 L Anion Gap 8 BUN 68 H Creatinine 3.08 H Estim Creat Clear Calc 17.84 Est GFR (MDRD) Af Amer 25 L Est GFR (MDRD) Non-Af 21 L BUN/Creatinine Ratio 22.1 H Glucose 152 H Lactic Acid Calcium 8.8 Total Bilirubin 1.40 H AST 48 H ALT 46 Alkaline Phosphatase 78 Troponin I 3.030 H* B-Natriuretic Peptide Total Protein 7.3 Albumin 3.3 Globulin 4.0 Albumin/Globulin Ratio 0.8 L Urine Color Urine Clarity Urine pH Ur Specific [place] Urine Protein Urine Glucose (UA) Urine Ketones Urine Occult Blood Urine Nitrite Urine Bilirubin Urine Urobilinogen Ur Leukocyte Esterase Urine RBC Urine WBC Ur Squamous Epith Cells Urine Bacteria Urine Mucus Random Vancomycin MRSA (PCR) POC Glucose Blood Type A POSITIVE Antibody Screen NEGATIVE Crossmatch 05/24/19 05/24/19 05/24/19 14:30 17:45 17:45 WBC RBC Hgb Hct MCV MCH MCHC RDW Std Deviation RDW Coeff of Nica Plt Count MPV Immature Gran % (Auto) Neut % (Auto) Lymph % (Auto) [place] % (Auto) Eos % (Auto) Baso % (Auto) Absolute Neuts (auto) Absolute Lymphs (auto) Nucleated RBC % Specimen Type Sample Site pH Bicarbonate Actual POC Total CO2 Base Excess O2 Saturation O2 % ABG pCO2 ABG pO2 Douglas Test O2 Delivery Device EPAP IPAP Blood Gas Notified Whom Blood Gas Notified Time Sodium Potassium Chloride Carbon Dioxide Anion Gap BUN Creatinine Estim Creat Clear Calc Est GFR (MDRD) Af Amer Est GFR (MDRD) Non-Af BUN/Creatinine Ratio Glucose Lactic Acid 1.4 Calcium Total Bilirubin AST ALT Alkaline Phosphatase Troponin I 3.110 H* B-Natriuretic Peptide Total Protein Albumin Globulin Albumin/Globulin Ratio Urine Color Urine Clarity Urine pH Ur Specific [place] Urine Protein Urine Glucose (UA) Urine Ketones Urine Occult Blood Urine Nitrite Urine Bilirubin Urine Urobilinogen Ur Leukocyte Esterase Urine RBC Urine WBC Ur Squamous Epith Cells Urine Bacteria Urine Mucus Random Vancomycin MRSA (PCR) POC Glucose Blood Type Antibody Screen Crossmatch See Detail 05/24/19 05/24/19 05/24/19 17:45 17:45 18:46 WBC RBC Hgb Hct MCV MCH MCHC RDW Std Deviation RDW Coeff of Nica Plt Count MPV Immature Gran % (Auto) Neut % (Auto) Lymph % (Auto) [place] % (Auto) Eos % (Auto) Baso % (Auto) Absolute Neuts (auto) Absolute Lymphs (auto) Nucleated RBC % Specimen Type Sample Site pH Bicarbonate Actual POC Total CO2 Base Excess O2 Saturation O2 % ABG pCO2 ABG pO2 Douglas Test O2 Delivery Device EPAP IPAP Blood Gas Notified Whom Blood Gas Notified Time Sodium Potassium Chloride Carbon Dioxide Anion Gap BUN Creatinine Estim Creat Clear Calc Est GFR (MDRD) Af Amer Est GFR (MDRD) Non-Af BUN/Creatinine Ratio Glucose Lactic Acid Calcium Total Bilirubin AST ALT Alkaline Phosphatase Troponin I B-Natriuretic Peptide Total Protein Albumin Globulin Albumin/Globulin Ratio Urine Color SEE COMMENT BELOW Urine Clarity Sl. Cloudy Urine pH 5.0 Ur Specific [place] 1.015 Urine Protein 100 H Urine Glucose (UA) Normal Urine Ketones Negative Urine Occult Blood 250 H Urine Nitrite Negative Urine Bilirubin Negative Urine Urobilinogen Normal Ur Leukocyte Esterase 500 H Urine RBC > 100 SEEN Urine WBC 50-100 SEEN Ur Squamous Epith Cells 0 SEEN Urine Bacteria 0 SEEN Urine Mucus 0 SEEN Random Vancomycin MRSA (PCR) Negative POC Glucose 110 Blood Type Antibody Screen Crossmatch 05/24/19 05/24/19 05/25/19 20:30 23:43 04:05 WBC 15.7 H RBC 2.28 L Hgb 7.6 L Hct 22.6 L MCV 99.1 H MCH 33.3 H MCHC 33.6 RDW Std Deviation 49.2 H RDW Coeff of Nica 13.6 Plt Count 183 MPV 11.1 Immature Gran % (Auto) 0.600 Neut % (Auto) 86.4 H Lymph % (Auto) 7.8 L [place] % (Auto) 5.1 Eos % (Auto) 0.0 Baso % (Auto) 0.1 Absolute Neuts (auto) 13.6 H Absolute Lymphs (auto) 1.22 Nucleated RBC % 0 Specimen Type Sample Site pH Bicarbonate Actual POC Total CO2 Base Excess O2 Saturation O2 % ABG pCO2 ABG pO2 Douglas Test O2 Delivery Device EPAP IPAP Blood Gas Notified Whom Blood Gas Notified Time Sodium Potassium Chloride Carbon Dioxide Anion Gap BUN Creatinine Estim Creat Clear Calc Est GFR (MDRD) Af Amer Est GFR (MDRD) Non-Af BUN/Creatinine Ratio Glucose Lactic Acid Calcium Total Bilirubin AST ALT Alkaline Phosphatase Troponin I 3.590 H* B-Natriuretic Peptide Total Protein Albumin Globulin Albumin/Globulin Ratio Urine Color Urine Clarity Urine pH Ur Specific [place] Urine Protein Urine Glucose (UA) Urine Ketones Urine Occult Blood Urine Nitrite Urine Bilirubin Urine Urobilinogen Ur Leukocyte Esterase Urine RBC Urine WBC Ur Squamous Epith Cells Urine Bacteria Urine Mucus Random Vancomycin MRSA (PCR) POC Glucose 110 Blood Type Antibody Screen Crossmatch 05/25/19 05/25/19 05/25/19 04:05 05:24 12:11 WBC RBC Hgb Hct MCV MCH MCHC RDW Std Deviation RDW Coeff of Nica Plt Count MPV Immature Gran % (Auto) Neut % (Auto) Lymph % (Auto) [place] % (Auto) Eos % (Auto) Baso % (Auto) Absolute Neuts (auto) Absolute Lymphs (auto) Nucleated RBC % Specimen Type Sample Site pH Bicarbonate Actual POC Total CO2 Base Excess O2 Saturation O2 % ABG pCO2 ABG pO2 Douglas Test O2 Delivery Device EPAP IPAP Blood Gas Notified Whom Blood Gas Notified Time Sodium 136 Potassium 4.4 Chloride 106 Carbon Dioxide 19.0 L Anion Gap 11 BUN 72 H Creatinine 3.16 H Estim Creat Clear Calc 17.39 Est GFR (MDRD) Af Amer 25 L Est GFR (MDRD) Non-Af 20 L BUN/Creatinine Ratio 22.8 H Glucose 122 H Lactic Acid Calcium 8.5 Total Bilirubin AST ALT Alkaline Phosphatase Troponin I B-Natriuretic Peptide Total Protein Albumin Globulin Albumin/Globulin Ratio Urine Color Urine Clarity Urine pH Ur Specific [place] Urine Protein Urine Glucose (UA) Urine Ketones Urine Occult Blood Urine Nitrite Urine Bilirubin Urine Urobilinogen Ur Leukocyte Esterase Urine RBC Urine WBC Ur Squamous Epith Cells Urine Bacteria Urine Mucus Random Vancomycin MRSA (PCR) POC Glucose 111 H 84 Blood Type Antibody Screen Crossmatch 05/25/19 05/25/19 05/26/19 17:49 23:27 05:35 WBC Pending RBC Pending Hgb Pending Hct Pending MCV Pending MCH Pending MCHC Pending RDW Std Deviation Pending RDW Coeff of Nica Pending Plt Count Pending MPV Immature Gran % (Auto) Neut % (Auto) Pending Lymph % (Auto) [place] % (Auto) Eos % (Auto) Baso % (Auto) Absolute Neuts (auto) Pending Absolute Lymphs (auto) Nucleated RBC % Specimen Type Sample Site pH Bicarbonate Actual POC Total CO2 Base Excess O2 Saturation O2 % ABG pCO2 ABG pO2 Douglas Test O2 Delivery Device EPAP IPAP Blood Gas Notified Whom Blood Gas Notified Time Sodium Potassium Chloride Carbon Dioxide Anion Gap BUN Creatinine Estim Creat Clear Calc Est GFR (MDRD) Af Amer Est GFR (MDRD) Non-Af BUN/Creatinine Ratio Glucose Lactic Acid Calcium Total Bilirubin AST ALT Alkaline Phosphatase Troponin I B-Natriuretic Peptide Total Protein Albumin Globulin Albumin/Globulin Ratio Urine Color Urine Clarity Urine pH Ur Specific [place] Urine Protein Urine Glucose (UA) Urine Ketones Urine Occult Blood Urine Nitrite Urine Bilirubin Urine Urobilinogen Ur Leukocyte Esterase Urine RBC Urine WBC Ur Squamous Epith Cells Urine Bacteria Urine Mucus Random Vancomycin MRSA (PCR) POC Glucose 70 75 Blood Type Antibody Screen Crossmatch 05/26/19 05/26/19 05:35 05:35 WBC RBC Hgb Hct MCV MCH MCHC RDW Std Deviation RDW Coeff of Nica Plt Count MPV Immature Gran % (Auto) Neut % (Auto) Lymph % (Auto) [place] % (Auto) Eos % (Auto) Baso % (Auto) Absolute Neuts (auto) Absolute Lymphs (auto) Nucleated RBC % Specimen Type Sample Site pH Bicarbonate Actual POC Total CO2 Base Excess O2 Saturation O2 % ABG pCO2 ABG pO2 Douglas Test O2 Delivery Device EPAP IPAP Blood Gas Notified Whom Blood Gas Notified Time Sodium 139 Potassium 3.7 Chloride 103 Carbon Dioxide 22.0 Anion Gap 14 BUN 86 H Creatinine 3.55 H Estim Creat Clear Calc 15.48 Est GFR (MDRD) Af Amer 22 L Est GFR (MDRD) Non-Af 18 L BUN/Creatinine Ratio 24.2 H Glucose 115 H Lactic Acid Calcium 8.8 Total Bilirubin AST ALT Alkaline Phosphatase Troponin I B-Natriuretic Peptide Total Protein Albumin Globulin Albumin/Globulin Ratio Urine Color Urine Clarity Urine pH Ur Specific [place] Urine Protein Urine Glucose (UA) Urine Ketones Urine Occult Blood Urine Nitrite Urine Bilirubin Urine Urobilinogen Ur Leukocyte Esterase Urine RBC Urine WBC Ur Squamous Epith Cells Urine Bacteria Urine Mucus Random Vancomycin 11.5 MRSA (PCR) POC Glucose Blood Type Antibody Screen Crossmatch Microbiology 05/24/19 17:55 Mucosa - Nose Respiratory Panel (PCR) - Final 05/24/19 17:55 Mucosa - Nose Influenza Types A,B Direct FA (ABIGAIL) - Final Clinical Impression(s) from Imaging Studies Chest X-Ray 05/24/19 10:19 IMPRESSION: Bilateral patchy airspace disease worse on the right side. Blunting of both costophrenic angles. Findings suggestive of pulmonary edema versus infectious process. Electronically Signed: Alec Donna, at 11:08 EST , Service support , Chest X-Ray 05/25/19 07:13 IMPRESSION: Mild degree of improved aeration of both lungs. Persistent bilateral patchy airspace disease is present. Electronically Signed: Alec Thompson, at 8:17 EST , Service support , Renal Ultrasound 05/25/19 13:06 IMPRESSION: Normal ultrasound of the kidneys. Electronically Signed: Dakota Sim DO at 18:56 EST Tel [phone], Service support , Medical Necessity - Tobacco Use Smoking Status: Never smoker Assessment/Plan All Active Problems (Last Reviewed 05/24/19 @ 12:27 by Samir Birmingham MD) Non-ST elevated myocardial infarction (non-STEMI) (Acute 05/24/19) Acute combined systolic (congestive) and diastolic (congestive) heart failure (Acute) Acute coronary syndrome (Acute) CHF (congestive heart failure) (Acute) Respiratory failure (Acute) History of coronary artery stent placement (Resolved 01/21/18) Abnormal nuclear stress test (Resolved) Abnormal result of cardiovascular function study, unspecified (Resolved) steroid injections lumbar (Resolved) RECOMMENDATIONS: 1. Continue empiric antimicrobials, with plans to discontinue tomorrow if infectious work-up is negative. 2. Continue diuretic therapy per nephrology recommendations. 3. Wean supplemental oxygen to maintain saturations at or above 90%. 4. Encourage incentive spirometer use and mobilize patient as tolerated. IMPRESSIONS: 1. Acute hypoxemic respiratory failure Appears to be secondary to decompensated heart failure with subsequent development of pulmonary edema. While infectious etiologies would also be a consideration, especially in light of the patient's elevated white blood cell count, tachypnea and respiratory failure, he denies any systemic signs or symptoms of infection and denied the presence of a cough or sputum production. Nevertheless, empiric antimicrobials will be continued pending infectious work-up. Volume optimization through IV diuretic therapy will be continued. Cardiology and nephrology are following. Wean FiO2 to maintain oxygen saturations at or above 90%. Encourage incentive spirometer use. Physical therapy to work with patient today. 2. Non-ST segment elevation [place]/personal history of coronary artery disease status post CABG Continue current medical management per cardiology recommendations. 3. Acute on chronic kidney disease/non-gap metabolic acidosis/hyperkalemia Unclear etiology, although passive vascular congestion in the setting of cardiorenal syndrome is a possibility. As noted above, IV diuretic therapy will be employed. Nephrology is following to assist with management. 4. Anemia The patient's hemoglobin fell to 7.6 g/dL during his hospitalization, for which he received 2 units of packed red blood cells. Hemoglobin has improved and remained stable. We will continue to monitor accordingly. 5. Diabetes mellitus/hypertension/hyperlipidemia/recent knee surgery Complicates care, management, recovery and prognosis. Continue sliding scale insulin coverage. This note was generated with [employer] dictation software. It may contain incorrect words, spelling, and punctuation that were not noted in checking the note before signing. Code Visit Inpatient E&M: [id number] [facility] L3
--- NOTE | 2019-05-26 07:02 | CPS ---
patient weaned to 5 lm nc
--- NOTE | 2019-05-26 07:16 | PCM.PN.HOSP ---
Patient Problems: Active and Suspected Problems (Last Reviewed 05/24/19 @ 12:27 by Samir Birmingham MD) Acute coronary syndrome (Acute) CHF (congestive heart failure) (Acute) Respiratory failure (Acute) Subjective: Follow-up acute respiratory failure. Patient has been weaned off the vent however still remains on high flow oxygen. WBC count trending down. Cultures so far negative to date. Kidney function continues to worsen. Objective: GENERAL: Dyspneic at rest HEENT: Atraumatic; EYES; Anicteric, Normal Conjunctiva NECK; supple, normal thyroid, RESPIRATORY: Diminished to auscultation CARDIOVASCULAR: Regular S1 S2, GI: soft, normoactive bowel sounds, : No Renal angle tenderness; EXTREMITIES: No cyanosis, no clubbing, MUSCULOSKELETAL: no muscle waisting NEURO: Awake; no lateralizing signs. SKIN: No Rash PSYCH; Flat affect Vitals/I&O's: Vital Signs Temp Pulse Resp BP Pulse Ox 98.1 F 106 H 27 H 131/59 H 96 05/26/19 04:00 05/26/19 07:00 05/26/19 07:00 05/26/19 07:00 05/26/19 07:01 Oxygen Flow Rate (L/min) 6 Oxygen Delivery Method Nasal Cannula Weight: 79.2 kg Body Mass Index (BMI) 28.9 Intake and Output for Last 24 Hours 05/24/19 05/25/19 05/26/19 23:59 23:59 23:59 Intake Total 778.65 / 778.65 1083.85 / 1083.85 120 / 120 Output Total 2675 / 2675 3925 / 3925 1300 / 1300 Balance -1896.35 / -1896.35 -2841.15 / -2841.15 -1180 / -1180 Microbiology Past 72 Hours 05/24/19 17:55 Mucosa - Nose Respiratory Panel (PCR) - Final 05/24/19 17:55 Mucosa - Nose Influenza Types A,B Direct FA (ABIGAIL) - Final Laboratory Results 05/24/19 14:30: Crossmatch See Detail 05/25/19 12:11: POC Glucose 84 05/25/19 17:49: POC Glucose 70 05/25/19 23:27: POC Glucose 75 05/26/19 05:35: WBC 12.5 H, RBC 3.24 L, Hgb 10.6 L, Hct 30.3 L, MCV 93.5 D, MCH 32.7 H, MCHC 35.0, RDW Std Deviation 53.0 H, RDW Coeff of Nica 15.3 H, Plt Count 188, MPV 11.0, Immature Gran % (Auto) 0.500, Neut % (Auto) 77.9 H, Lymph % (Auto) 13.6 L, Upson % (Auto) 7.1, Eos % (Auto) 0.6, Baso % (Auto) 0.3, Absolute Neuts (auto) 9.7 H, Absolute Lymphs (auto) 1.70, Nucleated RBC % 0 05/26/19 05:35: Sodium 139, Potassium 3.7, Chloride 103, Carbon Dioxide 22.0, Anion Gap 14, BUN 86 H, Creatinine 3.55 H, Estim Creat Clear Calc 15.48, Est GFR (MDRD) Af Amer 22 L, Est GFR (MDRD) Non-Af 18 L, BUN/Creatinine Ratio 24.2 H, Glucose 115 H, Calcium 8.8 05/26/19 05:35: Random Vancomycin 11.5 Current Medications Albuterol Sulfate (Ventolin Aerosols) 2.5 mg INHALATION Q2H PRN PRN PRN Reason: SOB/Wheezing Dextrose (D50w Syringe) 0 gm IV X1 PRN; Protocol PRN Reason: Hypoglycemia Enoxaparin Sodium (Lovenox) 90 mg SC DAILY HAL Furosemide (Lasix) 60 mg IV Q6 HAL Last Admin: 05/26/19 06:03 Dose: 60 mg Documented by: Glucagon () 1 mg IM .X1 PRN PRN Reason: Hypoglycemia Guaifenesin (Robitussin) 10 ml PO Q4H PRN PRN PRN Reason: COUGH Sodium Chloride () 250 mls @ 15 mls/hr IV .[id number] PRN PRN Reason: Saline Flush Last Infusion: 05/25/19 15:05 Dose: Infused Documented by: Cefepime HCl 2 gm/ Sodium (Chloride) 100 mls @ 200 mls/hr IV Q24@2200 HAL Last Infusion: 05/25/19 21:43 Dose: Infused Documented by: Pantoprazole Sodium 40 mg/ (Sodium Chloride) 110 mls @ 330 mls/hr IV DAILY HAL Last Infusion: 05/25/19 12:47 Dose: Infused Documented by: Insulin Human Lispro (Humalog Kwikpen (Bkc)) 0 unit SC Q6 HAL; Protocol Last Admin: 05/26/19 06:01 Dose: Not Given Documented by: Nitroglycerin (Nitrostat) 0.4 mg SUBLINGUAL Q5M PRN PRN Reason: CARDIAC/CHEST PAIN Ondansetron HCl (Zofran) 4 mg IV Q8H PRN PRN PRN Reason: Nausea Oxycodone HCl (Oxyir) 5 mg PO Q4H PRN PRN PRN Reason: Pain Score 4-5/10 Last Admin: 05/24/19 14:36 Dose: 5 mg Documented by: Oxycodone HCl (Oxyir) 10 mg PO Q4H PRN PRN PRN Reason: Pain Score 6-10/10 Promethazine HCl (Phenergan) 25 mg IM Q6H PRN PRN PRN Reason: Breakthrough Nausea/Vomiting Sodium Chloride () 10 - 40 ml IV UD PRN PRN Reason: SALINE FLUSH Last Admin: 05/26/19 06:03 Dose: 20 ml Documented by: STROKE Vital Signs/Narrative: Vital Signs Temp Pulse Resp BP Pulse Ox 05/26/19 07:01 96 05/26/19 07:00 106 H 27 H 131/59 H 95 05/26/19 06:00 102 H 26 H 109/67 95 05/26/19 05:00 92 24 H 130/92 H 95 05/26/19 04:00 98.1 F 80 20 H 124/65 H 97 Medical Necessity - Tobacco Use Smoking Status: Never smoker Assessment/Plan All Active Problems (Last Reviewed 05/24/19 @ 12:27 by Samir Birmingham MD) Acute coronary syndrome (Acute) CHF (congestive heart failure) (Acute) Respiratory failure (Acute) History of coronary artery stent placement (Resolved 01/21/18) Abnormal nuclear stress test (Resolved) Abnormal result of cardiovascular function study, unspecified (Resolved) steroid injections lumbar (Resolved) Patient is a 78-year-old gentleman presented with exertional dyspnea found to be in acute hypoxic respiratory failure secondary to congestive heart failure. Patient was also found to have acute NSTEMI 1. Acute hypoxic respiratory failure secondary to pulmonary edema ~Patient placed on noninvasive ventilation BiPAP admitted to the intensive care unit consultation placed to construction project manager ?Patient was seen by Dr. Cr Case discussed with him also did review his notes ?05/26/2019: Patient is been weaned off BiPAP however still remains on high flow oxygen 2. Acute congestive heart failure with decreased ejection fraction ?Echo obtained on 01/12/2018 demonstrated EF of 75%. Patient has been placed on noninvasive ventilation BiPAP as stated above, fluid restriction IV Lasix as well as nitroglycerin drip and consultation placed to cardiology. As part of patient's management ordered serial cardiac enzymes and a repeat echo - Patient has been seen in consultation by cardiology Dr. Theodore's note and recommendations reviewed ?05/26/2019: Repeat echo demonstrated EF of 40% but was noted to have stage III diastolic dysfunction. 3. Acute non-STEMI probably precipitated above ?Patient placed on nitroglycerin drip as well as heparin with consultation placed to cardiology. Also did initiate patient on beta-blockers and statin therapy in addition to aspirin -?05/26/2019 currently on conservative management 4. Suspected pneumonia -patient was managed with Cefepime Zithromax as well as vancomycin. Vancomycin discontinued since his nasal MRSA came back negative ~05/26/2019: Cultures have remained negative to date WBC count trending down 5. Coronary artery disease with previous CABG and subsequent stent placement ~ CABG x 4 JOHNSON to LAD, Sequential SVG-OM and Ramus, RVG-RPDA 08/16/2002 ; [id number]-OM w/ 2.75 x 8 mm Resolute 01/21/18 6. 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 Placed on long acting insulin, Accu-Cheks a.c. and at bedtime and covered with sliding scale insulin 7. 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 8. Hypertension ~ blood pressure controlled, home medications continued with dose adjustment as needed 9. Dyslipidemia ~patient is on statin therapy, continued at home dose 10. DVT prophylaxis ?Patient is on heparin Active Medications Albuterol Sulfate (Ventolin Aerosols) 2.5 mg INHALATION Q2H PRN PRN PRN Reason: SOB/Wheezing Aspirin (Ecotrin) 81 mg PO DAILY@0800 HAL Atorvastatin Calcium (Lipitor) 40 mg PO QHS HAL Dextrose (D50w Syringe) 0 gm IV X1 PRN; Protocol PRN Reason: Hypoglycemia Enoxaparin Sodium (Lovenox) 90 mg SC DAILY [facility] Furosemide (Lasix) 60 mg IV Q6 HAL Last Admin: 05/26/19 06:03 Dose: 60 mg Documented by: Glucagon () 1 mg IM .X1 PRN PRN Reason: Hypoglycemia Guaifenesin (Robitussin) 10 ml PO Q4H PRN PRN PRN Reason: COUGH Sodium Chloride () 250 mls @ 15 mls/hr IV .[id number] PRN PRN Reason: Saline Flush Last Infusion: 05/25/19 15:05 Dose: Infused Documented by: Cefepime HCl 2 gm/ Sodium (Chloride) 100 mls @ 200 mls/hr IV Q24@2200 HAL Last Infusion: 05/25/19 21:43 Dose: Infused Documented by: Insulin Human Lispro (Humalog Kwikpen (Bkc)) 0 unit SC Q6 HAL; Protocol Last Admin: 05/26/19 06:01 Dose: Not Given Documented by: Metoprolol Tartrate (Lopressor (Beta Janee)) 25 mg PO BID [facility] Nitroglycerin (Nitrostat) 0.4 mg SUBLINGUAL Q5M PRN PRN Reason: CARDIAC/CHEST PAIN Ondansetron HCl (Zofran) 4 mg IV Q8H PRN PRN PRN Reason: Nausea Oxycodone HCl (Oxyir) 5 mg PO Q4H PRN PRN PRN Reason: Pain Score 4-5/10 Last Admin: 05/24/19 14:36 Dose: 5 mg Documented by: Oxycodone HCl (Oxyir) 10 mg PO Q4H PRN PRN PRN Reason: Pain Score 6-10/10 Pantoprazole Sodium (Protonix) 40 mg PO DAILY [facility] Promethazine HCl (Phenergan) 25 mg IM Q6H PRN PRN PRN Reason: Breakthrough Nausea/Vomiting Sodium Chloride () 10 - 40 ml IV UD PRN PRN Reason: SALINE FLUSH Last Admin: 05/26/19 06:03 Dose: 20 ml Documented by: Code Visit Inpatient E&M: [id number] [facility]
--- NOTE | 2019-05-26 07:19 | CPS ---
patient weaned to 3 lpm
--- NOTE | 2019-05-26 10:19 | CASEMGMT ---
SW let pt know that LW/POA are not on file here. Pt states they are on file at [facility]. Pt states is POA. At this time pt does not plan to have copies brought into hospital. SPR[facility] [place]ling
--- NOTE | 2019-05-26 10:20 | CASEMGMT ---
SW spoke w/pt briefly about palliative care. Pt not receptive to referral at this time but did take a brochure. SW explained to pt if he should want additional information he can call the number on the brochure. Pt states understanding. SPRING Dowling
[2019-05-26] MEDS: Aspirin E.C. 81 MG Tablet PO (10:37)
[2019-05-26] MEDS: Pantoprazole Sodium 40 MG Tablet PO (10:38)
[2019-05-26] MEDS: Enoxaparin 100 MG/ML Syringe 90 MG SC (10:38)
[2019-05-26] MEDS: Metoprolol Tartrate 25 MG Tablet PO ×2 (10:38→21:43)
--- NOTE | 2019-05-26 11:19 | PN_ITS ---
Patient Problems: Active and Suspected Problems (Last Reviewed 05/24/19 @ 12:27 by Samir Birmingham MD) Acute coronary syndrome (Acute) CHF (congestive heart failure) (Acute) Respiratory failure (Acute) Subjective: Denies shortness of breath today - Physical Exam Vitals/I&O's: Vital Signs Temp Pulse Resp BP Pulse Ox 97.5 F L 92 20 H 132/62 H 97 05/26/19 08:00 05/26/19 10:38 05/26/19 09:00 05/26/19 09:00 05/26/19 09:00 Oxygen Flow Rate (L/min) 6 Oxygen Delivery Method Nasal Cannula Weight: 79.2 kg Body Mass Index (BMI) 28.9 Intake and Output for Last 24 Hours 05/24/19 05/25/19 05/26/19 23:59 23:59 23:59 Intake Total 778.65 / 778.65 1083.85 / 1083.85 120 / 120 Output Total 2675 / 2675 3925 / 3925 1300 / 1300 Balance -1896.35 / -1896.35 -2841.15 / -2841.15 -1180 / -1180 General: Alert, Oriented x3, Cooperative HEENT: Atraumatic, PERRLA, EOMI, Normocephalic Neck: Supple, No JVD, Negative Carotid Bruits Lungs: Clear to auscultation, Normal air movement Cardiovascular: Regular rate, No murmurs Abdomen: Bowel Sounds Present, Soft, Non Tender Extremities: No edema, Capillary Refill Less than 3 Seconds Skin: No rashes, No breakdown Musculoskeletal: No Tenderness to Palpation of Joints or Extremities Neurological: Cranial nerves II-XII grossly intact Psych/Mental Status: Normal Affect, Appropriate Microbiology Past 72 Hours 05/24/19 17:45 Urine Catheter - Kimble Urine Culture - Preliminary Culture exhibits no growth. 05/24/19 17:55 Mucosa - Nose Respiratory Panel (PCR) - Final 05/24/19 17:55 Mucosa - Nose Influenza Types A,B Direct FA (ABIGAIL) - Final Laboratory Results 05/24/19 14:30: Crossmatch See Detail 05/25/19 12:11: POC Glucose 84 05/25/19 17:49: POC Glucose 70 05/25/19 23:27: POC Glucose 75 05/26/19 05:35: WBC 12.5 H, RBC 3.24 L, Hgb 10.6 L, Hct 30.3 L, MCV 93.5 D, MCH 32.7 H, MCHC 35.0, RDW Std Deviation 53.0 H, RDW Coeff of Nica 15.3 H, Plt Count 188, MPV 11.0, Immature Gran % (Auto) 0.500, Neut % (Auto) 77.9 H, Lymph % (Auto ) 13.6 L, [place]hin % (Auto) 7.1, Eos % (Auto) 0.6, Baso % (Auto) 0.3, Absolute Neuts (auto) 9.7 H, Absolute Lymphs (auto) 1.70, Nucleated RBC % 0 05/26/19 05:35: Sodium 139, Potassium 3.7, Chloride 103, Carbon Dioxide 22.0, Anion Gap 14, BUN 86 H, Creatinine 3.55 H, Estim Creat Clear Calc 15.48, Est GFR (MDRD) Af Amer 22 L, Est GFR (MDRD) Non-Af 18 L, BUN/Creatinine Ratio 24.2 H, Glucose 115 H, Calcium 8.8 05/26/19 05:35: Random Vancomycin 11.5 Current Medications Albuterol Sulfate (Ventolin Aerosols) 2.5 mg INHALATION Q2H PRN PRN PRN Reason: SOB/Wheezing Aspirin (Ecotrin) 81 mg PO DAILY@0800 COUNT INCLUDES THE [facility] Last Admin: 05/26/19 10:37 Dose: 81 mg Documented by: Atorvastatin Calcium (Lipitor) 40 mg PO QHS COUNT INCLUDES THE [facility] Dextrose (D50w Syringe) 0 gm IV X1 PRN; Protocol PRN Reason: Hypoglycemia Enoxaparin Sodium (Lovenox) 90 mg SC DAILY COUNT [facility]CLUDES THE [facility] Last Admin: 05/26/19 10:38 Dose: 90 mg Documented by: Furosemide (Lasix) 60 mg IV Q6 COUNT INCLUDES THE [facility] Last Admin: 05/26/19 06:03 Dose: 60 mg Documented by: Glucagon () 1 mg IM .X1 PRN PRN Reason: Hypoglycemia Guaifenesin (Robitussin) 10 ml PO Q4H PRN PRN PRN Reason: COUGH Sodium Chloride () 250 mls @ 15 mls/hr IV .[id number] PRN PRN Reason: Saline Flush Last Infusion: 05/25/19 15:05 Dose: Infused Documented by: Cefepime HCl 2 gm/ Sodium (Chloride) 100 mls @ 200 mls/hr IV Q24@2200 COUNT INCLUDES THE [facility] Last Infusion: 05/25/19 21:43 Dose: Infused Documented by: Insulin Human Lispro (Humalog Kwikpen (Bkc)) 0 unit SC Q6 COUNT INCLUDES THE [facility]; Protocol Last Admin: 05/26/19 06:01 Dose: Not Given Documented by: Metoprolol Tartrate (Lopressor (Beta Janee)) 25 mg PO BID COUNT INCLUDES THE [facility] Last Admin: 05/26/19 10:38 Dose: 25 mg Documented by: Nitroglycerin (Nitrostat) 0.4 mg SUBLINGUAL Q5M PRN PRN Reason: CARDIAC/CHEST PAIN Ondansetron HCl (Zofran) 4 mg IV Q8H PRN PRN PRN Reason: Nausea Oxycodone HCl (Oxyir) 5 mg PO Q4H PRN PRN PRN Reason: Pain Score 4-5/10 Last Admin: 05/24/19 14:36 Dose: 5 mg Documented by: Oxycodone HCl (Oxyir) 10 mg PO Q4H PRN PRN PRN Reason: Pain Score 6-10/10 Pantoprazole Sodium (Protonix) 40 mg PO DAILY COUNT INCLUDES THE [facility] Last Admin: 05/26/19 10:38 Dose: 40 mg Documented by: Promethazine HCl (Phenergan) 25 mg IM Q6H PRN PRN PRN Reason: Breakthrough Nausea/Vomiting Sodium Chloride () 10 - 40 ml IV UD PRN PRN Reason: SALINE FLUSH Last Admin: 05/26/19 06:03 Dose: 20 ml Documented by: Medical Necessity - Tobacco Use Smoking Status: Never smoker Assessment/Plan All Active Problems (Last Reviewed 05/24/19 @ 12:27 by Samir Birmingham MD) Acute coronary syndrome (Acute) CHF (congestive heart failure) (Acute) Respiratory failure (Acute) History of coronary artery stent placement (Resolved 01/21/18) Abnormal nuclear stress test (Resolved) Abnormal result of cardiovascular function study, unspecified (Resolved) steroid injections lumbar (Resolved) LIBIA likely cardiorenal syndrome CKD baseline 1.9-2.1 Lower extremity edema Metabolic acidosis resolved HF NSTEMI More prerenal and serum creatinine slightly worse at 3.55 The patient has no more dyspnea we will decrease the diuretic dose to 40 mg IV every 8. No more metolazone today. Continue strict I's and O's. Will monitor daily needs for dialysis. Normal ultrasound reviewed Avoid nephrotoxins and overdiuresis.
[2019-05-26 12:01] LABS: Bedside Glucose 117 mg/dL (70-110)
[2019-05-26] MEDS: Furosemide 40 MG/4 ML Vial IV ×2 (14:02→21:42)
[2019-05-26 17:06] LABS: Bedside Glucose 104 mg/dL (70-110)
[2019-05-27] VITALS (12 sets, daily range): BP systolic 104–147; BP diastolic 49–67; PULSE 67–102; RESP 16–20; TEMP 36.4–36.8; O2SAT 94–96
[2019-05-27 00:50] LABS: Bedside Glucose 121 mg/dL (70-110)
[2019-05-27] MEDS: Furosemide 40 MG/4 ML Vial IV (06:30)
[2019-05-27] MEDS: 0.9% Saline Lock 10 ML Syringe IV (06:32)
[2019-05-27 06:56] LABS: Bedside Glucose 125 mg/dL (70-110)
--- NOTE | 2019-05-27 07:04 | PN_ITS ---
Patient Problems: Active and Suspected Problems (Last Reviewed 05/24/19 @ 12:27 by Samir Birmingham MD) Non-ST elevated myocardial infarction (non-STEMI) (Acute 05/24/19) Acute combined systolic (congestive) and diastolic (congestive) heart failure (Acute) Acute coronary syndrome (Acute) CHF (congestive heart failure) (Acute) Respiratory failure (Acute) Subjective: The patient was seen and examined at the bedside this morning. Events from the last 24 hours have been reviewed. The patient is currently afebrile, hemodynamically stable and maintaining appropriate oxygen saturations on 1 L/min via nasal cannula. The patient has done well from a respiratory perspective following transfer out of the intensive care unit yesterday. The patient is currently documented to be overall net -8.1 L for the admission. The patient's shortness of breath continues to improve. Objective: The patient's most recent lab work, culture data and imaging studies have all been personally reviewed. Rapid influenza screen was negative. Respiratory viral panel was negative. Blood and urine cultures have revealed no growth to date. Surface echocardiogram revealed normal LV size with an ejection fraction of 40% and stage III diastolic dysfunction. There was evidence of mild global RV systolic dysfunction and a pulmonary artery systolic pressure estimated to be 71 mmHg. Renal ultrasound was unremarkable. - Physical Exam Vitals/I&O's: Vital Signs Temp Pulse Resp BP Pulse Ox 97.7 F L 74 20 H 120/62 94 05/27/19 03:40 05/27/19 03:40 05/27/19 03:40 05/27/19 03:40 05/27/19 03:40 Oxygen Flow Rate (L/min) 1 Oxygen Delivery Method Nasal Cannula Weight: 165 lb 5.547 oz Body Mass Index (BMI) 28.9 Intake and Output for Last 24 Hours 05/25/19 05/26/19 05/27/19 23:59 23:59 23:59 Intake Total 1083.85 / 1083.85 1380.25 / 1380.25 50 / 50 Output Total 3925 / 3925 4000 / 4000 875 / 875 Balance -2841.15 / -2841.15 -2619.75 / -2619.75 -825 / -825 General: Alert, Cooperative, No apparent distress HEENT: Atraumatic, Normocephalic Oral: No Gingival or Mucosal Lesions/ Ulcerations Neck: Supple, No Nodes, Trachea Midline Lungs: No rhonchi, No wheeze, No rales Cardiovascular: Regular rate, Regular Rhythm, Normal S1, Normal S2 Abdomen: Bowel Sounds Present, Soft, Non Tender Extremities: No clubbing, No cyanosis, No edema Skin: No breakdown Musculoskeletal: No Tenderness to Palpation of Joints or Extremities Lymphatic: No Cervical, Supraclavicular, or Inguinal Adenopathy Neurological: Cranial nerves II-XII grossly intact, Neuro grossly intact Psych/Mental Status: Alert and oriented to time, place, person, mood and affect Labs (Last 48 Hours) 05/24/19 05/25/19 05/25/19 14:30 12:11 17:49 WBC RBC Hgb Hct MCV MCH MCHC RDW Std Deviation RDW Coeff of Nica Plt Count MPV Immature Gran % (Auto) Neut % (Auto) Lymph % (Auto) [place] % (Auto) Eos % (Auto) Baso % (Auto) Absolute Neuts (auto) Absolute Lymphs (auto) Nucleated RBC % Sodium Potassium Chloride Carbon Dioxide Anion Gap BUN Creatinine Estim Creat Clear Calc Est GFR (MDRD) Af Amer Est GFR (MDRD) Non-Af BUN/Creatinine Ratio Glucose Calcium Random Vancomycin POC Glucose 84 70 Crossmatch See Detail 05/25/19 05/26/19 05/26/19 23:27 05:35 05:35 WBC 12.5 H RBC 3.24 L Hgb 10.6 L Hct 30.3 L MCV 93.5 D MCH 32.7 H MCHC 35.0 RDW Std Deviation 53.0 H RDW Coeff of Nica 15.3 H Plt Count 188 MPV 11.0 Immature Gran % (Auto) 0.500 Neut % (Auto) 77.9 H Lymph % (Auto) 13.6 L [place] % (Auto) 7.1 Eos % (Auto) 0.6 Baso % (Auto) 0.3 Absolute Neuts (auto) 9.7 H Absolute Lymphs (auto) 1.70 Nucleated RBC % 0 Sodium 139 Potassium 3.7 Chloride 103 Carbon Dioxide 22.0 Anion Gap 14 BUN 86 H Creatinine 3.55 H Estim Creat Clear Calc 15.48 Est GFR (MDRD) Af Amer 22 L Est GFR (MDRD) Non-Af 18 L BUN/Creatinine Ratio 24.2 H Glucose 115 H Calcium 8.8 Random Vancomycin POC Glucose 75 Crossmatch 05/26/19 05/26/19 05/26/19 05:35 11:54 17:00 WBC RBC Hgb Hct MCV MCH MCHC RDW Std Deviation RDW Coeff of Nica Plt Count MPV Immature Gran % (Auto) Neut % (Auto) Lymph % (Auto) [place] % (Auto) Eos % (Auto) Baso % (Auto) Absolute Neuts (auto) Absolute Lymphs (auto) Nucleated RBC % Sodium Potassium Chloride Carbon Dioxide Anion Gap BUN Creatinine Estim Creat Clear Calc Est GFR (MDRD) Af Amer Est GFR (MDRD) Non-Af BUN/Creatinine Ratio Glucose Calcium Random Vancomycin 11.5 POC Glucose 117 H 104 Crossmatch 05/27/19 05/27/19 00:44 06:37 WBC RBC Hgb Hct MCV MCH MCHC RDW Std Deviation RDW Coeff of Nica Plt Count MPV Immature Gran % (Auto) Neut % (Auto) Lymph % (Auto) [place] % (Auto) Eos % (Auto) Baso % (Auto) Absolute Neuts (auto) Absolute Lymphs (auto) Nucleated RBC % Sodium Potassium Chloride Carbon Dioxide Anion Gap BUN Creatinine Estim Creat Clear Calc Est GFR (MDRD) Af Amer Est GFR (MDRD) Non-Af BUN/Creatinine Ratio Glucose Calcium Random Vancomycin POC Glucose 121 H 125 H Crossmatch Microbiology 05/24/19 17:45 Urine Catheter - Kimble Urine Culture - Preliminary Culture exhibits no growth. 05/24/19 17:55 Mucosa - Nose Respiratory Panel (PCR) - Final Clinical Impression(s) from Imaging Studies Chest X-Ray 05/24/19 10:19 IMPRESSION: Bilateral patchy airspace disease worse on the right side. Blunting of both costophrenic angles. Findings suggestive of pulmonary edema versus infectious process. Electronically Signed: Alec Thompson, at 11:08 EST , Service support , Chest X-Ray 05/25/19 07:13 IMPRESSION: Mild degree of improved aeration of both lungs. Persistent bilateral patchy airspace disease is present. Electronically Signed: Alec Thompson, at 8:17 EST , Service support , Renal Ultrasound 05/25/19 13:06 IMPRESSION: Normal ultrasound of the kidneys. Electronically Signed: Dakota DO Roney at 18:56 EST Tel [phone], Service support , Current Medications Albuterol Sulfate (Ventolin Aerosols) 2.5 mg INHALATION Q2H PRN PRN PRN Reason: SOB/Wheezing Aspirin (Ecotrin) 81 mg PO DAILY@0800 [facility] Last Admin: 05/26/19 10:37 Dose: 81 mg Documented by: Atorvastatin Calcium (Lipitor) 40 mg PO QHS [facility] Last Admin: 05/26/19 21:45 Dose: Not Given Documented by: Dextrose (D50w Syringe) 0 gm IV X1 PRN; Protocol PRN Reason: Hypoglycemia Enoxaparin Sodium (Lovenox) 90 mg SC DAILY [facility] Last Admin: 05/26/19 10:38 Dose: 90 mg Documented by: Furosemide (Lasix) 40 mg IV Q8 [facility] Last Admin: 05/27/19 06:30 Dose: 40 mg Documented by: Glucagon () 1 mg IM .X1 PRN PRN Reason: Hypoglycemia Guaifenesin (Robitussin) 10 ml PO Q4H PRN PRN PRN Reason: COUGH Sodium Chloride () 250 mls @ 15 mls/hr IV .[id number] PRN PRN Reason: Saline Flush Last Infusion: 05/26/19 21:24 Dose: 0 mls/hr Documented by: Cefepime HCl 2 gm/ Sodium (Chloride) 100 mls @ 200 mls/hr IV Q24@2200 [facility] Last Infusion: 05/26/19 23:01 Dose: Infused Documented by: Insulin Human Lispro (Humalog Kwikpen (Bkc)) 0 unit SC Q6 [facility]; Protocol Last Admin: 05/27/19 01:33 Dose: Not Given Documented by: Metoprolol Tartrate (Lopressor (Beta Janee)) 25 mg PO BID [facility] Last Admin: 05/26/19 21:43 Dose: 25 mg Documented by: Nitroglycerin (Nitrostat) 0.4 mg SUBLINGUAL Q5M PRN PRN Reason: CARDIAC/CHEST PAIN Ondansetron HCl (Zofran) 4 mg IV Q8H PRN PRN PRN Reason: Nausea Oxycodone HCl (Oxyir) 5 mg PO Q4H PRN PRN PRN Reason: Pain Score 4-5/10 Last Admin: 05/24/19 14:36 Dose: 5 mg Documented by: Oxycodone HCl (Oxyir) 10 mg PO Q4H PRN PRN PRN Reason: Pain Score 6-10/10 Pantoprazole Sodium (Protonix) 40 mg PO DAILY [facility] Last Admin: 05/26/19 10:38 Dose: 40 mg Documented by: Promethazine HCl (Phenergan) 25 mg IM Q6H PRN PRN PRN Reason: Breakthrough Nausea/Vomiting Sodium Chloride () 10 - 40 ml IV UD PRN PRN Reason: SALINE FLUSH Last Admin: 05/27/19 06:32 Dose: 10 ml Documented by: Medical Necessity - Tobacco Use Smoking Status: Never smoker Assessment/Plan All Active Problems (Last Reviewed 05/24/19 @ 12:27 by Samir Birmingham MD) Non-ST elevated myocardial infarction (non-STEMI) (Acute 05/24/19) Acute combined systolic (congestive) and diastolic (congestive) heart failure (Acute) Acute coronary syndrome (Acute) CHF (congestive heart failure) (Acute) Respiratory failure (Acute) History of coronary artery stent placement (Resolved 01/21/18) Abnormal nuclear stress test (Resolved) Abnormal result of cardiovascular function study, unspecified (Resolved) steroid injections lumbar (Resolved) RECOMMENDATIONS: 1. Continue to wean supplemental oxygen as tolerated. 2. Antibiotics can be discontinued from my perspective. 3. Continue diuretic therapy per nephrology recommendations. 4. Encourage incentive spirometer use and mobilize patient as tolerated. IMPRESSIONS: 1. Acute hypoxemic respiratory failure Appears to be secondary to decompensated heart failure with subsequent development of pulmonary edema. While infectious etiologies would also be a consideration, especially in light of the patient's elevated white blood cell count, tachypnea and respiratory failure, he denied any systemic signs or symptoms of infection and denied the presence of a cough or sputum production. Nevertheless, empiric antimicrobials were initiated, pending infectious work up. Given that the patients infectious work up is now negative, antibiotics can be discontinued. Volume optimization through IV diuretic therapy will be continued. Cardiology and nephrology are following. Encourage incentive spirometer use. 2. Non-ST segment elevation MT/personal history of coronary artery disease status post CABG Continue current medical management per cardiology recommendations. 3. Acute on chronic kidney disease/non-gap metabolic acidosis/hyperkalemia Unclear etiology, although passive vascular congestion in the setting of cardiorenal syndrome is a possibility. As noted above, diuretic therapy will be continued. Nephrology is following to assist with management. 4. Anemia The patient's hemoglobin fell to 7.6 g/dL during his hospitalization, for which he received 2 units of packed red blood cells. Hemoglobin has improved and remained stable. We will continue to monitor accordingly. 5. Diabetes mellitus/hypertension/hyperlipidemia/recent knee surgery Complicates care, management, recovery and prognosis. Continue sliding scale insulin coverage. This note was generated with [employer] dictation software. It may contain incorrect words, spelling, and punctuation that were not noted in checking the note before signing. Code Visit Inpatient E&M: 46815 Subs Hosp L2
[2019-05-27 07:58] LABS: Absolute Lymphocyte Count 1.59 X10^3/uL (0.83-4.51); Absolute Neutrophil Count 7.4 X10^3/uL (2.0-7.7); Basophil# 0.05 X10^3/uL; Basophil% 0.5 % (0-1); Eosinophil# 0.29 X10^3/uL; Eosinophils% 2.8 % (0-5); Hematocrit 32.8 % (40-54); Lymphocyte # 1.59 X10^3/ul (4.0); Lymphocyte % 15.4 % (19-41); Mean Corp Hgb Conc 33.5 g/dL (32-36); Mean Corpuscular Hgb 31.5 pg (27.0-32.0); Mean Platelet Vol. 11.4 fl (6.2-12.0); Monocyte# 0.93 X10^3/uL; NRBC Flagged by Analyzer 0 % (0-5); Neutrophil # 7.39 X10^3/uL (2.7-7.7); Neutrophil % 71.7 % (47-70); Platelet Count 228 K/mm3 (150-450); RBC Distribution Width CV 14.4 % (11.6-14.6); RBC Distribution Width SD 49.4 fl (35.1-43.9); Red Blood Count 3.49 M/mm3 (4.6-6.2); White Blood Count 10.3 K/mm3 (4.4-11.0)
[2019-05-27] MEDS: Metoprolol Tartrate 25 MG Tablet PO ×2 (08:19→22:15)
[2019-05-27] MEDS: Pantoprazole Sodium 40 MG Tablet PO (08:19)
[2019-05-27] MEDS: Enoxaparin 100 MG/ML Syringe 90 MG SC (08:19)
[2019-05-27] MEDS: Aspirin E.C. 81 MG Tablet PO (08:19)
[2019-05-27 08:20] LABS: Anion Gap 13 (5-15); BUN 117 mg/dL (7-18); BUN/Creat Ratio 28.4 RATIO (10-20); Calcium,Total 9.3 mg/dL (8.5-10.1); Chloride 100 mmol/L (98-107); Creatinine, Serum 4.12 mg/dL (0.70-1.30); EST Glomerular Filtration Rate 15 mL/min (>60); Est Glom Filt Rate - Afr Amer 18 mL/min (>60); Estimated Creatinine Clearance 13.33 ml/min; Glucose 122 mg/dL (74-106); Potassium 3.9 mmol/L (3.5-5.1); Sodium Level 135 mmol/L (136-145)
--- NOTE | 2019-05-27 08:55 | PN.CARD_ITS ---
Subjectve: Patient seen and evaluated. Appears to be doing much better at this time. Breathing on room air. Objective: Vital Signs Temp Pulse Resp BP Pulse Ox 97.6 F L 94 18 124/67 H 94 05/27/19 08:15 05/27/19 08:19 05/27/19 08:15 05/27/19 08:15 05/27/19 08:15 Oxygen Flow Rate (L/min) 1 Oxygen Delivery Method Room Air Weight: 165 lb 5.547 oz Body Mass Index (BMI) 28.9 Intake and Output for Last 24 Hours 05/25/19 05/26/19 05/27/19 23:59 23:59 23:59 Intake Total 1083.85 / 1083.85 1380.25 / 1380.25 50 / 50 Output Total 3925 / 3925 4000 / 4000 875 / 875 Balance -2841.15 / -2841.15 -2619.75 / -2619.75 -825 / -825 General: Awake, Alert, Oriented x 3 HEENT: PERRL, EOMI, Sclera Non Icteric Neck: Supple, Good ROM, No Lymph Node Enlargement Lungs: Clear to auscultation Cardiovascular: Regular Rhythm, Normal S1, Normal S2, No Murmurs, No Rubs, No Gallops Vascular: No Carotid Bruits, Normal Femoral Pulses, Normal Radial Pulses, Normal Dorsalis Pedal Pulse, Normal Posterior Tibial Pulses Abdomen: Bowel Sounds Present, Soft, Non Tender, No HSM, No Organomegaly Extremities: No Cyanosis, No Clubbing, No edema Musculoskeletal: No Erythema Lymphatic: No Lymph Node Enlargement Neurological: No Focal Motor or Sensory Deficit Psych/Mental Status: Appropriate 05/27/19 07:20: WBC 10.3, RBC 3.49 L, Hgb 11.0 L, Hct 32.8 L, MCV 94.0, MCH 31.5, MCHC 33.5, Plt Count 228, MPV 11.4, Immature Gran % (Auto) 0.600, Neut % (Auto) 71.7 H, Lymph % (Auto) 15.4 L, [place] % (Auto) 9.0, Eos % (Auto) 2.8, Baso % (Auto) 0.5, Absolute Neuts (auto) 7.4, Nucleated RBC % 0 05/27/19 07:20: Sodium 135 L, Potassium 3.9, Chloride 100, Carbon Dioxide 22.0, Anion Gap 13, BUN 117 H*, Creatinine 4.12 H, Est GFR (MDRD) Af Amer 18 L, Est GFR (MDRD) Non-Af 15 L, BUN/Creatinine Ratio 28.4 H, Glucose 122 H, Calcium 9.3 Rhythm: EKG: ECHO: Stress Test: Cardiac Cath: PCI: CT Surgery: Holter monitor: EPS: PPM: CXR: Chest CT Scan: Medical Necessity - Tobacco Use Smoking Status: Never smoker Assessment/Plan 1. Acute hypoxic respiratory failure secondary to pulmonary edema ~Patient placed on noninvasive ventilation BiPAP admitted to the intensive care unit. Now transferred to the progressive care unit and doing better * We will continue with oral Lasix * The above is likely secondary to progressive coronary artery disease. * 2. 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 His ejection fraction by echocardiogram today demonstrates globally reduced left ventricular systolic fun ction. Estimated EF 40 to 45%. 3. Acute non-STEMI ?Patient placed on nitroglycerin drip as well as heparin with consultation placed to cardiology. Also did initiate patient on beta-blockers and statin therapy in addition to aspirin * Renal status appears to be rather impaired and I am hesitant to proceed with any cardiac catheterization at this particular time. We will continue to follow and see how he does. 4. Coronary artery disease with previous CABG and subsequent stent placement ~ CABG x 4 JOHNSON to LAD, Sequential SVG-OM and Ramus, RVG-RPDA 08/16/2002 ; patient underwent [id number] w/ 2.75 x 8 mm Resolute 01/21/18 5. 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 Placed on long acting insulin, Accu-Cheks a.c. and at bedtime and covered with sliding scale insulin 6. Chronic kidney disease stage IV * Like to hear further plans from nephrology. 7. Hypertension ~ blood pressure controlled, home medications continued with dose adjustment as needed 8. Dyslipidemia ~patient is on statin therapy, continued at home dose 9. DVT prophylaxis ?Patient is on Lovenox At this time the patient appears to be in rather guarded condition and would be observed in the intensive care unit. 10. Anemia * Patient was transfused and appears to have tolerated it better. Thank you for allowing me to participate in the care of your patient. Please don't hesitate to call if any issues arise
[2019-05-27 11:36] LABS: Bedside Glucose 229 mg/dL (70-110)
--- NOTE | 2019-05-27 13:59 | PN_ITS ---
Patient Problems: Active and Suspected Problems (Last Reviewed 05/24/19 @ 12:27 by Samir Birmingham MD) Non-ST elevated myocardial infarction (non-STEMI) (Acute 05/24/19) Acute combined systolic (congestive) and diastolic (congestive) heart failure (Acute) Acute coronary syndrome (Acute) CHF (congestive heart failure) (Acute) Respiratory failure (Acute) Subjective: The patient denies shortness of breath or chest pain he has no complaints he feels much better he states his voice is better - Physical Exam Vitals/I&O's: Vital Signs Temp Pulse Resp BP Pulse Ox 97.6 F L 86 18 124/67 H 94 05/27/19 08:15 05/27/19 11:00 05/27/19 08:15 05/27/19 08:15 05/27/19 08:15 Oxygen Flow Rate (L/min) 1 Oxygen Delivery Method Room Air Weight: 75 kg Body Mass Index (BMI) 28.9 Intake and Output for Last 24 Hours 05/25/19 05/26/19 05/27/19 23:59 23:59 23:59 Intake Total 1083.85 / 1083.85 1380.25 / 1380.25 350 / 350 Output Total 3925 / 3925 4000 / 4000 1425 / 1425 Balance -2841.15 / -2841.15 -2619.75 / -2619.75 -1075 / -1075 General: Alert, Oriented x3, Cooperative HEENT: Atraumatic, PERRLA, EOMI, Normocephalic Neck: Supple, No JVD, Negative Carotid Bruits Lungs: Clear to auscultation, Normal air movement Cardiovascular: Regular rate, No murmurs Abdomen: Bowel Sounds Present, Soft, Non Tender Extremities: No edema, Capillary Refill Less than 3 Seconds Skin: No rashes, No breakdown Musculoskeletal: No Tenderness to Palpation of Joints or Extremities Neurological: Cranial nerves II-XII grossly intact Psych/Mental Status: Normal Affect, Appropriate Microbiology Past 72 Hours 05/24/19 18:15 Blood Culture (Wb) - Right Forearm Blood Culture - Preliminary No growth in 48 hours. 05/24/19 18:30 Blood Culture (Wb) - Left Forearm Blood Culture - Preliminary No growth in 48 hours. 05/24/19 17:45 Urine Catheter - Kimble Urine Culture - Final Culture exhibits no growth. 05/24/19 17:55 Mucosa - Nose Respiratory Panel (PCR) - Final 05/24/19 17:55 Mucosa - Nose Influenza Types A,B Direct FA (ABIGAIL) - Final Laboratory Results 05/26/19 17:00: POC Glucose 104 05/27/19 00:44: POC Glucose 121 H 05/27/19 06:37: POC Glucose 125 H 05/27/19 07:20: WBC 10.3, RBC 3.49 L, Hgb 11.0 L, Hct 32.8 L, MCV 94.0, MCH 31.5, MCHC 33.5, RDW Std Deviation 49.4 H, RDW Coeff of Nica 14.4, Plt Count 228, MPV 11.4, Immature Gran % (Auto) 0.600, Neut % (Auto) 71.7 H, Lymph % (Auto) 15.4 L, [place] % (Auto) 9.0, Eos % (Auto) 2.8, Baso % (Auto) 0.5, Absolute Neuts (auto) 7.4, Absolute Lymphs (auto) 1.59, Nucleated RBC % 0 05/27/19 07:20: Sodium 135 L, Potassium 3.9, Chloride 100, Carbon Dioxide 22.0, Anion Gap 13, BUN 117 H*, Creatinine 4.12 H, Estim Creat Clear Calc 13.33, Est GFR (MDRD) Af Amer 18 L, Est GFR (MDRD) Non-Af 15 L, BUN/Creatinine Ratio 28.4 H , Glucose 122 H, Calcium 9.3 05/27/19 11:22: POC Glucose 229 H Current Medications Albuterol Sulfate (Ventolin Aerosols) 2.5 mg INHALATION Q2H PRN PRN PRN Reason: SOB/Wheezing Aspirin (Ecotrin) 81 mg PO DAILY@0800 [facility] Last Admin: 05/27/19 08:19 Dose: 81 mg Documented by: Atorvastatin Calcium (Lipitor) 40 mg PO QHS [facility] Last Admin: 05/26/19 21:45 Dose: Not Given Documented by: Dextrose (D50w Syringe) 0 gm IV X1 PRN; Protocol PRN Reason: Hypoglycemia Enoxaparin Sodium (Lovenox) 90 mg SC DAILY [facility] Last Admin: 05/27/19 08:19 Dose: 90 mg Documented by: Furosemide (Lasix) 40 mg PO BID@1000,1800 [facility] Glucagon () 1 mg IM .X1 PRN PRN Reason: Hypoglycemia Guaifenesin (Robitussin) 10 ml PO Q4H PRN PRN PRN Reason: COUGH Sodium Chloride () 250 mls @ 15 mls/hr IV .[id number] PRN PRN Reason: Saline Flush Last Infusion: 05/26/19 21:24 Dose: 0 mls/hr Documented by: Insulin Human Lispro (Humalog Kwikpen (Bkc)) 0 unit SC Q6 [facility]; Protocol Last Admin: 05/27/19 11:35 Dose: Not Given Documented by: Metoprolol Tartrate (Lopressor (Beta Janee)) 25 mg PO BID [facility] Last Admin: 05/27/19 08:19 Dose: 25 mg Documented by: Nitroglycerin (Nitrostat) 0.4 mg SUBLINGUAL Q5M PRN PRN Reason: CARDIAC/CHEST PAIN Ondansetron HCl (Zofran) 4 mg IV Q8H PRN PRN PRN Reason: Nausea Oxycodone HCl (Oxyir) 5 mg PO Q4H PRN PRN PRN Reason: Pain Score 4-5/10 Last Admin: 05/24/19 14:36 Dose: 5 mg Documented by: Oxycodone HCl (Oxyir) 10 mg PO Q4H PRN PRN PRN Reason: Pain Score 6-10/10 Pantoprazole Sodium (Protonix) 40 mg PO DAILY [facility] Last Admin: 05/27/19 08:19 Dose: 40 mg Documented by: Promethazine HCl (Phenergan) 25 mg IM Q6H PRN PRN PRN Reason: Breakthrough Nausea/Vomiting Sodium Chloride () 10 - 40 ml IV UD PRN PRN Reason: SALINE FLUSH Last Admin: 05/27/19 06:32 Dose: 10 ml Documented by: Medical Necessity - Tobacco Use Smoking Status: Never smoker Assessment/Plan All Active Problems (Last Reviewed 05/24/19 @ 12:27 by Samir Birmingham MD) Non-ST elevated myocardial infarction (non-STEMI) (Acute 05/24/19) Acute combined systolic (congestive) and diastolic (congestive) heart failure (Acute) Acute coronary syndrome (Acute) CHF (congestive heart failure) (Acute) Respiratory failure (Acute) History of coronary artery stent placement (Resolved 01/21/18) Abnormal nuclear stress test (Resolved) Abnormal result of cardiovascular function study, unspecified (Resolved) steroid injections lumbar (Resolved) LIBIA likely cardiorenal syndrome CKD baseline 1.9-2.1 Lower extremity edema Metabolic acidosis resolved HF NSTEMI More prerenal and serum creatinine worse at 4.1 3.55 we will hold diuretics today The patient has no more dyspnea Continue strict I's and O's. Will monitor daily needs for dialysis. Avoid nephrotoxins and overdiuresis.
--- NOTE | 2019-05-27 16:44 | PCM.PN.HOSP ---
Patient Problems: Active and Suspected Problems (Last Reviewed 05/24/19 @ 12:27 by Samir Birmingham MD) Non-ST elevated myocardial infarction (non-STEMI) (Acute 05/24/19) Acute combined systolic (congestive) and diastolic (congestive) heart failure (Acute) Acute coronary syndrome (Acute) CHF (congestive heart failure) (Acute) Respiratory failure (Acute) Subjective: Follow-up on acute CHF, NSTEMI, cardio-renal syndrome Patient was seen and examined. He feels much improved. Off oxygen. Denies chest pain or dizziness or palpitation. Off IV Lasix Vitals/I&O's: Vital Signs Temp Pulse Resp BP Pulse Ox 97.9 F 78 16 104/49 L 96 05/27/19 14:58 05/27/19 15:00 05/27/19 14:58 05/27/19 14:58 05/27/19 14:58 Oxygen Flow Rate (L/min) 1 Oxygen Delivery Method Room Air Weight: 75 kg Body Mass Index (BMI) 28.9 Intake and Output for Last 24 Hours 05/25/19 05/26/19 05/27/19 23:59 23:59 23:59 Intake Total 1083.85 / 1083.85 1380.25 / 1380.25 350 / 350 Output Total 3925 / 3925 4000 / 4000 1425 / 1425 Balance -2841.15 / -2841.15 -2619.75 / -2619.75 -1075 / -1075 General: Alert, Oriented x3, Cooperative, No apparent distress HEENT: Atraumatic, PERRLA, EOMI, Normocephalic Oral: Moist Mucosa Neck: Supple Lungs: Clear to auscultation, Normal air movement Cardiovascular: Regular rate, Regular Rhythm, Normal S1, Normal S2, No murmurs Abdomen: Bowel Sounds Present, Soft, Non Tender, Non-Distended, No Hepato-splenomegaly Extremities: No edema Skin: No rashes, No breakdown Musculoskeletal: No Tenderness to Palpation of Joints or Extremities Lymphatic: No Cervical, Supraclavicular, or Inguinal Adenopathy Neurological: Cranial nerves II-XII grossly intact, Neuro grossly intact Psych/Mental Status: Normal Affect, Appropriate Microbiology Past 72 Hours 05/24/19 18:15 Blood Culture (Wb) - Right Forearm Blood Culture - Preliminary No growth in 48 hours. 05/24/19 18:30 Blood Culture (Wb) - Left Forearm Blood Culture - Preliminary No growth in 48 hours. 05/24/19 17:45 Urine Catheter - Kimble Urine Culture - Final Culture exhibits no growth. 05/24/19 17:55 Mucosa - Nose Respiratory Panel (PCR) - Final 05/24/19 17:55 Mucosa - Nose Influenza Types A,B Direct FA (ABIGAIL) - Final Laboratory Results 05/26/19 17:00: POC Glucose 104 05/27/19 00:44: POC Glucose 121 H 05/27/19 06:37: POC Glucose 125 H 05/27/19 07:20: WBC 10.3, RBC 3.49 L, Hgb 11.0 L, Hct 32.8 L, MCV 94.0, MCH 31.5, MCHC 33.5, RDW Std Deviation 49.4 H, RDW Coeff of Nica 14.4, Plt Count 228, MPV 11.4, Immature Gran % (Auto) 0.600, Neut % (Auto) 71.7 H, Lymph % (Auto) 15.4 L, [place] % (Auto) 9.0, Eos % (Auto) 2.8, Baso % (Auto) 0.5, Absolute Neuts (auto) 7.4, Absolute Lymphs (auto) 1.59, Nucleated RBC % 0 05/27/19 07:20: Sodium 135 L, Potassium 3.9, Chloride 100, Carbon Dioxide 22.0, Anion Gap 13, BUN 117 H*, Creatinine 4.12 H, Estim Creat Clear Calc 13.33, Est GFR (MDRD) Af Amer 18 L, Est GFR (MDRD) Non-Af 15 L, BUN/Creatinine Ratio 28.4 H, Glucose 122 H, Calcium 9.3 05/27/19 11:22: POC Glucose 229 H Current Medications Albuterol Sulfate (Ventolin Aerosols) 2.5 mg INHALATION Q2H PRN PRN PRN Reason: SOB/Wheezing Aspirin (Ecotrin) 81 mg PO DAILY@0800 [facility] Last Admin: 05/27/19 08:19 Dose: 81 mg Documented by: Atorvastatin Calcium (Lipitor) 40 mg PO QHS [facility] Last Admin: 05/26/19 21:45 Dose: Not Given Documented by: Dextrose (D50w Syringe) 0 gm IV X1 PRN; Protocol PRN Reason: Hypoglycemia Enoxaparin Sodium (Lovenox) 90 mg SC DAILY [facility] Last Admin: 05/27/19 08:19 Dose: 90 mg Documented by: Furosemide (Lasix) 40 mg PO BID@1000,1800 [facility] Glucagon () 1 mg IM .X1 PRN PRN Reason: Hypoglycemia Guaifenesin (Robitussin) 10 ml PO Q4H PRN PRN PRN Reason: COUGH Sodium Chloride () 250 mls @ 15 mls/hr IV .[id number] PRN PRN Reason: Saline Flush Last Infusion: 05/26/19 21:24 Dose: 0 mls/hr Documented by: Insulin Human Lispro (Humalog Kwikpen (Bkc)) 0 unit SC Q6 [facility]; Protocol Last Admin: 05/27/19 16:32 Dose: Not Given Documented by: Metoprolol Tartrate (Lopressor (Beta Janee)) 25 mg PO BID [facility] Last Admin: 05/27/19 08:19 Dose: 25 mg Documented by: Nitroglycerin (Nitrostat) 0.4 mg SUBLINGUAL Q5M PRN PRN Reason: CARDIAC/CHEST PAIN Ondansetron HCl (Zofran) 4 mg IV Q8H PRN PRN PRN Reason: Nausea Oxycodone HCl (Oxyir) 5 mg PO Q4H PRN PRN PRN Reason: Pain Score 4-5/10 Last Admin: 05/24/19 14:36 Dose: 5 mg Documented by: Oxycodone HCl (Oxyir) 10 mg PO Q4H PRN PRN PRN Reason: Pain Score 6-10/10 Pantoprazole Sodium (Protonix) 40 mg PO DAILY [facility] Last Admin: 05/27/19 08:19 Dose: 40 mg Documented by: Promethazine HCl (Phenergan) 25 mg IM Q6H PRN PRN PRN Reason: Breakthrough Nausea/Vomiting Sodium Chloride () 10 - 40 ml IV UD PRN PRN Reason: SALINE FLUSH Last Admin: 05/27/19 06:32 Dose: 10 ml Documented by: STROKE Vital Signs/Narrative: Vital Signs Temp Pulse Resp BP Pulse Ox 05/27/19 15:00 78 05/27/19 14:58 97.9 F 75 16 104/49 L 96 Medical Necessity - Tobacco Use Smoking Status: Never smoker Assessment/Plan All Active Problems (Last Reviewed 05/24/19 @ 12:27 by Samir Birmingham MD) Non-ST elevated myocardial infarction (non-STEMI) (Acute 05/24/19) Acute combined systolic (congestive) and diastolic (congestive) heart failure (Acute) Acute coronary syndrome (Acute) CHF (congestive heart failure) (Acute) Respiratory failure (Acute) History of coronary artery stent placement (Resolved 01/21/18) Abnormal nuclear stress test (Resolved) Abnormal result of cardiovascular function study, unspecified (Resolved) steroid injections lumbar (Resolved) 1. Acute hypoxic respiratory failure secondary to pulmonary edema, resolved Continue to encourage use of incentive spirometer 2. Acute decompensated heart failure with reduced EF of 40%, patient is on Lasix oral to begin on 9 AM Continue with CHF protocol, strict I's and O's 3. LIBIA on CKD stage IV, pre-renal secondary to cardiorenal syndrome Creatinine increased from 3.55-4.12 Switch from IV Lasix to p.o to begin on 05/28/19 Repeat blood work in a.m. 4. Acute NSTEMI secondary to acute decompensated CHF Medical management recommended Continue on aspirin, statin, beta-janee 5. CAD status post CABG, aspirin, statin, beta-janee 6. Hypertension, controlled, continue on home medications 7. DVT PPx- Lovenox Code Visit Inpatient E&M: 97229 Subs Hosp L2
--- NOTE | 2019-05-27 22:21 | NURSING ---
Removed 2 sutures from pt. L knee at this time. Pt. tolerated well.
[2019-05-27 22:46] LABS: Bedside Glucose 138 mg/dL (70-110)
[2019-05-28] VITALS (12 sets, daily range): BP systolic 115–136; BP diastolic 52–75; PULSE 58–82; RESP 16–18; TEMP 36.3–37.2; O2SAT 94–96
--- NOTE | 2019-05-28 04:47 | CPS ---
pt refuses bipap
[2019-05-28 07:15] LABS: Bedside Glucose 135 mg/dL (70-110)
[2019-05-28 08:20] LABS: Albumin, Serum 2.8 g/dL (3.2-5.0); BUN 128 mg/dL (7-18); BUN/Creat Ratio 31.1 RATIO (10-20); Calcium,Total 8.7 mg/dL (8.5-10.1); Chloride 99 mmol/L (98-107); Creatinine, Serum 4.12 mg/dL (0.70-1.30); EST Glomerular Filtration Rate 15 mL/min (>60); Est Glom Filt Rate - Afr Amer 18 mL/min (>60); Estimated Creatinine Clearance 13.33 ml/min; Glucose 128 mg/dL (74-106); Phosphorus 6.5 mg/dL (2.5-4.9); Potassium 3.9 mmol/L (3.5-5.1); Sodium Level 134 mmol/L (136-145)
[2019-05-28] MEDS: Pantoprazole Sodium 40 MG Tablet PO (08:22)
[2019-05-28] MEDS: Metoprolol Tartrate 25 MG Tablet PO ×2 (08:22→21:24)
[2019-05-28] MEDS: Aspirin E.C. 81 MG Tablet PO (08:22)
[2019-05-28] MEDS: Furosemide 40 MG Tablet PO (08:22)
[2019-05-28] MEDS: Heparin Injection (Vial) 5,000 UNIT/ML VIAL 5000 UNIT SC ×3 (08:23→21:27)
--- NOTE | 2019-05-28 10:21 | PCM.PN.REN ---
Patient Problems: Active and Suspected Problems (Last Reviewed 05/24/19 @ 12:27 by Samir Birmingham MD) Non-ST elevated myocardial infarction (non-STEMI) (Acute 05/24/19) Acute combined systolic (congestive) and diastolic (congestive) heart failure (Acute) Acute coronary syndrome (Acute) CHF (congestive heart failure) (Acute) Respiratory failure (Acute) Subjective: no Shortness of breath no chest pain - Physical Exam Vitals/I&O's: Vital Signs Temp Pulse Resp BP Pulse Ox 97.7 F L 66 18 117/58 L 94 05/28/19 08:00 05/28/19 08:22 05/28/19 08:00 05/28/19 08:00 05/28/19 08:00 Oxygen Flow Rate (L/min) 1 Oxygen Delivery Method Room Air Weight: 74.3 kg Body Mass Index (BMI) 28.9 Intake and Output for Last 24 Hours 05/26/19 05/27/19 05/28/19 23:59 23:59 23:59 Intake Total 1380.25 / 1380.25 770 / 770 175 / 175 Output Total 4000 / 4000 2049 / 2049 350 / 350 Balance -2619.75 / -2619.75 -1280 / -1280 -175 / -175 General: Alert, Oriented x3, Cooperative HEENT: Atraumatic, PERRLA, EOMI, Normocephalic Neck: Supple, No JVD, Negative Carotid Bruits Lungs: Clear to auscultation, Normal air movement Cardiovascular: Regular rate, No murmurs Abdomen: Bowel Sounds Present, Soft, Non Tender Extremities: No edema, Capillary Refill Less than 3 Seconds Skin: No rashes, No breakdown Musculoskeletal: No Tenderness to Palpation of Joints or Extremities Neurological: Cranial nerves II-XII grossly intact Psych/Mental Status: Normal Affect, Appropriate Microbiology Past 72 Hours 05/24/19 18:15 Blood Culture (Wb) - Right Forearm Blood Culture - Preliminary No growth in 48 hours. 05/24/19 18:30 Blood Culture (Wb) - Left Forearm Blood Culture - Preliminary No growth in 48 hours. 05/24/19 17:45 Urine Catheter - Kimble Urine Culture - Final Culture exhibits no growth. 05/24/19 17:55 Mucosa - Nose Respiratory Panel (PCR) - Final Laboratory Results 05/27/19 11:22: POC Glucose 229 H 05/27/19 22:19: POC Glucose 138 H 05/28/19 06:40: Sodium 134 L, Potassium 3.9, Chloride 99, Carbon Dioxide 22.0, BUN 128 H*, Creatinine 4.12 H, Estim Creat Clear Calc 13.33, Est GFR (MDRD) Af Amer 18 L, Est GFR (MDRD) Non-Af 15 L, BUN/Creatinine Ratio 31.1 H, Glucose 128 H, Calcium 8.7, Phosphorus 6.5 H, Albumin 2.8 L 05/28/19 07:02: POC Glucose 135 H Current Medications Albuterol Sulfate (Ventolin Aerosols) 2.5 mg INHALATION Q2H PRN PRN PRN Reason: SOB/Wheezing Aspirin (Ecotrin) 81 mg PO DAILY@0800 [facility] Last Admin: 05/28/19 08:22 Dose: 81 mg Documented by: Atorvastatin Calcium (Lipitor) 40 mg PO QHS [facility] Last Admin: 05/27/19 22:14 Dose: Not Given Documented by: Dextrose (D50w Syringe) 0 gm IV X1 PRN; Protocol PRN Reason: Hypoglycemia Furosemide (Lasix) 40 mg PO BID@1000,1800 [facility] Last Admin: 05/28/19 08:22 Dose: 40 mg Documented by: Glucagon () 1 mg IM .X1 PRN PRN Reason: Hypoglycemia Guaifenesin (Robitussin) 10 ml PO Q4H PRN PRN PRN Reason: COUGH Heparin Sodium (Porcine) (Heparin Na) 5,000 unit SC Q8 [facility] Last Admin: 05/28/19 08:23 Dose: 5,000 unit Documented by: Sodium Chloride () 250 mls @ 15 mls/hr IV .[id number] PRN PRN Reason: Saline Flush Last Infusion: 05/28/19 10:19 Dose: Infused Documented by: Insulin Human Lispro (Humalog Kwikpen (Bkc)) 0 unit SC ACHS [facility]; Protocol Last Admin: 05/28/19 07:28 Dose: Not Given Documented by: Metoprolol Tartrate (Lopressor (Beta Janee)) 25 mg PO BID [facility] Last Admin: 05/28/19 08:22 Dose: 25 mg Documented by: Nitroglycerin (Nitrostat) 0.4 mg SUBLINGUAL Q5M PRN PRN Reason: CARDIAC/CHEST PAIN Ondansetron HCl (Zofran) 4 mg IV Q8H PRN PRN PRN Reason: Nausea Oxycodone HCl (Oxyir) 5 mg PO Q4H PRN PRN PRN Reason: Pain Score 4-5/10 Last Admin: 05/24/19 14:36 Dose: 5 mg Documented by: Oxycodone HCl (Oxyir) 10 mg PO Q4H PRN PRN PRN Reason: Pain Score 6-10/10 Pantoprazole Sodium (Protonix) 40 mg PO DAILY [facility] Last Admin: 05/28/19 08:22 Dose: 40 mg Documented by: Promethazine HCl (Phenergan) 25 mg IM Q6H PRN PRN PRN Reason: Breakthrough Nausea/Vomiting Sodium Chloride () 10 - 40 ml IV UD PRN PRN Reason: SALINE FLUSH Last Admin: 05/27/19 06:32 Dose: 10 ml Documented by: Medical Necessity - Tobacco Use Smoking Status: Never smoker Assessment/Plan All Active Problems (Last Reviewed 05/24/19 @ 12:27 by Samir Birmingham MD) Non-ST elevated myocardial infarction (non-STEMI) (Acute 05/24/19) Acute combined systolic (congestive) and diastolic (congestive) heart failure (Acute) Acute coronary syndrome (Acute) CHF (congestive heart failure) (Acute) Respiratory failure (Acute) History of coronary artery stent placement (Resolved 01/21/18) Abnormal nuclear stress test (Resolved) Abnormal result of cardiovascular function study, unspecified (Resolved) steroid injections lumbar (Resolved) LIBIA likely cardiorenal syndrome CKD baseline 1.9-2.1 Lower extremity edema Metabolic acidosis resolved HF NSTEMI More prerenal but serum creatinine stable at 4.1 we will continue to hold diuretics today Can use diuretics as needed for respiratory distress Continue strict I's and O's. Will monitor daily needs for dialysis. Avoid nephrotoxins and overdiuresis. d/w [employer] and patient
--- NOTE | 2019-05-28 10:47 | PN_ITS ---
Patient Problems: Active and Suspected Problems (Last Reviewed 05/24/19 @ 12:27 by Samir Birmingham MD) Non-ST elevated myocardial infarction (non-STEMI) (Acute 05/24/19) Acute combined systolic (congestive) and diastolic (congestive) heart failure (Acute) Acute coronary syndrome (Acute) CHF (congestive heart failure) (Acute) Respiratory failure (Acute) Subjective: The patient was seen and examined at the bedside this morning. Events from the last 24 hours have been reviewed. The patient is currently afebrile, hemodynamically stable and maintaining appropriate oxygen saturations on room air. The patient denies the presence of shortness of breath. Objective: The patient's most recent lab work, culture data and imaging studies have all been personally reviewed. Rapid influenza screen was negative. Respiratory viral panel was negative. Blood and urine cultures have revealed no growth to date. Surface echocardiogram revealed normal LV size with an ejection fraction of 40% and stage III diastolic dysfunction. There was evidence of mild global RV systolic dysfunction and a pulmonary artery systolic pressure estimated to be 71 mmHg. Renal ultrasound was unremarkable. - Physical Exam Vitals/I&O's: Vital Signs Temp Pulse Resp BP Pulse Ox 97.7 F L 66 18 117/58 L 94 05/28/19 08:00 05/28/19 08:22 05/28/19 08:00 05/28/19 08:00 05/28/19 08:00 Oxygen Flow Rate (L/min) 1 Oxygen Delivery Method Room Air Weight: 163 lb 12.855 oz Body Mass Index (BMI) 28.9 Intake and Output for Last 24 Hours 05/26/19 05/27/19 05/28/19 23:59 23:59 23:59 Intake Total 1380.25 / 1380.25 770 / 770 175 / 175 Output Total 4000 / 4000 2049 / 2049 350 / 350 Balance -2619.75 / -2619.75 -1280 / -1280 -175 / -175 General: Alert, Cooperative, No apparent distress HEENT: Atraumatic, Normocephalic Oral: No Gingival or Mucosal Lesions/ Ulcerations Neck: Supple, No Nodes, Trachea Midline Lungs: No rhonchi, No wheeze, No rales Cardiovascular: Regular rate, Regular Rhythm, Normal S1, Normal S2 Abdomen: Bowel Sounds Present, Soft, Non Tender, Non-Distended Extremities: No clubbing, No cyanosis, No edema Skin: No breakdown Musculoskeletal: No Tenderness to Palpation of Joints or Extremities Lymphatic: No Cervical, Supraclavicular, or Inguinal Adenopathy Neurological: Neuro grossly intact Psych/Mental Status: Normal Affect, Appropriate Labs (Last 48 Hours) 05/26/19 05/26/19 05/27/19 11:54 17:00 00:44 WBC RBC Hgb Hct MCV MCH MCHC RDW Std Deviation RDW Coeff of Nica Plt Count MPV Immature Gran % (Auto) Neut % (Auto) Lymph % (Auto) [place] % (Auto) Eos % (Auto) Baso % (Auto) Absolute Neuts (auto) Absolute Lymphs (auto) Nucleated RBC % Sodium Potassium Chloride Carbon Dioxide Anion Gap BUN Creatinine Estim Creat Clear Calc Est GFR (MDRD) Af Amer Est GFR (MDRD) Non-Af BUN/Creatinine Ratio Glucose Calcium Phosphorus Albumin POC Glucose 117 H 104 121 H 05/27/19 05/27/19 05/27/19 06:37 07:20 07:20 WBC 10.3 RBC 3.49 L Hgb 11.0 L Hct 32.8 L MCV 94.0 MCH 31.5 MCHC 33.5 RDW Std Deviation 49.4 H RDW Coeff of Nica 14.4 Plt Count 228 MPV 11.4 Immature Gran % (Auto) 0.600 Neut % (Auto) 71.7 H Lymph % (Auto) 15.4 L [place] % (Auto) 9.0 Eos % (Auto) 2.8 Baso % (Auto) 0.5 Absolute Neuts (auto) 7.4 Absolute Lymphs (auto) 1.59 Nucleated RBC % 0 Sodium 135 L Potassium 3.9 Chloride 100 Carbon Dioxide 22.0 Anion Gap 13 BUN 117 H* Creatinine 4.12 H Estim Creat Clear Calc 13.33 Est GFR (MDRD) Af Amer 18 L Est GFR (MDRD) Non-Af 15 L BUN/Creatinine Ratio 28.4 H Glucose 122 H Calcium 9.3 Phosphorus Albumin POC Glucose 125 H 05/27/19 05/27/19 05/28/19 11:22 22:19 06:40 WBC RBC Hgb Hct MCV MCH MCHC RDW Std Deviation RDW Coeff of Nica Plt Count MPV Immature Gran % (Auto) Neut % (Auto) Lymph % (Auto) [place] % (Auto) Eos % (Auto) Baso % (Auto) Absolute Neuts (auto) Absolute Lymphs (auto) Nucleated RBC % Sodium 134 L Potassium 3.9 Chloride 99 Carbon Dioxide 22.0 Anion Gap BUN 128 H* Creatinine 4.12 H Estim Creat Clear Calc 13.33 Est GFR (MDRD) Af Amer 18 L Est GFR (MDRD) Non-Af 15 L BUN/Creatinine Ratio 31.1 H Glucose 128 H Calcium 8.7 Phosphorus 6.5 H Albumin 2.8 L POC Glucose 229 H 138 H 05/28/19 07:02 WBC RBC Hgb Hct MCV MCH MCHC RDW Std Deviation RDW Coeff of Nica Plt Count MPV Immature Gran % (Auto) Neut % (Auto) Lymph % (Auto) [place] % (Auto) Eos % (Auto) Baso % (Auto) Absolute Neuts (auto) Absolute Lymphs (auto) Nucleated RBC % Sodium Potassium Chloride Carbon Dioxide Anion Gap BUN Creatinine Estim Creat Clear Calc Est GFR (MDRD) Af Amer Est GFR (MDRD) Non-Af BUN/Creatinine Ratio Glucose Calcium Phosphorus Albumin POC Glucose 135 H Microbiology 05/24/19 18:15 Blood Culture (Wb) - Right Forearm Blood Culture - Preliminary No growth in 48 hours. 05/24/19 18:30 Blood Culture (Wb) - Left Forearm Blood Culture - Preliminary No growth in 48 hours. 05/24/19 17:45 Urine Catheter - Kimble Urine Culture - Final Culture exhibits no growth. Clinical Impression(s) from Imaging Studies Chest X-Ray 05/24/19 10:19 IMPRESSION: Bilateral patchy airspace disease worse on the right side. Blunting of both costophrenic angles. Findings suggestive of pulmonary edema versus infectious process. Electronically Signed: Alec Thompson, at 11:08 EST , Service support , Chest X-Ray 05/25/19 07:13 IMPRESSION: Mild degree of improved aeration of both lungs. Persistent bilateral patchy airspace disease is present. Electronically Signed: Alec Thompson, at 8:17 EST , Service support , Renal Ultrasound 05/25/19 13:06 IMPRESSION: Normal ultrasound of the kidneys. Electronically Signed: Dakotaalfonso Sim DO at 18:56 EST Tel [phone], Service support , Current Medications Albuterol Sulfate (Ventolin Aerosols) 2.5 mg INHALATION Q2H PRN PRN PRN Reason: SOB/Wheezing Aspirin (Ecotrin) 81 mg PO DAILY@0800 [facility] Last Admin: 05/28/19 08:22 Dose: 81 mg Documented by: Atorvastatin Calcium (Lipitor) 40 mg PO QHS [facility] Last Admin: 05/27/19 22:14 Dose: Not Given Documented by: Dextrose (D50w Syringe) 0 gm IV X1 PRN; Protocol PRN Reason: Hypoglycemia Furosemide (Lasix) 40 mg PO BID@1000,1800 [facility] Last Admin: 05/28/19 08:22 Dose: 40 mg Documented by: Glucagon () 1 mg IM .X1 PRN PRN Reason: Hypoglycemia Guaifenesin (Robitussin) 10 ml PO Q4H PRN PRN PRN Reason: COUGH Heparin Sodium (Porcine) (Heparin Na) 5,000 unit SC Q8 [facility] Last Admin: 05/28/19 08:23 Dose: 5,000 unit Documented by: Sodium Chloride () 250 mls @ 15 mls/hr IV .[id number] PRN PRN Reason: Saline Flush Last Infusion: 05/28/19 10:19 Dose: Infused Documented by: Insulin Human Lispro (Humalog Kwikpen (Bkc)) 0 unit SC ACHS [facility]; Protocol Last Admin: 05/28/19 07:28 Dose: Not Given Documented by: Metoprolol Tartrate (Lopressor (Beta Janee)) 25 mg PO BID [facility] Last Admin: 05/28/19 08:22 Dose: 25 mg Documented by: Nitroglycerin (Nitrostat) 0.4 mg SUBLINGUAL Q5M PRN PRN Reason: CARDIAC/CHEST PAIN Ondansetron HCl (Zofran) 4 mg IV Q8H PRN PRN PRN Reason: Nausea Oxycodone HCl (Oxyir) 5 mg PO Q4H PRN PRN PRN Reason: Pain Score 4-5/10 Last Admin: 05/24/19 14:36 Dose: 5 mg Documented by: Oxycodone HCl (Oxyir) 10 mg PO Q4H PRN PRN PRN Reason: Pain Score 6-10/10 Pantoprazole Sodium (Protonix) 40 mg PO DAILY [facility] Last Admin: 05/28/19 08:22 Dose: 40 mg Documented by: Promethazine HCl (Phenergan) 25 mg IM Q6H PRN PRN PRN Reason: Breakthrough Nausea/Vomiting Sodium Chloride () 10 - 40 ml IV UD PRN PRN Reason: SALINE FLUSH Last Admin: 05/27/19 06:32 Dose: 10 ml Documented by: Medical Necessity - Tobacco Use Smoking Status: Never smoker Assessment/Plan All Active Problems (Last Reviewed 05/24/19 @ 12:27 by Samir Birmingham MD) Non-ST elevated myocardial infarction (non-STEMI) (Acute 05/24/19) Acute combined systolic (congestive) and diastolic (congestive) heart failure (Acute) Acute coronary syndrome (Acute) CHF (congestive heart failure) (Acute) Respiratory failure (Acute) History of coronary artery stent placement (Resolved 01/21/18) Abnormal nuclear stress test (Resolved) Abnormal result of cardiovascular function study, unspecified (Resolved) steroid injections lumbar (Resolved) RECOMMENDATIONS: 1. Continue to hold diuretic therapy per nephrology recommendations. 2. Encourage incentive spirometer use and mobilize patient as tolerated. 3. Given the lack of further ICU or pulmonary needs, will sign off. IMPRESSIONS: 1. Acute hypoxemic respiratory failure Appears to be secondary to decompensated heart failure with subsequent development of pulmonary edema. While infectious etiologies would also be a consideration, especially in light of the patient's elevated white blood cell count, tachypnea and respiratory failure, he denied any systemic signs or symptoms of infection and denied the presence of a cough or sputum production. Nevertheless, empiric antimicrobials were initiated, pending infectious work up. Given that the patients infectious work up is now negative, antibiotics were discontinued. The patient has responded appropriately with improved oxygenation by volume optimization through IV diuretic therapy. Cardiology and nephrology are following. Encourage incentive spirometer use. 2. Non-ST segment elevation GA/personal history of coronary artery disease status post CABG Continue current medical management per cardiology recommendations. 3. Acute on chronic kidney disease/non-gap metabolic acidosis/hyperkalemia Unclear etiology, although passive vascular congestion in the setting of cardiorenal syndrome is a possibility. Nephrology is following to assist with management. 4. Anemia The patient's hemoglobin fell to 7.6 g/dL during his hospitalization, for which he received 2 units of packed red blood cells. Hemoglobin has improved and remained stable. We will continue to monitor accordingly. 5. Diabetes mellitus/hypertension/hyperlipidemia/recent knee surgery Complicates care, management, recovery and prognosis. Continue sliding scale insulin coverage. This note was generated with [employer] dictation software. It may contain incorrect words, spelling, and punctuation that were not noted in checking the note before signing. Code Visit Inpatient E&M: 90848 Subs Hosp L2
--- NOTE | 2019-05-28 11:26 | PN_ITS ---
Patient Problems: Active and Suspected Problems (Last Reviewed 05/24/19 @ 12:27 by Samir Birmingham MD) Non-ST elevated myocardial infarction (non-STEMI) (Acute 05/24/19) Acute combined systolic (congestive) and diastolic (congestive) heart failure (Acute) Acute coronary syndrome (Acute) CHF (congestive heart failure) (Acute) Respiratory failure (Acute) Subjective: Follow-up on acute CHF, NSTEMI, cardio-renal syndrome Patient was seen and examined. He denies any SOB, chest pain, dizziness. Urine output is good. Objective: Physical exam: General: Alert, Oriented x3, Cooperative, No apparent distress HEENT: Atraumatic, PERRLA, EOMI, Normocephalic Oral: Moist Mucosa Neck: Supple Lungs: Clear to auscultation, Normal air movement Cardiovascular: Regular rate, Regular Rhythm, Normal S1, Normal S2, No murmurs Abdomen: Bowel Sounds Present, Soft, Non Tender, Non-Distended, No Hepato- splenomegaly Extremities: No edema Skin: No rashes, No breakdown Musculoskeletal: No Tenderness to Palpation of Joints or Extremities Lymphatic: No Cervical, Supraclavicular, or Inguinal Adenopathy Neurological: Cranial nerves II-XII grossly intact, Neuro grossly intact Psych/Mental Status: Normal Affect, Appropriate Vitals/I&O's: Vital Signs Temp Pulse Resp BP Pulse Ox 97.7 F L 66 18 117/58 L 94 05/28/19 08:00 05/28/19 08:22 05/28/19 08:00 05/28/19 08:00 05/28/19 08:00 Oxygen Flow Rate (L/min) 1 Oxygen Delivery Method Room Air Weight: 74.3 kg Body Mass Index (BMI) 28.9 Intake and Output for Last 24 Hours 05/26/19 05/27/19 05/28/19 23:59 23:59 23:59 Intake Total 1380.25 / 1380.25 770 / 770 175 / 175 Output Total 4000 / 4000 2049 / 2049 350 / 350 Balance -2619.75 / -2619.75 -1280 / -1280 -175 / -175 Microbiology Past 72 Hours 05/24/19 18:15 Blood Culture (Wb) - Right Forearm Blood Culture - Preliminary No growth in 48 hours. 05/24/19 18:30 Blood Culture (Wb) - Left Forearm Blood Culture - Preliminary No growth in 48 hours. 05/24/19 17:45 Urine Catheter - Kimble Urine Culture - Final Culture exhibits no growth. 05/24/19 17:55 Mucosa - Nose Respiratory Panel (PCR) - Final Laboratory Results 05/27/19 11:22: POC Glucose 229 H 05/27/19 22:19: POC Glucose 138 H 05/28/19 06:40: Sodium 134 L, Potassium 3.9, Chloride 99, Carbon Dioxide 22.0, BUN 128 H*, Creatinine 4.12 H, Estim Creat Clear Calc 13.33, Est GFR (MDRD) Af Amer 18 L, Est GFR (MDRD) Non-Af 15 L, BUN/Creatinine Ratio 31.1 H, Glucose 128 H, Calcium 8.7, Phosphorus 6.5 H, Albumin 2.8 L 05/28/19 07:02: POC Glucose 135 H Current Medications Albuterol Sulfate (Ventolin Aerosols) 2.5 mg INHALATION Q2H PRN PRN PRN Reason: SOB/Wheezing Aspirin (Ecotrin) 81 mg PO DAILY@0800 [facility] Last Admin: 05/28/19 08:22 Dose: 81 mg Documented by: Atorvastatin Calcium (Lipitor) 40 mg PO QHS [facility] Last Admin: 05/27/19 22:14 Dose: Not Given Documented by: Dextrose (D50w Syringe) 0 gm IV X1 PRN; Protocol PRN Reason: Hypoglycemia Furosemide (Lasix) 40 mg PO BID@1000,1800 [facility] Last Admin: 05/28/19 08:22 Dose: 40 mg Documented by: Glucagon () 1 mg IM .X1 PRN PRN Reason: Hypoglycemia Guaifenesin (Robitussin) 10 ml PO Q4H PRN PRN PRN Reason: COUGH Heparin Sodium (Porcine) (Heparin Na) 5,000 unit SC Q8 [facility] Last Admin: 05/28/19 08:23 Dose: 5,000 unit Documented by: Sodium Chloride () 250 mls @ 15 mls/hr IV .[id number] PRN PRN Reason: Saline Flush Last Infusion: 05/28/19 10:19 Dose: Infused Documented by: Insulin Human Lispro (Humalog Kwikpen (Bkc)) 0 unit SC ACHS [facility]; Protocol Last Admin: 05/28/19 07:28 Dose: Not Given Documented by: Metoprolol Tartrate (Lopressor (Beta Janee)) 25 mg PO BID [facility] Last Admin: 05/28/19 08:22 Dose: 25 mg Documented by: Nitroglycerin (Nitrostat) 0.4 mg SUBLINGUAL Q5M PRN PRN Reason: CARDIAC/CHEST PAIN Non-Formulary Medication (Multivitamin With Minerals [Multiple Vitamin]) 1 tab PO DAILY [facility] Ondansetron HCl (Zofran) 4 mg IV Q8H PRN PRN PRN Reason: Nausea Oxycodone HCl (Oxyir) 5 mg PO Q4H PRN PRN PRN Reason: Pain Score 4-5/10 Last Admin: 05/24/19 14:36 Dose: 5 mg Documented by: Oxycodone HCl (Oxyir) 10 mg PO Q4H PRN PRN PRN Reason: Pain Score 6-10/10 Pantoprazole Sodium (Protonix) 40 mg PO DAILY [facility] Last Admin: 05/28/19 08:22 Dose: 40 mg Documented by: Promethazine HCl (Phenergan) 25 mg IM Q6H PRN PRN PRN Reason: Breakthrough Nausea/Vomiting Sodium Chloride () 10 - 40 ml IV UD PRN PRN Reason: SALINE FLUSH Last Admin: 05/27/19 06:32 Dose: 10 ml Documented by: STROKE Vital Signs/Narrative: Vital Signs Temp Pulse Resp BP Pulse Ox 05/28/19 08:22 66 05/28/19 08:00 97.7 F L 66 18 117/58 L 94 Medical Necessity - Tobacco Use Smoking Status: Never smoker Assessment/Plan All Active Problems (Last Reviewed 05/24/19 @ 12:27 by Samir Birmingham MD) Non-ST elevated myocardial infarction (non-STEMI) (Acute 05/24/19) Acute combined systolic (congestive) and diastolic (congestive) heart failure (Acute) Acute coronary syndrome (Acute) CHF (congestive heart failure) (Acute) Respiratory failure (Acute) History of coronary artery stent placement (Resolved 01/21/18) Abnormal nuclear stress test (Resolved) Abnormal result of cardiovascular function study, unspecified (Resolved) steroid injections lumbar (Resolved) 1. Acute hypoxic respiratory failure secondary to pulmonary edema, resolved Continue to encourage use of incentive spirometer 2. Acute decompensated heart failure with reduced EF of 40%, improved Off oral Lasix on account of worsening kidney function Discussed with nephrology, lasix to resume on 05/29/19. Continue with CHF protocol, strict I's and O's 3. LIBIA on CKD stage IV, pre-renal secondary to cardiorenal syndrome Creatinine remains 4.12 Lasix held for now Will resume in am 4. Acute NSTEMI secondary to acute decompensated CHF Medical management recommended Continue on aspirin, statin, beta-janee 5. CAD status post CABG, aspirin, statin, beta-janee 6. Hypertension, controlled, continue on home medications 7. DVT PPx- Lovenox Code Visit Inpatient E&M: 35206 Subs Hosp L2
[2019-05-28 11:56] LABS: Bedside Glucose 173 mg/dL (70-110)
[2019-05-28 17:11] LABS: Bedside Glucose 162 mg/dL (70-110)
[2019-05-28] MEDS: oxyCODONE 5 MG Tablet 10 MG PO (21:24)
[2019-05-28] MEDS: oxyCODONE 5 MG Tablet PO ×2 (21:24→21:25)
[2019-05-28] MEDS: Atorvastatin Calcium 40 MG Tablet PO (21:25)
[2019-05-28 22:31] LABS: Bedside Glucose 162 mg/dL (70-110)
[2019-05-29] VITALS (10 sets, daily range): BP systolic 109–126; BP diastolic 56–77; PULSE 62–81; RESP 16–18; TEMP 36.5–36.8; O2SAT 92–96
[2019-05-29] MEDS: oxyCODONE 5 MG Tablet 10 MG PO ×2 (03:12→20:54)
[2019-05-29] MEDS: Heparin Injection (Vial) 5,000 UNIT/ML VIAL 5000 UNIT SC ×3 (05:03→20:54)
[2019-05-29 06:46] LABS: Bedside Glucose 122 mg/dL (70-110)
[2019-05-29 07:30] LABS: Albumin, Serum 2.9 g/dL (3.2-5.0); BUN 144 mg/dL (7-18); BUN/Creat Ratio 34.7 RATIO (10-20); Calcium,Total 8.6 mg/dL (8.5-10.1); Chloride 100 mmol/L (98-107); Creatinine, Serum 4.15 mg/dL (0.70-1.30); EST Glomerular Filtration Rate 15 mL/min (>60); Est Glom Filt Rate - Afr Amer 18 mL/min (>60); Estimated Creatinine Clearance 13.24 ml/min; Glucose 132 mg/dL (74-106); Phosphorus 6.7 mg/dL (2.5-4.9); Potassium 3.9 mmol/L (3.5-5.1); Sodium Level 134 mmol/L (136-145)
[2019-05-29] MEDS: Aspirin E.C. 81 MG Tablet PO (09:19)
[2019-05-29] MEDS: Multivitamins,Ther W-Minerals Tablet 1 TABLET PO (09:19)
[2019-05-29] MEDS: Metoprolol Tartrate 25 MG Tablet PO ×2 (09:19→20:54)
[2019-05-29] MEDS: Pantoprazole Sodium 40 MG Tablet PO (09:20)
[2019-05-29 11:21] LABS: Bedside Glucose 198 mg/dL (70-110)
[2019-05-29] MEDS: oxyCODONE 5 MG Tablet PO (12:01)
[2019-05-29] MEDS: Insulin Lispro 100 UNIT/ML INSULN.PEN SC ×2 (12:02→20:55)
--- NOTE | 2019-05-29 12:21 | PN.CARD_ITS ---
Subjectve: Patient seen and evaluated. Appears to be doing much better. Objective: Vital Signs Temp Pulse Resp BP Pulse Ox 97.7 F L 81 18 110/77 92 05/29/19 09:00 05/29/19 09:19 05/29/19 09:00 05/29/19 09:19 05/29/19 12:02 Oxygen Flow Rate (L/min) 1 Oxygen Delivery Method Room Air Weight: 166 lb 7.184 oz Body Mass Index (BMI) 28.9 Intake and Output for Last 24 Hours 05/27/19 05/28/19 05/29/19 23:59 23:59 23:59 Intake Total 770 / 770 655 / 775 420 / 420 Output Total 2049 / 2049 1150 / 1350 900 / 900 Balance -1280 / -1280 -495 / -575 -480 / -480 General: Awake, Alert, Oriented x 3 HEENT: PERRL, EOMI, Sclera Non Icteric Neck: Supple, Good ROM, No Lymph Node Enlargement Lungs: Clear to auscultation Cardiovascular: Regular Rhythm, Normal S1, Normal S2, No Murmurs, No Rubs, No Gallops Vascular: No Carotid Bruits, Normal Femoral Pulses, Normal Radial Pulses, Normal Dorsalis Pedal Pulse, Normal Posterior Tibial Pulses Abdomen: Bowel Sounds Present, Soft, Non Tender, No HSM, No Organomegaly Extremities: No Cyanosis, No Clubbing, No edema Skin: No Rashes Lymphatic: No Lymph Node Enlargement Neurological: No Focal Motor or Sensory Deficit 05/29/19 05:54: Sodium 134 L, Potassium 3.9, Chloride 100, Carbon Dioxide 21.0, BUN 144 H*, Creatinine 4.15 H, Est GFR (MDRD) Af Amer 18 L, Est GFR (MDRD) Non- Af 15 L, BUN/Creatinine Ratio 34.7 H, Glucose 132 H, Calcium 8.6, Phosphorus 6.7 H Rhythm: EKG: ECHO: Stress Test: Cardiac Cath: PCI: CT Surgery: Holter monitor: EPS: PPM: CXR: Chest CT Scan: Medical Necessity - Tobacco Use Smoking Status: Never smoker Assessment/Plan 1. Acute hypoxic respiratory failure secondary to pulmonary edema ~Patient placed on noninvasive ventilation BiPAP admitted to the intensive care unit. Now transferred to the progressive care unit and doing better * We will continue with oral Lasix * The above is likely secondary to progressive coronary artery disease. * 2. 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 His ejection fraction by echocardiogram today demonstrates globally reduced left ventricular systolic function. Estimated EF 40 to 45%. 3. Acute non-STEMI ?Patient placed on nitroglycerin drip as well as heparin with consultation placed to cardiology. Also did initiate patient on beta-blockers and statin therapy in addition to aspirin * Renal status appears to be rather impaired and I am hesitant to proceed with any cardiac catheterization at this particular time. We will continue to follow and see how he does. * Patient is also hesitant to proceed with the above and will continue to manage him with medical therapy 4. Coronary artery disease with previous CABG and subsequent stent placement ~ CABG x 4 JOHNSON to LAD, Sequential SVG-OM and Ramus, RVG-RPDA 08/16/2002 ; patient underwent [id number] w/ 2.75 x 8 mm Resolute 01/21/18 5. 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 Placed on long acting insulin, Accu-Cheks a.c. and at bedtime and covered with sliding scale insulin 6. Chronic kidney disease stage IV * Like to hear further plans from nephrology. 7. Hypertension ~ blood pressure controlled, home medications continued with dose adjustment as needed 8. Dyslipidemia ~patient is on statin therapy, continued at home dose 9. DVT prophylaxis ?Patient is on Lovenox At this time the patient appears to be in rather guarded condition and would be observed in the intensive care unit. 10. Anemia * Patient was transfused and appears to have tolerated it better. Thank you for allowing me to participate in the care of your patient. Please don't hesitate to call if any issues arise
--- NOTE | 2019-05-29 15:24 | RAD_ITS ---
STUDY: X-RAY CHEST REASON FOR EXAM: Male, 78 years old. Chest pain, CHF TECHNIQUE: AP COMPARISON: 05/25/2019 FINDINGS: EKG leads project over the chest. Diminished groundglass opacities evident on the prior study. No sizable pleural effusion. There is mild cardiac enlargement. Sternal wires and mediastinal surgical clips compatible with prior CABG. Normal visualized pulmonary arteries. There is atherosclerotic calcification of the aortic arch with tortuosity. No acute bony process. There is no demonstrated abnormality of the visualized soft tissue structures of the upper abdomen. RAD/Chest 1 View (Portable) IMPRESSION: Favorable change. Resolving patchy airspace dominant disease. Electronically Signed: Chaparro House MD (Brooks) at 15:52 EST , Service support ,
[2019-05-29 16:26] LABS: Bedside Glucose 135 mg/dL (70-110)
--- NOTE | 2019-05-29 18:17 | PN.RENAL_ITS ---
Patient Problems: Active and Suspected Problems (Last Reviewed 05/24/19 @ 12:27 by Samir Birmingham MD) Non-ST elevated myocardial infarction (non-STEMI) (Acute 05/24/19) Acute combined systolic (congestive) and diastolic (congestive) heart failure (Acute) Acute coronary syndrome (Acute) CHF (congestive heart failure) (Acute) Respiratory failure (Acute) Subjective: Pt is doing well. No nausea No vomiting. No SOB - Physical Exam Vitals/I&O's: Vital Signs Temp Pulse Resp BP Pulse Ox 97.7 F L 67 18 109/56 L 96 05/29/19 15:00 05/29/19 15:00 05/29/19 15:00 05/29/19 15:00 05/29/19 15:00 Oxygen Flow Rate (L/min) 1 Oxygen Delivery Method Room Air Weight: 75.5 kg Body Mass Index (BMI) 28.9 Intake and Output for Last 24 Hours 05/27/19 05/28/19 05/29/19 23:59 23:59 23:59 Intake Total 770 / 770 655 / 775 660 / 660 Output Total 2049 / 2049 1150 / 1350 1100 / 1100 Balance -1280 / -1280 -495 / -575 -440 / -440 General: Oriented x3 HEENT: Atraumatic Oral: Moist Mucosa Neck: Supple, No JVD Lungs: Clear to auscultation, Normal air movement, No rhonchi, No wheeze Cardiovascular: Regular rate, Regular Rhythm, Normal S1, Normal S2 Abdomen: Bowel Sounds Present, Soft, Non Tender, Non-Distended Extremities: No clubbing, No cyanosis, Edema - trace edema Skin: No rashes Musculoskeletal: No Tenderness to Palpation of Joints or Extremities Lymphatic: No Cervical, Supraclavicular, or Inguinal Adenopathy Neurological: Cranial nerves II-XII grossly intact, Neuro grossly intact Psych/Mental Status: Appropriate Microbiology Past 72 Hours 05/24/19 18:15 Blood Culture (Wb) - Right Forearm Blood Culture - Preliminary No growth in 48 hours. 05/24/19 18:30 Blood Culture (Wb) - Left Forearm Blood Culture - Preliminary No growth in 48 hours. 05/24/19 17:45 Urine Catheter - Kimble Urine Culture - Final Culture exhibits no growth. Laboratory Results 05/28/19 21:13: POC Glucose 162 H 05/29/19 05:54: Sodium 134 L, Potassium 3.9, Chloride 100, Carbon Dioxide 21.0, BUN 144 H*, Creatinine 4.15 H, Estim Creat Clear Calc 13.24, Est GFR (MDRD) Af Amer 18 L, Est GFR (MDRD) Non-Af 15 L, BUN/Creatinine Ratio 34.7 H, Glucose 132 H, Calcium 8.6, Phosphorus 6.7 H, Albumin 2.9 L 05/29/19 06:42: POC Glucose 122 H 05/29/19 11:17: POC Glucose 198 H 05/29/19 16:15: POC Glucose 135 H Current Medications Albuterol Sulfate (Ventolin Aerosols) 2.5 mg INHALATION Q2H PRN PRN PRN Reason: SOB/Wheezing Aspirin (Ecotrin) 81 mg PO DAILY@0800 [facility] Last Admin: 05/29/19 09:19 Dose: 81 mg Documented by: Atorvastatin Calcium (Lipitor) 40 mg PO QHS [facility] Last Admin: 05/28/19 21:25 Dose: 40 mg Documented by: Dextrose (D50w Syringe) 0 gm IV X1 PRN; Protocol PRN Reason: Hypoglycemia Furosemide (Lasix) 40 mg PO BID@1000,1800 [facility] Last Admin: 05/29/19 08:44 Dose: Not Given Documented by: Glucagon () 1 mg IM .X1 PRN PRN Reason: Hypoglycemia Guaifenesin (Robitussin) 10 ml PO Q4H PRN PRN PRN Reason: COUGH Heparin Sodium (Porcine) (Heparin Na) 5,000 unit SC Q8 [facility] Last Admin: 05/29/19 14:47 Dose: 5,000 unit Documented by: Sodium Chloride () 250 mls @ 15 mls/hr IV .[id number] PRN PRN Reason: Saline Flush Last Infusion: 05/28/19 10:19 Dose: Infused Documented by: Insulin Human Lispro (Humalog Kwikpen (Bkc)) 0 unit SC ACHS [facility]; Protocol Last Admin: 05/29/19 16:30 Dose: Not Given Documented by: Metoprolol Tartrate (Lopressor (Beta Janee)) 25 mg PO BID [facility] Last Admin: 05/29/19 09:19 Dose: 25 mg Documented by: Multivitamins/Minerals (Multivitamin With Minerals) 1 tablet PO DAILY@0800 [facility] Last Admin: 05/29/19 09:19 Dose: 1 tablet Documented by: Nitroglycerin (Nitrostat) 0.4 mg SUBLINGUAL Q5M PRN PRN Reason: CARDIAC/CHEST PAIN Ondansetron HCl (Zofran) 4 mg IV Q8H PRN PRN PRN Reason: Nausea Oxycodone HCl (Oxyir) 5 mg PO Q4H PRN PRN PRN Reason: Pain Score 4-5/10 Last Admin: 05/29/19 12:01 Dose: 5 mg Documented by: Oxycodone HCl (Oxyir) 10 mg PO Q4H PRN PRN PRN Reason: Pain Score 6-10/10 Last Admin: 05/29/19 03:12 Dose: 10 mg Documented by: Pantoprazole Sodium (Protonix) 40 mg PO DAILY [facility] Last Admin: 05/29/19 09:20 Dose: 40 mg Documented by: Promethazine HCl (Phenergan) 25 mg IM Q6H PRN PRN PRN Reason: Breakthrough Nausea/Vomiting Sodium Chloride () 10 - 40 ml IV UD PRN PRN Reason: SALINE FLUSH Last Admin: 05/27/19 06:32 Dose: 10 ml Documented by: Medical Necessity - Tobacco Use Smoking Status: Never smoker Assessment/Plan All Active Problems (Last Reviewed 05/24/19 @ 12:27 by Samir Birmingham MD) Non-ST elevated myocardial infarction (non-STEMI) (Acute 05/24/19) Acute combined systolic (congestive) and diastolic (congestive) heart failure (Acute) Acute coronary syndrome (Acute) CHF (congestive heart failure) (Acute) Respiratory failure (Acute) History of coronary artery stent placement (Resolved 01/21/18) Abnormal nuclear stress test (Resolved) Abnormal result of cardiovascular function study, unspecified (Resolved) steroid injections lumbar (Resolved) LIBIA likely cardiorenal syndrome CKD baseline 1.9-2.1 Lower extremity edema Metabolic acidosis resolved HF NSTEMI More prerenal but serum creatinine stable at 4.1. BUN is rising u to 144 today. pt is asymptomatic. No uremic manifestation No need for HD Continue to hold diuretics Continue strict I's and O's. Will monitor daily needs for dialysis. Avoid nephrotoxins and overdiuresis. d/w [place]
--- NOTE | 2019-05-29 19:34 | PCM.PN.HOSP ---
Patient Problems: Active and Suspected Problems (Last Reviewed 05/24/19 @ 12:27 by Samir Birmingham MD) Non-ST elevated myocardial infarction (non-STEMI) (Acute 05/24/19) Acute combined systolic (congestive) and diastolic (congestive) heart failure (Acute) Acute coronary syndrome (Acute) CHF (congestive heart failure) (Acute) Respiratory failure (Acute) Subjective: Follow-up on CHF:/LIBIA on CKD Patient was seen and examined. He complains of focal right upper quadrant tenderness which started last night. Pain is improved with medications. It is worse when he takes any deep breath. He continues to be off Lasix. Objective: Physical exam: General: Alert, Oriented x3, Cooperative, No apparent distress HEENT: Atraumatic, PERRLA, EOMI, Normocephalic Oral: Moist Mucosa Neck: Supple Lungs: Clear to auscultation, Normal air movement Cardiovascular: Regular rate, Regular Rhythm, Normal S1, Normal S2, No murmurs Abdomen: Bowel Sounds Present, Soft, Non Tender, Non-Distended, No Hepato-splenomegaly Extremities: No edema Skin: No rashes, No breakdown Musculoskeletal: No Tenderness to Palpation of Joints or Extremities Lymphatic: No Cervical, Supraclavicular, or Inguinal Adenopathy Neurological: Cranial nerves II-XII grossly intact, Neuro grossly intact Psych/Mental Status: Normal Affect, Appropriate Vitals/I&O's: Vital Signs Temp Pulse Resp BP Pulse Ox 97.7 F L 67 18 109/56 L 96 05/29/19 15:00 05/29/19 15:00 05/29/19 15:00 05/29/19 15:00 05/29/19 15:00 Oxygen Flow Rate (L/min) 1 Oxygen Delivery Method Room Air Weight: 75.5 kg Body Mass Index (BMI) 28.9 Intake and Output for Last 24 Hours 05/27/19 05/28/19 05/29/19 23:59 23:59 23:59 Intake Total 770 / 770 655 / 775 660 / 660 Output Total 2049 / 2049 1150 / 1350 1100 / 1100 Balance -1280 / -1280 -495 / -575 -440 / -440 Microbiology Past 72 Hours 05/24/19 18:15 Blood Culture (Wb) - Right Forearm Blood Culture - Preliminary No growth in 48 hours. 05/24/19 18:30 Blood Culture (Wb) - Left Forearm Blood Culture - Preliminary No growth in 48 hours. 05/24/19 17:45 Urine Catheter - Kimble Urine Culture - Final Culture exhibits no growth. Laboratory Results 05/28/19 21:13: POC Glucose 162 H 05/29/19 05:54: Sodium 134 L, Potassium 3.9, Chloride 100, Carbon Dioxide 21.0, BUN 144 H*, Creatinine 4.15 H, Estim Creat Clear Calc 13.24, Est GFR (MDRD) Af Amer 18 L, Est GFR (MDRD) Non-Af 15 L, BUN/Creatinine Ratio 34.7 H, Glucose 132 H, Calcium 8.6, Phosphorus 6.7 H, Albumin 2.9 L 05/29/19 06:42: POC Glucose 122 H 05/29/19 11:17: POC Glucose 198 H 05/29/19 16:15: POC Glucose 135 H Current Medications Albuterol Sulfate (Ventolin Aerosols) 2.5 mg INHALATION Q2H PRN PRN PRN Reason: SOB/Wheezing Aspirin (Ecotrin) 81 mg PO DAILY@0800 [facility] Last Admin: 05/29/19 09:19 Dose: 81 mg Documented by: Atorvastatin Calcium (Lipitor) 40 mg PO QHS [facility] Last Admin: 05/28/19 21:25 Dose: 40 mg Documented by: Dextrose (D50w Syringe) 0 gm IV X1 PRN; Protocol PRN Reason: Hypoglycemia Furosemide (Lasix) 40 mg PO BID@1000,1800 [facility] Last Admin: 05/29/19 08:44 Dose: Not Given Documented by: Glucagon () 1 mg IM .X1 PRN PRN Reason: Hypoglycemia Guaifenesin (Robitussin) 10 ml PO Q4H PRN PRN PRN Reason: COUGH Heparin Sodium (Porcine) (Heparin Na) 5,000 unit SC Q8 [facility] Last Admin: 05/29/19 14:47 Dose: 5,000 unit Documented by: Sodium Chloride () 250 mls @ 15 mls/hr IV .[id number] PRN PRN Reason: Saline Flush Last Infusion: 05/28/19 10:19 Dose: Infused Documented by: Insulin Human Lispro (Humalog Kwikpen (Bkc)) 0 unit SC ACHS [facility]; Protocol Last Admin: 05/29/19 16:30 Dose: Not Given Documented by: Metoprolol Tartrate (Lopressor (Beta Deneen)) 25 mg PO BID [facility] Last Admin: 05/29/19 09:19 Dose: 25 mg Documented by: Multivitamins/Minerals (Multivitamin With Minerals) 1 tablet PO DAILY@0800 [facility] Last Admin: 05/29/19 09:19 Dose: 1 tablet Documented by: Nitroglycerin (Nitrostat) 0.4 mg SUBLINGUAL Q5M PRN PRN Reason: CARDIAC/CHEST PAIN Ondansetron HCl (Zofran) 4 mg IV Q8H PRN PRN PRN Reason: Nausea Oxycodone HCl (Oxyir) 5 mg PO Q4H PRN PRN PRN Reason: Pain Score 4-5/10 Last Admin: 05/29/19 12:01 Dose: 5 mg Documented by: Oxycodone HCl (Oxyir) 10 mg PO Q4H PRN PRN PRN Reason: Pain Score 6-10/10 Last Admin: 05/29/19 03:12 Dose: 10 mg Documented by: Pantoprazole Sodium (Protonix) 40 mg PO DAILY [facility] Last Admin: 05/29/19 09:20 Dose: 40 mg Documented by: Promethazine HCl (Phenergan) 25 mg IM Q6H PRN PRN PRN Reason: Breakthrough Nausea/Vomiting Sodium Chloride () 10 - 40 ml IV UD PRN PRN Reason: SALINE FLUSH Last Admin: 05/27/19 06:32 Dose: 10 ml Documented by: Medical Necessity - Tobacco Use Smoking Status: Never smoker Assessment/Plan All Active Problems (Last Reviewed 05/24/19 @ 12:27 by Samir Birmingham MD) Non-ST elevated myocardial infarction (non-STEMI) (Acute 05/24/19) Acute combined systolic (congestive) and diastolic (congestive) heart failure (Acute) Acute coronary syndrome (Acute) CHF (congestive heart failure) (Acute) Respiratory failure (Acute) History of coronary artery stent placement (Resolved 01/21/18) Abnormal nuclear stress test (Resolved) Abnormal result of cardiovascular function study, unspecified (Resolved) steroid injections lumbar (Resolved) 1. Acute hypoxic respiratory failure secondary to pulmonary edema, resolved Continue to encourage use of incentive spirometer 2. Acute decompensated heart failure with reduced EF of 40%, improved Off oral Lasix on account of worsening kidney function Discussed with nephrology, continue off lasix 3. LIBIA on CKD stage IV, pre-renal secondary to cardiorenal syndrome Creatinine remains 4.15 Lasix held for now 4. Acute NSTEMI secondary to acute decompensated CHF Medical management recommended Continue on aspirin, statin, beta-deneen 5. CAD status post CABG, aspirin, statin, beta-deneen 6. Hypertension, controlled, continue on home medications 7. DVT PPx- Heparin SC Code Visit Inpatient E&M: 76541 Subs Hosp L2
[2019-05-29] MEDS: Atorvastatin Calcium 40 MG Tablet PO (20:54)
[2019-05-29 21:05] LABS: Bedside Glucose 183 mg/dL (70-110)
[2019-05-30] VITALS (10 sets, daily range): BP systolic 114–137; BP diastolic 54–70; PULSE 62–86; RESP 18; TEMP 36.6–37.3; O2SAT 96–97
[2019-05-30] MEDS: 0.9% Saline Lock 10 ML Syringe IV ×2 (06:42→21:36)
[2019-05-30] MEDS: Heparin Injection (Vial) 5,000 UNIT/ML VIAL 5000 UNIT SC ×3 (06:42→21:34)
[2019-05-30 07:01] LABS: Bedside Glucose 130 mg/dL (70-110)
[2019-05-30 07:06] LABS: BUN 139 mg/dL (7-18); BUN/Creat Ratio 36.9 RATIO (10-20); Calcium,Total 8.7 mg/dL (8.5-10.1); Chloride 101 mmol/L (98-107); Creatinine, Serum 3.77 mg/dL (0.70-1.30); EST Glomerular Filtration Rate 17 mL/min (>60); Est Glom Filt Rate - Afr Amer 20 mL/min (>60); Estimated Creatinine Clearance 14.57 ml/min; Glucose 132 mg/dL (74-106); Phosphorus 6.8 mg/dL (2.5-4.9); Potassium 4.1 mmol/L (3.5-5.1); Sodium Level 134 mmol/L (136-145)
[2019-05-30] MEDS: Pantoprazole Sodium 40 MG Tablet PO (09:22)
[2019-05-30] MEDS: Aspirin E.C. 81 MG Tablet PO (09:22)
[2019-05-30] MEDS: Multivitamins,Ther W-Minerals Tablet 1 TABLET PO (09:22)
[2019-05-30] MEDS: Metoprolol Tartrate 25 MG Tablet PO ×2 (09:22→21:34)
--- NOTE | 2019-05-30 09:24 | PN.CARD_ITS ---
Subjectve: Patient seen and evaluated. Appears to be doing much better. Objective: Vital Signs Temp Pulse Resp BP Pulse Ox 98.1 F 86 18 114/68 96 05/30/19 09:20 05/30/19 09:22 05/30/19 09:20 05/30/19 09:22 05/30/19 09:20 Oxygen Flow Rate (L/min) 1 Oxygen Delivery Method Room Air Weight: 161 lb 9.581 oz Body Mass Index (BMI) 28.9 Intake and Output for Last 24 Hours 05/28/19 05/29/19 05/30/19 23:59 23:59 23:59 Intake Total 655 / 775 810 / 810 220 / 220 Output Total 1150 / 1350 1300 / 1300 900 / 900 Balance -495 / -575 -490 / -490 -680 / -680 General: Awake, Alert, Oriented x 3 HEENT: PERRL, EOMI, Sclera Non Icteric Neck: Supple, Good ROM, No Lymph Node Enlargement Lungs: Clear to auscultation Cardiovascular: Regular Rhythm, Normal S1, Normal S2, No Murmurs, No Rubs, No Gallops Vascular: No Carotid Bruits, Normal Femoral Pulses, Normal Radial Pulses, Normal Dorsalis Pedal Pulse, Normal Posterior Tibial Pulses Abdomen: Bowel Sounds Present, Soft, Non Tender, No HSM, No Organomegaly Extremities: No Cyanosis, No Clubbing, No edema Musculoskeletal: No Erythema Skin: No Rashes Lymphatic: No Lymph Node Enlargement Neurological: No Focal Motor or Sensory Deficit Psych/Mental Status: Appropriate 05/30/19 05:50: Sodium 134 L, Potassium 4.1, Chloride 101, Carbon Dioxide 19.0 L , BUN 139 H*, Creatinine 3.77 H, Est GFR (MDRD) Af Amer 20 L, Est GFR (MDRD) Non-Af 17 L, BUN/Creatinine Ratio 36.9 H, Glucose 132 H, Calcium 8.7, Phosphorus 6.8 H Rhythm: EKG: ECHO: Stress Test: Cardiac Cath: PCI: CT Surgery: Holter monitor: EPS: PPM: CXR: Chest CT Scan: Medical Necessity - Tobacco Use Smoking Status: Never smoker Assessment/Plan 1. Acute hypoxic respiratory failure secondary to pulmonary edema ~Patient placed on noninvasive ventilation BiPAP admitted to the intensive care unit. Now transferred to the progressive care unit and doing better * We will continue with oral Lasix * The above is likely secondary to progressive coronary artery disease. * 2. 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 His ejection fraction by echocardiogram today demonstrates globally reduced left ventricular systolic function. Estimated EF 40 to 45%. 3. Acute non-STEMI ?Patient placed on nitroglycerin drip as well as heparin with consultation placed to cardiology. Also did initiate patient on beta-blockers and statin therapy in addition to aspirin * Renal status appears to be rather impaired and I am hesitant to proceed with any cardiac catheterization at this particular time. We will continue to follow and see how he does. Overall appears to be doing better and will continue with current medical therapy. * Patient is also hesitant to proceed with the above and will continue to manage him with medical therapy 4. Coronary artery disease with previous CABG and subsequent stent placement ~ CABG x 4 JOHNSON to LAD, Sequential SVG-OM and Ramus, RVG-RPDA 08/16/2002 ; patient underwent [id number] w/ 2.75 x 8 mm Resolute 01/21/18 5. 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 Placed on long acting insulin, Accu-Cheks a.c. and at bedtime and covered with sliding scale insulin 6. Chronic kidney disease stage IV * His renal function appears to have improved on the current medical therapy. At this juncture there are no plans to proceed with invasive management. Patient is comfortable with her current regimen. 7. Hypertension ~ blood pressure controlled, home medications continued with dose adjustment as needed 8. Dyslipidemia ~patient is on statin therapy, continued at home dose 9. DVT prophylaxis ?Patient is on Lovenox At this time the patient appears to be in rather guarded condition and would be observed in the intensive care unit. 10. Anemia * Patient was transfused and appears to have tolerated it better. Thank you for allowing me to participate in the care of your patient. Please don't hesitate to call if any issues arise
[2019-05-30 11:16] LABS: Bedside Glucose 156 mg/dL (70-110)
--- NOTE | 2019-05-30 11:58 | PCM.PN.HOSP ---
Patient Problems: Active and Suspected Problems (Last Reviewed 05/24/19 @ 12:27 by Samir Birmingham MD) Non-ST elevated myocardial infarction (non-STEMI) (Acute 05/24/19) Acute combined systolic (congestive) and diastolic (congestive) heart failure (Acute) Acute coronary syndrome (Acute) CHF (congestive heart failure) (Acute) Respiratory failure (Acute) Subjective: Follow-up on CHF:/LIBIA on CKD Patient was seen and examined. No new complains. No acute events. ROS is negative Objective: Physical exam: General: Alert, Oriented x3, Cooperative, No apparent distress HEENT: Atraumatic, PERRLA, EOMI, Normocephalic Oral: Moist Mucosa Neck: Supple Lungs: Clear to auscultation, Normal air movement Cardiovascular: Regular rate, Regular Rhythm, Normal S1, Normal S2, No murmurs Abdomen: Bowel Sounds Present, Soft, Non Tender, Non-Distended, No Hepato-splenomegaly Extremities: No edema Skin: No rashes, No breakdown Musculoskeletal: No Tenderness to Palpation of Joints or Extremities Lymphatic: No Cervical, Supraclavicular, or Inguinal Adenopathy Neurological: Cranial nerves II-XII grossly intact, Neuro grossly intact Psych/Mental Status: Normal Affect, Appropriate Vitals/I&O's: Vital Signs Temp Pulse Resp BP Pulse Ox 98.1 F 86 18 114/68 96 05/30/19 09:20 05/30/19 09:22 05/30/19 09:20 05/30/19 09:22 05/30/19 09:20 Oxygen Flow Rate (L/min) 1 Oxygen Delivery Method Room Air Weight: 73.3 kg Body Mass Index (BMI) 28.9 Intake and Output for Last 24 Hours 05/28/19 05/29/19 05/30/19 23:59 23:59 23:59 Intake Total 655 / 775 810 / 810 220 / 220 Output Total 1150 / 1350 1300 / 1300 900 / 900 Balance -495 / -575 -490 / -490 -680 / -680 Microbiology Past 72 Hours 05/24/19 18:15 Blood Culture (Wb) - Right Forearm Blood Culture - Final No growth in 5 days. 05/24/19 18:30 Blood Culture (Wb) - Left Forearm Blood Culture - Final No growth in 5 days. 05/24/19 17:45 Urine Catheter - Kimble Urine Culture - Final Culture exhibits no growth. Laboratory Results 05/29/19 16:15: POC Glucose 135 H 05/29/19 20:51: POC Glucose 183 H 05/30/19 05:50: Sodium 134 L, Potassium 4.1, Chloride 101, Carbon Dioxide 19.0 L, BUN 139 H*, Creatinine 3.77 H, Estim Creat Clear Calc 14.57, Est GFR (MDRD) Af Amer 20 L, Est GFR (MDRD) Non-Af 17 L, BUN/Creatinine Ratio 36.9 H, Glucose 132 H, Calcium 8.7, Phosphorus 6.8 H, Albumin 3.0 L 05/30/19 06:38: POC Glucose 130 H 05/30/19 11:04: POC Glucose 156 H Current Medications Albuterol Sulfate (Ventolin Aerosols) 2.5 mg INHALATION Q2H PRN PRN PRN Reason: SOB/Wheezing Aspirin (Ecotrin) 81 mg PO DAILY@0800 [facility] Last Admin: 05/30/19 09:22 Dose: 81 mg Documented by: Atorvastatin Calcium (Lipitor) 40 mg PO QHS [facility] Last Admin: 05/29/19 20:54 Dose: 40 mg Documented by: Dextrose (D50w Syringe) 0 gm IV X1 PRN; Protocol PRN Reason: Hypoglycemia Furosemide (Lasix) 40 mg PO BID@1000,1800 [facility] Last Admin: 05/29/19 08:44 Dose: Not Given Documented by: Glucagon () 1 mg IM .X1 PRN PRN Reason: Hypoglycemia Guaifenesin (Robitussin) 10 ml PO Q4H PRN PRN PRN Reason: COUGH Heparin Sodium (Porcine) (Heparin Na) 5,000 unit SC Q8 [facility] Last Admin: 05/30/19 06:42 Dose: 5,000 unit Documented by: Sodium Chloride () 250 mls @ 15 mls/hr IV .[id number] PRN PRN Reason: Saline Flush Last Infusion: 05/28/19 10:19 Dose: Infused Documented by: Insulin Human Lispro (Humalog Kwikpen (Bkc)) 0 unit SC ACHS [facility]; Protocol Last Admin: 05/30/19 11:08 Dose: Not Given Documented by: Metoprolol Tartrate (Lopressor (Beta Deneen)) 25 mg PO BID [facility] Last Admin: 05/30/19 09:22 Dose: 25 mg Documented by: Multivitamins/Minerals (Multivitamin With Minerals) 1 tablet PO DAILY@0800 [facility] Last Admin: 05/30/19 09:22 Dose: 1 tablet Documented by: Nitroglycerin (Nitrostat) 0.4 mg SUBLINGUAL Q5M PRN PRN Reason: CARDIAC/CHEST PAIN Ondansetron HCl (Zofran) 4 mg IV Q8H PRN PRN PRN Reason: Nausea Oxycodone HCl (Oxyir) 5 mg PO Q4H PRN PRN PRN Reason: Pain Score 4-5/10 Last Admin: 05/29/19 12:01 Dose: 5 mg Documented by: Oxycodone HCl (Oxyir) 10 mg PO Q4H PRN PRN PRN Reason: Pain Score 6-10/10 Last Admin: 05/29/19 20:54 Dose: 10 mg Documented by: Pantoprazole Sodium (Protonix) 40 mg PO DAILY [facility] Last Admin: 05/30/19 09:22 Dose: 40 mg Documented by: Promethazine HCl (Phenergan) 25 mg IM Q6H PRN PRN PRN Reason: Breakthrough Nausea/Vomiting Sodium Chloride () 10 - 40 ml IV UD PRN PRN Reason: SALINE FLUSH Last Admin: 05/30/19 06:42 Dose: 40 ml Documented by: STROKE Vital Signs/Narrative: Vital Signs Temp Pulse Resp BP Pulse Ox 05/30/19 09:22 86 114/68 05/30/19 09:20 98.1 F 86 18 114/68 96 Medical Necessity - Tobacco Use Smoking Status: Never smoker Assessment/Plan All Active Problems (Last Reviewed 05/24/19 @ 12:27 by Samir Birmingham MD) Non-ST elevated myocardial infarction (non-STEMI) (Acute 05/24/19) Acute combined systolic (congestive) and diastolic (congestive) heart failure (Acute) Acute coronary syndrome (Acute) CHF (congestive heart failure) (Acute) Respiratory failure (Acute) History of coronary artery stent placement (Resolved 01/21/18) Abnormal nuclear stress test (Resolved) Abnormal result of cardiovascular function study, unspecified (Resolved) steroid injections lumbar (Resolved) 1. Acute hypoxic respiratory failure secondary to pulmonary edema, resolved Continue to encourage use of incentive spirometer 2. Acute decompensated heart failure with reduced EF of 40%, improved Off oral Lasix on account of worsening kidney function Discussed with nephrology, continue off lasix 3. LIBIA on CKD stage IV, pre-renal secondary to cardiorenal syndrome Creatinine improved, Cr 3.77, drop from 4.15 Lasix held for now, labs in am 4. Acute NSTEMI secondary to acute decompensated CHF Medical management recommended Continue on aspirin, statin, beta-deneen 5. CAD status post CABG, aspirin, statin, beta-deneen 6. Hypertension, controlled, continue on home medications 7. DVT PPx- Heparin SC Code Visit Inpatient E&M: 51541 Subs Hosp L2
[2019-05-30 16:40] LABS: Bedside Glucose 119 mg/dL (70-110)
[2019-05-30] MEDS: Atorvastatin Calcium 40 MG Tablet PO (21:34)
[2019-05-30 21:51] LABS: Bedside Glucose 133 mg/dL (70-110)
[2019-05-31] VITALS (8 sets, daily range): BP systolic 126–132; BP diastolic 55–69; PULSE 61–78; RESP 16; TEMP 36.6–37.3; O2SAT 93–98
[2019-05-31] MEDS: Heparin Injection (Vial) 5,000 UNIT/ML VIAL 5000 UNIT SC (06:27)
[2019-05-31 06:36] LABS: Bedside Glucose 146 mg/dL (70-110)
[2019-05-31] MEDS: Multivitamins,Ther W-Minerals Tablet 1 TABLET PO (07:53)
[2019-05-31] MEDS: Aspirin E.C. 81 MG Tablet PO (07:53)
[2019-05-31] MEDS: Pantoprazole Sodium 40 MG Tablet PO (07:53)
[2019-05-31] MEDS: Metoprolol Tartrate 25 MG Tablet PO (07:53)
[2019-05-31 11:05] LABS: Albumin, Serum 3.3 g/dL (3.2-5.0); BUN 137 mg/dL (7-18); BUN/Creat Ratio 38.3 RATIO (10-20); Calcium,Total 9.2 mg/dL (8.5-10.1); Chloride 99 mmol/L (98-107); Creatinine, Serum 3.58 mg/dL (0.70-1.30); EST Glomerular Filtration Rate 18 mL/min (>60); Est Glom Filt Rate - Afr Amer 21 mL/min (>60); Estimated Creatinine Clearance 15.35 ml/min; Glucose 183 mg/dL (74-106); Potassium 4.6 mmol/L (3.5-5.1); Sodium Level 133 mmol/L (136-145)
--- NOTE | 2019-05-31 11:07 | PN.RENAL_ITS ---
Patient Problems: Active and Suspected Problems (Last Reviewed 05/24/19 @ 12:27 by Samir Birmingham MD) Non-ST elevated myocardial infarction (non-STEMI) (Acute 05/24/19) Acute combined systolic (congestive) and diastolic (congestive) heart failure (Acute) Acute coronary syndrome (Acute) CHF (congestive heart failure) (Acute) Respiratory failure (Acute) Subjective: suboptimal diuresiss Creatinine 3.77-stable Na 133 - Physical Exam Vitals/I&O's: Vital Signs Temp Pulse Resp BP Pulse Ox 99.1 F 63 16 126/69 H 98 05/31/19 07:51 05/31/19 07:53 05/31/19 07:51 05/31/19 07:51 05/31/19 07:51 Oxygen Flow Rate (L/min) 1 Oxygen Delivery Method Room Air Weight: 73.8 kg Body Mass Index (BMI) 28.9 Intake and Output for Last 24 Hours 05/29/19 05/30/19 05/31/19 23:59 23:59 23:59 Intake Total 810 / 810 660 / 860 300 / 300 Output Total 1300 / 1300 1100 / 2000 1150 / 1150 Balance -490 / -490 -440 / -1140 -850 / -850 General: Alert Microbiology Past 72 Hours 05/24/19 18:15 Blood Culture (Wb) - Right Forearm Blood Culture - Final No growth in 5 days. 05/24/19 18:30 Blood Culture (Wb) - Left Forearm Blood Culture - Final No growth in 5 days. Laboratory Results 05/30/19 11:04: POC Glucose 156 H 05/30/19 16:38: POC Glucose 119 H 05/30/19 21:33: POC Glucose 133 H 05/31/19 06:30: POC Glucose 146 H 05/31/19 10:35: Sodium 133 L, Potassium 4.6, Chloride 99, Carbon Dioxide 23.0, BUN 137 H*, Creatinine 3.58 H, Estim Creat Clear Calc 15.35, Est GFR (MDRD) Af Amer 21 L, Est GFR (MDRD) Non-Af 18 L, BUN/Creatinine Ratio 38.3 H, Glucose 183 H, Calcium 9.2, Phosphorus 6.0 H, Albumin 3.3 Current Medications Albuterol Sulfate (Ventolin Aerosols) 2.5 mg INHALATION Q2H PRN PRN PRN Reason: SOB/Wheezing Aspirin (Ecotrin) 81 mg PO DAILY@0800 REPLACED BY [facility] Last Admin: 05/31/19 07:53 Dose: 81 mg Documented by: Atorvastatin Calcium (Lipitor) 40 mg PO QHS REPLACED BY [facility] Last Admin: 05/30/19 21:34 Dose: 40 mg Documented by: Dextrose (D50w Syringe) 0 gm IV X1 PRN; Protocol PRN Reason: Hypoglycemia Furosemide (Lasix) 40 mg PO BID@1000,1800 REPLACED BY [facility] Last Admin: 05/29/19 08:44 Dose: Not Given Documented by: Glucagon () 1 mg IM .X1 PRN PRN Reason: Hypoglycemia Guaifenesin (Robitussin) 10 ml PO Q4H PRN PRN PRN Reason: COUGH Heparin Sodium (Porcine) (Heparin Na) 5,000 unit SC Q8 REPLACED BY [facility] Last Admin: 05/31/19 06:27 Dose: 5,000 unit Documented by: Sodium Chloride () 250 mls @ 15 mls/hr IV .[id number] PRN PRN Reason: Saline Flush Last Infusion: 05/28/19 10:19 Dose: Infused Documented by: Insulin Human Lispro (Humalog Kwikpen (Bkc)) 0 unit SC ACHS REPLACED BY [facility]; Protocol Last Admin: 05/31/19 06:32 Dose: Not Given Documented by: Metoprolol Tartrate (Lopressor (Beta Janee)) 25 mg PO BID REPLACED BY [facility] Last Admin: 05/31/19 07:53 Dose: 25 mg Documented by: Multivitamins/Minerals (Multivitamin With Minerals) 1 tablet PO DAILY@0800 REPLACED BY [facility] Last Admin: 05/31/19 07:53 Dose: 1 tablet Documented by: Nitroglycerin (Nitrostat) 0.4 mg SUBLINGUAL Q5M PRN PRN Reason: CARDIAC/CHEST PAIN Ondansetron HCl (Zofran) 4 mg IV Q8H PRN PRN PRN Reason: Nausea Oxycodone HCl (Oxyir) 5 mg PO Q4H PRN PRN PRN Reason: Pain Score 4-5/10 Last Admin: 05/29/19 12:01 Dose: 5 mg Documented by: Oxycodone HCl (Oxyir) 10 mg PO Q4H PRN PRN PRN Reason: Pain Score 6-10/10 Last Admin: 05/29/19 20:54 Dose: 10 mg Documented by: Pantoprazole Sodium (Protonix) 40 mg PO DAILY [facility] Last Admin: 05/31/19 07:53 Dose: 40 mg Documented by: Promethazine HCl (Phenergan) 25 mg IM Q6H PRN PRN PRN Reason: Breakthrough Nausea/Vomiting Sodium Chloride () 10 - 40 ml IV UD PRN PRN Reason: SALINE FLUSH Last Admin: 05/30/19 21:36 Dose: 10 ml Documented by: Medical Necessity - Tobacco Use Smoking Status: Never smoker Assessment/Plan All Active Problems (Last Reviewed 05/24/19 @ 12:27 by Samir Birmingham MD) Non-ST elevated myocardial infarction (non-STEMI) (Acute 05/24/19) Acute combined systolic (congestive) and diastolic (congestive) heart failure (Acute) Acute coronary syndrome (Acute) CHF (congestive heart failure) (Acute) Respiratory failure (Acute) History of coronary artery stent placement (Resolved 01/21/18) Abnormal nuclear stress test (Resolved) Abnormal result of cardiovascular function study, unspecified (Resolved) steroid injections lumbar (Resolved) LIBIA likely cardiorenal syndrome CKD baseline 1.9-2.1 Lower extremity edema Metabolic acidosis resolved HF NSTEMI More prerenal but serum creatinine stable at 4.1--->1.37 . BUN is improving 144--->137 today. pt is asymptomatic. No uremic manifestation No need for HD Continue to hold diuretics Continue strict I's and O's. Will monitor daily needs for dialysis. Avoid nephrotoxins and overdiuresis.
[2019-05-31 11:30] LABS: Bedside Glucose 146 mg/dL (70-110)
--- NOTE | 2019-05-31 12:05 | PCM.DC ---
- Discharge Diagnoses Current Active Problems: Current Active and Chronic Problems (Last Reviewed 05/24/19 @ 12:27 by Samir Birmingham MD) Non-ST elevated myocardial infarction (non-STEMI) (Acute 05/24/19) Acute combined systolic (congestive) and diastolic (congestive) heart failure (Acute) Acute coronary syndrome (Acute) CHF (congestive heart failure) (Acute) Respiratory failure (Acute) Reason(s) for Visit for Discharge Instructions: Shortness of breath You will use the following diet at home:: Cardiac, Fluid restricted (specify 2000 mls, 1500 mls) - 1500mls Your food should be the consistency of: Regular Your liquids should be the consistency of: Regular/Thin Discharge Activity: Return to Normal Activity Additional Instructions: Continue to hold your lasix until you have been told to do so by nephrology. Follow a low salt diet. Continue to restrict your fluid intake to 1500mls daily. Weigh your self everyday. 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 Keep a log of your weights as well as your blood sugar. Take note of changes in your medications. Allergies/Adverse Reactions: Allergies ramipril [From Altace] Allergy (Intermediate, Verified 05/24/19 10:01) cough Medications to take at Discharge nitroglycerin 0.4 mg sublingual tablet 0.4 mg SUBLINGUAL .COMPLEX PRN #25 tab 05/15/18 tamsulosin 0.4 mg capsule 0.4 mg PO QHS 90 Days #90 cap 11/17/18 Acetaminophen [Tylenol] 500 mg PO TID PRN PRN 05/24/19 Multivitamin with Minerals [Multiple Vitamin] 1 tab PO DAILY 05/24/19 Aspirin E.C. [Ecotrin] 81 mg PO DAILY@0800 #30 tab 05/31/19 Atorvastatin Calcium [Lipitor] 40 mg PO QHS #30 tab 05/31/19 Furosemide [Lasix] 40 mg PO DAILY #30 tab 05/31/19 Glimepiride 0.5 mg PO DAILY 30 Days #30 tab 05/31/19 Isosorbide Mononitrate [Imdur] 30 mg PO DAILY 30 Days #30 tab 05/31/19 Metoprolol Tartrate [Lopressor (beta deneen)] 25 mg PO BID 30 Days #60 tab 05/31/19 The following prescriptions were given: Aspirin E.C. [Ecotrin] 81 mg PO DAILY@0800 #30 tab Transmission Status: Pending to [id number] Glimepiride 0.5 mg PO DAILY 30 Days #30 tab Transmission Status: Pending to [id number] Isosorbide Mononitrate [Imdur] 30 mg PO DAILY 30 Days #30 tab Transmission Status: Pending to [id number] Furosemide [Lasix] 40 mg PO DAILY #30 tab Transmission Status: Pending to [id number] Atorvastatin Calcium [Lipitor] 40 mg PO QHS #30 tab Transmission Status: Pending to [id number] Metoprolol Tartrate [Lopressor (beta deneen)] 25 mg PO BID 30 Days #60 tab Transmission Status: Pending to [id number] Primary Care Physician: Neal Rodriguez MD [Primary Care Provider] - Please follow up with your Primary Care Physician in: within 1-2 weeks Test Results: Test results from this visit will be discussed in further detail at your follow-up appointment, if applicable. Please Follow Up With: Ramy Forde N.P. Please Follow Up With: Carmela Belcher MD When: within 1-2 weeks for repeat blood test Please Follow Up With: Raffaele Theodore MD When: within 2-4 weeks Proposed Discharge Date: 05/31/19
--- NOTE | 2019-05-31 12:09 | PCM.DC.SUM ---
Discharge Date and Diagnosis Date of Admission: 05/24/19 Date of Discharge: 05/31/19 - Primary Discharge Diagnosis Active and Suspected Problems (Last Reviewed 05/24/19 @ 12:27 by Samir Birmingham MD) Non-ST elevated myocardial infarction (non-STEMI) (Acute 05/24/19) Acute combined systolic (congestive) and diastolic (congestive) heart failure (Acute) Acute coronary syndrome (Acute) CHF (congestive heart failure) (Acute) Respiratory failure (Acute) - Secondary Discharge Diagnosis Chronic Problems (Last Reviewed 05/24/19 @ 12:27 by Samir Birmingham MD) Chronic kidney disease (CKD) (Chronic) Atherosclerosis of coronary artery bypass graft without angina pectoris (Chronic) CABG x 4 JOHNSON to LAD, Sequential SVG-OM and Ramus, RVG-RPDA 08/16/2002 ISO-NHW-HGA-OM w/ 2.75 x 8 mm Resolute 01/21/18 H/O coronary artery bypass surgery (Chronic 08/16/02) CABG x 4 JOHNSON to LAD, Sequential SVG-OM and Ramus, RVG-RPDA 08/16/2002 Essential (primary) hypertension (Chronic) HLD (hyperlipidemia) (Chronic) Atherosclerotic heart disease of [place] coronary artery without angina pectoris (Chronic) CABG x 4 JOHNSON to LAD, SVG to obtuse marginal LCx, sequential SVG to intermediate, and SVG to right PDA 08/2002 PTCA of ramus branch of LCx, PTCA/stent to proximal RCA, PTCA/stent to proximal LCx, 1998; unsuccessful PTCA LAD 06/2003; IHC-GNP-XCJ-OM of LCx w/ 2.75 x 8 mm Resolute 01/21/18 Hospital Course and Treatment Imaging Results: Clinical Impression(s) from Imaging Studies Chest X-Ray 05/24/19 10:19 IMPRESSION: Bilateral patchy airspace disease worse on the right side. Blunting of both costophrenic angles. Findings suggestive of pulmonary edema versus infectious process. Electronically Signed: Alec Thompson, at 11:08 EST , Service support , Chest X-Ray 05/25/19 07:13 IMPRESSION: Mild degree of improved aeration of both lungs. Persistent bilateral patchy airspace disease is present. Electronically Signed: Alec Thompson, at 8:17 EST , Service support , Renal Ultrasound 05/25/19 13:06 IMPRESSION: Normal ultrasound of the kidneys. Electronically Signed: Dakota Sim, DO at 18:56 EST Tel [phone], Service support , Chest X-Ray 05/29/19 15:24 IMPRESSION: Favorable change. Resolving patchy airspace dominant disease. Electronically Signed: Chaparro House MD (Brooks) at 15:52 EST , Service support , Cardiology Nephrology Operations: None Procedures: 2-D Echocardiogram Summary of Care Provided: The patient is a 78 year old M with past medical history of CAD status post CABG, hypertension, hyperlipidemia , recent arthroscopic knee surgery who was admitted with progressive shortness of breath that began 4 days prior to admission. Patient had complained of dyspnea with exertion which got worse with minimal activity. On the day of admission his found the patient barely responsive and diaphoretic. EMS was called. Patient was brought to the emergency department and found to be in acute hypoxic respiratory failure secondary to pulmonary edema. He was managed on BiPAP in the ICU. His troponins were trended and they were elevated consistent with non-STEMI. Neurology was consulted as well as the critical care and patient was started on heparin drip. Medical management was recommended. Patient continued to improve on IV Lasix. His kidney function however began to get worse. Nephrology was consulted. Patient was also started on antibiotics for suspicion for pneumonia seen on x-ray. He received antibiotics for a short while. Blood cultures including sputum for Legionella and Streptococcus were negative. Urine drug screen as well as repeat panel was negative. Patient's antibiotics was then discontinued. Patient was kept off Lasix for the last 3 days prior to her discharge and his renal function improved a little bit. He was discharged home with a prescription for Lasix but he will receive a call from nephrology the next day. He was given advice for CHF management. Nephrology will closely managed with him and resume his Lasix when needed. His Amaryl was also decreased to 0.5 mg daily at discharge. He will follow-up with cardiology also within 2-4 weeks. Subjective: On the discharge, patient was seen and examined. Denies chest pain, dizziness, palpitations. Objective: Physical exam: General: Alert, Oriented x3, Cooperative, No apparent distress HEENT: Atraumatic, PERRLA, EOMI, Normocephalic Oral: Moist Mucosa Neck: Supple Lungs: Clear to auscultation, Normal air movement Cardiovascular: Regular rate, Regular Rhythm, Normal S1, Normal S2, No murmurs Abdomen: Bowel Sounds Present, Soft, Non Tender, Non-Distended, No Hepato-splenomegaly Extremities: No edema Skin: No rashes, No breakdown Musculoskeletal: No Tenderness to Palpation of Joints or Extremities Lymphatic: No Cervical, Supraclavicular, or Inguinal Adenopathy Neurological: Cranial nerves II-XII grossly intact, Neuro grossly intact Psych/Mental Status: Normal Affect, Appropriate - Physical Exam Vitals/I&O's: Vital Signs Temp Pulse Resp BP Pulse Ox 99.1 F 63 16 126/69 H 98 05/31/19 07:51 05/31/19 07:53 05/31/19 07:51 05/31/19 07:51 05/31/19 07:51 Oxygen Flow Rate (L/min) 1 Oxygen Delivery Method Room Air Weight: 73.8 kg Body Mass Index (BMI) 28.9 Intake and Output for Last 24 Hours 05/29/19 05/30/19 05/31/19 23:59 23:59 23:59 Intake Total 810 / 810 660 / 860 300 / 300 Output Total 1300 / 1300 1100 / 2000 1150 / 1150 Balance -490 / -490 -440 / -1140 -850 / -850 Microbiology Past 72 Hours 05/24/19 18:15 Blood Culture (Wb) - Right Forearm Blood Culture - Final No growth in 5 days. 05/24/19 18:30 Blood Culture (Wb) - Left Forearm Blood Culture - Final No growth in 5 days. Laboratory Results 05/30/19 16:38: POC Glucose 119 H 05/30/19 21:33: POC Glucose 133 H 05/31/19 06:30: POC Glucose 146 H 05/31/19 10:35: Sodium 133 L, Potassium 4.6, Chloride 99, Carbon Dioxide 23.0, BUN 137 H*, Creatinine 3.58 H, Estim Creat Clear Calc 15.35, Est GFR (MDRD) Af Amer 21 L, Est GFR (MDRD) Non-Af 18 L, BUN/Creatinine Ratio 38.3 H, Glucose 183 H, Calcium 9.2, Phosphorus 6.0 H, Albumin 3.3 05/31/19 11:10: POC Glucose 146 H Current Medications Albuterol Sulfate (Ventolin Aerosols) 2.5 mg INHALATION Q2H PRN PRN PRN Reason: SOB/Wheezing Aspirin (Ecotrin) 81 mg PO DAILY@0800 [facility] Last Admin: 05/31/19 07:53 Dose: 81 mg Documented by: Atorvastatin Calcium (Lipitor) 40 mg PO QHS [facility] [place] Last Admin: 05/30/19 21:34 Dose: 40 mg Documented by: Dextrose (D50w Syringe) 0 gm IV X1 PRN; Protocol PRN Reason: Hypoglycemia Furosemide (Lasix) 40 mg PO BID@1000,1800 [facility] [place] Last Admin: 05/29/19 08:44 Dose: Not Given Documented by: Glucagon () 1 mg IM .X1 PRN PRN Reason: Hypoglycemia Guaifenesin (Robitussin) 10 ml PO Q4H PRN PRN PRN Reason: COUGH Heparin Sodium (Porcine) (Heparin Na) 5,000 unit SC Q8 [facility] [place] Last Admin: 05/31/19 06:27 Dose: 5,000 unit Documented by: Sodium Chloride () 250 mls @ 15 mls/hr IV .[id number] PRN PRN Reason: Saline Flush Last Infusion: 05/28/19 10:19 Dose: Infused Documented by: Insulin Human Lispro (Humalog Kwikpen (Bkc)) 0 unit SC ACHS [facility]; Protocol Last Admin: 05/31/19 06:32 Dose: Not Given Documented by: Metoprolol Tartrate (Lopressor (Beta Janee)) 25 mg PO BID [facility] [place] Multivitamins/Minerals (Multivitamin With Minerals) 1 tablet PO DAILY@0800 [facility] [place] Last Admin: 05/31/19 07:53 Dose: 1 tablet Documented by: Nitroglycerin (Nitrostat) 0.4 mg SUBLINGUAL Q5M PRN PRN Reason: CARDIAC/CHEST PAIN Ondansetron HCl (Zofran) 4 mg IV Q8H PRN PRN PRN Reason: Nausea Oxycodone HCl (Oxyir) 5 mg PO Q4H PRN PRN PRN Reason: Pain Score 4-5/10 Last Admin: 05/29/19 12:01 Dose: 5 mg Documented by: Oxycodone HCl (Oxyir) 10 mg PO Q4H PRN PRN PRN Reason: Pain Score 6-10/10 Last Admin: 05/29/19 20:54 Dose: 10 mg Documented by: Pantoprazole Sodium (Protonix) 40 mg PO DAILY [facility] Last Admin: 05/31/19 07:53 Dose: 40 mg Documented by: Promethazine HCl (Phenergan) 25 mg IM Q6H PRN PRN PRN Reason: Breakthrough Nausea/Vomiting Sodium Chloride () 10 - 40 ml IV UD PRN PRN Reason: SALINE FLUSH Last Admin: 05/30/19 21:36 Dose: 10 ml Documented by: Discharge Diet: Low fat/ Low Cholesterol, 6 Cup Fluid Restriction, 2000 mg Sodium Diet Discharge Activity: Return to Normal Activity Weight Bearing Status: Weight bearing as tolerated Home Medications: Medications to take at Discharge nitroglycerin 0.4 mg sublingual tablet 0.4 mg SUBLINGUAL .COMPLEX PRN #25 tab 05/15/18 tamsulosin 0.4 mg capsule 0.4 mg PO QHS 90 Days #90 cap 11/17/18 Acetaminophen [Tylenol] 500 mg PO TID PRN PRN 05/24/19 Multivitamin with Minerals [Multiple Vitamin] 1 tab PO DAILY 05/24/19 Aspirin E.C. [Ecotrin] 81 mg PO DAILY@0800 #30 tab 05/31/19 Atorvastatin Calcium [Lipitor] 40 mg PO QHS #30 tab 05/31/19 Furosemide [Lasix] 40 mg PO DAILY #30 tab 05/31/19 Glimepiride 0.5 mg PO DAILY 30 Days #30 tab 05/31/19 Isosorbide Mononitrate [Imdur] 30 mg PO DAILY 30 Days #30 tab 05/31/19 Metoprolol Tartrate [Lopressor (beta janee)] 25 mg PO BID 30 Days #60 tab 05/31/19 Following Prescrptions Were Given to Patient: Aspirin E.C. [Ecotrin] 81 mg PO DAILY@0800 #30 tab Transmission Status: Received by [id number] Glimepiride 0.5 mg PO DAILY 30 Days #30 tab Transmission Status: Received by [id number] Isosorbide Mononitrate [Imdur] 30 mg PO DAILY 30 Days #30 tab Transmission Status: Received by [id number] Furosemide [Lasix] 40 mg PO DAILY #30 tab Transmission Status: Received by [id number] Atorvastatin Calcium [Lipitor] 40 mg PO QHS #30 tab Transmission Status: Received by [id number] Metoprolol Tartrate [Lopressor (beta janee)] 25 mg PO BID 30 Days #60 tab Transmission Status: Received by [id number] Primary Care Physician: Neal Rodriguez MD [Primary Care Provider] - Please follow up with your Primary Care Physician in: within 1-2 weeks Please Follow Up With: Ramy Forde N.P. Please Follow Up With: Carmela Belcher MD When: within 1-2 weeks for repeat blood test Please Follow Up With: Raffaele Theodore MD When: within 2-4 weeks Disposition: Home Minutes spent on discharge:: 45 Patient Condition:: Stable Medical Necessity - Tobacco Use Smoking Status: Never smoker Tobacco Use: Non-smoker Meaningful Use Info Meaningful Use Diagnoses (Choose all that apply): CHF - CHF KAYE/ARB ordered at discharge?: No Reason KAYE/ARB not ordered?: Worsening renal dysfunctn Documented LVEF (%): 40 Code Visit Inpatient E&M: 53209 Disch Hosp
--- NOTE | 2019-05-31 12:17 | CASEMGMT ---
This RN CM to room to discuss therapy recommendation for further skilled therapy at discharge and pt is agreeable to a script for OP PT/OT at this time but is indecisive on where he would want to go or if he wants to go, so script for OP PT/OT provided at this time per request. Pt/family voice no further questions/concerns/needs at this time. [place] MICHAELA CM
--- NOTE | 2019-06-01 15:40 | CASEMGMT ---
MICHAELA MCCOLLUM Discharge Follow-Up Phone Call. Amanda: Yoli Strata: 3 Discharge Date: 05/31/19 Adm Dx: CHF, NSTEMI, CKD Call to pt to inquire about how he has been doing since being discharged from the hospital. Pt stated he's doing pretty good. He states he was able to get the new prescriptions he needed without any difficulty. He states he had several of these medications already so he did not have to pick all of them up. He reviewed the appts that were scheduled for him with MICHAELA MCCOLLUM and states does not have any questions about the appts either. He denies concerns/needs. MICHAELA MCCOLLUM thanked pt for choosing [facility]. Edmundo MARTIN RN, CM
== END 2019-05-31 14:03 | disposition home or self-care (01) | DRG 280 ==
LOC: ED 12:04 → ICU 12:59 → PCU 05-26 18:22
PROVIDERS: Internal Medicine Critical Care Medicine; Admitting Provider Internal Medicine; Emergency Provider Emergency Medicine; Family Provider Family Medicine; PCP Family Medicine; Referring Provider Internal Medicine; Visit Provider Internal Medicine
DX: I21.4 Non-ST elevation (NSTEMI) myocardial infarction (principal); I50.41 Acute combined systolic (congestive) and diastolic (congestive) heart failure; J96.01 Acute respiratory failure with hypoxia; N18.4 Chronic kidney disease, stage 4 (severe); I13.0 Hypertensive heart and chronic kidney disease with heart failure and stage 1 through stage 4 chronic kidney disease, or unspecified chronic kidney disease; E87.2 Acidosis; N17.9 Acute kidney failure, unspecified; E78.5 Hyperlipidemia, unspecified; E11.22 Type 2 diabetes mellitus with diabetic chronic kidney disease; E87.5 Hyperkalemia; I25.10 Atherosclerotic heart disease of native coronary artery without angina pectoris; D64.9 Anemia, unspecified; Z79.84 Long term (current) use of oral hypoglycemic drugs; Z95.5 Presence of coronary angioplasty implant and graft; Z95.1 Presence of aortocoronary bypass graft
CPT/HCPCS: 36415; 36600; 71045; 76770; 80048; 80053; 80069; 80202; 81001; 82803; 82962; 83605; 83880; 84484; 85025; 86850; 86900; 86901; 86920; 87040; 87086; 87633; 87641; 87804; 93005; 93306; 94002; 94003; 94762; 97116; 97162; 97166; 97530; 97803; 99251; 99285; J7050; P9016; Q9957; A4216; G0463; J1940

== ENCOUNTER 2019-10-11 18:17 | Observation (INO) | payer MEDICARE, OTHER, SELFPAY ==
[2018-01-21 11:44] VITALS: BMI 29.0
[2019-06-25 11:22] VITALS: BMI 26.9
[2019-10-11] VITALS (7 sets, daily range): BP systolic 134–181; BP diastolic 61–88; PULSE 67–80; RESP 14–18; TEMP 36.2–36.6; O2SAT 98–100; BMI 28.0
--- NOTE | 2019-10-11 18:44 | EKG12_ITS ---
Test Reason : CP Blood Pressure : / mmHG Vent. Rate : 080 BPM Atrial Rate : 080 BPM P-R Int : 260 ms QRS Dur : 108 ms QT Int : 396 ms P-R-T Axes : 101 -11 122 degrees QTc Int : 456 ms Sinus rhythm vs. ectopic atrial rhythm with first degree AV block ST segment abnormality Consider Myocardial Ischemia Abnormal ECG Confirmed by EFE ZAMORA, EDWINA ([id number]), editor greeting card SINGH BALLARD ([id number]) on 10/12/2019 1:38:56 PM Referred By: JANEL Confirmed By:EDWINA WILKS MD
--- NOTE | 2019-10-11 18:50 | RAD_ITS ---
STUDY: X-RAY CHEST REASON FOR EXAM: Male, 78 years old. Chest pain X2 MONTHS, WORSE TODAY TECHNIQUE: Single AP portable view of the chest. COMPARISON: 05/29/2019. FINDINGS: The lungs are clear and expanded. There is no demonstrated pleural abnormality. Normal size heart. Previous CABG. Normal mediastinum and dani. Normal visualized pulmonary arteries. Normal visualized aortic arch and descending thoracic aorta. Normal visualized thoracic spine. Normal visualized ribs, clavicles, and shoulders. There is no demonstrated abnormality of the visualized soft tissue structures of the upper abdomen. RAD/Chest 1 View (Portable) IMPRESSION: No definite acute or significant abnormality seen. Electronically Signed: Drew Jara MD at 19:09 EDT , Service support ,
--- NOTE | 2019-10-11 18:53 | ED.DCSUM_ITS ---
History of Present Illness Chief Complaint: Chest Pain Informant: Patient Onset: Month(s) - 2-3; worse x 2 weeks Activity at onset: Exertion, Rest - in past week or 2 Timing: Intermittent, Lasts - mins-hr Location: Substernal Current Severity: Mild Maximum Severity: Severe Worsened By: Exertion. Not Worsened By: Movement of Arm, Movement of Torso, Eating, Breathing, Coughing Associated Symptoms: Dyspnea, Acid Reflux - when lies supine; different than the exertional CP. Negative for: Nausea, Vomiting, Diaphoresis, Cough, Fever, Lightheadedness, Palpitations Narrative: Patient states he was admitted for a heart attack in May of last year, 5 or so months ago. In the last several months he has been having exertional chest pain that radiates down both arms, and for the most part goes away when he rests until the last week or 2. He is having discomfort at rest now as well. He st ates when he takes 2 nitroglycerin, it resolves, he is having to do that occasionally. He denies edema in his legs, but since he was discharged from the hospital 5 months ago, he has had approximately 15 pound weight gain, very gradually. He has renal disease. He also has congestive heart failure. He has a history of stents x6 in the past total. He states the main reason he came here today was because he felt some twitching in his extremities and given his chronic renal failure was concerned that he might be hyperkalemic. Therefore he called his doctor and his doctor in turn sent him here to the ED. - Past Medical History (1) Acute combined systolic (congestive) and diastolic (congestive) heart failure Status: Chronic (2) Atherosclerosis of coronary artery bypass graft without angina pectoris Status: Chronic Comment: CABG x 4 JOHNSON to LAD, Sequential SVG-OM and Ramus, RVG-RPDA 08/16/2002 URD-GLL-VPB-OM w/ 2.75 x 8 mm Resolute 01/21/18 (3) Atherosclerotic heart disease of [place] coronary artery without angina pectoris Status: Chronic Comment: CABG x 4 JOHNSON to LAD, SVG to obtuse marginal LCx, sequential SVG to intermediate, and SVG to right PDA 08/2002 PTCA of ramus branch of LCx, PTCA/stent to proximal RCA, PTCA/stent to proximal LCx, 1998; unsuccessful PTCA LAD 06/2003; HZZ-LBW-PIY-OM of LCx w/ 2.75 x 8 mm Resolute 01/21/18 (4) CHF (congestive heart failure) Status: Chronic (5) Chronic kidney disease (CKD) Status: Chronic (6) Essential (primary) hypertension Status: Chronic (7) HLD (hyperlipidemia) Status: Chronic (8) Barretts esophagus Status: Chronic Past Medical History - Allergies and Home Meds Allergies/Adverse Reactions: Allergies ramipril [From Altace] Allergy (Intermediate, Verified 06/25/19 13:32) cough Primary Care Physician: Neal Rodriguez MD [Primary Care Provider] - Surgical History: angioplasty - Cardiac stent x6, coronary bypass surgery, - - Recent knee surgery as in HPI Smoking Status: Never smoker Drugs: None - Family History Maternal Family History: Family History (Last Reviewed 05/24/19 @ 12:[address] Samir Birmingham MD) Father Heart disease Myocardial infarction Brother Diabetes History of PTCA Mother HLD (hyperlipidemia) Family History: Reports: No pertinent history Review of Systems General: Reports: Malaise - Especially with exertion. Denies: Chills, Fever, Sweats Eyes: Denies: Visual changes - bilaterally, Diplopia ENT: Denies: Bilateral ear pain, Rhinorrhea, Sore throat Cardiovascular: Reports: Chest pain. Denies: Palpitations Respiratory: Reports: Dyspnea on exertion. Denies: Cough, Sputum, Orthopnea Gastrointestinal: Denies: Abdominal pain, Nausea, Vomiting, Diarrhea, Melena, Hematochezia Genitourinary: Denies: Dysuria, Hematuria, Frequency Musculoskeletal: Reports: Extremity Pain - Bilateral arm tingling when he has exertional chest discomfort. Denies: Back pain, Swelling Skin: Denies: Rash, Wounds Neurological: Denies: Headache, Weakness, Numbness Physical Exam Vital Signs/Narrative: Vital Signs Temp Pulse Resp BP Pulse Ox 10/11/19 18:46 99 10/11/19 18:41 77 14 99 10/11/19 18:17 97.1 F L 80 16 181/88 H 99 Inital Vital Signs reviewed: Yes General: Well nourished, Well developed, No Acute Distress Head: Normocephalic, Atraumatic Eyes: Perrl, EOMI ENT: Moist mucous membranes, No rhinorrhea Neck: Supple, Nontender, No lymphadenopathy, No JVD Cardiovascular: Regular rate, Regular rhythm, No murmurs, - - Equal bilateral 2+/4 radial pulses Respiratory: No distress, CTA bilaterally, Chest nontender Abdomen: Soft, Nontender, Nondistended, Normal bowel sounds Back: Nontender, Normal Inspection. Negative for: CVA tenderness Extremities: Nontender, No edema. Negative for: Calf Tenderness Skin: Normal color, No rash, No Trauma Neurological: Alert, Oriented x3, Cranial nerves II-XII grossly intact, Normal Strength, Normal Sensation Psychological: Normal affect, Normal Mood Diagnostic/Tx/Re-eval Impressions Chest X-Ray 10/11/19 18:50 IMPRESSION: No definite acute or significant abnormality seen. Electronically Signed: Drew Jara MD at 19:09 EDT , Service support , 10/11/19 18:50 Chest 1 View (Portable) [RAD] Stat Laboratory Results 10/11/19 10/11/19 10/11/19 18:35 18:35 21:37 WBC 7.0 RBC 2.86 L Hgb 9.1 L Hct 27.2 L MCV 95.1 H MCH 31.8 MCHC 33.5 RDW Std Deviation 49.5 H RDW Coeff of Nica 14.3 Plt Count 143 L MPV 11.0 Immature Gran % (Auto) 0.100 Neut % (Auto) 55.4 Lymph % (Auto) 29.0 [place] % (Auto) 10.4 H Eos % (Auto) 4.7 Baso % (Auto) 0.4 Absolute Neuts (auto) 3.9 Absolute Lymphs (auto) 2.04 Nucleated RBC % 0 Sodium 136 Potassium TNP 6.0 H* Chloride 111 H Carbon Dioxide 17.0 L Anion Gap 8 BUN 75 H Creatinine 3.74 H Estim Creat Clear Calc 14.69 Est GFR (MDRD) Af Amer 20 L Est GFR (MDRD) Non-Af 17 L BUN/Creatinine Ratio 20.1 H Glucose 122 H Calcium 9.0 Troponin I 0.041 0.054 H - Rhythm Strip Rhythm Strip: Sinus Rhythm Rate: 80 Ectopy: None - EKG Initial EKG Interpretation: Sinus Rhythm, No Acute Injury Pattern, S-T Elevation - aVR only, 1 mm, S-T Depression - 0.5-1 mm, leads I, aVL, V2-6, - - Suspect LV strain pattern Prior: Unchanged Repeat Eval: Pain Free - prior to getting any NTG - Medical Decision Making Initial troponin was within normal limits, and his EKG was stable showing signs of left heart strain and no changes compared with his old. I discussed his symptoms and findings with cardiology Dr. Theodore, he is aware of his renal disease which is why he did not get catheterized when he was here for his myocardial infarction several months ago. He currently is on Imdur 30 mg once daily and metoprolol 25 mg twice daily in addition to his other medications. Initially, he recommended increasing these medicines if he had a delta troponin that was negative. However, the delta returned abnormal, elevated compared with the initial. Patient still remains pain-free, although his symptoms are consistent with unstable angina. Initially we were unable to read/measure his potassium since the specimen was significantly hemolyzed, so that was repeated with the second troponin returned at 6.0. He does not have a wide-complex, and after discussing with hospitalist Kayexalate was ordered, but I do not think he needs the rest of the hyperkalemia treatment right now. Heparin was not desired since he is unlikely to get a heart cath if he remains stable and can be managed medically. Given his chronic renal disease, Lovenox was avoided. ED Disposition - Plan for ED Patient: Disposition: Acute Care Hospital [facility] Diagnosis: Unstable angina, Hyperkalemia, Chronic kidney disease (CKD) Referrals: Neal Rodriguez MD [Primary Care Provider] -
[2019-10-11 19:22] LABS: Absolute Lymphocyte Count 2.04 X10^3/uL (0.83-4.51); Absolute Neutrophil Count 3.9 X10^3/uL (2.0-7.7); Basophil# 0.03 X10^3/uL; Basophil% 0.4 % (0-1); Eosinophil# 0.33 X10^3/uL; Eosinophils% 4.7 % (0-5); Hematocrit 27.2 % (40-54); Hemoglobin 9.1 g/dL (13.0-16.5); Lymphocyte # 2.04 X10^3/ul (4.0); Mean Corp Hgb Conc 33.5 g/dL (32-36); Mean Corpuscular Hgb 31.8 pg (27.0-32.0); Mean Corpuscular Volume 95.1 fL (80-94); Monocyte# 0.73 X10^3/uL; Monocyte% 10.4 % (0-10); NRBC Flagged by Analyzer 0 % (0-5); Neutrophil # 3.89 X10^3/uL (2.7-7.7); Neutrophil % 55.4 % (47-70); Platelet Count 143 K/mm3 (150-450); RBC Distribution Width CV 14.3 % (11.6-14.6); RBC Distribution Width SD 49.5 fl (35.1-43.9); Red Blood Count 2.86 M/mm3 (4.6-6.2)
[2019-10-11 19:28] LABS: Anion Gap 8 (5-15); BUN 75 mg/dL (7-18); BUN/Creat Ratio 20.1 RATIO (10-20); Chloride 111 mmol/L (98-107); Creatinine, Serum 3.74 mg/dL (0.70-1.30); EST Glomerular Filtration Rate 17 mL/min (>60); Est Glom Filt Rate - Afr Amer 20 mL/min (>60); Estimated Creatinine Clearance 14.69 ml/min; Glucose 122 mg/dL (74-106); Sodium Level 136 mmol/L (136-145)
--- NOTE | 2019-10-11 23:22 | PCM.HP.STD ---
Problem List (1) CHF (congestive heart failure) Status: Chronic Qualifiers: Heart failure type: systolic Heart failure chronicity: chronic Qualified Code(s): I50.22 - Chronic systolic (congestive) heart failure (2) Chronic kidney disease (CKD) Status: Chronic Qualifiers: Chronic kidney disease stage: unspecified stage Qualified Code(s): N18.9 - Chronic kidney disease, unspecified (3) History of coronary artery stent placement Status: Resolved Comment: QUE-ICN-KZG-OM of LCx w/ 2.75 x 8 mm Resolute 01/22/18 PTCA of ramus branch of LCx, PTCA/stent to proximal RCA, PTCA/stent to proximal LCx, 1998; unsuccessful PTCA LAD 06/2003; (4) H/O coronary artery bypass surgery Status: Chronic Comment: CABG x 4 JOHNSON to LAD, Sequential SVG-OM and Ramus, RVG-RPDA 08/16/2002 (5) Essential (primary) hypertension Status: Chronic (6) HLD (hyperlipidemia) Status: Chronic Qualifiers: Hyperlipidemia type: pure hypercholesterolemia Qualified Code(s): E78.00 - Pure hypercholesterolemia, unspecified (7) Hyperkalemia Status: Acute (8) Chest pain Status: Acute History of Present Illness Date of Admission: 10/11/19 Chief Complaint: chest pain The patient is a 78 year old male patient with a significant past medical history of coronary artery disease status post CABG in remote past with also a history of 6 stents placed presents to the emergency room with chest pain and leg twitching. Apparently in the past he has had some leg twitching that was consistent with hyperkalemia and he wanted to be checked. The patient is also at stage IV renal disease. Currently the pain is 1-2 over 10 he states his last nitroglycerin was yesterday. Pain is nonradiating and gets worse with exertion. He did have some increased swelling for which she took a dose of Lasix which he takes rather infrequently. Current laboratory studies reveal a white blood cell count of 7, hemoglobin 9.1, hematocrit 27.2, platelets 143, sodium 136, potassium 6.0, chloride 111, bicarb 17, BUN 75, creatinine 3.74, the first troponin 0 0.041, second set 0.054, chest x-ray no acute findings. The patient was started on Kayexalate in the emergency room and he will be admitted for observation to the progressive care unit for another set of cardiac enzymes and consult by cardiology with Dr. Theodore in the morning. Past Medical History Past Medical History (Chronic Problems): Chronic Problems (Last Reviewed 05/24/19 @ 12:[address] Samir Birmingham MD) Barretts esophagus (Chronic) Acute combined systolic (congestive) and diastolic (congestive) heart failure (Chronic) CHF (congestive heart failure) (Chronic) Chronic kidney disease (CKD) (Chronic) Atherosclerosis of coronary artery bypass graft without angina pectoris (Chronic) CABG x 4 JOHNSON to LAD, Sequential SVG-OM and Ramus, RVG-RPDA 08/16/2002 JLW-XOO-ZJG-OM w/ 2.75 x 8 mm Resolute 01/21/18 H/O coronary artery bypass surgery (Chronic 08/16/02) CABG x 4 JOHNSON to LAD, Sequential SVG-OM and Ramus, RVG-RPDA 08/16/2002 Essential (primary) hypertension (Chronic) HLD (hyperlipidemia) (Chronic) Atherosclerotic heart disease of [place] coronary artery without angina pectoris (Chronic) CABG x 4 JOHNSON to LAD, SVG to obtuse marginal LCx, sequential SVG to intermediate, and SVG to right PDA 08/2002 PTCA of ramus branch of LCx, PTCA/stent to proximal RCA, PTCA/stent to proximal LCx, 1998; unsuccessful PTCA LAD 06/2003; VJQ-CQY-PCO-OM of LCx w/ 2.75 x 8 mm Resolute 01/21/18 Medical History: Medical History (Last Reviewed 05/24/19 @ 12:[address] Samir Birmingham MD) Chronic kidney disease (CKD) (Chronic) N18.9 Atherosclerosis of coronary artery bypass graft without angina pectoris (Chronic) I25.810 CABG x 4 JOHNSON to LAD, Sequential SVG-OM and Ramus, RVG-RPDA 08/16/2002 WUR-YUK-WMI-OM w/ 2.75 x 8 mm Resolute 01/21/18 Essential (primary) hypertension (Chronic) I10 HLD (hyperlipidemia) (Chronic) E78.5 Atherosclerotic heart disease of [place] coronary artery without angina pectoris (Chronic) I25.10 CABG x 4 JOHNSON to LAD, SVG to obtuse marginal LCx, sequential SVG to intermediate, and SVG to right PDA 08/2002 PTCA of ramus branch of LCx, PTCA/stent to proximal RCA, PTCA/stent to proximal LCx, 1998; unsuccessful PTCA LAD 06/2003; QIV-ORW-VBQ-OM of LCx w/ 2.75 x 8 mm Resolute 01/21/18 Type 2 diabetes mellitus E11.9 Abnormal nuclear stress test (Resolved) R94.39 Abnormal result of cardiovascular function study, unspecified (Resolved) R94.30 steroid injections lumbar (Resolved) Abnormal electrocardiogram (Inactive) R94.31 Fatigue (Inactive) R53.83 High risk medication use (Inactive) Z79.899 Shortness of breath (Inactive) R06.02 Allergies ramipril [From Altace] Allergy (Intermediate, Verified 06/25/19 13:32) cough Home Medications: Ambulatory Orders Medication Instructions Recorded nitroglycerin 0.4 mg sublingual 0.4 mg SUBLINGUAL .COMPLEX PRN #25 05/15/18 tablet tab tamsulosin 0.4 mg capsule 0.4 mg PO QHS 90 Days #90 cap 11/17/18 Acetaminophen [Tylenol] 500 mg PO TID PRN PRN 05/24/19 Multivitamin with Minerals 1 tab PO DAILY 05/24/19 [Multiple Vitamin] Aspirin E.C. [Ecotrin] 81 mg PO DAILY@0800 #30 tab 05/31/19 atorvastatin 40 mg tablet 40 mg PO QHS #90 tab 06/25/19 furosemide 40 mg tablet 40 mg PO DAILY PRN #30 tab 06/25/19 Ferrous Sulfate [Iron] 325 mg PO DAILY 10/11/19 Glimepiride [Amaryl] 1 mg PO DAILY 10/11/19 Isosorbide Mononitrate [Isosorbide 120 mg PO DAILY 10/11/19 Mononitrate ER] Lansoprazole [Prevacid] 30 mg PO DAILY 10/11/19 Loratadine [Claritin] 10 mg PO DAILY 10/11/19 Losartan Potassium [Cozaar] 25 mg PO DAILY 10/11/19 Metoprolol Tartrate 50 mg PO BID 10/11/19 Oxycodone HCl/Acetaminophen 1 tab PO BID 10/11/19 [Percocet 7.5-325 mg Tablet] Ranolazine [Ranolazine ER] 1,000 mg PO BID 10/11/19 Surgical History: Surgical History (Last Reviewed 05/24/19 @ 12:[address] Samir Birmingham MD) History of coronary artery stent placement (Resolved) Onset Date: 01/21/18 Z95.5 GTQ-GYF-ZGW-OM of LCx w/ 2.75 x 8 mm Resolute 01/22/18 PTCA of ramus branch of LCx, PTCA/stent to proximal RCA, PTCA/stent to proximal LCx, 1998; unsuccessful PTCA LAD 06/2003; H/O coronary artery bypass surgery (Chronic) Onset Date: 08/16/02 Z95.1 CABG x 4 JOHNSON to LAD, Sequential SVG-OM and Ramus, RVG-RPDA 08/16/2002 History of total right knee replacement Z96.651 uvulectomy S/P PTCA (percutaneous transluminal coronary angioplasty) Z98.61 PTCA of Ramus branch of CX, PTCA/stent proximal RCA. 03/1999 PTCA/stent proximal CX. Attempted/unsuccessful PTCA LAD 06/2003; stent SVG to OM 2017 Surgical History: angioplasty - Cardiac stent x6, coronary bypass surgery, - - Recent knee surgery as in HPI Smoking Status: Never smoker Drugs: None - *Family History Maternal Family History: Family History (Last Reviewed 05/24/19 @ 12:[address] Samir Birmingham MD) Father Heart disease Myocardial infarction Brother Diabetes History of PTCA Mother HLD (hyperlipidemia) History Items: No pertinent history Review of Systems Constitutional: Denies: Chills, Fever, Weight Change HEENT: Denies: Head Aches, Sinus Congestion, Sinus Drainage Cardiovascular: Reports: Chest Pain. Denies: Palpitations Respiratory: Denies: Cough, Shortness of breath at rest, Sputum production Gastrointestinal: Denies: Abdominal Pain, Nausea, Vomiting Genitourinary: Denies: Dysuria Musculoskeletal: Reports: Muscle pain. Denies: Joint Pain, Joint Tenderness Skin: Denies: Rash, Wounds Neurological: Denies: Numbness, Tingling, Focal weakness Psychiatric: Denies: Anxiety, Depression, Homicidal Ideations, Suicidal Ideations Hematologic/ Lymphatic: Denies: Easy Bruising, Easy Bleeding VTE Information - Inpt Only VTE Present on Admission: No VTE Mechan Device Prophylaxis: SCD's VTE Pharm Prophylaxis ordered?: No Patient Problems: Active and Suspected Problems (Last Reviewed 05/24/19 @ 12:[address] Samir Birmingham MD) Hyperkalemia (Acute) Chest pain (Acute) - Physical Exam Vitals/I&O's: Vital Signs Temp Pulse Resp BP Pulse Ox 97.1 F L 67 18 145/71 H 98 10/11/19 18:17 10/11/19 23:04 10/11/19 23:04 10/11/19 23:04 10/11/19 23:04 Oxygen Delivery Method Room Air Weight: 174 lb Body Mass Index (BMI) 28.0 General: Alert, Oriented x3, Cooperative HEENT: Atraumatic, Normocephalic Neck: Supple, No JVD Lungs: Clear to auscultation, Normal air movement Cardiovascular: Regular rate, Normal S1, Normal S2, No murmurs Abdomen: Bowel Sounds Present, Soft Extremities: No edema, Capillary Refill Less than 3 Seconds Skin: No rashes Musculoskeletal: No Tenderness to Palpation of Joints or Extremities Neurological: Neuro grossly intact Psych/Mental Status: Normal Affect, Appropriate Laboratory Results 10/11/19 18:35: WBC 7.0, RBC 2.86 L, Hgb 9.1 L, Hct 27.2 L, MCV 95.1 H, MCH 31.8, MCHC 33.5, RDW Std Deviation 49.5 H, RDW Coeff of Nica 14.3, Plt Count 143 L, MPV 11.0, Immature Gran % (Auto) 0.100, Neut % (Auto) 55.4, Lymph % (Auto) 29.0, Mcintosh % (Auto) 10.4 H, Eos % (Auto) 4.7, Baso % (Auto) 0.4, Absolute Neuts (auto) 3.9, Absolute Lymphs (auto) 2.04, Nucleated RBC % 0 10/11/19 18:35: Sodium 136, Potassium TNP, Chloride 111 H, Carbon Dioxide 17.0 L, Anion Gap 8, BUN 75 H, Creatinine 3.74 H, Estim Creat Clear Calc 14.69, Est GFR (MDRD) Af Amer 20 L, Est GFR (MDRD) Non-Af 17 L, BUN/Creatinine Ratio 20.1 H, Glucose 122 H, Calcium 9.0, Troponin I 0.041 10/11/19 21:37: Potassium 6.0 H*, Troponin I 0.054 H Current Medications Sodium Chloride () 1,000 mls @ 0 mls/hr IV .Q0M HAL Nitroglycerin (Nitrostat) 0.4 mg SUBLINGUAL Q5M PRN PRN Reason: Chest pain Assessment/Plan All Active Problems (Last Reviewed 05/24/19 @ 12:[address] Samir Birmingham MD) Hyperkalemia (Acute) Chest pain (Acute) Non-ST elevated myocardial infarction (non-STEMI) (Acute 05/24/19) Acute coronary syndrome (Acute) Respiratory failure (Acute) History of coronary artery stent placement (Resolved 01/21/18) Abnormal nuclear stress test (Resolved) Abnormal result of cardiovascular function study, unspecified (Resolved) steroid injections lumbar (Resolved) Chronic Problems (Last Reviewed 05/24/19 @ 12:[address] Samir Birmingham MD) Barretts esophagus (Chronic) Acute combined systolic (congestive) and diastolic (congestive) heart failure (Chronic) CHF (congestive heart failure) (Chronic) Chronic kidney disease (CKD) (Chronic) Atherosclerosis of coronary artery bypass graft without angina pectoris (Chronic) CABG x 4 JOHNSON to LAD, Sequential SVG-OM and Ramus, RVG-RPDA 08/16/2002 GUY-TWE-LPH-OM w/ 2.75 x 8 mm Resolute 01/21/18 H/O coronary artery bypass surgery (Chronic 08/16/02) CABG x 4 JOHNSON to LAD, Sequential SVG-OM and Ramus, RVG-RPDA 08/16/2002 Essential (primary) hypertension (Chronic) HLD (hyperlipidemia) (Chronic) Atherosclerotic heart disease of [place] coronary artery without angina pectoris (Chronic) CABG x 4 JOHNSON to LAD, SVG to obtuse marginal LCx, sequential SVG to intermediate, and SVG to right PDA 08/2002 PTCA of ramus branch of LCx, PTCA/stent to proximal RCA, PTCA/stent to proximal LCx, 1998; unsuccessful PTCA LAD 06/2003; BRR-DZK-PVX-OM of LCx w/ 2.75 x 8 mm Resolute 01/21/18 1. Pain with extensive history of coronary artery disease?mid to progressive care unit for observation, consult Dr. Theodore, repeat troponin and BMP in the morning, will place routine orders for oxygen, nitroglycerin as needed and aspirin per routine patient may have a low-dose morphine as needed for chest pain 2. Hypertension?continue home medications 3. Hyperlipidemia?continue statin medication 4. DVT prophylaxis?SCDs due to chronic renal disease OBSV E&M: [id number] Initial observation care L2
[2019-10-11] MEDS: Sodium Polystyrene Sulfonate 15 GM/60 ML UDC 30 GM PO (23:57)
[2019-10-12] VITALS (10 sets, daily range): BP systolic 115–159; BP diastolic 55–76; PULSE 63–79; RESP 16–18; TEMP 36.3–36.5; O2SAT 95–99; BMI 28.4
--- NOTE | 2019-10-12 00:10 | EKG12_ITS ---
Test Reason : CP ADMISSION Blood Pressure : / mmHG Vent. Rate : 076 BPM Atrial Rate : 076 BPM P-R Int : 282 ms QRS Dur : 114 ms QT Int : 406 ms P-R-T Axes : 097 -13 120 degrees QTc Int : 456 ms Sinus rhythm with 1st degree A-V block Marked ST abnormality, possible lateral subendocardial injury Abnormal ECG Confirmed by EFE ZAMORA, EDWINA ([id number]), editor news SAURAV LINARES ([id number]) on 10/13/2019 8:51:44 AM Referred By: KARLEY Confirmed By:EDWINA WILKS MD
[2019-10-12 05:27] LABS: Anion Gap 9 (5-15); BUN 69 mg/dL (7-18); BUN/Creat Ratio 20.3 RATIO (10-20); Calcium,Total 8.9 mg/dL (8.5-10.1); Chloride 111 mmol/L (98-107); Cholesterol 122 mg/dL (200); EST Glomerular Filtration Rate 19 mL/min (>60); Est Glom Filt Rate - Afr Amer 23 mL/min (>60); Estimated Creatinine Clearance 16.16 ml/min; Glucose 102 mg/dL (74-106); High Density Lipoprotein 38 mg/dL; Potassium 5.1 mmol/L (3.5-5.1); Sodium Level 138 mmol/L (136-145); Triglycerides 185 mg/dL; Very Low Density Lipoprotein 37 mg/dL (5-40)
--- NOTE | 2019-10-12 08:06 | PCM.CONS.C ---
Reason for Consult Date of Consultation: 10/12/19 History of Present Illness: The patient is a 78 year old M who presented to the ER yesterday for unrelated cardiovascular issues and happened to complain of chest discomfort. He is a gentleman with a history of coronary artery disease status post coronary artery bypass surgery. He had a left internal mammary artery to left anterior descending artery which was noted to be preserved and patent the circumflex artery had moderate disease in the mid segment and the saphenous vein graft to the right coronary artery was noted to be patent. He had a stress test which was abnormal and underwent a diagnostic heart catheterization where he was noted to have a 99% stenosis of the SVG to the OM. He underwent stenting of this vessel. Patient was admitted and evaluated at [facility] in May 2019 after left knee surgery for worsening dyspnea on exertion and NSTEMI. He was noted to have worsening kidney function and heart catheterization was deferred on such account. He continued with medical management and was discharge for outpatient follow-up. He had been on a higher dose of beta-deneen as well as isosorbide and for reasons that are not entirely clear he had this dose reduced. He presented with chest discomfort which he says he was having with exertion. He was also noted to be short of breath. He was evaluated in the emergency room his EKG was unchanged from before and he had minimal troponin elevation. Past Medical History Allergies/Adverse Reactions: Allergies ramipril [From Altace] Allergy (Intermediate, Verified 06/25/19 13:32) cough Home Medications: Ambulatory Orders Medication Instructions Recorded nitroglycerin 0.4 mg sublingual 0.4 mg SUBLINGUAL .COMPLEX PRN #25 05/15/18 tablet tab tamsulosin 0.4 mg capsule 0.4 mg PO QHS 90 Days #90 cap 11/17/18 Acetaminophen [Tylenol] 500 mg PO TID PRN PRN 05/24/19 Multivitamin with Minerals 1 tab PO DAILY 05/24/19 [Multiple Vitamin] Aspirin E.C. [Ecotrin] 81 mg PO DAILY@0800 #30 tab 05/31/19 atorvastatin 40 mg tablet 40 mg PO QHS #90 tab 06/25/19 furosemide 40 mg tablet 40 mg PO DAILY PRN #30 tab 06/25/19 Ferrous Sulfate [Iron] 325 mg PO DAILY 10/11/19 Glimepiride [Amaryl] 1 mg PO DAILY 10/11/19 Isosorbide Mononitrate [Isosorbide 120 mg PO DAILY 10/11/19 Mononitrate ER] Lansoprazole [Prevacid] 30 mg PO DAILY 10/11/19 Loratadine [Claritin] 10 mg PO DAILY 10/11/19 Losartan Potassium [Cozaar] 25 mg PO DAILY 10/11/19 Metoprolol Tartrate 50 mg PO BID 10/11/19 Oxycodone HCl/Acetaminophen 1 tab PO BID 10/11/19 [Percocet 7.5-325 mg Tablet] Ranolazine [Ranolazine ER] 1,000 mg PO BID 10/11/19 Past Medical History (Chronic Problems): Chronic Problems (Last Reviewed 05/24/19 @ 12:[address] Samir Birmingham MD) Barretts esophagus (Chronic) Acute combined systolic (congestive) and diastolic (congestive) heart failure (Chronic) CHF (congestive heart failure) (Chronic) Chronic kidney disease (CKD) (Chronic) Atherosclerosis of coronary artery bypass graft without angina pectoris (Chronic) CABG x 4 JOHNSON to LAD, Sequential SVG-OM and Ramus, RVG-RPDA 08/16/2002 WQS-RBT-BPB-OM w/ 2.75 x 8 mm Resolute 01/21/18 H/O coronary artery bypass surgery (Chronic 08/16/02) CABG x 4 JOHNSON to LAD, Sequential SVG-OM and Ramus, RVG-RPDA 08/16/2002 Essential (primary) hypertension (Chronic) HLD (hyperlipidemia) (Chronic) Atherosclerotic heart disease of [place] coronary artery without angina pectoris (Chronic) CABG x 4 JOHNSON to LAD, SVG to obtuse marginal LCx, sequential SVG to intermediate, and SVG to right PDA 08/2002 PTCA of ramus branch of LCx, PTCA/stent to proximal RCA, PTCA/stent to proximal LCx, 1998; unsuccessful PTCA LAD 06/2003; XMT-AON-XEU-OM of LCx w/ 2.75 x 8 mm Resolute 01/21/18 Surgical History: angioplasty - Cardiac stent x6, coronary bypass surgery, - - Recent knee surgery as in HPI - *Family History Maternal Family History: Family History (Last Reviewed 05/24/19 @ 12:[address] Samir Birmingham MD) Father Heart disease Myocardial infarction Brother Diabetes History of PTCA Mother HLD (hyperlipidemia) History Items: No pertinent history Smoking Status: Never smoker Drugs: None Review of Systems - Review of Systems General: Denies: Fever, Night Sweats, Fatigue HEENT: Denies: Vision Change Cardiovascular: Reports: Chest Discomfort, Chest Discomfort with Exertion, Shortness of Breath. Denies: Orthopnea, PND, Peripheral Edema, Palpitations, Lightheadedness, Dizziness, Near Syncope, Syncope Respiratory: Denies: Cough, Sputum Production, Hemoptysis Gastrointestinal: Denies: Hematemesis, Hematochezia, Melena Genitourinary: Denies: Dysuria, Hematuria Muscoloskeletal: Denies: Myalgias Skin: Denies: Rash Neurological: Denies: Dizziness Psychiatric: Denies: Anxiety Endocrine: Denies: Unexplained Weight Loss Hematologic/ Lymphatic: Reports: Anemia Subjectve: Gentleman in no distress Objective: Vital Signs Temp Pulse Resp BP Pulse Ox 97.5 F L 79 16 139/72 H 97 10/12/19 06:01 10/12/19 07:18 10/12/19 06:01 10/12/19 06:01 10/12/19 06:01 Oxygen Delivery Method Room Air Weight: 173 lb 11.588 oz Body Mass Index (BMI) 28.4 Intake and Output for Last 24 Hours 10/10/19 10/11/19 10/12/19 23:59 23:59 23:59 Intake Total 120 / 120 Balance 120 / 120 General: Awake, Alert, Oriented x 3 HEENT: PERRL, EOMI, Sclera Non Icteric, Pallor Neck: Supple, Good ROM, No Lymph Node Enlargement Lungs: Clear to auscultation Cardiovascular: Regular Rhythm, Normal S1, Normal S2, No Murmurs, No Rubs, No Gallops Vascular: No Carotid Bruits, Normal Femoral Pulses, Normal Radial Pulses, Normal Dorsalis Pedal Pulse, Normal Posterior Tibial Pulses Abdomen: Bowel Sounds Present, Soft, Non Tender, No HSM, No Organomegaly Extremities: No Cyanosis, No Clubbing, No edema Musculoskeletal: No Erythema Skin: No Rashes Lymphatic: No Lymph Node Enlargement Neurological: No Focal Motor or Sensory Deficit 10/11/19 18:35: WBC 7.0, RBC 2.86 L, Hgb 9.1 L, Hct 27.2 L, MCV 95.1 H, MCH 31.8, MCHC 33.5, Plt Count 143 L, MPV 11.0, Immature Gran % (Auto) 0.100, Neut % (Auto) 55.4, Lymph % (Auto) 29.0, Evans % (Auto) 10.4 H, Eos % (Auto) 4.7, Baso % (Auto) 0.4, Absolute Neuts (auto) 3.9, Nucleated RBC % 0 10/11/19 18:35: Sodium 136, Potassium TNP, Chloride 111 H, Carbon Dioxide 17.0 L, Anion Gap 8, BUN 75 H, Creatinine 3.74 H, Est GFR (MDRD) Af Amer 20 L, Est GFR (MDRD) Non-Af 17 L, BUN/Creatinine Ratio 20.1 H, Glucose 122 H, Calcium 9.0, Troponin I 0.041 10/11/19 21:37: Potassium 6.0 H*, Troponin I 0.054 H 10/12/19 00:43: Troponin I 0.078 H 10/12/19 04:54: Sodium 138, Potassium 5.1, Chloride 111 H, Carbon Dioxide 18.0 L, Anion Gap 9, BUN 69 H, Creatinine 3.40 H, Est GFR (MDRD) Af Amer 23 L, Est GFR (MDRD) Non-Af 19 L, BUN/Creatinine Ratio 20.3 H, Glucose 102, Calcium 8.9, Triglycerides 185, Cholesterol 122, LDL Cholesterol 47, VLDL Cholesterol 37, HDL Cholesterol 38 L Rhythm: EKG: Normal sinus rhythm with a rate of 74 bpm and evidence of T wave inversion noted in lead I, aVL, V5 and V6. In comparison to the previous EKG from May 2019 the above is unchanged. ECHO: Previous echocardiogram demonstrated an ejection fraction of 40%. Stress Test: Cardiac Cath: PCI: CT Surgery: Holter monitor: EPS: PPM: CXR: Chest CT Scan: Assessment/Plan 1. Atherosclerosis of [place] coronary artery of [place] heart with angina pectoris I25.10 CABG x 4 JOHNSON to LAD, SVG to obtuse marginal LCx, sequential SVG to intermediate, and SVG to right PDA 08/2002 PTCA of ramus branch of LCx, PTCA/stent to proximal RCA, PTCA/stent to proximal LCx, 1998; unsuccessful PTCA LAD 06/2003; VBV-FBF-VQT-OM of LCx w/ 2.75 x 8 mm Resolute 01/21/18 Patient has been having some chest discomfort which appears to be a change in pattern from before. He has had a significant reduction in his medications after he was discharged from the hospital and this may be responsible for some of the discomfort. His EKG changes though impressive unchanged from May 2019. Would recommend aggressive therapy with maximization of medical therapy with Ranexa Increase isosorbide back to 120 mg a day Increase Lopressor 50 mg twice a day If patient continues to have chest discomfort then would need to proceed with cardiac catheterization cautiously if patient agrees. Of note is the fact that he does have significant renal dysfunction and this could very well result in him undergoing dialysis. 2. H/O coronary artery bypass surgery Z95.1 CABG x 4 JOHNSON to LAD, Sequential SVG-OM and Ramus, RVG-RPDA 08/16/2002 His heart catheterization January 2018 showed SVG to second OM with distal anastomotic lesion of 9 9%, JOHNSON to LAD is patent, SVG to RCA with mid lesion of 50%, SVG to RCA with distal lesion of 65%, he underwent stenting to SVG to OM on 01/21/2018. There was concerns for his most recent non-ST elevated myocardial infarction that this may be a progression of coronary artery disease. However, given his chronic kidney disease, heart catheterization was deferred. Medical management was recommended. We will pursue the same. 3. History of coronary artery stent placement Z95.5 AYS-GEW-RSR-OM of LCx w/ 2.75 x 8 mm Resolute 01/22/18 PTCA of ramus branch of LCx, PTCA/stent to proximal RCA, PTCA/stent to proximal LCx, 1998; unsuccessful PTCA LAD 06/2003; He will continue risk factor and lifestyle modification. 4. Chronic systolic congestive heart failure I50.22 His most recent echocardiogram in May 2019 showed ejection fraction of 40% and stage III diastolic dysfunction. His LVEF is worse compared to prior. He is not appear to be in a fluid volume overloaded state. His weight has remained stable. He is currently taking his Lasix on an as-needed basis. It was recommended that we consider losartan/ARB. 5. Essential (primary) hypertension I10 Plan His blood pressure slight elevated today. We will see how he does after the change in the beta-deneen and isosorbide medications. 6. Pure hypercholesterolemia E78.00 Plan He will continue with current statin medication. 7. 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 Thank you for allowing me to participate in the care of your patient. Please don't hesitate to call if any issues arise. He can be discharged today for outpatient follow up.
[2019-10-12] MEDS: Glimepiride 1 MG Tablet PO (09:08)
[2019-10-12] MEDS: Ferrous Sulfate 325 MG Tablet PO (09:08)
[2019-10-12] MEDS: Multivitamins,Ther W-Minerals Tablet 1 TABLET PO (09:08)
[2019-10-12] MEDS: Aspirin E.C. 81 MG Tablet PO (09:08)
[2019-10-12] MEDS: Metoprolol Tartrate 50 MG Tablet PO (09:11)
[2019-10-12] MEDS: Losartan Potassium 25 MG Tablet PO (09:11)
[2019-10-12] MEDS: Pantoprazole Sodium 40 MG Tablet PO (09:11)
[2019-10-12] MEDS: Ranolazine 500 MG Tablet 1000 MG PO (09:12)
--- NOTE | 2019-10-12 09:12 | DCINST_ITS ---
- Discharge Diagnoses Current Active Problems: Current Active and Chronic Problems (Last Reviewed 05/24/19 @ 12:[address] Samir Birmingham MD) Hyperkalemia (Acute) Chest pain (Acute) Unstable angina (Acute) Chronic kidney disease (CKD) (Chronic) You will use the following diet at home:: Calorie/Carbohydrate Controlled (s pecify 1200, 1400, etc) - 1800 ADA diet, Cardiac Your food should be the consistency of: Regular Your liquids should be the consistency of: Regular/Thin Discharge Activity: May Not Drive Call your doctor if you observe: Fever of 101 or Higher, Inability to urinate, Inability to have a bowel movement, Shortness of breath, Dizziness, Fainting spells, Swelling in the ankles, Chest pain, Increased palpitations (irregular heartbeat), Calf discomfort, Uncontrolled pain Allergies/Adverse Reactions: Allergies ramipril [From Altace] Allergy (Intermediate, Verified 06/25/19 13:32) cough Medications to take at Discharge tamsulosin 0.4 mg capsule 0.4 mg PO QHS 90 Days #90 cap 11/17/18 Acetaminophen [Tylenol] 500 mg PO TID PRN PRN 05/24/19 Multivitamin with Minerals [Multiple Vitamin] 1 tab PO DAILY 05/24/19 Aspirin E.C. [Ecotrin] 81 mg PO DAILY@0800 #30 tab 05/31/19 atorvastatin 40 mg tablet 40 mg PO QHS #90 tab 06/25/19 furosemide 40 mg tablet 40 mg PO DAILY PRN #30 tab 06/25/19 Ferrous Sulfate [Iron] 325 mg PO DAILY 10/11/19 Glimepiride [Amaryl] 1 mg PO DAILY 10/11/19 Lansoprazole [Prevacid] 30 mg PO DAILY 10/11/19 Loratadine [Claritin] 10 mg PO DAILY 10/11/19 Losartan Potassium [Cozaar] 25 mg PO DAILY 10/11/19 Oxycodone HCl/Acetaminophen [Percocet 7.5-325 mg Tablet] 1 tab PO BID 10/11/19 Ranolazine [Ranolazine ER] 1,000 mg PO BID 10/11/19 Isosorbide Mononitrate [Imdur] 120 mg PO DAILY #30 tab 10/12/19 Metoprolol Tartrate [Lopressor (beta deneen)] 50 mg PO BID #60 tab 10/12/19 Nitroglycerin (INPATIENT USE) [Nitrostat] 0.4 mg SUBLINGUAL Q5M PRN #90 tab.subl 10/12/19 The following prescriptions were given: Isosorbide Mononitrate [Imdur] 120 mg PO DAILY #30 tab Transmission Status: [facility] to [id number] Metoprolol Tartrate [Lopressor (beta deneen)] 50 mg PO BID #60 tab Transmission Status: Pending to [id number] Nitroglycerin (INPATIENT USE) [Nitrostat] 0.4 mg SUBLINGUAL Q5M PRN #90 tab.subl PRN Reason: Cardiac/Chest Pain Transmission Status: Pending to [id number] Primary Care Physician: Neal Rodriguez MD [Primary Care Provider] - Please follow up with your Primary Care Physician in: in 2 weeks Test Results: Test results from this visit will be discussed in further detail at your follow- up appointment, if applicable. Please Follow Up With: Raffaele Theodore MD When: in 4 weeks
--- NOTE | 2019-10-12 09:14 | DS.PCM_ITS ---
Discharge Date and Diagnosis - Problem List Patient Problems: Active and Suspected Problems (Last Reviewed 05/24/19 @ 12:[address] Samir Birmingham MD) Hyperkalemia (Acute) Chest pain (Acute) Unstable angina (Acute) Date of Admission: 10/11/19 Date of Discharge: 10/12/19 - Primary Discharge Diagnosis Active and Suspected Problems (Last Reviewed 05/24/19 @ 12:[address] Samir Birmingham MD) Hyperkalemia (Acute) Chest pain (Acute) Unstable angina (Acute), mildly elevated troponin secondary to demand ischemia. - Secondary Discharge Diagnosis Chronic Problems (Last Reviewed 05/24/19 @ 12:[address] Samir Birmingham MD) Barretts esophagus (Chronic) Acute combined systolic (congestive) and diastolic (congestive) heart failure (Chronic) CHF (congestive heart failure) (Chronic) Chronic kidney disease (CKD) (Chronic) Atherosclerosis of coronary artery bypass graft without angina pectoris (Chronic) CABG x 4 JOHNSON to LAD, Sequential SVG-OM and Ramus, RVG-RPDA 08/16/2002 HLD-IYW-VRQ-OM w/ 2.75 x 8 mm Resolute 01/21/18 H/O coronary artery bypass surgery (Chronic 08/16/02) CABG x 4 JOHNSON to LAD, Sequential SVG-OM and Ramus, RVG-RPDA 08/16/2002 Essential (primary) hypertension (Chronic) HLD (hyperlipidemia) (Chronic) Atherosclerotic heart disease of [place] coronary artery without angina pectoris (Chronic) CABG x 4 JOHNSON to LAD, SVG to obtuse marginal LCx, sequential SVG to intermediate, and SVG to right PDA 08/2002 PTCA of ramus branch of LCx, PTCA/stent to proximal RCA, PTCA/stent to proximal LCx, 1998; unsuccessful PTCA LAD 06/2003; JEF-DPN-CYN-OM of LCx w/ 2.75 x 8 mm Resolute 01/21/18 Hospital Course and Treatment Operations: None Summary of Care Provided: The patient is a 78 year old M with history of coronary artery status post CABG and 6 stents was admitted with progressive worsening of chest pain along with shortness of breath with less exertion and more duration of pain for last few weeks. EKG normal sinus rhythm with first-degree AV block. First troponin was negative but serial troponins were mildly elevated. Patient was further admitted in PCU. Patient was seen by principal process engineer and recommended to increase isosorbide mononitrate to 120 mg daily, metoprolol 50 mg twice daily. Patient is on Ranexa 1000 mg twice daily. Patient had CABG, four-vessel in 1989 and then subsequently had PCI last 1 in January 2018. EKG unchanged from 05/2019. Decision was made to treat medically as chest pain resolved and patient not a good candidate for cardiac cath secondary to CKD stage IV. Hyperkalemia was treated. Repeat K normal. Patient also has chronic systolic heart failure with most recent echocardiogram in May 2019, EF 40% with a stage III diastolic dysfunction. Other comorbidities include hypertension, dyslipidemia, diabetes mellitus type 2, and CKD stage IV. Patient is on glimepiride 1 mg daily. Fasting profile shows HDL 38 otherwise total cholesterol, LDL and TG within normal limit. Blood pressure is controlled. Patient is [facility] Discharge medication reconciliation done. Discharge follow-up instructions completed. Discharge process discussed with the patient and all questions were answered to patient's satisfaction. Total time spent, exact 35 minutes on discharge meds reconciliation, examination, coordination of care with nurses and ancillary staff, review of imaging and blood test and discussion with the patient on follow-up instructions [] Clinical Impression(s) from Imaging Studies Chest X-Ray 10/11/19 18:50 IMPRESSION: No definite acute or significant abnormality seen. Laboratory Results 10/11/19 18:35: WBC 7.0, RBC 2.86 L, Hgb 9.1 L, Hct 27.2 L, MCV 95.1 H, MCH 31.8, MCHC 33.5, RDW Std Deviation 49.5 H, RDW Coeff of Nica 14.3, Plt Count 143 L, MPV 11.0, Immature Gran % (Auto) 0.100, Neut % (Auto) 55.4, Lymph % (Auto) 29.0, Craven % (Auto) 10.4 H, Eos % (Auto) 4.7, Baso % (Auto) 0.4, Absolute Neuts (auto) 3.9, Absolute Lymphs (auto) 2.04, Nucleated RBC % 0 10/11/19 18:35: Sodium 136, Potassium TNP, Chloride 111 H, Carbon Dioxide 17.0 L , Anion Gap 8, BUN 75 H, Creatinine 3.74 H, Estim Creat Clear Calc 14.69, Est GFR (MDRD) Af Amer 20 L, Est GFR (MDRD) Non-Af 17 L, BUN/Creatinine Ratio 20.1 H , Glucose 122 H, Calcium 9.0, Troponin I 0.041 10/11/19 21:37: Potassium 6.0 H*, Troponin I 0.054 H 10/12/19 00:43: Troponin I 0.078 H 10/12/19 04:54: Sodium 138, Potassium 5.1, Chloride 111 H, Carbon Dioxide 18.0 L , Anion Gap 9, BUN 69 H, Creatinine 3.40 H, Estim Creat Clear Calc 16.16, Est GFR (MDRD) Af Amer 23 L, Est GFR (MDRD) Non-Af 19 L, BUN/Creatinine Ratio 20.3 H , Glucose 102, Calcium 8.9, Triglycerides 185, Cholesterol 122, LDL Cholesterol 47, VLDL Cholesterol 37, HDL Cholesterol 38 L Patient Problems: Active and Suspected Problems (Last Reviewed 05/24/19 @ 12:[address] Samir Birmingham MD) Hyperkalemia (Acute) Chest pain (Acute) Unstable angina (Acute) Subjective: Seen and examined. Patient chest pain has resolved. Patient has been having chest pain for last few weeks, on exertion, progressively worsening with less effort and more duration of pain. He did not have sublingual nitro. Chest pain nonradiating, limited over chest associated with shortness of breath. Patient was hyperkalemic in ER K6.0, was given Kayexalate and potassium is normal. Serial troponins elevated 0.041, 0.054 1.078. Chest pain resolved overnight. Currently on baseline. - Physical Exam Vitals/I&O's: Vital Signs Temp Pulse Resp BP Pulse Ox 97.7 F L 75 17 143/76 H 95 10/12/19 09:02 10/12/19 09:11 10/12/19 09:02 10/12/19 09:11 10/12/19 09:02 Oxygen Delivery Method Room Air Weight: 173 lb 11.588 oz Body Mass Index (BMI) 28.4 Intake and Output for Last 24 Hours 10/10/19 10/11/19 10/12/19 23:59 23:59 23:59 Intake Total 120 / 120 Balance 120 / 120 General: Alert, Oriented x3, Cooperative HEENT: Atraumatic, PERRLA, EOMI, Normocephalic Neck: Supple, No JVD, Negative Carotid Bruits Lungs: Clear to auscultation, No rhonchi, No wheeze, No rales, Diminished Cardiovascular: Regular rate, Regular Rhythm, Normal S1, Normal S2, No murmurs Abdomen: Bowel Sounds Present, Soft, Non Tender, Non-Distended Extremities: No edema, Capillary Refill Less than 3 Seconds Skin: No rashes, No breakdown Musculoskeletal: No Tenderness to Palpation of Joints or Extremities, Arthritic Changes Neurological: Cranial nerves II-XII grossly intact, Deep Tendon Reflexes 2+/4 and Symmetrical, Neuro grossly intact Psych/Mental Status: Normal Affect, Appropriate Laboratory Results 10/11/19 18:35: WBC 7.0, RBC 2.86 L, Hgb 9.1 L, Hct 27.2 L, MCV 95.1 H, MCH 31.8, MCHC 33.5, RDW Std Deviation 49.5 H, RDW Coeff of Nica 14.3, Plt Count 143 L, MPV 11.0, Immature Gran % (Auto) 0.100, Neut % (Auto) 55.4, Lymph % (Auto) 29.0, Craven % (Auto) 10.4 H, Eos % (Auto) 4.7, Baso % (Auto) 0.4, Absolute Neuts (auto) 3.9, Absolute Lymphs (auto) 2.04, Nucleated RBC % 0 10/11/19 18:35: Sodium 136, Potassium TNP, Chloride 111 H, Carbon Dioxide 17.0 L , Anion Gap 8, BUN 75 H, Creatinine 3.74 H, Estim Creat Clear Calc 14.69, Est GFR (MDRD) Af Amer 20 L, Est GFR (MDRD) Non-Af 17 L, BUN/Creatinine Ratio 20.1 H , Glucose 122 H, Calcium 9.0, Troponin I 0.041 10/11/19 21:37: Potassium 6.0 H*, Troponin I 0.054 H 10/12/19 00:43: Troponin I 0.078 H 10/12/19 04:54: Sodium 138, Potassium 5.1, Chloride 111 H, Carbon Dioxide 18.0 L , Anion Gap 9, BUN 69 H, Creatinine 3.40 H, Estim Creat Clear Calc 16.16, Est GFR (MDRD) Af Amer 23 L, Est GFR (MDRD) Non-Af 19 L, BUN/Creatinine Ratio 20.3 H , Glucose 102, Calcium 8.9, Triglycerides 185, Cholesterol 122, LDL Cholesterol 47, VLDL Cholesterol 37, HDL Cholesterol 38 L Current Medications Acetaminophen (Tylenol) 500 mg PO TID PRN PRN PRN Reason: Pain Score 1-10/10 Aspirin (Ecotrin) 81 mg PO DAILY@0800 [facility] Last Admin: 10/12/19 09:08 Dose: 81 mg Documented by: Atorvastatin Calcium (Lipitor) 40 mg PO QHS [facility] Admin: 10/12/19 09:08 Dose: 325 mg Documented by: Furosemide (Lasix) 40 mg PO DAILY PRN PRN PRN Reason: edema [facility] Admin: 10/12/19 09:08 Dose: 1 mg Documented by: Sodium Chloride () 1,000 mls @ 0 mls/hr IV .Q0M [facility] Sodium Chloride () 250 mls @ 15 mls/hr IV .[id number] PRN PRN Reason: Saline Flush Sodium Chloride () 250 mls @ 15 mls/hr IV .[id number] PRN PRN Reason: Additional IVPB Infusion Isosorbide Mononitrate (Imdur) 120 mg PO DAILY [facility] Last Admin: 10/12/19 09:11 Dose: 120 mg Documented by: Loratadine (Claritin) 10 mg PO DAILY [facility] Last Admin: 10/12/19 09:10 Dose: Not Given Documented by: Losartan Potassium (Cozaar) 25 mg PO DAILY [facility] Last Admin: 10/12/19 09:11 Dose: 25 mg Documented by: Metoprolol Tartrate (Lopressor (Beta Janee)) 50 mg PO BID [facility] Last Admin: 10/12/19 09:11 Dose: 50 mg Documented by: Morphine Sulfate () 2 mg IV Q3H PRN PRN PRN Reason: Pain Score 6-10/10 Multivitamins/Minerals (Multivitamin With Minerals (Bkc)) [facility] Admin: 10/12/19 09:08 Dose: 1 tablet Documented by: Nitroglycerin (Nitrostat) 0.4 mg SUBLINGUAL Q5M PRN PRN Reason: CARDIAC/CHEST PAIN Pantoprazole Sodium (Protonix) 40 mg PO DAILY [facility] Last Admin: 10/12/19 09:11 Dose: 40 mg Documented by: Ranolazine (Ranexa) 1,000 mg PO BID [facility] Last Admin: 10/12/19 09:12 Dose: 1,000 mg Documented by: Sodium Chloride () 10 - 40 ml IV UD PRN PRN Reason: SALINE FLUSH Tamsulosin HCl (Flomax) 0.4 mg PO QHS [facility] Discharge Activity: May Not Drive Call your doctor if you observe: Fever of 101 or Higher, Inability to urinate, Inability to have a bowel movement, Shortness of breath, Dizziness, Fainting spells, Swelling in the ankles, Chest pain, Increased palpitations (irregular heartbeat), Calf discomfort, Uncontrolled pain Home Medications: Medications to take at Discharge tamsulosin 0.4 mg capsule 0.4 mg PO QHS 90 Days #90 cap 11/17/18 Acetaminophen [Tylenol] 500 mg PO TID PRN PRN 05/24/19 Multivitamin with Minerals [Multiple Vitamin] 1 tab PO DAILY 05/24/19 Aspirin E.C. [Ecotrin] 81 mg PO DAILY@0800 #30 tab 05/31/19 atorvastatin 40 mg tablet 40 mg PO QHS #90 tab 06/25/19 furosemide 40 mg tablet 40 mg PO DAILY PRN #30 tab 06/25/19 Ferrous Sulfate [Iron] 325 mg PO DAILY 10/11/19 Glimepiride [Amaryl] 1 mg PO DAILY 10/11/19 Lansoprazole [Prevacid] 30 mg PO DAILY 10/11/19 Loratadine [Claritin] 10 mg PO DAILY 10/11/19 Losartan Potassium [Cozaar] 25 mg PO DAILY 10/11/19 Oxycodone HCl/Acetaminophen [Percocet 7.5-325 mg Tablet] 1 tab PO BID 10/11/19 Ranolazine [Ranolazine ER] 1,000 mg PO BID 10/11/19 Isosorbide Mononitrate [Imdur] 120 mg PO DAILY #30 tab 10/12/19 Metoprolol Tartrate [Lopressor (beta janee)] 50 mg PO BID #60 tab 10/12/19 Nitroglycerin (INPATIENT USE) [Nitrostat] 0.4 mg SUBLINGUAL Q5M PRN #90 tab.subl 10/12/19 Following Prescrptions Were Given to Patient: Isosorbide Mononitrate [Imdur] 120 mg PO DAILY #30 tab Transmission Status: [id number] Metoprolol Tartrate [Lopressor (beta janee)] 50 mg PO BID #60 tab Transmission Status: Re[facility] by [id number] Nitroglycerin (INPATIENT USE) [Nitrostat] 0.4 mg SUBLINGUAL Q5M PRN #90 tab.subl PRN Reason: Cardiac/Chest Pain Transmission Status: Re[facility] by [id number] Primary Care Physician: Neal Rodriguez MD [Primary Care Provider] - Please follow up with your Primary Care Physician in: in 2 weeks Please Follow Up With: Raffaele Theodore MD When: in 4 weeks Medical Necessity - Tobacco Use Smoking Status: Never smoker Meaningful Use Info Meaningful Use Diagnoses (Choose all that apply): None applicable OBSV E&M: 72406 Observation care discharge
== END 2019-10-12 09:13 | disposition home or self-care (01) ==
LOC: ED 23:15 → PCU 10-12 00:28
PROVIDERS: Admitting Provider Family Medicine; Emergency Provider Emergency Medicine; PCP Family Medicine; Visit Provider Internal Medicine
DX: I25.110 Atherosclerotic heart disease of native coronary artery with unstable angina pectoris (principal); K21.9 Gastro-esophageal reflux disease without esophagitis; E87.5 Hyperkalemia; I25.2 Old myocardial infarction; I50.43 Acute on chronic combined systolic (congestive) and diastolic (congestive) heart failure; I13.0 Hypertensive heart and chronic kidney disease with heart failure and stage 1 through stage 4 chronic kidney disease, or unspecified chronic kidney disease; Z95.1 Presence of aortocoronary bypass graft; E78.5 Hyperlipidemia, unspecified; K22.70 Barrett's esophagus without dysplasia; Z79.899 Other long term (current) drug therapy; Z79.82 Long term (current) use of aspirin; R94.31 Abnormal electrocardiogram [ECG] [EKG]; E11.22 Type 2 diabetes mellitus with diabetic chronic kidney disease; N18.4 Chronic kidney disease, stage 4 (severe)
CPT/HCPCS: 36415; 71045; 80048; 80061; 84132; 84484; 85025; 93005; 99218; 99285; A4216; G0378

== ENCOUNTER 2019-11-03 01:29 | Observation (INO) | payer MEDICARE, OTHER, SELFPAY ==
[2018-01-21 11:44] VITALS: BMI 29.0
[2019-10-12 00:19] VITALS: BMI 28.4
[2019-11-03] VITALS (25 sets, daily range): BP systolic 105–156; BP diastolic 38–80; PULSE 51–89; RESP 12–18; TEMP 36.2–36.9; O2SAT 96–100; BMI 25.9; BMI 26.0; BMI 27.8
--- NOTE | 2019-11-03 01:44 | EKG12_ITS ---
Test Reason : REPEAT CP Blood Pressure : / mmHG Vent. Rate : 075 BPM Atrial Rate : 075 BPM P-R Int : 246 ms QRS Dur : 102 ms QT Int : 402 ms P-R-T Axes : 054 -11 128 degrees QTc Int : 448 ms Sinus rhythm with 1st degree A-V block with Premature atrial complexes Left ventricular hypertrophy with repolarization abnormality Abnormal ECG Confirmed by MAI MONTE ([id number]), department editor SAURAV LINARES ([id number]) on 11/08/2019 2:41:54 PM Referred By: KAI Confirmed By:MAI MONTE
--- NOTE | 2019-11-03 01:44 | RAD_ITS ---
STUDY: X-RAY CHEST REASON FOR EXAM: Male, 78 years old. CP TECHNIQUE: Single AP portable view of the chest. COMPARISON: 10/11/2019. FINDINGS: The lungs are underexpanded with mild fullness of the central markings which may indicate vascular crowding versus vascular congestion. There is mild bilateral basilar atelectasis with mild left effusion. There is no demonstrated pleural abnormality. Sternal cerclage wires and vascular clips are present from a prior sternotomy and coronary artery bypass graft procedure (CABG). Normal mediastinum and dani. There is atherosclerotic calcification of the aortic arch with tortuosity. There are diffuse degenerative changes of the visualized thoracic spine. There is degenerative osteoarthritis of the bilateral shoulders. There is no demonstrated abnormality of the visualized soft tissue structures of the upper abdomen. RAD/Chest 1 View (Portable) IMPRESSION: Decreased inspiration with vascular crowding versus mild vascular congestion. Mild bilateral basilar atelectasis with mild left effusion. Electronically Signed: Madison Avelar MD at 2:16 EDT , Service support ,
--- NOTE | 2019-11-03 01:48 | ED.VIS.GEN ---
History of Present Illness Chief Complaint: Chest Pain Informant: Patient Onset: Hours Context: Gradual Onset Timing: Waxes and wanes Current Severity: Moderate Maximum Severity: Moderate Narrative: Patient presents secondary to chest pain that started approximately 2 hours ago. Patient states he stood up and walked from his chair to his bed when he developed chest pain. He states this is typical and he takes a nitro. Tonight after taking nitro the pain did not go away. Patient does have known history of coronary disease. He has had bypass surgery as well as 6 prior cardiac stents. Patient was admitted to the hospital earlier this month for chest pain and hyperkalemia. - Past Medical History (1) Barretts esophagus Status: Chronic (2) Non-ST elevated myocardial infarction (non-STEMI) Status: Chronic (3) CHF (congestive heart failure) Status: Chronic (4) Chronic kidney disease (CKD) Status: Chronic (5) History of coronary artery stent placement Status: Resolved Comment: WSB-ODL-RFS-OM of LCx w/ 2.75 x 8 mm Resolute 01/22/18 PTCA of ramus branch of LCx, PTCA/stent to proximal RCA, PTCA/stent to proximal LCx, 1998; unsuccessful PTCA LAD 06/2003; (6) H/O coronary artery bypass surgery Status: Chronic Comment: CABG x 4 JOHNSON to LAD, Sequential SVG-OM and Ramus, RVG-RPDA 08/16/2002 (7) Essential (primary) hypertension Status: Chronic (8) HLD (hyperlipidemia) Status: Chronic Past Medical History - Allergies and Home Meds Allergies/Adverse Reactions: Allergies ramipril [From Altace] Allergy (Intermediate, Verified 06/25/19 13:32) cough Primary Care Physician: Neal Rodriguez MD [Primary Care Provider] - Doctors: Dr. Theodore Surgical History: angioplasty - Cardiac stent x6, coronary bypass surgery, - - Recent knee surgery as in HPI Lives: Spouse/ Significant Other Smoking Status: Never smoker - Family History Maternal Family History: Family History (Last Reviewed 05/24/19 @ 12:[address] Samir Birmingham MD) Father Heart disease Myocardial infarction Brother Diabetes History of PTCA Mother HLD (hyperlipidemia) Family History: Reports: No pertinent history Review of Systems General: Denies: Chills, Fever Eyes: Denies: Visual changes - bilaterally ENT: Denies: Bilateral ear pain Cardiovascular: Reports: Chest pain Respiratory: Denies: Dyspnea Gastrointestinal: Denies: Abdominal pain, Nausea, Vomiting Genitourinary: Denies: Dysuria Musculoskeletal: Denies: Swelling, Extremity Pain Neurological: Denies: Headache Hematologic: Denies: Easy bruising, Easy bleeding Allergy: Denies: Uticaria Physical Exam Vital Signs/Narrative: Vital Signs Temp Pulse Resp BP Pulse Ox 11/03/19 01:30 98.3 F 89 16 147/80 H 99 Inital Vital Signs reviewed: Yes General: Well nourished, Well developed Head: Normocephalic ENT: Moist mucous membranes Neck: Supple Cardiovascular: Regular rate, Regular rhythm Respiratory: No distress, CTA bilaterally Abdomen: Soft, Nontender Extremities: Nontender Skin: Normal color Neurological: Alert, Oriented x3 Psychological: Normal affect Diagnostic/Tx/Re-eval Impressions Chest X-Ray 11/03/19 01:44 IMPRESSION: Decreased inspiration with vascular crowding versus mild vascular congestion. Mild bilateral basilar atelectasis with mild left effusion. Electronically Signed: Madison Avelar MD at 2:16 EDT , Service support , 11/03/19 01:44 Chest 1 View (Portable) [RAD] Stat Laboratory Results 11/03/19 11/03/19 01:58 01:58 WBC 7.4 RBC 2.69 L Hgb 8.9 L Hct 26.3 L MCV 97.8 H MCH 33.1 H MCHC 33.8 RDW Std Deviation 50.4 H RDW Coeff of Nica 14.3 Plt Count 144 L MPV 10.7 Immature Gran % (Auto) 0.300 Neut % (Auto) 52.2 Lymph % (Auto) 33.6 Centre % (Auto) 9.8 Eos % (Auto) 3.7 Baso % (Auto) 0.4 Absolute Neuts (auto) 3.8 Absolute Lymphs (auto) 2.47 Nucleated RBC % 0 Sodium 142 Potassium 5.2 H Chloride 114 H Carbon Dioxide 18.0 L Anion Gap 10 BUN 74 H Creatinine 3.06 H Estim Creat Clear Calc 19.25 Est GFR (MDRD) Af Amer 26 L Est GFR (MDRD) Non-Af 21 L BUN/Creatinine Ratio 24.2 H Glucose 144 H Calcium 8.4 L Troponin I < 0.015 - EKG Initial EKG Interpretation: Sinus Rhythm - Sinus at [address] depression. This appears similar to prior study not slightly improved from October 12, 2019. Follow-up EKG Interpretation: Sinus Rhythm - Sinus at 75 with first-degree AV block. PACs noted. ST depression in the lateral leads is improving when compared to study completed earlier. - Medical Decision Making Patient had received aspirin with EMS. He had taken 3 nitro at home and had 1 nitro with EMS. Patient was given 2 mg of morphine. On repeat evaluation he still rated his pain as a 6 out of 10. Patient was given 1 additional nitro at that time and now states his pain is 0 out of 10. Repeat EKG at that time also shows continued improvement of the lateral ST depression. I will speak with hospitalist regarding admission for cycling of cardiac enzymes. Patient was noted to have abnormal cardiac enzymes on admission earlier this month. Because of his chronic renal failure symptoms were treated medically. Patient now is noted to have dynamic EKG changes. ED Disposition - Plan for ED Patient: Disposition: Acute Care Hospital [facility] Diagnosis: Chest pain Referrals: Neal Rodriguez MD [Primary Care Provider] -
[2019-11-03] MEDS: Morphine 4 MG/ML Syringe 2 MG IV (01:56)
--- NOTE | 2019-11-03 02:00 | EKG12_ITS ---
Test Reason : CP ADMISSION Blood Pressure : / mmHG Vent. Rate : 071 BPM Atrial Rate : 071 BPM P-R Int : 268 ms QRS Dur : 096 ms QT Int : 418 ms P-R-T Axes : 073 -11 140 degrees QTc Int : 454 ms Sinus rhythm with 1st degree A-V block Left ventricular hypertrophy Nonspecific ST and T wave abnormality Abnormal ECG Confirmed by EFE ZAMORA, EDWINA ([id number]), marketing editor SAURAV LINARES ([id number]) on 11/08/2019 2:57:07 PM Referred By: SELENA Confirmed By:EDWINA WILKS MD
[2019-11-03 02:04] LABS: Absolute Lymphocyte Count 2.47 X10^3/uL (0.83-4.51); Absolute Neutrophil Count 3.8 X10^3/uL (2.0-7.7); Basophil# 0.03 X10^3/uL; Basophil% 0.4 % (0-1); Eosinophil# 0.27 X10^3/uL; Eosinophils% 3.7 % (0-5); Hematocrit 26.3 % (40-54); Hemoglobin 8.9 g/dL (13.0-16.5); Lymphocyte # 2.47 X10^3/ul (4.0); Lymphocyte % 33.6 % (19-41); Mean Corp Hgb Conc 33.8 g/dL (32-36); Mean Corpuscular Hgb 33.1 pg (27.0-32.0); Mean Corpuscular Volume 97.8 fL (80-94); Mean Platelet Vol. 10.7 fl (6.2-12.0); Monocyte# 0.72 X10^3/uL; Monocyte% 9.8 % (0-10); NRBC Flagged by Analyzer 0 % (0-5); Neutrophil # 3.84 X10^3/uL (2.7-7.7); Neutrophil % 52.2 % (47-70); Platelet Count 144 K/mm3 (150-450); RBC Distribution Width CV 14.3 % (11.6-14.6); RBC Distribution Width SD 50.4 fl (35.1-43.9); Red Blood Count 2.69 M/mm3 (4.6-6.2); White Blood Count 7.4 K/mm3 (4.4-11.0)
[2019-11-03 02:22] LABS: Anion Gap 10 (5-15); BUN 74 mg/dL (7-18); BUN/Creat Ratio 24.2 RATIO (10-20); Calcium,Total 8.4 mg/dL (8.5-10.1); Chloride 114 mmol/L (98-107); Creatinine, Serum 3.06 mg/dL (0.70-1.30); EST Glomerular Filtration Rate 21 mL/min (>60); Est Glom Filt Rate - Afr Amer 26 mL/min (>60); Estimated Creatinine Clearance 19.25 ml/min; Glucose 144 mg/dL (74-106); Potassium 5.2 mmol/L (3.5-5.1); Sodium Level 142 mmol/L (136-145)
--- NOTE | 2019-11-03 02:32 | EKG12_ITS ---
Test Reason : REPEAT CP Blood Pressure : / mmHG Vent. Rate : 071 BPM Atrial Rate : 071 BPM P-R Int : 248 ms QRS Dur : 100 ms QT Int : 406 ms P-R-T Axes : 066 -13 136 degrees QTc Int : 441 ms Sinus rhythm with 1st degree A-V block with Premature atrial complexes Left ventricular hypertrophy with repolarization abnormality Abnormal ECG Confirmed by JAYMIE ZAMORA, SUKUMAR ([id number]), rewrite editor SAURAV LINARES ([id number]) on 11/09/2019 10:49:52 AM Referred By: KAI Confirmed By:SUKMUAR COON MD
[2019-11-03] MEDS: Nitroglycerin (INPATIENT USE) 0.4 MG TAB.SUBL SUBLINGUAL (02:45)
--- NOTE | 2019-11-03 03:16 | HP.PCM_ITS ---
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 (6) CHF (congestive heart failure) Status: Chronic Qualifiers: Heart failure type: systolic Heart failure chronicity: chronic Qualified Code(s): I50.22 - Chronic systolic (congestive) heart failure (7) Chronic kidney disease (CKD) Status: Chronic Qualifiers: Chronic kidney disease stage: unspecified stage Qualified Code(s): N18.9 - Chronic kidney disease, unspecified (8) Atherosclerosis of coronary artery bypass graft without angina pectoris Status: Chronic Comment: CABG x 4 JOHNSON to LAD, Sequential SVG-OM and Ramus, RVG-RPDA 08/16/2002 PCC-SPA-FMY-OM w/ 2.75 x 8 mm Resolute 01/21/18 (9) H/O coronary artery bypass surgery Status: Chronic Comment: CABG x 4 JOHNSON to LAD, Sequential SVG-OM and Ramus, RVG-RPDA 08/16/2002 (10) Essential (primary) hypertension Status: Chronic (11) HLD (hyperlipidemia) Status: Chronic Qualifiers: Hyperlipidemia type: pure hypercholesterolemia Qualified Code(s): E78.00 - Pure hypercholesterolemia, unspecified (12) Atherosclerotic heart disease of b[place] coronary artery without angina pectoris Status: Chronic Qualifiers: [place] vs. transplanted heart: barrow heart Qualified Code(s): I25.10 - Atherosclerotic heart disease of barrow coronary artery without angina pectoris Comment: CABG x 4 JOHNSON to LAD, SVG to obtuse marginal LCx, sequential SVG to intermediate, and SVG to right PDA 08/2002 PTCA of ramus branch of LCx, PTCA/stent to proximal RCA, PTCA/stent to proximal LCx, 1998; unsuccessful PTCA LAD 06/2003; IPA-TCV-DEZ-OM of LCx w/ 2.75 x 8 mm Resolute 01/21/18 History of Present Illness Date of Admission: 11/03/19 Chief Complaint: chest pain The patient is a 78 year old M with a significant history of CAD status post quadruple bypass and 6 coronary stent; CKD stage IV; hypertension; hyperlipidemia and congestive heart failure who presents to the emergency department with chest pain that started while patient was lying in bed attempting to sleep. He chest pain started about 1 hour prior to presentation. Chest pain is substernal. He rated the pain as 9 out of 10. He described the pain as a dull pressure radiating to both arms. He typically has chest pain every night and he takes nitroglycerin. Typically with after a second nitroglycerin his pain goes away. However this time around even with a third nitroglycerin his pain only moved from a 9 to a 7 or an 8. He denies any shortness of breath; diaphoresis; nausea or vomiting. At emergency department his EKG showed a significant ST depression in lateral leads. Although the initial EKG was concerning it was unchanged from previous. The ST depression was noted to be significantly improving with 2 subsequent EKGs. At emergency department he was given morphine and nitroglycerin that momentarily brought his pain to a 5 out of 10. However his pain began to increase again. Of note patient was admitted on 10/11/2019 and will discharge 10/12/2019 withhyperkalemia and chest pain. Cardiac Cath was deferred at that time because of his history of CKD stage IV. His isosorbide was escalated. Past Medical History Past Medical History (Chronic Problems): Chronic Problems (Last Reviewed 11/03/19 @ 04:[address] 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) CHF (congestive heart failure) (Chronic) Chronic kidney disease (CKD) (Chronic) Atherosclerosis of coronary artery bypass graft without angina pectoris (Chroni c) CABG x 4 JOHNSON to LAD, Sequential SVG-OM and Ramus, RVG-RPDA 08/16/2002 BAO-HCY-FPR-OM w/ 2.75 x 8 mm Resolute 01/21/18 H/O coronary artery bypass surgery (Chronic 08/16/02) CABG x 4 JOHNSON to LAD, Sequential SVG-OM and Ramus, RVG-RPDA 08/16/2002 Essential (primary) hypertension (Chronic) HLD (hyperlipidemia) (Chronic) Atherosclerotic heart disease of barrow coronary artery without angina pectoris (Chronic) CABG x 4 JOHNSON to LAD, SVG to obtuse marginal LCx, sequential SVG to intermediate, and SVG to right PDA 08/2002 PTCA of ramus branch of LCx, PTCA/stent to proximal RCA, PTCA/stent to proximal LCx, 1998; unsuccessful PTCA LAD 06/2003; TUB-KSG-SCY-OM of LCx w/ 2.75 x 8 mm Resolute 01/21/18 Medical History: Medical History (Last Reviewed 11/03/19 @ 04:[address] Rhett Childress MD) Chronic kidney disease (CKD) (Chronic) N18.9 Atherosclerosis of coronary artery bypass graft without angina pectoris (Chronic) I25.810 CABG x 4 JOHNSON to LAD, Sequential SVG-OM and Ramus, RVG-RPDA 08/16/2002 JNA-XBK-QKY-OM w/ 2.75 x 8 mm Resolute 01/21/18 Essential (primary) hypertension (Chronic) I10 HLD (hyperlipidemia) (Chronic) E78.5 Atherosclerotic heart disease of barrow coronary artery without angina pectoris (Chronic) I25.10 CABG x 4 JOHNSON to LAD, SVG to obtuse marginal LCx, sequential SVG to intermediate, and SVG to right PDA 08/2002 PTCA of ramus branch of LCx, PTCA/stent to proximal RCA, PTCA/stent to proximal LCx, 1998; unsuccessful PTCA LAD 06/2003; ZEZ-SZM-DSH-OM of LCx w/ 2.75 x 8 mm Resolute 01/21/18 Type 2 diabetes mellitus E11.9 Abnormal nuclear stress test (Resolved) R94.39 Abnormal result of cardiovascular function study, unspecified (Resolved) R94.30 steroid injections lumbar (Resolved) Abnormal electrocardiogram (Inactive) R94.31 Fatigue (Inactive) R53.83 High risk medication use (Inactive) Z79.899 Shortness of breath (Inactive) R06.02 Allergies ramipril [From Altace] Allergy (Intermediate, Verified 06/25/19 13:32) cough Home Medications: Ambulatory Orders Medication Instructions Recorded tamsulosin 0.4 mg capsule 0.4 mg PO QHS 90 Days #90 cap 11/17/18 Acetaminophen [Tylenol] 500 mg PO TID PRN PRN 05/24/19 Multivitamin with Minerals 1 tab PO DAILY 05/24/19 [Multiple Vitamin] Aspirin E.C. [Ecotrin] 81 mg PO DAILY@0800 #30 tab 05/31/19 atorvastatin 40 mg tablet 40 mg PO QHS #90 tab 06/25/19 furosemide 40 mg tablet 40 mg PO DAILY PRN #30 tab 06/25/19 Ferrous Sulfate [Iron] 325 mg PO DAILY 10/11/19 Glimepiride [Amaryl] 1 mg PO DAILY 10/11/19 Lansoprazole [Prevacid] 30 mg PO DAILY 10/11/19 Loratadine [Claritin] 10 mg PO DAILY 10/11/19 Losartan Potassium [Cozaar] 25 mg PO DAILY 10/11/19 Oxycodone HCl/Acetaminophen 1 tab PO BID 10/11/19 [Percocet 7.5-325 mg Tablet] Ranolazine [Ranolazine ER] 1,000 mg PO BID 10/11/19 Isosorbide Mononitrate [Imdur] 120 mg PO DAILY #30 tab 10/12/19 Metoprolol Tartrate [Lopressor 50 mg PO BID #60 tab 10/12/19 (beta deneen)] Nitroglycerin (INPATIENT USE) 0.4 mg SUBLINGUAL Q5M PRN #90 10/12/19 [Nitrostat] tab.subl Diclofenac Sodium [Voltaren] 1 applicatio TRANSDERM. PRN PRN 11/03/19 Surgical History: Surgical History (Last Reviewed 11/03/19 @ 04:[address] Rhett Childress MD) History of coronary artery stent placement (Resolved) Onset Date: 01/21/18 Z95.5 NST-DTX-LWU-OM of LCx w/ 2.75 x 8 mm Resolute 01/22/18 PTCA of ramus branch of LCx, PTCA/stent to proximal RCA, PTCA/stent to proximal LCx, 1998; unsuccessful PTCA LAD 06/2003; H/O coronary artery bypass surgery (Chronic) Onset Date: 08/16/02 Z95.1 CABG x 4 JOHNSON to LAD, Sequential SVG-OM and Ramus, RVG-RPDA 08/16/2002 History of total right knee replacement Z96.651 uvulectomy S/P PTCA (percutaneous transluminal coronary angioplasty) Z98.61 PTCA of Ramus branch of CX, PTCA/stent proximal RCA. 03/1999 PTCA/stent proximal CX. Attempted/unsuccessful PTCA LAD 06/2003; stent SVG to OM 2018 Surgical History: angioplasty - Cardiac stent x6, coronary bypass surgery, - - Recent knee surgery as in HPI Lives: Spouse/ Significant Other Smoking Status: Never smoker - *Family History Maternal Family History: Family History (Last Reviewed 11/03/19 @ 04:[address] Rhett Childress MD) Father Heart disease Myocardial infarction Brother Diabetes History of PTCA Mother HLD (hyperlipidemia) History Items: No pertinent history Review of Systems Constitutional: Denies: Chills, Fever, Weight Change HEENT: Denies: Head Aches, Sinus Congestion, Sinus Drainage Cardiovascular: Reports: Chest Pain. Denies: Palpitations Respiratory: Denies: Cough, Shortness of breath at rest, Sputum production Gastrointestinal: Denies: Abdominal Pain, Nausea, Vomiting Genitourinary: Denies: Dysuria Musculoskeletal: Denies: Joint Pain, Joint Tenderness Skin: Denies: Rash, Wounds Neurological: Denies: Numbness, Tingling, Focal weakness Psychiatric: Denies: Anxiety, Depression, Homicidal Ideations, Suicidal Ideations Hematologic/ Lymphatic: Denies: Easy Bruising, Easy Bleeding VTE Information - Inpt Only VTE Present on Admission: No VTE Mechan Device Prophylaxis: SCD's VTE Pharm Prophylaxis ordered?: No - Physical Exam Vitals/I&O's: Vital Signs Temp Pulse Resp BP Pulse Ox 98.3 F 80 18 152/71 H 97 11/03/19 01:30 11/03/19 02:45 11/03/19 02:39 11/03/19 02:45 11/03/19 02:39 Oxygen Delivery Method Room Air Weight: 77.564 kg Body Mass Index (BMI) 25.9 General: Alert, Oriented x3, Cooperative HEENT: Atraumatic, PERRLA, EOMI, Normocephalic Neck: Supple, Trachea Midline Lungs: Clear to auscultation, Normal air movement, No rhonchi, No wheeze, No rales Cardiovascular: Regular rate, No murmurs, Gallops Abdomen: Bowel Sounds Present, Soft, Non Tender Extremities: No edema, Capillary Refill Less than 3 Seconds Skin: No rashes, No breakdown Musculoskeletal: No Tenderness to Palpation of Joints or Extremities Neurological: Cranial nerves II-XII grossly intact Psych/Mental Status: Normal Affect, Appropriate Laboratory Results 11/03/19 01:58: WBC 7.4, RBC 2.69 L, Hgb 8.9 L, Hct 26.3 L, MCV 97.8 H, MCH 33.1 H, MCHC 33.8, RDW Std Deviation 50.4 H, RDW Coeff of Nica 14.3, Plt Count 144 L, MPV 10.7, Immature Gran % (Auto) 0.300, Neut % (Auto) 52.2, Lymph % (Auto) 33.6, [place] % (Auto) 9.8, Eos % (Auto) 3.7, Baso % (Auto) 0.4, Absolute Neuts (auto) 3.8, Absolute Lymphs (auto) 2.47, Nucleated RBC % 0 11/03/19 01:58: Sodium 142, Potassium 5.2 H, Chloride 114 H, Carbon Dioxide 18.0 L, Anion Gap 10, BUN 74 H, Creatinine 3.06 H, Estim Creat Clear Calc 19.25, Est GFR (MDRD) Af Amer 26 L, Est GFR (MDRD) Non-Af 21 L, BUN/Creatinine Ratio 24.2 H, Glucose 144 H, Calcium 8.4 L, Troponin I < 0.015 Current Medications Sodium Chloride () 1,000 mls @ 0 mls/hr IV .Q0M [facility] Assessment/Plan All Active Problems (Last Reviewed 11/03/19 @ 04:[address] Rhett Childress MD) Hyperkalemia (Acute) Unstable angina (Acute) History of coronary artery stent placement (Resolved 01/21/18) Abnormal nuclear stress test (Resolved) Abnormal result of cardiovascular function study, unspecified (Resolved) steroid injections lumbar (Resolved) The patient is a 78 year old M with a significant history of CAD status post quadruple bypass and 6 coronary stent; EKG stage IV; hypertension; hyperli pidemia and congestive heart failure who presents at the emergency department with chest pain that started while patient was lying in bed attempting to sleep and with some mild improvement with nitroglycerin and EKG changes consistent with unstable angina. unstable angina Place on a monitored bed at PCU Impression of chest x-ray: Decrease inspiration with vascular crowding versus mild vascular congestion. Mild bilateral basilar atelectasis with mild left effusion. EKG independently reviewed confirms ST depression in lateral leads which improved with subsequent EKGs. Old records reviewed: EKG with ST depression in lateral leads. ASA 81 mg p.o. daily SL NTG 0.4 mg prn as needed for chest pain Morphine as needed for pain Statin: Continue home Lipitor 40 mg nightly. Imdur continued. Serial cardiac enzymes Stat EKG as needed for chest pain Was previously on Ranexa by reportedly he cannot tolerate Ranexa. Cardiac catheterization on 01/12/2018-diagnosed recommendations?interval PCI of the saphenous vein graft to circumflex artery after appropriate hydration and repeat chemistry profile obtained. Cardiac catheterization 01/21/2018?intervention?successful PTCA/ALBAN SVG to obtuse marginal (distal) using resolute integrity 2.75 x 8 mm. Keep n.p.o. and consider discussing case with alarm security or surveillance monitor. Congestive heart failure (heart failure with reduced ejection fraction) Cardiac catheterization on 01/12/2018 showed an ejection fraction of 50%.; Mild anterior hypokinesis Lasix continued Cozaar continue Metoprolol continued CKD stage IV Stable Hyperkalemia Potassium presentation 5.2. Trend. BPH Tamsulosin continued. DVT prophylaxis SCD while planning for cardiac work up for chest pain OBSV E&M: [id number] Initial observation care L3
[2019-11-03] MEDS: Morphine 2 MG/ML Syringe IV (03:52)
--- NOTE | 2019-11-03 05:01 | EKG12_ITS ---
Test Reason : CP Blood Pressure : / mmHG Vent. Rate : 081 BPM Atrial Rate : 081 BPM P-R Int : 256 ms QRS Dur : 102 ms QT Int : 400 ms P-R-T Axes : 098 -06 124 degrees QTc Int : 464 ms Sinus rhythm with 1st degree A-V block with Premature atrial complexes Consider right ventricular involvement in acute inferior infarct Non-specific ST & T wave changes Abnormal ECG When compared with ECG of 12-OCT-2019 00:27, Premature atrial complexes are now Present Confirmed by MAI MONTE ([id number]), video editor SANTIAGO CHAVEZ ([id number]) on 11/11/2019 3:19:03 PM Referred By: KAI Confirmed By:MAI MONTE
[2019-11-03 05:38] LABS: International Normalized Ratio 1.1
[2019-11-03 05:51] LABS: Bedside Glucose 124 mg/dL (70-110)
--- NOTE | 2019-11-03 08:28 | CON.PCM_ITS ---
Reason for Consult Date of Consultation: 11/03/19 Reason for Consultation: Chest pain History of Present Illness: The patient is a 78 year old M who presented to the ER yesterday with complaints of chest discomfort. This is his second hospitalization in the month. He says that since his last discharge he had been doing well and then started having chest discomfort with minimal exertion and then also had some at rest. He had been discharged on medical therapy including Ranexa and nitrates but he said that he was getting confused on the Ranexa and not feeling well and discontinued it. He is a gentleman with a history of coronary artery disease status post coronary artery bypass surgery. He had a left internal mammary artery to left anterior descending artery which was noted to be preserved and patent the circumflex artery had moderate disease in the mid segment and the saphenous vein graft to the right coronary artery was noted to be patent. He had a stress test which was abnormal and underwent a diagnostic heart catheterization where he was noted to have a 99% stenosis of the SVG to the OM. He underwent stenting of this vessel. This was in January 23 Patient was admitted and evaluated at [facility] in May 2019 after left knee surgery for worsening dyspnea on exertion and NSTEMI. He was noted to have worsening kidney function and heart catheterization was deferred on such account. He continued with medical management and was discharge for outpatient follow-up. He has unfortunately continued to have a decline in his renal function as well as a baseline anemia. At his last hospitalization medical therapy was recommended as it was felt that his medication reduction had led to his clinical condition. He has been somewhat short of breath but does not appear to be significant. He denies any pedal edema no paroxysmal nocturnal dyspnea. He has had no polo syncopal episodes. He has had some rest chest discomfort. In the emergency room he was evaluated and EKG was done which demonstrated lateral ST changes. He is currently in the progressive care unit and pain-free. He lives at home with his . Past Medical History Allergies/Adverse Reactions: Allergies ramipril [From Altace] Allergy (Intermediate, Verified 06/25/19 13:32) cough Home Medications: Ambulatory Orders Medication Instructions Recorded tamsulosin 0.4 mg capsule 0.4 mg PO QHS 90 Days #90 cap 11/17/18 Acetaminophen [Tylenol] 500 mg PO TID PRN PRN 05/24/19 Multivitamin with Minerals 1 tab PO DAILY 05/24/19 [Multiple Vitamin] Aspirin E.C. [Ecotrin] 81 mg PO DAILY@0800 #30 tab 05/31/19 atorvastatin 40 mg tablet 40 mg PO QHS #90 tab 06/25/19 furosemide 40 mg tablet 40 mg PO DAILY PRN #30 tab 06/25/19 Ferrous Sulfate [Iron] 325 mg PO DAILY 10/11/19 Glimepiride [Amaryl] 1 mg PO DAILY 10/11/19 Lansoprazole [Prevacid] 30 mg PO DAILY 10/11/19 Loratadine [Claritin] 10 mg PO DAILY 10/11/19 Losartan Potassium [Cozaar] 25 mg PO DAILY 10/11/19 Oxycodone HCl/Acetaminophen 1 tab PO BID 10/11/19 [Percocet 7.5-325 mg Tablet] Ranolazine [Ranolazine ER] 1,000 mg PO BID 10/11/19 Isosorbide Mononitrate [Imdur] 120 mg PO DAILY #30 tab 10/12/19 Metoprolol Tartrate [Lopressor 50 mg PO BID #60 tab 10/12/19 (beta deneen)] Nitroglycerin (INPATIENT USE) 0.4 mg SUBLINGUAL Q5M PRN #90 10/12/19 [Nitrostat] tab.subl Diclofenac Sodium [Voltaren] 1 applicatio TRANSDERM. PRN PRN 11/03/19 Past Medical History (Chronic Problems): Chronic Problems (Last Reviewed 11/03/19 @ 04:[address] 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) CHF (congestive heart failure) (Chronic) Chronic kidney disease (CKD) (Chronic) Atherosclerosis of coronary artery bypass graft without angina pectoris (Chronic) CABG x 4 JOHNSON to LAD, Sequential SVG-OM and Ramus, RVG-RPDA 08/16/2002 LEV-LEL-NFI-OM w/ 2.75 x 8 mm Resolute 01/21/18 H/O coronary artery bypass surgery (Chronic 08/16/02) CABG x 4 JOHNSON to LAD, Sequential SVG-OM and Ramus, RVG-RPDA 08/16/2002 Essential (primary) hypertension (Chronic) HLD (hyperlipidemia) (Chronic) Atherosclerotic heart disease of [place] coronary artery without angina pectoris (Chronic) CABG x 4 JOHNSON to LAD, SVG to obtuse marginal LCx, sequential SVG to intermediate, and SVG to right PDA 08/2002 PTCA of ramus branch of LCx, PTCA/stent to proximal RCA, PTCA/stent to proximal LCx, 1998; unsuccessful PTCA LAD 06/2003; DSE-FRR-DMT-OM of LCx w/ 2.75 x 8 mm Resolute 01/21/18 Surgical History: angioplasty - Cardiac stent x6, coronary bypass surgery, - - Recent knee surgery as in HPI - *Family History Maternal Family History: Family History (Last Reviewed 11/03/19 @ 04:[address] Rhett Childress MD) Father Heart disease Myocardial infarction Brother Diabetes History of PTCA Mother HLD (hyperlipidemia) History Items: No pertinent history Lives: Spouse/ Significant Other Smoking Status: Never smoker Alcohol: None Drugs: None Review of Systems - Review of Systems General: Denies: Fever, Night Sweats, Fatigue HEENT: Denies: Vision Change Cardiovascular: Reports: Chest Discomfort, Chest Discomfort at Rest, Chest Discomfort with Exertion, Lightheadedness. Denies: Shortness of Breath, Orthop grupo, PND, Peripheral Edema, Palpitations, Dizziness, Near Syncope, Syncope Respiratory: Denies: Cough, Sputum Production, Hemoptysis Gastrointestinal: Denies: Hematemesis, Hematochezia, Melena Genitourinary: Denies: Dysuria, Hematuria Muscoloskeletal: Denies: Myalgias Skin: Denies: Rash Neurological: Reports: Dizziness Psychiatric: Denies: Anxiety Endocrine: Denies: Heat Intolerance Hematologic/ Lymphatic: Reports: Anemia Subjectve: Pleasant gentleman in no distress at this time Objective: Vital Signs Temp Pulse Resp BP Pulse Ox 97.8 F 65 18 156/78 H 100 11/03/19 04:15 11/03/19 07:19 11/03/19 04:15 11/03/19 04:15 11/03/19 04:15 Oxygen Delivery Method Room Air Weight: 172 lb 13.478 oz Body Mass Index (BMI) 27.8 General: Awake, Alert, Oriented x 3 HEENT: PERRL, EOMI, Sclera Non Icteric Neck: Supple, Good ROM, No Lymph Node Enlargement Lungs: Clear to auscultation Cardiovascular: Regular Rhythm, Normal S1, Normal S2, No Murmurs, No Rubs, No Gallops Vascular: No Carotid Bruits, Normal Femoral Pulses, Normal Radial Pulses, Normal Dorsalis Pedal Pulse, Normal Posterior Tibial Pulses Abdomen: Bowel Sounds Present, Soft, Non Tender, No HSM, No Organomegaly Extremities: No Cyanosis, No Clubbing, No edema Musculoskeletal: No Erythema Skin: No Rashes Lymphatic: No Lymph Node Enlargement Neurological: No Focal Motor or Sensory Deficit Psych/Mental Status: Appropriate 11/03/19 01:58: WBC 7.4, RBC 2.69 L, Hgb 8.9 L, Hct 26.3 L, MCV 97.8 H, MCH 33.1 H, MCHC 33.8, Plt Count 144 L, MPV 10.7, Immature Gran % (Auto) 0.300, Neut % (Auto) 52.2, Lymph % (Auto) 33.6, Sumner % (Auto) 9.8, Eos % (Auto) 3.7, Baso % (Auto) 0.4, Absolute Neuts (auto) 3.8, Nucleated RBC % 0 11/03/19 01:58: Sodium 142, Potassium 5.2 H, Chloride 114 H, Carbon Dioxide 18.0 L, Anion Gap 10, BUN 74 H, Creatinine 3.06 H, Est GFR (MDRD) Af Amer 26 L, Est GFR (MDRD) Non-Af 21 L, BUN/Creatinine Ratio 24.2 H, Glucose 144 H, Calcium 8.4 L, Troponin I < 0.015 11/03/19 04:58: PT 14.0, INR 1.1 11/03/19 04:58: Troponin I 0.174 H 11/03/19 07:35: Troponin I 1.310 H* Rhythm: EKG: Normal sinus rhythm with lateral ST depression in leads V5 and V6 ECHO: Stress Test: Cardiac Cath: PCI: CT Surgery: Holter monitor: EPS: PPM: CXR: Chest CT Scan: Assessment/Plan 1. Atherosclerosis of [place] coronary artery of [place] heart with angina pectoris and an non-ST elevation myocardial infarction I25.10 Patient has been having some chest discomfort which appears to be a change in pattern from before. Based on this pattern and the continued chest discomfort I have discussed with him and would proceed with a cardiac catheterization. This appears to be fairly high risk due to his significant renal dysfunction. The risk benefits and alternatives have been explained to him he understands and agrees to proceed. * He will be hydrated with intravenous fluids and a limited dye load would be recommended. * * Increase isosorbide back to 120 mg a day * Increase Lopressor 50 mg twice a day * 2. H/O coronary artery bypass surgery Z95.1 CABG x 4 JOHNSON to LAD, Sequential SVG-OM and Ramus, RVG-RPDA 08/16/2002 His heart catheterization January 2018 showed SVG to second OM with distal anastomotic lesion of 9 9%, JOHNSON to LAD is patent, SVG to RCA with mid lesion of 50%, SVG to RCA with distal lesion of 65%, he underwent stenting to SVG to OM on 01/21/2018. There was concerns for his most recent non-ST elevated myocardial infarction that this may be a progression of coronary artery disease. However, given his chronic kidney disease, heart catheterization was deferred. Medical management was recommended. At this time we would pursue the cardiac catheterization. 3. History of coronary artery stent placement Z95.5 PID-SYB-QBN-OM of LCx w/ 2.75 x 8 mm Resolute 01/22/18 PTCA of ramus branch of LCx, PTCA/stent to proximal RCA, PTCA/stent to proximal LCx, 1998; unsuccessful PTCA LAD 06/2003; He will continue risk factor and lifestyle modification. 4. Chronic systolic congestive heart failure I50.22 His most recent echocardiogram in May 2019 showed ejection fraction of 40% and stage III diastolic dysfunction. His LVEF is worse compared to prior. He is not appear to be in a fluid volume overloaded state. His weight has remained stable. He is currently taking his Lasix on an as-needed basis. A repeat echocardiogram will be performed. 5. Essential (primary) hypertension I10 Plan His blood pressure slight elevated today. We will see how he does after the change in the beta-deneen and isosorbide medications. 6. Pure hypercholesterolemia E78.00 Plan He will continue with current statin medication. 7. Chronic kidney disease, unspecified CKD stage N18.9 Plan Patient's curator of manuscripts will be contacted to see if any treatment recommendations can be made. Thank you for allowing me to participate in the care of your patient. Please don't hesitate to call if any issues arise. Essential Procedure Criteria Procedure Essential: Yes Criteria Note: On 09/21/2019 the [facility] ([facility]) Public Order signed by [facility] Director Jess Hough M.D., regarding the Management of Non- Essential Surgeries and Procedures for the purpose of preserving Personal Protective Equipment (PPE) and critical hospital capacity and resources within [place] went into effect as of 09/22/2019 at 5:00PM. According to the [facility] Public Order: This action will remain in full force and effect until the State of Emergency declared by the Governor no longer exists or the Director of the [facility] rescinds or modifies this Order.. This [facility] order stated all non-essential or elective surgeries and procedures that utilize PPE should be delayed unless there is undue risk to the current or future health of a patient. After re viewing the aforementioned [facility] Public Order and the patients clinical case, I have determined that the scheduled procedure meets the criteria to go forward. Risk to Patient if Procedure Delayed: Risk of rapidly worsening to severe symptoms if delayed
--- NOTE | 2019-11-03 08:40 | ECHOD_ITS ---
Reason For Study: S/P MS Procedure This was a 2D Doppler, Color Flow transthoracic echocardiogram. Exam performed portable in patient room. Left Ventricle Normal LV size. The estimated ejection fraction is 50 %. Infero-Basal: Akinetic. Posterior-Basal: Hypokinetic. Basal inferoseptal: Mildly hypokinetic. Mid-Inferior: Akinetic. The rest of the wall segments are normal. Right Ventricle Normal RV size. Normal systolic function. Atria The left atrium is moderately enlarged. Normal right atrium. Mitral Valve There is mild mitral annular calcification. Mild (1+) eccentric mitral valve insufficiency. Tricuspid Valve Normal tricuspid valve. Mild (1+) tricuspid valve insufficiency. Pulmonary artery systolic pressure is 24 mmHg. Aortic Valve Trisinus/trileaflet aortic valve. Mild focal aortic valve calcification. Mild (1+) eccentric aortic valve insufficiency. Pulmonic Valve Normal pulmonic valve. Great Vessels Normal aortic root. The pulmonary artery is normal size. Normal inferior vena cava. Pericardium/Pleural No pericardial effusion. MMode/2D Measurements & Calculations LVIDd: 5.1 cm IVSd: 1.2 cm LVOT diam: 2.2 cm LVIDs: 4.4 cm LVPWd: 0.92 cm LVOT area: 3.7 cm2 RVDd: 3.9 cm FS: 13.9 % Ao root diam: 3.2 cm LAV(MOD-bp): 80.1 ml LA A4 area: 25.8 cm2 LAV(MOD-bp) Indexed: 42.7 ml/m2 LAV(MOD-sp2): 75.7 ml LAV(MOD-sp4): 86.0 ml LA dimension(2D): 4.9 cm RA A4 area: 15.5 cm2 Doppler Measurements & Calculations MV A max thang: 81.2 cm/sec Lat Peak E' Thang: 4.7 cm/sec Med Peak E' Thang: 3.7 cm/sec Ao V2 max: 145.5 cm/sec AI max thang: 332.8 cm/sec LV V1 max: 112.2 cm/sec Ao max P.5 mmHg AI max P.3 mmHg LV V1 max P.0 mmHg AIDA(V,D): 2.9 cm2 AI dec slope: 180.6 cm/sec2 AI P1/2t: 539.8 msec PA V2 max: 91.3 cm/sec TR max thang: 217.6 cm/sec TR max P.9 mmHg Interpretation Summary Normal LV size. The estimated ejection fraction is 50 %. Mild (1+) eccentric aortic valve insufficiency. Mild (1+) tricuspid valve insufficiency. Mild (1+) eccentric mitral valve insufficiency. Pulmonary artery systolic pressure is 24 mmHg. The left atrium is moderately enlarged. Ordering Physician: Raffaele Theodore Performed By: Maliha Becerril, ADELA
[2019-11-03] MEDS: 0.9% Normal Saline 1,000 ML 75 ML IV (08:42)
[2019-11-03] MEDS: Metoprolol Tartrate 50 MG Tablet PO (08:43)
[2019-11-03] MEDS: Aspirin E.C. 81 MG Tablet PO (08:43)
[2019-11-03] MEDS: Losartan Potassium 25 MG Tablet PO (08:43)
[2019-11-03] MEDS: oxyCODONE 5 MG Tablet 7.5 MG PO (08:53)
[2019-11-03] MEDS: Clopidogrel Bisulfate 300 MG Tablet PO (08:53)
[2019-11-03 11:35] LABS: Bedside Glucose 85 mg/dL (70-110)
--- NOTE | 2019-11-03 12:59 | CL.D_ITS ---
Patient Name: JADYN RAMOS Study Date: 11/03/2019 Performing: Raffaele Theodore MD Ht: 66.14 inches 168 cm : 1940 Wt: 171.96 lbs 78 kg Age: 78 Gender: male BSA: 1.88 PROCEDURE(S) PERFORMED [id number] CLINICAL PROFILE AND INDICATIONS Indications: ACS <= 24 hrs Heart Failure: None Stress/Imaging Stress/Image Study Performed: No CONCLUSIONS Severe [place] coronary artery disease. The left internal mammary artery was previously noted to be p atent. There is severe disease involving the circumflex artery and right coronary artery. These wer e not looked at at this time for dye preservation. RECOMMENDATIONS Will recommend staged PCI. Above discussed with patient and the liquor bridge operator. Audrey t would receive a unit of packed red blood cells, continue on aspirin and clopidogrel and be brought back in a week for PCI of the saphenous vein graft to theOM2 DESCRIPTION OF PROCEDURE The patient arrived to the procedure lab. The risks and benefits of the procedure as well as a full d escription of our services here and current unavailability of surgical backup were fully explained to the patient and/or their significant other prior to the catheterization. The Timeout was completed, verifying the correct patient and procedure. The patient's procedural site was prepped and draped in the usual fashion. Local anesthetic was given subcutaneously to right radial region with Lidocaine 2% . Using a modified Seldinger technique, arterial access was obtained via the right radial artery, a 6 Fr sheath was inserted. Saphenous Vein graft to the OM selective angiography was performed in multip le views using a 5 Fr. AR MOD catheter. Saphenous Vein graft to the RCA selective angiography was per formed in multiple views using a 5 Fr. AR MOD catheter. Saphenous Vein graft to the OM 1 selective an giography was performed in multiple views using a 5 Fr. JR 5 catheter. Saphenous Vein graft to the RCA selective angiography was performed in multiple views using a 5 Fr. JR 5 catheter. L V to AO pullback pressures were then recorded.The arterial sheath was pulled and a TR Band was applie d for hemostasis-11cc air CORONARY ANGIOGRAPHY DOMINANCE: Right Dominant LEFT HEART ASSESSMENT Left Ventricular Ejection Fraction: by Echo 35 % Normal Left Ventricular End Diastolic Pressure RIGHT CORONARY ARTERY: DISTAL RCA: The distal right coronary artery after the saphenous vein graft anastomotic site is noted to have approximately 60% stenotic lesion prior to the bifurcation to the posterior descending arter y and posterolateral vessel. This appears to be improved compared to prior. GRAFTS: Saphenous Vein graft to the RCA is patent Sequential graft to the Obtuse marginal branch with a proximal stenotic area of approximately 50% and a distal anastomotic post stent area of approximately 90% stenosis. This area bifurcates to an obtu se marginal branch. The [place] vessels were not looked at because of previous severe disease noted i n the circumflex artery and the right coronary artery. Diagnostic Recommendations: Will recommend staged PCI. Above discussed with patient and the [facility] mainstreaming facilitator. Patient would receive a unit of packed red blood cells, continue on aspirin and clopidogrel and be brought back in a week for PCI of the saphenous vein graft to theOM2 COMPLICATIONS No Complications PROCEDURE MEDICATIONS Versed 1 mg IV Fentanyl 50 mcg IV Oxygen: 2 L/min via nasal cannula Heparin diluted in 23cc Heparinized saline. Patient given 10cc IA of this solution. 11/03/2019 12:01: 25 Verapamil 2.5mg, Ntg 100mcgs, 2000 units of Heparin diluted in 23cc Heparinized saline. Patient give n 10cc IA of this solution. 11/03/2019 12:01:25 SUMMARY OF HEMODYNAMIC DATA Time AIR REST ECG 11:38:52 AO 137/64 (91) SA 12:06:25 LV 131/15, 27 12:17:15 LV 129/15, 24 12:17:21 LVp 127/14, 20 12:17:31 AOp 129/61 (89) 12:17:36 Signed By Raffaele Theodore MD On 11/03/2019 12:58:26 Raffaele Theodore MD
[2019-11-03] MEDS: Pantoprazole Sodium 40 MG Tablet PO (14:01)
[2019-11-03] MEDS: Multivitamins,Ther W-Minerals Tablet 1 TABLET PO (14:02)
[2019-11-03] MEDS: Ferrous Sulfate 325 MG Tablet PO (14:02)
[2019-11-03] MEDS: Loratadine 10 MG Tablet PO (14:02)
[2019-11-03 17:06] LABS: Bedside Glucose 73 mg/dL (70-110)
--- NOTE | 2019-11-03 18:12 | DCINST_ITS ---
You will use the following diet at home:: Calorie/Carbohydrate Controlled (specify 1200, 1400, etc) - 1800 karrie Your food should be the consistency of: Regular Your liquids should be the consistency of: Regular/Thin Discharge Activity: Return to Normal Activity Weight Bearing Status: Full weight bearing Additional Instructions: GO TO THE HOSPITAL LAB ON Friday11/08/19 FOR A BMP-DR. COON WILL CALL IN A PRESCRIPTION FOR THIS Allergies/Adverse Reactions: Allergies ramipril [From Altace] Allergy (Intermediate, Verified 06/25/19 13:32) cough Medications to take at Discharge tamsulosin 0.4 mg capsule 0.4 mg PO QHS 90 Days #90 cap 11/17/18 Acetaminophen [Tylenol] 500 mg PO TID PRN PRN 05/24/19 Multivitamin with Minerals [Multiple Vitamin] 1 tab PO DAILY 05/24/19 Aspirin E.C. [Ecotrin] 81 mg PO DAILY@0800 #30 tab 05/31/19 atorvastatin 40 mg tablet 40 mg PO QHS #90 tab 06/25/19 Ferrous Sulfate [Iron] 325 mg PO DAILY 10/11/19 Glimepiride [Amaryl] 1 mg PO DAILY 10/11/19 Lansoprazole [Prevacid] 30 mg PO DAILY 10/11/19 Loratadine [Claritin] 10 mg PO DAILY 10/11/19 Oxycodone HCl/Acetaminophen [Percocet 7.5-325 mg Tablet] 1 tab PO BID 10/11/19 Isosorbide Mononitrate [Imdur] 120 mg PO DAILY #30 tab 10/12/19 Metoprolol Tartrate [Lopressor (beta deneen)] 50 mg PO BID #60 tab 10/12/19 Nitroglycerin (INPATIENT USE) [Nitrostat] 0.4 mg SUBLINGUAL Q5M PRN #90 tab.subl 10/12/19 Aspirin E.C. [Ecotrin] 81 mg PO DAILY@0800 tablet 11/03/19 Clopidogrel Bisulfate [Plavix] 75 mg PO DAILY #30 tab 11/03/19 Diclofenac Sodium [Voltaren] 1 applicatio TRANSDERM. PRN PRN 11/03/19 Furosemide [Lasix] 40 mg PO DAILY PRN PRN tablet 11/03/19 Nitroglycerin (INPATIENT USE) [Nitrostat] 0.4 mg SUBLINGUAL Q5M PRN tab.subl 11/03/19 The following prescriptions were given: Clopidogrel Bisulfate [Plavix] 75 mg PO DAILY #30 tab Transmission Status: Pending to [facility]/pharmacy #[id number] Primary Care Physician: Neal Rodriguez MD [Primary Care Provider] - Test Results: Test results from this visit will be discussed in further detail at your follow- up appointment, if applicable. Please Follow Up With: Ramy Rice MD When: NEXT WEEK DIRECTED
--- NOTE | 2019-11-04 08:37 | DS.PCM_ITS ---
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) CHF (congestive heart failure) (Chronic) Chronic kidney disease (CKD) (Chronic) Atherosclerosis of coronary artery bypass graft without angina pectoris (Chronic) CABG x 4 JOHNSON to LAD, Sequential SVG-OM and Ramus, RVG-RPDA 08/16/2002 [id number]-OM w/ 2.75 x 8 mm Resolute 01/21/18 H/O coronary artery bypass surgery (Chronic 08/16/02) CABG x 4 JOHNSON to LAD, Sequential SVG-OM and Ramus, RVG-RPDA 08/16/2002 Essential (primary) hypertension (Chronic) HLD (hyperlipidemia) (Chronic) Atherosclerotic heart disease of [place] coronary artery without angina pectoris (Chronic) CABG x 4 JOHNSON to LAD, SVG to obtuse marginal LCx, sequential SVG to intermediate, and SVG to right PDA 08/2002 PTCA of ramus branch of LCx, P TCA/stent to proximal RCA, PTCA/stent to proximal LCx, 1998; unsuccessful PTCA LAD 06/2003; [id number]-YHM-OM of LCx w/ 2.75 x 8 mm Resolute 01/21/18 Hospital Course and Treatment Operations: None Procedures: 2-D Echocardiogram, Blood transfusion, Cardiac catheterization Summary of Care Provided: The patient is a 78 year old M seen in the emergency room at [facility] with a chief complaint of chest pain, work-up in the emergency room revealed his troponins to be normal, labs showed hemoglobin of 8.9, patient's potassium was slightly elevated. Chest x-ray did not show any abnormalities. Patient was given nitroglycerin and his chest pain resolved. Patient was placed in observation status on PCU, he was seen in consultation by cardiology, repeat cardiac enzymes resulted as elevated and he was felt to have had a non-STEMI. Patient underwent a cardiac catheterization which showed occlusive coronary disease but due to the patient's elevated creatinine, intervention was not felt to be possible at this time. Patient underwent an echocardiogram which showed a intermediate ejection fraction of 50%. Cardiology felt that the patient would benefit from a blood transfusion due to his angina symptoms and his occlusive coronary disease, patient was given 1 unit of packed red blood cells. On 11/03/2019, patient was seen and examined: On examination he appeared in good health and spirits. Vital signs as documented. Skin warm and dry and without overt rashes. Neck without JVD, neck was supple, trachea midline, thyroid was normal. Lungs-inspiratory rales at the bases bilaterally, normal air movement was noted. Heart exam notable for regular rhythm, normal sounds and absence of murmurs, rubs or gallops. Abdomen unremarkable and without evidence of organomegaly, masses, or abdominal aortic enlargement. Bowel sounds are present, abdomen is not distended. Extremities nonedematous, no cyanosis was noted, no clubbing was noted. Neuro: Cranial nerves II through XII are grossly intact, no focal motor deficits were noted, sensation to light touch and pinprick intact, motor exam 5/5 throughout. Psych: Patient is alert and oriented x3, he does not appear anxious or depressed, he does not appear agitated. Patient was felt to be in stable condition for charge home on 11/03/2019. - Physical Exam Vitals/I&O's: Vital Signs Temp Pulse Resp BP Pulse Ox 98.5 F 57 L 16 144/64 H 98 11/03/19 17:45 11/03/19 17:45 11/03/19 17:45 11/03/19 17:45 11/03/19 17:45 Oxygen Delivery Method Room Air Weight: 78.4 kg Body Mass Index (BMI) 27.8 Intake and Output for Last 24 Hours 11/02/19 11/03/19 11/04/19 23:59 23:59 23:59 Intake Total 1385 / 1385 Balance 1385 / 1385 Laboratory Results 11/03/19 11:18: POC Glucose 85 11/03/19 13:05: Blood Type A POSITIVE, Antibody Screen NEGATIVE, Crossmatch See Detail 11/03/19 16:58: POC Glucose 73 Discharge Activity: Return to Normal Activity Weight Bearing Status: Full weight bearing Home Medications: Medications to take at Discharge tamsulosin 0.4 mg capsule 0.4 mg PO QHS 90 Days #90 cap 11/17/18 Acetaminophen [Tylenol] 500 mg PO TID PRN PRN 05/24/19 Multivitamin with Minerals [Multiple Vitamin] 1 tab PO DAILY 05/24/19 Aspirin E.C. [Ecotrin] 81 mg PO DAILY@0800 #30 tab 05/31/19 atorvastatin 40 mg tablet 40 mg PO QHS #90 tab 06/25/19 Ferrous Sulfate [Iron] 325 mg PO DAILY 10/11/19 Glimepiride [Amaryl] 1 mg PO DAILY 10/11/19 Lansoprazole [Prevacid] 30 mg PO DAILY 10/11/19 Loratadine [Claritin] 10 mg PO DAILY 10/11/19 Oxycodone HCl/Acetaminophen [Percocet 7.5-325 mg Tablet] 1 tab PO BID 10/11/19 Isosorbide Mononitrate [Imdur] 120 mg PO DAILY #30 tab 10/12/19 Metoprolol Tartrate [Lopressor (beta janee)] 50 mg PO BID #60 tab 10/12/19 Nitroglycerin (INPATIENT USE) [Nitrostat] 0.4 mg SUBLINGUAL Q5M PRN #90 tab.subl 10/12/19 Aspirin E.C. [Ecotrin] 81 mg PO DAILY@0800 tab 11/03/19 Clopidogrel Bisulfate [Plavix] 75 mg PO DAILY #30 tab 11/03/19 Diclofenac Sodium [Voltaren] 1 applicatio TRANSDERM. PRN PRN 11/03/19 Furosemide [Lasix] 40 mg PO DAILY PRN PRN tab 11/03/19 Nitroglycerin (INPATIENT USE) [Nitrostat] 0.4 mg SUBLINGUAL Q5M PRN tab.subl 11/03/19 Following Prescrptions Were Given to Patient: Clopidogrel Bisulfate [Plavix] 75 mg PO DAILY #30 tab Transmission Status: Received by [id number] Primary Care Physician: Neal Rodriguez MD [Primary Care Provider] - Please Follow Up With: Ramy Rice MD When: NEXT WEEK DIRECTED Disposition: Home Minutes spent on discharge:: 30 Patient Condition:: Stable Medical Necessity - Tobacco Use Smoking Status: Never smoker Meaningful Use Info Meaningful Use Diagnoses (Choose all that apply): AMI - AMI/Post PCI/Angioplasty Aspirin given w/in 24hrs of arrival?: Yes ASA at discharge?: Yes Antiplatelet Therapy at Discharge:: Yes Statins at discharge?: Yes Valeryi/ARB at discharge?: No Reason Valeriy/ARB not ordered:: Worsening renal dysfunctn, Hyperkalemia Beta Janee at discharge?: Yes Done w/ Acute NE measure.: Yes Documented LVEF (%): 50 OBSV E&M: [id number] Observ/hosp same date L3
== END 2019-11-03 18:45 | disposition home or self-care (01) ==
LOC: ED 03:09 → PCU 04:24
PROVIDERS: Admitting Provider Hospitalist; Emergency Provider Emergency Medicine; PCP Family Medicine; Visit Provider Internal Medicine
DX: I21.4 Non-ST elevation (NSTEMI) myocardial infarction (principal); I13.0 Hypertensive heart and chronic kidney disease with heart failure and stage 1 through stage 4 chronic kidney disease, or unspecified chronic kidney disease; E11.22 Type 2 diabetes mellitus with diabetic chronic kidney disease; D63.1 Anemia in chronic kidney disease; I25.110 Atherosclerotic heart disease of native coronary artery with unstable angina pectoris; E87.5 Hyperkalemia; N40.0 Benign prostatic hyperplasia without lower urinary tract symptoms; I50.22 Chronic systolic (congestive) heart failure; E78.5 Hyperlipidemia, unspecified; N18.4 Chronic kidney disease, stage 4 (severe); Z95.1 Presence of aortocoronary bypass graft; Z79.899 Other long term (current) drug therapy; Z79.82 Long term (current) use of aspirin; Z79.84 Long term (current) use of oral hypoglycemic drugs; I08.3 Combined rheumatic disorders of mitral, aortic and tricuspid valves
CPT/HCPCS: 36415; 36430; 71045; 80048; 82962; 84484; 85025; 85610; 86850; 86900; 86901; 86920; 86922; 93005; 93306; 93455; 96361; 96374; 96376; 99152; 99153; 99218; 99285; J7030; J7040; P9040; Q9957; Q9967; A4216; C1769; C1894; G0378

== ENCOUNTER 2019-11-10 07:28 | Day surgery (SDC) | payer MEDICARE, OTHER, SELFPAY ==
[2018-01-21 11:44] VITALS: BMI 29.0
[2019-11-03 04:03] VITALS: BMI 27.8
[2019-11-08 14:03] LABS: Anion Gap 4 (5-15); BUN 68 mg/dL (7-18); BUN/Creat Ratio 23.7 RATIO (10-20); Calcium,Total 8.9 mg/dL (8.5-10.1); Chloride 113 mmol/L (98-107); Creatinine, Serum 2.87 mg/dL (0.70-1.30); EST Glomerular Filtration Rate 23 mL/min (>60); Est Glom Filt Rate - Afr Amer 28 mL/min (>60); Glucose 113 mg/dL (74-106); Potassium 5.8 mmol/L (3.5-5.1); Sodium Level 138 mmol/L (136-145)
[2019-11-09 07:54] VITALS: BMI 27.7
--- NOTE | 2019-11-09 13:13 | HP.PCM_ITS ---
History and Physical Date of Admission: 11/10/19 Addendum: Patient underwent diagnostic heart catheterization on 10/25/2019 that showed severe [place] coronary artery disease. The left internal mammary artery was previously noted to be patent. There is severe disease involving the circumflex artery and right coronary artery. These were not looked at the time for dye preservation. It was recommended he undergo staged PCI of the saphenous vein graft OM2, 1 week later. He presents on 11/10/2019 for such procedure. History of Present Illness: The patient is a 78 year old M who presented to the ER yesterday with complaints of chest discomfort. This is his second hospitalization in the month. He says that since his last discharge he had been doing well and then started having chest discomfort with minimal exertion and then also had some at rest. He had been discharged on medical therapy including Ranexa and nitrates but he said that he was getting confused on the Ranexa and not feeling well and discontinued it. He is a gentleman with a history of coronary artery disease status post coronary artery bypass surgery. He had a left internal mammary artery to left anterior descending artery which was noted to be preserved and patent the circumflex artery had moderate disease in the mid segment and the saphenous vein graft to the right coronary artery was noted to be patent. He had a stress test which was abnormal and underwent a diagnostic heart catheterization where he was noted to have a 99% stenosis of the SVG to the OM. He underwent stenting of this vessel. This was in January 23 18 Patient was admitted and evaluated at [facility] in May 2019 after left knee surgery for worsening dyspnea on exertion and NSTEMI. He was noted to have worsening kidney function and heart catheterization was deferred on such account. He continued with medical management and was discharge for outpatient follow-up. He has unfortunately continued to have a decline in his renal function as well as a baseline anemia. At his last hospitalization medical therapy was recommended as it was felt that his medication reduction had led to his clinical condition. He has been somewhat short of breath but does not appear to be significant. He denies any pedal edema no paroxysmal nocturnal dyspnea. He has had no polo syncopal episodes. He has had some rest chest discomfort. In the emergency room he was evaluated and EKG was done which demonstrated lateral ST changes. He is currently in the progressive care unit and pain-free. He lives at home with his . Past Medical History Allergies/Adverse Reactions: Allergies ramipril [From Altace] Allergy (Intermediate, Verified 06/25/19 13:32) cough Home Medications: Ambulatory Orders Medication Instructions Recorded tamsulosin 0.4 mg capsule 0.4 mg PO QHS 90 Days #90 cap 11/17/18 Acetaminophen [Tylenol] 500 mg PO TID PRN PRN 05/24/19 Multivitamin with Minerals 1 tab PO DAILY 05/24/19 [Multiple Vitamin] Aspirin E.C. [Ecotrin] 81 mg PO DAILY@0800 #30 tab 05/31/19 atorvastatin 40 mg tablet 40 mg PO QHS #90 tab 06/25/19 furosemide 40 mg tablet 40 mg PO DAILY PRN #30 tab 06/25/19 Ferrous Sulfate [Iron] 325 mg PO DAILY 10/11/19 Glimepiride [Amaryl] 1 mg PO DAILY 10/11/19 Lansoprazole [Prevacid] 30 mg PO DAILY 10/11/19 Loratadine [Claritin] 10 mg PO DAILY 10/11/19 Losartan Potassium [Cozaar] 25 mg PO DAILY 10/11/19 Oxycodone HCl/Acetaminophen 1 tab PO BID 10/11/19 [Percocet 7.5-325 mg Tablet] Ranolazine [Ranolazine ER] 1,000 mg PO BID 10/11/19 Isosorbide Mononitrate [Imdur] 120 mg PO DAILY #30 tab 10/12/19 Metoprolol Tartrate [Lopressor 50 mg PO BID #60 tab 10/12/19 (beta deneen)] Nitroglycerin (INPATIENT USE) 0.4 mg SUBLINGUAL Q5M PRN #90 10/12/19 [Nitrostat] tab.subl Diclofenac Sodium [Voltaren] 1 applicatio TRANSDERM. PRN PRN 11/03/19 Past Medical History (Chronic Problems): Chronic Problems (Last Reviewed 11/03/19 @ 04:[address] 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) CHF (congestive heart failure) (Chronic) Chronic kidney disease (CKD) (Chronic) Atherosclerosis of coronary artery bypass graft without angina pectoris (Chronic) CABG x 4 JOHNSON to LAD, Sequential SVG-OM and Ramus, RVG-RPDA 08/16/2002 [id number] w/ 2.75 x 8 mm Resolute 01/21/18 H/O coronary artery bypass surgery (Chronic 08/16/02) CABG x 4 JOHNSON to LAD, Sequential SVG-OM and Ramus, RVG-RPDA 08/16/2002 Essential (primary) hypertension (Chronic) HLD (hyperlipidemia) (Chronic) Atherosclerotic heart disease of [place] coronary artery without angina pectoris (Chronic) CABG x 4 JOHNSON to LAD, SVG to obtuse marginal LCx, sequential SVG to intermediate, and SVG to right PDA 08/2002 PTCA of ramus branch of LCx, PTCA/stent to proximal RCA, PTCA/stent to proximal LCx, 1998; unsuccessful PTCA LAD 06/2003; [id number]-OM of LCx w/ 2.75 x 8 mm Resolute 01/21/18 Surgical History: angioplasty - Cardiac stent x6, coronary bypass surgery, - - Recent knee surgery as in HPI - *Family History Maternal Family History: Family History (Last Reviewed 11/03/19 @ 04:[address] Rhett Childress MD) Father Heart disease Myocardial infarction Brother Diabetes History of PTCA Mother HLD (hyperlipidemia) History Items: No pertinent history Lives: Spouse/ Significant Other Smoking Status: Never smoker Alcohol: None Drugs: None Review of Systems - Review of Systems General: Denies: Fever, Night Sweats, Fatigue HEENT: Denies: Vision Change Cardiovascular: Reports: Chest Discomfort, Chest Discomfort at Rest, Chest Discomfort with Exertion, Lightheadedness. Denies: Shortness of Breath, Orthopnea, PND, Peripheral Edema, Palpitations, Dizziness, Near Syncope, Syncope Respiratory: Denies: Cough, Sputum Production, Hemoptysis Gastrointestinal: Denies: Hematemesis, Hematochezia, Melena Genitourinary: Denies: Dysuria, Hematuria Muscoloskeletal: Denies: Myalgias Skin: Denies: Rash Neurological: Reports: Dizziness Psychiatric: Denies: Anxiety Endocrine: Denies: Heat Intolerance Hematologic/ Lymphatic: Reports: Anemia Subjectve: Pleasant gentleman in no distress at this time Objective: Vital Signs Temp Pulse Resp BP Pulse Ox 97.8 F 65 18 156/78 H 100 04/29/20 04:15 11/03/19 07:19 11/03/19 04:15 11/03/19 04:15 11/03/19 04:15 Oxygen Delivery Method Room Air Weight: 172 lb 13.478 oz Body Mass Index (BMI) 27.8 General: Awake, Alert, Oriented x 3 HEENT: PERRL, EOMI, Sclera Non Icteric Neck: Supple, Good ROM, No Lymph Node Enlargement Lungs: Clear to auscultation Cardiovascular: Regular Rhythm, Normal S1, Normal S2, No Murmurs, No Rubs, No Gallops Vascular: No Carotid Bruits, Normal Femoral Pulses, Normal Radial Pulses, Normal Dorsalis Pedal Pulse, Normal Posterior Tibial Pulses Abdomen: Bowel Sounds Present, Soft, Non Tender, No HSM, No Organomegaly Extremities: No Cyanosis, No Clubbing, No edema Musculoskeletal: No Erythema Skin: No Rashes Lymphatic: No Lymph Node Enlargement Neurological: No Focal Motor or Sensory Deficit Psych/Mental Status: Appropriate 11/03/19 01:58: WBC 7.4, RBC 2.69 L, Hgb 8.9 L, Hct 26.3 L, MCV 97.8 H, MCH 33.1 H, MCHC 33.8, Plt Count 144 L, MPV 10.7, Immature Gran % (Auto) 0.300, Neut % (Auto) 52.2, Lymph % (Auto) 33.6, [place] % (Auto) 9.8, Eos % (Auto) 3.7, Baso % (Auto) 0.4, Absolute Neuts (auto) 3.8, Nucleated RBC % 0 11/03/19 01:58: Sodium 142, Potassium 5.2 H, Chloride 114 H, Carbon Dioxide 18.0 L, Anion Gap 10, BUN 74 H, Creatinine 3.06 H, Est GFR (MDRD) Af Amer 26 L, Est GFR (MDRD) Non-Af 21 L, BUN/Creatinine Ratio 24.2 H, Glucose 144 H, Calcium 8.4 L, Troponin I < 0.015 11/03/19 04:58: PT 14.0, INR 1.1 11/03/19 04:58: Troponin I 0.174 H 11/03/19 07:35: Troponin I 1.310 H* Rhythm: EKG: Normal sinus rhythm with lateral ST depression in leads V5 and V6 ECHO: Stress Test: Cardiac Cath: PCI: CT Surgery: Holter monitor: EPS: PPM: CXR: Chest CT Scan: Assessment/Plan 1. Atherosclerosis of [place] coronary artery of [place] heart with angina pec toris and an non-ST elevation myocardial infarction I25.10 Patient has been having some chest discomfort which appears to be a change in pattern from before. Based on this pattern and the continued chest discomfort I have discussed with him and would proceed with a cardiac catheterization. This appears to be fairly high risk due to his significant renal dysfunction. The risk benefits and alternatives have been explained to him he understands and agrees to proceed. He will be hydrated with intravenous fluids and a limited dye load would be recommended. Increase isosorbide back to 120 mg a day Increase Lopressor 50 mg twice a day 2. H/O coronary artery bypass surgery Z95.1 CABG x 4 JOHNSON to LAD, Sequential SVG-OM and Ramus, RVG-RPDA 08/16/2002 His heart catheterization January 2018 showed SVG to second OM with distal anastomotic lesion of 9 9%, JOHNSON to LAD is patent, SVG to RCA with mid lesion of 50%, SVG to RCA with distal lesion of 65%, he underwent stenting to SVG to OM on 01/21/2018. There was concerns for his most recent non-ST elevated myocardial infarction that this may be a progression of coronary artery disease. However, given his chronic kidney disease, heart catheterization was deferred. Medical management was recommended. At this time we would pursue the cardiac catheterization. 3. History of coronary artery stent placement Z95.5 [id number] of LCx w/ 2.75 x 8 mm Resolute 01/22/18 PTCA of ramus branch of LCx, PTCA/stent to proximal RCA, PTCA/stent to proximal LCx, 1998; unsuccessful PTCA LAD 06/2003; He will continue risk factor and lifestyle modification. 4. Chronic systolic congestive heart failure I50.22 His most recent echocardiogram in May 2019 showed ejection fraction of 40% and stage III diastolic dysfunction. His LVEF is worse compared to prior. He is not appear to be in a fluid volume overloaded state. His weight has remained stable. He is currently taking his Lasix on an as-needed basis. A repeat echo cardiogram will be performed. 5. Essential (primary) hypertension I10 Plan His blood pressure slight elevated today. We will see how he does after the change in the beta-deneen and isosorbide medications. 6. Pure hypercholesterolemia E78.00 Plan He will continue with current statin medication. 7. 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 Thank you for allowing me to participate in the care of your patient. Please don't hesitate to call if any issues arise.
[2019-11-10] VITALS (22 sets, daily range): BP systolic 121–147; BP diastolic 55–89; PULSE 53–72; RESP 11–24; TEMP 36.6–37; O2SAT 96–100; BMI 29.5
--- NOTE | 2019-11-10 09:41 | HP.PCM_ITS ---
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 (3) Atherosclerosis of coronary artery bypass graft without angina pectoris Status: Chronic Comment: CABG x 4 JOHNSON to LAD, Sequential SVG-OM and Ramus, RVG-RPDA 08/16/2002 QWL-OOM-CVJ-OM w/ 2.75 x 8 mm Resolute 01/21/18 (4) CHF (congestive heart failure) Status: Chronic Qualifiers: Heart failure type: systolic Heart failure chronicity: chronic Qualified Code(s): I50.22 - Chronic systolic (congestive) heart failure (5) Chronic kidney disease (CKD) Status: Chronic Qualifiers: Chronic kidney disease stage: unspecified stage Qualified Code(s): N18.9 - Chronic kidney disease, unspecified (6) Non-ST elevated myocardial infarction (non-STEMI) Status: Chronic (7) Chest pain Status: Inactive History and Physical Date of Admission: 11/10/19 [facility] Medical Records Department [address] [place] [id number] History and Physical 11/09/19 1313 MR#: [id number] Acct: [id number] Name: JADYN RAMOS Rep #:[id number] : 1940 78 From: Stevo Villanueva PCP: Neal Rodriguez MD Status:REG SDC Y Location: [facility] History and Physical Date of Admission: 11/10/19 Addendum: Patient underwent diagnostic heart catheterization on 10/25/2019 that showed severe [place] coronary artery disease. The left internal mammary artery was previously noted to be patent. There is severe disease involving the circumflex artery and right coronary artery. These were not looked at the time for dye preservation. It was recommended he undergo staged PCI of the saphenous vein graft OM2, 1 week later. He presents on 11/10/2019 for such procedure. History of Present Illness: The patient is a 78 year old M who presented to the ER yesterday with complaints of chest discomfort. This is his second hospitalization in the month. He says that since his last discharge he had been doing well and then started having chest discomfort with minimal exertion and then also had some at rest. He had been discharged on medical therapy including Ranexa and nitrates but he said that he was getting confused on the Ranexa and not feeling well and discontinued it. He is a gentleman with a history of coronary artery disease status post coronary artery bypass surgery. He had a left internal mammary artery to left anterior descending artery which was noted to be preserved and patent the circumflex artery had moderate disease in the mid segment and the saphenous vein graft to the right coronary artery was noted to be patent. He had a stress test which was abnormal and underwent a diagnostic heart catheterization where he was noted to have a 99% stenosis of the SVG to the OM. He underwent stenting of this vessel. This was in January 23 Patient was admitted and evaluated at [facility] in May 2019 after left knee surgery for worsening dyspnea on exertion and NSTEMI. He was noted to have worsening kidney function and heart catheterization was deferred on such account. He continued with medical management and was discharge for outpatient follow-up. He has unfortunately continued to have a decline in his renal function as well as a baseline anemia. At his last hospitalization medical therapy was recommended as it was felt that his medication reduction had led to his clinical condition. He has been somewhat short of breath but does not appear to be significant. He denies any pedal edema no paroxysmal nocturnal dyspnea. He has had no polo syncopal episodes. He has had some rest chest discomfort. In the emergency room he was evaluated and EKG was done which demonstrated lateral ST changes. He is currently in the progressive care unit and pain-free. He lives at home with his . Past Medical History Allergies/Adverse Reactions: Allergies ramipril [From Altace] Allergy (Intermediate, Verified 06/25/19 13:32) cough Home Medications: Ambulatory Orders Medication Instructions Recorded tamsulosin 0.4 mg capsule 0.4 mg PO QHS 90 Days #90 cap 11/17/18 Acetaminophen [Tylenol] 500 mg PO TID PRN PRN 05/24/19 Multivitamin with Minerals 1 tab PO DAILY 05/24/19 [Multiple Vitamin] Aspirin E.C. [Ecotrin] 81 mg PO DAILY@0800 #30 tab 05/31/19 atorvastatin 40 mg tablet 40 mg PO QHS #90 tab 06/25/19 furosemide 40 mg tablet 40 mg PO DAILY PRN #30 tab 06/25/19 Ferrous Sulfate [Iron] 325 mg PO DAILY 10/11/19 Glimepiride [Amaryl] 1 mg PO DAILY 10/11/19 Lansoprazole [Prevacid] 30 mg PO DAILY 10/11/19 Loratadine [Claritin] 10 mg PO DAILY 10/11/19 Losartan Potassium [Cozaar] 25 mg PO DAILY 10/11/19 Oxycodone HCl/Acetaminophen 1 tab PO BID 10/11/19 [Percocet 7.5-325 mg Tablet] Ranolazine [Ranolazine ER] 1,000 mg PO BID 10/11/19 Isosorbide Mononitrate [Imdur] 120 mg PO DAILY #30 tab 10/12/19 Metoprolol Tartrate [Lopressor 50 mg PO BID #60 tab 10/12/19 (beta deneen)] Nitroglycerin (INPATIENT USE) 0.4 mg SUBLINGUAL Q5M PRN #90 10/12/19 [Nitrostat] tab.subl Diclofenac Sodium [Voltaren] 1 applicatio TRANSDERM. PRN PRN 11/03/19 Past Medical History (Chronic Problems): Chronic Problems (Last Reviewed 11/03/19 @ 04:[address] 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) CHF (congestive heart failure) (Chronic) Chronic kidney disease (CKD) (Chronic) Atherosclerosis of coronary artery bypass graft without angina pectoris (Chronic) CABG x 4 JOHNSON to LAD, Sequential SVG-OM and Ramus, RVG-RPDA 08/16/2002 GMN-CYI-YPL-OM w/ 2.75 x 8 mm Resolute 01/21/18 H/O coronary artery bypass surgery (Chronic 08/16/02) CABG x 4 JOHNSON to LAD, Sequential SVG-OM and Ramus, RVG-RPDA 08/16/2002 Essential (primary) hypertension (Chronic) HLD (hyperlipidemia) (Chronic) Atherosclerotic heart disease of [place] coronary artery without angina pectoris (Chronic) CABG x 4 JOHNSON to LAD, SVG to obtuse marginal LCx, sequential SVG to intermediate, and SVG to right PDA 08/2002 PTCA of ramus branch of LCx, PTCA/stent to proximal RCA, PTCA/stent to proximal LCx, 1998; unsuccessful PTCA LAD 06/2003; [id number]-[id number]-OM of LCx w/ 2.75 x 8 mm Resolute 01/21/18 Surgical History: angioplasty - Cardiac stent x6, coronary bypass surgery, - - Recent knee surgery as in HPI - *Family History Maternal Family History: Family History (Last Reviewed 11/03/19 @ 04:[address] Rhett Childress MD) Father Heart disease Myocardial infarction Brother Diabetes History of PTCA Mother HLD (hyperlipidemia) History Items: No pertinent history Lives: Spouse/ Significant Other Smoking Status: Never smoker Alcohol: None Drugs: None Review of Systems - Review of Systems General: Denies: Fever, Night Sweats, Fatigue HEENT: Denies: Vision Change Cardiovascular: Reports: Chest Discomfort, Chest Discomfort at Rest, Chest Discomfort with Exertion, Lightheadedness. Denies: Shortness of Breath, Orthopnea, PND, Peripheral Edema, Palpitations, Dizziness, Near Syncope, Syncope Respiratory: Denies: Cough, Sputum Production, Hemoptysis Gastrointestinal: Denies: Hematemesis, Hematochezia, Melena Genitourinary: Denies: Dysuria, Hematuria Muscoloskeletal: Denies: Myalgias Skin: Denies: Rash Neurological: Reports: Dizziness Psychiatric: Denies: Anxiety Endocrine: Denies: Heat Intolerance Hematologic/ Lymphatic: Reports: Anemia Subjectve: Pleasant gentleman in no distress at this time Objective: Vital Signs Temp Pulse Resp BP Pulse Ox 97.8 F 65 18 156/78 H 100 11/03/19 04:15 11/03/19 07:19 11/03/19 04:15 11/03/19 04:15 11/03/19 04:15 Oxygen Delivery Method Room Air Weight: 172 lb 13.478 oz Body Mass Index (BMI) 27.8 General: Awake, Alert, Oriented x 3 HEENT: PERRL, EOMI, Sclera Non Icteric Neck: Supple, Good ROM, No Lymph Node Enlargement Lungs: Clear to auscultation Cardiovascular: Regular Rhythm, Normal S1, Normal S2, No Murmurs, No Rubs, No Gallops Vascular: No Carotid Bruits, Normal Femoral Pulses, Normal Radial Pulses, Normal Dorsalis Pedal Pulse, Normal Posterior Tibial Pulses Abdomen: Bowel Sounds Present, Soft, Non Tender, No HSM, No Organomegaly Extremities: No Cyanosis, No Clubbing, No edema Musculoskeletal: No Erythema Skin: No Rashes Lymphatic: No Lymph Node Enlargement Neurological: No Focal Motor or Sensory Deficit Psych/Mental Status: Appropriate 11/03/19 01:58: WBC 7.4, RBC 2.69 L, Hgb 8.9 L, Hct 26.3 L, MCV 97.8 H, MCH 33.1 H, MCHC 33.8, Plt Count 144 L, MPV 10.7, Immature Gran % (Auto) 0.300, Neut % (Auto) 52.2, Lymph % (Auto) 33.6, Woodson % (Auto) 9.8, Eos % (Auto) 3.7, Baso % (Auto) 0.4, Absolute Neuts (auto) 3.8, Nucleated RBC % 0 11/03/19 01:58: Sodium 142, Potassium 5.2 H, Chloride 114 H, Carbon Dioxide 18.0 L, Anion Gap 10, BUN 74 H, Creatinine 3.06 H, Est GFR (MDRD) Af Amer 26 L, Est GFR (MDRD) Non-Af 21 L, BUN/Creatinine Ratio 24.2 H, Glucose 144 H, Calcium 8.4 L, Troponin I < 0.015 11/03/19 04:58: PT 14.0, INR 1.1 11/03/19 04:58: Troponin I 0.174 H 11/03/19 07:35: Troponin I 1.310 H* Rhythm: EKG: Normal sinus rhythm with lateral ST depression in leads V5 and V6 ECHO: Stress Test: Cardiac Cath: PCI: CT Surgery: Holter monitor: EPS: PPM: CXR: Chest CT Scan: Assessment/Plan 1. Atherosclerosis of [place] coronary artery of [place] heart with angina pectoris and an non-ST elevation myocardial infarction I25.10 Patient has been having some chest discomfort which appears to be a change in pattern from before. Based on this pattern and the continued chest discomfort I have discussed with him and would proceed with a cardiac catheterization. This appears to be fairly high risk due to his significant renal dysfunction. The risk benefits and alternatives have been explained to him he understands and agrees to proceed. He will be hydrated with intravenous fluids and a limited dye load would be recommended. Increase isosorbide back to 120 mg a day Increase Lopressor 50 mg twice a day 2. H/O coronary artery bypass surgery Z95.1 CABG x 4 JOHNSON to LAD, Sequential SVG-OM and Ramus, RVG-RPDA 08/16/2002 His heart catheterization January 2018 showed SVG to second OM with distal anastomotic lesion of 9 9%, JOHNSON to LAD is patent, SVG to RCA with mid lesion of 50%, SVG to RCA with distal lesion of 65%, he underwent stenting to SVG to OM on 01/21/2018. There was concerns for his most recent non-ST elevated myocardial infarction that this may be a progression of coronary artery disease. However, given his chronic kidney disease, heart catheterization was deferred. Medical management was recommended. At this time we would pursue the cardiac catheterization. 3. History of coronary artery stent placement Z95.5 [id number]-[id number]-OM of LCx w/ 2.75 x 8 mm Resolute 01/22/18 PTCA of ramus branch of LCx, PTCA/stent to proximal RCA, PTCA/stent to proximal LCx, 1998; unsuccessful PTCA LAD 06/2003; He will continue risk factor and lifestyle modification. 4. Chronic systolic congestive heart failure I50.22 His most recent echocardiogram in May 2019 showed ejection fraction of 40% and stage III diastolic dysfunction. His LVEF is worse compared to prior. He is not appear to be in a fluid volume overloaded state. His weight has remained stable. He is currently taking his Lasix on an as-needed basis. A repeat echocardiogram will be performed. 5. Essential (primary) hypertension I10 Plan His blood pressure slight elevated today. We will see how he does after the change in the beta-deneen and isosorbide medications. 6. Pure hypercholesterolemia E78.00 Plan He will continue with current statin medication. 7. Chronic kidney disease, unspecified CKD stage N18.9 Plan Patient's professor of biochemistry will be contacted to see if any treatment recommendations can be made. Thank you for allowing me to participate in the care of your patient. Please don't hesitate to call if any issues arise. 11/09/19 1554 <Electronically signed by Stevo Cohn N PSherry> Date _ Stevo Cohn GAMMA RAY OPERATOR-C 11/10/19 0921 <Electronically signed by Ramy Rice MD> [facility] Signature: Date (if applicable) Ramy Rice MD CC: DEANGELO Cohn; Ramy Rice MD; Neal Rodriguez MD ~ Signed Interventional cardiology addendum: The patient seen and examined this morning, and the risk/benefits of the procedure were thoroughly explained the patient and informed consent was obtained. We will proceed with elective PCI of the saphenous vein graft to the obtuse marginal. Patient is at high risk for acute on chronic renal insufficiency, which was thoroughly explained the patient and the reason for staged procedure and readmission for IV fluid hydration. Patient voiced understanding and agrees to proceed.
--- NOTE | 2019-11-10 10:30 | EKG12_ITS ---
Test Reason : EKG CHANGES Blood Pressure : / mmHG Vent. Rate : 066 BPM Atrial Rate : 066 BPM P-R Int : 262 ms QRS Dur : 096 ms QT Int : 442 ms P-R-T Axes : 060 -12 146 degrees QTc Int : 463 ms Sinus rhythm with 1st degree A-V block with Premature supraventricular complexes ST & T wave abnormality, consider lateral ischemia Prolonged QT Abnormal ECG When compared with ECG of 10-NOV-2019 10:46, MANUAL COMPARISON REQUIRED, DATA IS UNCONFIRMED Confirmed by JAYMIE ZAMORA, SUKUMAR ([id number]), editor book SAURAV LINARES ([id number]) on 11/15/2019 3:24:52 PM Referred By: Ramy Rice Confirmed By:SUKUMAR COON MD
--- NOTE | 2019-11-10 10:39 | CL.I_ITS ---
Patient Name: JADYN RAMOS Study Date: 11/10/2019 Performing: Ramy Rice MD Ht: 66 inches 168 cm : 1940 Wt: 172.2 lbs 78 kg Age: 78 Gender: male BSA: 1.88 PROCEDURE(S) PERFORMED [id number] AND/OR PTCA, SINGLE GRAFT CLINICAL PROFILE AND CO-MORBIDITIES Indications: New Onset Angina <= 2 months, Worsening Angina, Stable Known CAD, LV Dysfunction Heart Failure: None Stress/Imaging Date: 12/29/2017 Stress Test with SPECT MPI: Positive Low Risk Angina Classification Anginal Classification w/in 2 Weeks: CCS III CAD Presentations: Unstable angina. Comorbidities/Risk Factors: Hypertension Dyslipidemia Prior PCI CONCLUSIONS Successful PTCA/ALBAN to distal anastomotic site of SVG to OM with a 2.25 x 12 Promus Synergy, post dil ated proximally within previous SVG stent with a 2.75 x 8 NC Balloon; 90%-->0%, no dissection. Pt dudley d identical anginal symptoms during balloon inflation. [place] SVG disease unchanged post procedure a nd not intervened on due to CRI and age of grafts. If pt continues to have exertional anginal symptom s, can entertain PCI of proximal and Mid SVG using filter wire. RECOMMENDATIONS Highly recommend quitting all tobacco products Follow up with primary roving department end finder Risk factor modification ASA Indefinitley Plavix for at least 12 months Routine post interventional care Refer for Outpatient Cardiac Rehab Manual sheath removal per protocol Follow up with Dr. Theodore Successful Mynx closure of RFA. DESCRIPTION OF PROCEDURE The patient arrived to the procedure lab. The risks and benefits of the procedure as well as a full d escription of our services here and current unavailability of surgical backup were fully explained to the patient and/or their significant other prior to the catheterization. The Timeout was completed, verifying the correct patient and procedure. The patient's procedural site was prepped and draped in the usual fashion. Local anesthetic was given subcutaneously to right groin region with Lidocaine 2%. Using a modified Seldinger technique, arterial access was obtained via the right femoral artery, a 6 Fr sheath was inserted.. HS 2 Guide catheter was inserted and engaged into the SVG to the OM 1. BMW Guide wire was advance d to the 1st OM. 2.00X8 EMERGE Balloon catheter was inserted. Balloon catheter was advanced across le july in the graft to the OM 1. PTCA balloon inflated at 6 atms for 8 secs. PTCA balloon inflated at 6 atms for 6 secs. PTCA balloon inflated at 6 atms for 8 secs. PTCA balloon inflated at 6 atms for 10 secs. Angiogram performed post balloon dilatation. 2.25X12 SYNERGY Drug Eluting stent was inserted. D rug Eluting stent was advanced across the lesion in the graft to the OM 1. 2.75X8 NC EMERGE Balloon c atheter was inserted post stent. Angiogram performed post balloon dilatation. Contrast was injected t hrough the sheath and the Right Iliac and Femoral artery were assessed for possible closure device. T he arterial sheath was pulled and a Mynx closure device was deployed for hemostasis INTERVENTION INFORMATION LESION SITE: Vein > to 1st OM Segment Number: 20-First obtuse marginal branch segment - 1st OM , Les ion Location: Distal Lesion Complexity: High/C, lesion at bifurcation: No, thrombus present: No, lesion length: 12 mm, cul prit lesion: Yes Pre Stenosis: 90 % Pre intervention MARY CARMEN flow: 2 Post Stenosis: 0 % Post intervention MARY CARMEN flow: 3 Lesion Devices: Fitzpatrick .014 BMW [place] Straight 190cm Medtronic 6 Fr HSII 100cm Guide Catheter Joaquin Sci EMERGE MR 2.00x08 BALLOON Joaquin Sci Synergy MR ALBAN 2.25x12 Joaquin Sci NC EMERGE MR 2.75x08 BALLOON COMPLICATIONS No Complications PROCEDURE MEDICATIONS Versed 1 mg IV Oxygen: 2 L/min via nasal cannula Heparin 6000 unit(s) IV 11/10/2019 09:46:19 Nitro 200 mcg IC 11/10/2019 09:49:38 Nitro 200 mcg IC 11/10/2019 09:49:38 IV Fluids: .9 NaCl IV started @ 150 ml/hr 11/10/2019 07:55:17 IV Fluids: .9 NaCl decreased to 150 ml/hr 11/10/2019 10:09:32 SUMMARY OF HEMODYNAMIC DATA Time AIR REST ECG 09:38:00 AO 148/58 (86) SA 09:47:13 Signed By Ramy Rice MD On 11/10/2019 10:38:46 Ramy Rice MD
[2019-11-10] MEDS: 0.9% Normal Saline 1,000 ML 150 ML IV (11:19)
[2019-11-10 12:41] LABS: ACT Activated Clotting Time 202 sec (74-137)
--- NOTE | 2019-11-10 13:39 | CRPHASE1_ITS ---
Patient Communication PHII Cardiac Rehab Discussed with Patient:: Yes Guide to Cardiac Rehab Given to Patient:: Yes Cardiac Rehab Facility Choice List Given to Patient:: Yes Choice Program [facility] CR PHII:: Communication Given to CR, Refer to [facility] Postal Service Mail Processor:: Ramy Rice Refer Phase II Cardiac Rehab:: Yes - to take place after discharge, pt undecided whether he will attend programs Risk Factors/Lifestyle Family History: Family History (Last Reviewed 11/03/19 @ 04:[address] Rhett Childress MD) Father Heart disease Myocardial infarction Brother Diabetes History of PTCA Mother HLD (hyperlipidemia) Cardiac Rehabilitation Info Cardiac Rehabilitation Program Information: Cardiac Rehabilitation is important for patients like you who are recovering from a heart problem. Cardiac rehabilitation programs are recognized as integral to the continued care of the patient with coronary heart disease. The cardiac rehabilitation program is designed to optimize a patient's physical, psychological, and social functioning. Health post acute care registered nurse work in cardiac rehabilitation programs and assist you with getting the treatments you need to get stronger and healthier - like exercise, healthy eating habits, and medications. Cardiac rehabilitation has been show to help people with heart problems live longer and have better life enjoyment than people who do not go to cardiac rehabilitation. Please contact the Cardiac Rehabilitation Program at [facility] at in two weeks if you have not heard from them.
--- NOTE | 2019-11-10 13:42 | CRPH1.INSTRU ---
General Education CAD and cardiac anatomy and function:: Needs reinforcement Explanation of diagnoses and procedures:: Needs reinforcement Sign/Symptoms of [place]:: Needs reinforcement Antiplatelet therapy: Needs reinforcement Proper use of NTG-SL: Not instructed Emergency procedures and activation of EMS: Needs reinforcement Compliance of all prescribed medications: Needs reinforcement Dyslipidemia Patient Dyslipidemia Risk Factors Are:: Total Cholesterol - 122, Triglycerides - 185, HDL - 38, LDL - 47 Overweight/Obesity Patient Overweight/Obesity Risk Factors Are:: BMI Normal [24-29 & > 65 years old] Heart Disease Patient Heart Disease Risk Factors Are:: Previous cardiac event Heart Disease Response Code:: Needs reinforcement Diabetes Patient Diabetes Risk Factors Are:: Elevated blood sugars Recommendations Include:: Maintain fasting blood sugars 70-110 md/dL, Maintain HgbA1c of 6% or less, Monitor blood sugar as prescribed, Diabetic dietary guidelines, Decrease/maintain body weight Diabetes:: Patient communicates acknowledgment Sedentary Patient Sedentary Risk Factors Are:: Lack of regular exercise Recommendations Include:: Benefits of regular exercise, Discussed home walking program, Monitored Outpatient Cardiac Rehab Sedentary Response Code:: Patient communicates acknowledgment - Pt has knee and back pain which limits his ability to exercise.
--- NOTE | 2019-11-10 20:40 | EKG12_ITS ---
Test Reason : AM EKG Blood Pressure : / mmHG Vent. Rate : 064 BPM Atrial Rate : 064 BPM P-R Int : 000 ms QRS Dur : 096 ms QT Int : 448 ms P-R-T Axes : 000 -11 147 degrees QTc Int : [address] & T wave abnormality, consider anterolateral ischemia or digitalis effect Prolonged QT Abnormal ECG When compared with ECG of 10-NOV-2019 20:42, MANUAL COMPARISON REQUIRED, DATA IS UNCONFIRMED Confirmed by JAYMIE ZAMORA, SUKUMAR ([id number]), technical writer and editor SAURAV LINARES ([id number]) on 11/15/2019 3:22:21 PM Referred By: Ramy Rice Confirmed By:SUKUMAR COON MD
[2019-11-10] MEDS: Tamsulosin HCl 0.4 MG Capsule PO (21:25)
[2019-11-10] MEDS: Atorvastatin Calcium 40 MG Tablet PO (21:25)
[2019-11-10] MEDS: oxyCODONE 5 MG Tablet 7.5 MG PO (21:29)
[2019-11-11] VITALS (12 sets, daily range): BP systolic 129–152; BP diastolic 58–70; PULSE 54–77; RESP 14–18; TEMP 36.4–36.7; O2SAT 96–99
[2019-11-11 03:59] LABS: Hematocrit 28.8 % (40-54); Hemoglobin 9.5 g/dL (13.0-16.5); Mean Corpuscular Hgb 31.9 pg (27.0-32.0); Mean Corpuscular Volume 96.6 fL (80-94); Mean Platelet Vol. 11.2 fl (6.2-12.0); Platelet Count 130 K/mm3 (150-450); RBC Distribution Width CV 14.6 % (11.6-14.6); RBC Distribution Width SD 51.2 fl (35.1-43.9); Red Blood Count 2.98 M/mm3 (4.6-6.2); White Blood Count 7.2 K/mm3 (4.4-11.0)
[2019-11-11 04:24] LABS: AST(SGOT) 13 U/L (15-37); Alanine Aminotransfer ALT/SGPT 21 U/L (16-61); Albumin, Serum 3.5 g/dL (3.2-5.0); Alkaline Phosphatase 90 U/L (45-117); Anion Gap 8 (5-15); BUN 56 mg/dL (7-18); BUN/Creat Ratio 22.3 RATIO (10-20); Calcium,Total 8.6 mg/dL (8.5-10.1); Chloride 115 mmol/L (98-107); Creatinine, Serum 2.51 mg/dL (0.70-1.30); EST Glomerular Filtration Rate 27 mL/min (>60); Est Glom Filt Rate - Afr Amer 32 mL/min (>60); Estimated Creatinine Clearance 21.89 ml/min; Globulin 3.4 g/dL (2.2-4.2); Glucose 90 mg/dL (74-106); Potassium 5.3 mmol/L (3.5-5.1); Protein, Total 6.9 g/dL (6.4-8.2); Sodium Level 141 mmol/L (136-145)
--- NOTE | 2019-11-11 08:31 | DCINST_ITS ---
Discharge Diet: Low fat/ Low Cholesterol Discharge Activity: Return to Normal Activity May shower in (days): 1 - No tub baths for 5 days May resume sexual activity in: 1-2 weeks Lifting Restrictions: No lifting anything greater than 10 pounds for 3 days Call your doctor if your incision/area has: Continuous Slow Oozing, Sudden Increased Bleeding, Increased Pain/ Swelling, Increased Redness, Foul Smelling Discharge, Swelling at the incision site Call your doctor if you observe: Fever of 101 or Higher, Shortness of breath Remove Dressing in (days):: 1 Cleanse incision/area with: Soap & Water Additional Instructions: You will continue with Aspirin and Plavix therapy. If anyone asks you to stop your Plavix, please call the [facility] first at [phone]. Please contact our office as surgery clearance is requested. We will contact you with an office appointment to evaluate overall progress in approximately 4 weeks. At that time, we will consider readiness for cardiac rehab. Please obtain a BMP in approximately one week to assess kidney function. If you have any questions or concerns, please call the [facility] Office at [phone]. Allergies/Adverse Reactions: Allergies ramipril [From Altace] Allergy (Intermediate, Verified 06/25/19 13:32) cough Medications to take at Discharge tamsulosin 0.4 mg capsule 0.4 mg PO QHS 90 Days #90 cap 11/17/18 Acetaminophen [Tylenol] 500 mg PO TID PRN PRN 05/24/19 Multivitamin with Minerals [Multiple Vitamin] 1 tab PO DAILY 05/24/19 Aspirin E.C. [Ecotrin] 81 mg PO DAILY@0800 #30 tab 05/31/19 atorvastatin 40 mg tablet 40 mg PO QHS #90 tab 06/25/19 Ferrous Sulfate [Iron] 325 mg PO DAILY 10/11/19 Glimepiride [Amaryl] 1 mg PO DAILY 10/11/19 Lansoprazole [Prevacid] 30 mg PO DAILY 10/11/19 Loratadine [Claritin] 10 mg PO DAILY 10/11/19 Oxycodone HCl/Acetaminophen [Percocet 7.5-325 mg Tablet] 1 tab PO BID 10/11/19 Isosorbide Mononitrate [Imdur] 120 mg PO DAILY #30 tab 10/12/19 Metoprolol Tartrate [Lopressor (beta deneen)] 50 mg PO BID #60 tab 10/12/19 Nitroglycerin (INPATIENT USE) [Nitrostat] 0.4 mg SUBLINGUAL Q5M PRN #90 tab.subl 10/12/19 Clopidogrel Bisulfate [Plavix] 75 mg PO DAILY #30 tab 11/03/19 Diclofenac Sodium [Voltaren] 1 applicatio TRANSDERM. PRN PRN 11/03/19 Furosemide [Lasix] 40 mg PO DAILY PRN PRN tab 11/03/19 Primary Care Physician: Neal Rodriguez MD [Primary Care Provider] - Test Results: Test results from this visit will be discussed in further detail at your follow- up appointment, if applicable. Please Follow Up With: [facility] will call you Proposed Discharge Date: 11/11/19 Cardiac Rehabilitation Info Cardiac Rehabilitation Program Information: Cardiac Rehabilitation is important for patients like you who are recovering from a heart problem. Cardiac rehabilitation programs are recognized as integral to the continued care of the patient with coronary heart disease. The cardiac rehabilitation program is designed to optimize a patient's physical, psychological, and social functioning. Health landcare officer work in cardiac rehabilitation programs and assist you with getting the treatm ents you need to get stronger and healthier - like exercise, healthy eating habits, and medications. Cardiac rehabilitation has been show to help people with heart problems live longer and have better life enjoyment than people who do not go to cardiac rehabilitation. Please contact the Cardiac Rehabilitation Program at [facility] at in two weeks if you have not heard from them.
--- NOTE | 2019-11-11 08:34 | PN.CARD_ITS ---
Subjectve: Patient feels much better since angioplasty yesterday, no chest pain, no angina. Right groin is clean/dry/intact without evidence of thrills, bruits or hematoma. EKG shows sinus bradycardia with first-degree AV block, old anterolateral T wave inversion with ST segment depression, no acute changes. Telemetry negative. Globin is stable and creatinine is gone from 2.87 to 2.51. Objective: Vital Signs Temp Pulse Resp BP Pulse Ox 98.1 F 62 15 138/70 H 97 11/11/19 08:00 11/11/19 08:00 11/11/19 08:00 11/11/19 08:00 11/11/19 08:00 Oxygen Delivery Method Room Air Weight: 186 lb 11.704 oz Body Mass Index (BMI) 29.5 Intake and Output for Last 24 Hours 11/09/19 11/10/19 11/11/19 23:59 23:59 23:59 Intake Total 1340 / 1660 440 / 440 Output Total 500 / 750 1050 / 1050 Balance 840 / 910 -610 / -610 General: Awake, Alert, Oriented x 3 HEENT: PERRL, EOMI, Sclera Non Icteric Neck: Supple, Good ROM, No Lymph Node Enlargement Lungs: Clear to auscultation Cardiovascular: Regular Rhythm, Normal S1, Normal S2, No Murmurs, No Rubs, No Gallops Vascular: No Carotid Bruits, Normal Femoral Pulses, Normal Radial Pulses, Normal Dorsalis Pedal Pulse, Normal Posterior Tibial Pulses Abdomen: Bowel Sounds Present, Soft, Non Tender, No HSM, No Organomegaly Extremities: No Cyanosis, No Clubbing, No edema Neurological: No Focal Motor or Sensory Deficit 11/11/19 03:50: WBC 7.2, RBC 2.98 L, Hgb 9.5 L, Hct 28.8 L, MCV 96.6 H, MCH 31.9, MCHC 33.0, Plt Count 130 L, MPV 11.2 11/11/19 03:50: Sodium 141, Potassium 5.3 H, Chloride 115 H, Carbon Dioxide 18.0 L, Anion Gap 8, BUN 56 H, Creatinine 2.51 H, Est GFR (MDRD) Af Amer 32 L, Est GFR (MDRD) Non-Af 27 L, BUN/Creatinine Ratio 22.3 H, Glucose 90, Calcium 8.6, To brock Bilirubin 0.40 Rhythm: EKG: ECHO: Stress Test: Cardiac Cath: PCI: CT Surgery: Holter monitor: EPS: PPM: CXR: Chest CT Scan: Medical Necessity - Tobacco Use Smoking Status: Never smoker Assessment/Plan 1. Coronary artery disease: The patient underwent successful angioplasty and drug-eluting stenting to the distal anastomotic site of a saphenous vein graft to the obtuse marginal for aggressive in-stent restenosis at the anastomotic site. In addition the patient has 2 discrete lesions in the proximal and distal part of the saphenous vein graft which were left for medical management as they appear to be unchanged from previous catheterizations, as well as the fact that the patient's grafts are 20+ years old and he has significant chronic renal insufficiency. Patient had the exact same anginal symptoms while we were working on the anastomotic site, which have completely resolved subsequent to his PCI. At this point I would recommend continuing the patient on a baby aspirin and Plavix lifelong given the age of his grafts and the debris accumulated on the inside part of the saphenous vein grafts. Should the patient have recurrent exertional anginal symptoms and provided his distal anastomotic site is still patent, he may require filter wire assisted angioplasty and stenting in 2 separate spots of the saphenous vein graft to the obtuse marginal. The patient also requests guidance on back surgery for spinal stenosis. The patient will require least 6 months of dual antiplatelet therapy unless the neurosurgeon is willing to proceed with neurosurgery on dual antiplatelet therapy, in which case he may undergo spinal surgery at any time. 2. Hyperlipidemia: Continue statin based medications. 3. Stage IV renal insufficiency: The patient's creatinine has improved from 2.87 to 2.51 with IV fluid resuscitation. Nonetheless he will require obs ervation and repeat BMP if his urine output drops. Should the patient require any additional catheterization he will require pre-hydration therapy. 4. Patient will follow-up with Dr. Theodore going forward. Patient will be discharged home. Inpatient E&M: [id number] [facility] L2
--- NOTE | 2019-11-11 08:37 | PCM.PN.BLA ---
Progress Note Patient will be discharged on Aspirin 81mg PO daily, Plavix 75mg PO Daily, Atorvastatin 40mg PO nightly, and Metoprolol tartrate 50mg PO BID. He is not on an KAYE/ARB d/t CKD and recent dye exposure. STROKE Vital Signs/Narrative: Vital Signs Temp Pulse Resp BP Pulse Ox 11/11/19 08:00 98.1 F 62 15 138/70 H 97 11/11/19 07:30 65 11/11/19 07:00 61 14 142/61 H 97 11/11/19 06:00 61 16 141/67 H 98 11/11/19 05:00 63 18 129/60 H 98
[2019-11-11] MEDS: Multivitamins,Ther W-Minerals Tablet 1 TABLET PO (09:23)
[2019-11-11] MEDS: oxyCODONE 5 MG Tablet 7.5 MG PO (09:23)
[2019-11-11] MEDS: Glimepiride 1 MG Tablet PO (09:23)
[2019-11-11] MEDS: Aspirin E.C. 81 MG Tablet PO (09:23)
[2019-11-11] MEDS: Clopidogrel Bisulfate 75 MG Tablet PO (09:23)
[2019-11-11] MEDS: Metoprolol Tartrate 50 MG Tablet PO (09:23)
[2019-11-11] MEDS: Pantoprazole Sodium 40 MG Tablet PO (09:23)
--- NOTE | 2019-11-11 10:00 | EKG12_ITS ---
Test Reason : POST PCI Blood Pressure : / mmHG Vent. Rate : 056 BPM Atrial Rate : 056 BPM P-R Int : 262 ms QRS Dur : 100 ms QT Int : 464 ms P-R-T Axes : 044 -05 134 degrees QTc Int : 447 ms Sinus bradycardia with 1st degree A-V block Lateral ischemia Consider right ventricular involvement in acute inferior infarct Abnormal ECG When compared with ECG of 03-NOV-2019 05:10, No significant change was found Confirmed by JAYMIE ZAMORA, SUKUMAR ([id number]), digital editor SAURAV LINARES ([id number]) on 11/15/2019 3:26:28 PM Referred By: Ramy Rice Confirmed By:SUKUMAR COON MD
== END 2019-11-11 08:39 | disposition home or self-care (01) ==
LOC: CLSP 07:32 → ICU 11-11 07:36
PROVIDERS: Internal Medicine Cardiovascular Disease; PCP Family Medicine; Referring Provider Internal Medicine Cardiovascular Disease; Visit Provider Internal Medicine Cardiovascular Disease
DX: I25.810 Atherosclerosis of coronary artery bypass graft(s) without angina pectoris (principal); I25.110 Atherosclerotic heart disease of native coronary artery with unstable angina pectoris; I25.2 Old myocardial infarction; I13.0 Hypertensive heart and chronic kidney disease with heart failure and stage 1 through stage 4 chronic kidney disease, or unspecified chronic kidney disease; N18.4 Chronic kidney disease, stage 4 (severe); I50.43 Acute on chronic combined systolic (congestive) and diastolic (congestive) heart failure; E78.5 Hyperlipidemia, unspecified; E78.00 Pure hypercholesterolemia, unspecified; D64.9 Anemia, unspecified; Z95.1 Presence of aortocoronary bypass graft; Z95.5 Presence of coronary angioplasty implant and graft; Z79.82 Long term (current) use of aspirin; Z79.84 Long term (current) use of oral hypoglycemic drugs; Z79.02 Long term (current) use of antithrombotics/antiplatelets
CPT/HCPCS: 36415; 80048; 80053; 85027; 85347; 92937; 93005; 99152; 99153; C1760; J7030; J7040; C1725; C1769; C1874; C1887; C9604; Q9967

== ENCOUNTER → 2019-12-01 13:27 | Outpatient (CLI) | payer MEDICARE, OTHER, SELFPAY ==
[2018-01-21 11:44] VITALS: BMI 29.0
[2019-11-10 10:32] VITALS: BMI 29.5
[2019-12-01 14:47] LABS: Protein, Urine (Random) 114.2 mg/dL (<11.9); Protein:Creat Ratio 1171 mg/g CRE (0-200)
[2019-12-01 15:09] LABS: Anion Gap 8 (5-15); BUN 53 mg/dL (7-18); Calcium,Total 8.7 mg/dL (8.5-10.1); Chloride 109 mmol/L (98-107); Creatinine, Serum 2.79 mg/dL (0.70-1.30); EST Glomerular Filtration Rate 23 mL/min (>60); Est Glom Filt Rate - Afr Amer 28 mL/min (>60); Glucose 191 mg/dL (74-106); Potassium 5.4 mmol/L (3.5-5.1); Sodium Level 138 mmol/L (136-145)
== END ==
PROVIDERS: Nurse Practitioner Family; PCP Family Medicine; Referring Provider Internal Medicine Nephrology; Visit Provider Internal Medicine Nephrology
DX: N18.4 Chronic kidney disease, stage 4 (severe) (principal)
CPT/HCPCS: 36415; 80048; 82570; 84156

== ENCOUNTER → 2020-09-13 07:35 | Outpatient (CLI) | payer MEDICARE, SELFPAY ==
[2018-01-21 11:44] VITALS: BMI 29.0
[2020-08-31 11:30] VITALS: BMI 28.0
--- NOTE | 2020-09-13 18:21 | STRESSREP_ITS ---
Stress Test Report Pharmacologic myocardial perfusion stress test. 79-year-old man with a history of coronary artery bypass surgery with previous stenting. Medications Ecotrin, Amaryl, furosemide, metoprolol, isosorbide, atorvastatin. Stress protocol: Resting EKG demonstrates normal sinus rhythm with a rate of 64 bpm. T wave inversions are noted in lead I, aVL and V2. Resting blood pressure is 156/76 mmHg. 0.4 mg of regadenoson was infused per usual protocol followed by rapid intravenous saline flush injection continuous electronic device monitor was performed. The maximum heart rate attained was 79 bpm which was 56% of max impacted heart rate the maximum workload was 1 metabolic equivalent. At rest there were no ST or T wave changes noted other than the T wave inversions noted in V1 aVL and V2. The above did not necessarily denote ischemia peak infusion no changes were noted. The final blood pressure was 142/70 mmHg. Myocardial perfusion protocol. 11.8 mCi of technetium 99m sestamibi was injected at rest. 0.4 mg of regadenoson was infused per usual protocol. At peak infusion 33.3 mCi of technetium 99m sestamibi was injected stress images were obtained stress and rest images were reconstructed and compared in the short axis vertical long horizontal long axis. Gated images were also obtained Perfusion SPECT analysis: Review of the images demonstrated mildly dilated cardiac silhouette size. A prominent right ventricle is present. There is mild reduction of perfusion noted in the mid anterior wall on the stress images. A defect is also noted in the mid to basal inferior wall. On the resting images there is minimal improvement around the edges of the anterior wall and a fixed defect noted in the inferior wall. The lateral wall apex and septum appear to be well perfused. No obvious reversibility is noted to suggest significant ischemia. The above is suggestive of a previous mid anterior infarct as well as basal inferior in farct. Gated SPECT analysis: The gated ejection fraction is 41%. Conclusion: Pharmacologic stress test with evidence of previous mid anterior infarct. Minimal antonio-infarct ischemia noted. Previous basal inferior infarct present. The above represents a low risk scan.
== END ==
PROVIDERS: PCP Family Medicine; Referring Provider Internal Medicine Cardiovascular Disease; Visit Provider Internal Medicine Cardiovascular Disease
DX: I25.10 Atherosclerotic heart disease of native coronary artery without angina pectoris (principal); Z95.1 Presence of aortocoronary bypass graft
CPT/HCPCS: 78452; 93017; A9500; A4216; J2785

== ENCOUNTER 2021-03-01 15:55 | Inpatient (IN) | payer MEDICARE, SELFPAY ==
[2018-01-21 11:44] VITALS: BMI 29.0
[2021-03-01] VITALS (7 sets, daily range): BP systolic 121–139; BP diastolic 20–69; PULSE 67–97; RESP 18; TEMP 36.6–37.2; O2SAT 96–98; BMI 28.4; BMI 27.6
--- NOTE | 2021-03-01 17:21 | RAD_ITS ---
STUDY: X-RAY CHEST REASON FOR EXAM: Male, 80 years old. weakness TECHNIQUE: Single AP portable view of the chest. COMPARISON: 11/03/2019. FINDINGS: The lungs are clear and expanded. There is no demonstrated pleural abnormality. Normal size heart. Prior CABG. Normal mediastinum and dani. Normal visualized pulmonary arteries. Normal visualized aortic arch and descending thoracic aorta. Normal visualized thoracic spine. Normal visualized ribs, clavicles, and shoulders. There is no demonstrated abnormality of the visualized soft tissue structures of the upper abdomen. RAD/Chest 1 View (Portable) IMPRESSION: No acute findings. Electronically Signed: Fang Pavon MD at 18:39 EDT Tel , Service support ,
--- NOTE | 2021-03-01 17:21 | EKG12_ITS ---
Test Reason : SOB Blood Pressure : / mmHG Vent. Rate : 084 BPM Atrial Rate : 084 BPM P-R Int : 256 ms QRS Dur : 096 ms QT Int : 422 ms P-R-T Axes : 000 -10 117 degrees QTc Int : 498 ms Sinus rhythm with 1st degree A-V block with Premature supraventricular complexes Possible Left Ventricular Hypertrophy Nonspecific ST and T wave abnormality Abnormal ECG Confirmed by EFE ZAMORA, EDWINA ([id number]), makeup editor JASMIN HAND ([id number]) on 03/05/2021 10:32:21 AM Referred By: STEVE Confirmed By:EDWINA WILKS MD
--- NOTE | 2021-03-01 17:23 | EX.ED.DYSGE1 ---
HPI History of Present Illness Chief Complaint: General Illness Narrative Narrative: Patient presents with generalized weakness, cough congestion and sore throat for the past 2 or 3 days. He tells me he is quite weak especially today, it takes him at least a half an hour to be able to get up from the toilet secondary to his weakness. He has no dysuria he has no diarrhea or constipation. He is denying abdominal pain. He has no headache or neck pain or stiffness. No known fevers. He is a diabetic and his blood sugars in the morning have been in the 80s. [facility] Medical History (Updated 03/01/21 @ 19:[address] 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 angina pectoris Atherosclerotic heart disease of [place] coronary artery without angina pectoris Barretts esophagus Chronic kidney disease (CKD) CKD stage 4 due to type 2 diabetes mellitus Essential (primary) hypertension Fatigue High risk medication use HLD (hyperlipidemia) Hyperkalemia Non-ST elevated myocardial infarction (non-STEMI) (05/24/19) Shortness of breath steroid injections lumbar Type 2 diabetes mellitus Home Medications tamsulosin 0.4 mg capsule 0.4 mg PO QHS 90 Days #90 cap 11/17/18 [History Last Taken 10/10/19 21:00] multivitamin with minerals 1 tab PO DAILY 05/24/19 [History Last Taken 10/10/19 06:00] aspirin 81 mg PO DAILY@0800 #30 tab 05/31/19 [Rx Last Taken 10/11/19 06:00 1 tab] glimepiride 1 mg PO DAILY 10/11/19 [History Last Taken 10/11/19 06:00] diclofenac sodium 1 applicatio TRANSDERM. PRN PRN 11/03/19 [History Last Taken Unknown] nitroglycerin 0.4 mg sublingual tablet 0.4 mg SUBLINGUAL Q5M PRN #75 tab 01/24/20 [Rx Last Taken Unknown] acetaminophen 325 mg tablet 325 mg PO TID PRN tab 08/31/20 [History Last Taken Unknown] loratadine 10 mg capsule 10 mg PO DAILY PRN 08/31/20 [History Last Taken Unknown] polyethylene glycol 3350 17 gram/dose oral powder 17 g PO DAILY 08/31/20 [History Last Taken Unknown] sodium polystyrene sulfonate 15 g PO DAILY g 08/31/20 [History Last Taken Unknown] atorvastatin 40 mg tablet 40 mg PO QHS #90 tab 09/15/20 [Rx Last Taken Unknown] clopidogrel 75 mg tablet 75 mg PO DAILY #90 tab 09/15/20 [Rx Last Taken Unknown] isosorbide mononitrate 120 mg tablet,extended release 24 hr 120 mg PO DAILY #90 tab 09/15/20 [Rx Last Taken Unknown] losartan 25 mg tablet 25 mg PO DAILY #90 tab 09/15/20 [Rx Last Taken Unknown] ferrous sulfate 325 mg (65 mg iron) tablet 325 mg PO DAILY 10/10/20 [History Last Taken Unknown] furosemide 40 mg tablet 40 mg PO BID tab 10/10/20 [History Last Taken Unknown] pantoprazole 40 mg tablet,delayed release 40 mg PO DAILY 10/10/20 [History Last Taken Unknown] metoprolol tartrate 50 mg tablet 50 mg PO BID #180 tab 02/14/21 [Rx Last Taken Unknown] calcium acetate(phosphat bind) 667 mg PO TID 03/01/21 [History Last Taken Unknown] oxycodone-acetaminophen 1 tab PO TID 03/01/21 [History Last Taken Unknown] Allergy/AdvReac Type Severity Reaction Status Date / Time ramipril [From Altace] Allergy Intermediate cough Verified 03/01/21 16:00 Family History Father Heart disease Myocardial infarction x3, first NC at age 49 Brother Diabetes History of PTCA Mother HLD (hyperlipidemia) Surgical History H/O coronary artery bypass surgery (08/16/02) History of coronary artery stent placement (11/10/19) History of left heart catheterization (11/03/19) History of total right knee replacement S/P PTCA (percutaneous transluminal coronary angioplasty) uvulectomy Social History (Updated 10/10/20 @ 14:16 by Graciela GARRISON, PA) Smoking Status: Never smoker alcohol intake: current alcohol intake frequency: 0-2 drinks per day Alcohol type: hard liquor substance use type: does not use ROS ROS ED ROS Narrative Past medical history: Reviewed, includes coronary artery disease status post bypass and stents, hypertension, hypercholesterolemia, CKD, diabetes Medications: Reviewed Social history: Noncontributory Review of systems: All systems negative except as indicated General: No fever. Generalized weakness as in HPI Eyes: No visual changes ENT: Upper airway congestion, rhinorrhea and sore throat. Neck: No neck pain Cardiovascular: No chest pain Respiratory: No shortness of breath. Nonproductive cough. Gastrointestinal: No abdominal pain, nausea vomiting or diarrhea. Patient's however does tell me the she saw his stool and it was quite watery. Genitourinary: No dysuria Musculoskeletal: No myalgias. Skin: No rash Neurological: No memory loss, confusion or any focal weakness Psych: No recent behavioral changes Hematologic: No easy bleeding or easy bruising EXAM Physical Exam Narrative Exam Narrative: Physical exam General: Patient is relatively comfortable in the bed, he appears chronically ill but not acutely ill. Head: Normocephalic, Atraumatic Eyes: Conjunctiva not pale ENT: Dry mucous membranes. He has rhinorrhea with swollen nasal turbinates. He has postnasal drip with a normal soft palate and no exudates. Normal voice. Neck: Supple, Nontender, No lymphadenopathy Cardiovascular: Regular rate, Regular rhythm Respiratory: No distress, CTA bilaterally Abdomen: Soft, Nontender, Nondistended Back: Nontender, Normal Inspection. Negative for: CVA tenderness Extremities: Nontender, No edema Skin: Normal color, No rash Neurological: Alert, Normal Strength, Normal Sensation Psychological: Normal affect Const Vital Signs: 03/01/21 15:56 03/01/21 18:02 Temperature 97.8 F Temperature Source Temporal Pulse Rate 97 95 Respiratory Rate 18 18 Blood Pressure 121/20 H 128/69 H Blood Pressure Mean 53 88 Pulse Ox 98 96 Oxygen Delivery Method Room Air Room Air MDM MDM MDM Narrative Medical decision making narrative: Patient is found to have COVID-19. He is vaccinated. Is oxygenating well and his lungs are normal however he is quite weak and he has acute kidney injury and uremia. I will admit him to the hospital. Lab Data Labs: Laboratory Results - last 24 hr 03/01/21 03/01/21 17:55 17:55 WBC 13.1 H RBC 3.17 L Hgb 9.8 L Hct 29.7 L MCV 93.7 MCH 30.9 MCHC 33.0 RDW Std Deviation 50.3 H RDW Coeff of Nica 14.5 Plt Count 131 L MPV 10.9 Immature Gran % (Auto) 0.500 Neut % (Auto) 80.5 H Lymph % (Auto) 10.0 L [place] % (Auto) 8.8 Eos % (Auto) 0.0 Baso % (Auto) 0.2 Absolute Neuts (auto) 10.6 H Absolute Lymphs (auto) 1.31 Nucleated RBC % 0 Sodium 137 Potassium 4.4 Chloride 101 Carbon Dioxide 26.0 Anion Gap 10 BUN 90 H Creatinine 4.50 H Estim Creat Clear Calc 11.81 Est GFR (MDRD) Af Amer 16 L Est GFR (MDRD) Non-Af 14 L BUN/Creatinine Ratio 20.0 Glucose 120 H Calcium 9.3 Total Bilirubin 0.80 AST 16 ALT 25 Alkaline Phosphatase 103 Troponin I High Sens 58 Total Protein 8.4 H Albumin 4.2 Globulin 4.2 Albumin/Globulin Ratio 1.0 Lipase 136 Radiography Diagnostic Testing: Radiology Impression Chest X-Ray 03/01/21 17:21 IMPRESSION: No acute findings. Electronically Signed: Fang Pavon MD at 18:39 EDT Tel , Service support , Discharge Plan Triage Chief Complaint: General Illness ED Provider: Jesus Hollingsworth Dx/Rx/DC Orders Clinical Impression: Acute kidney injury, Acute uremia, COVID-19 Prescriptions: No Action tamsulosin 0.4 mg capsule 0.4 mg PO QHS 90 Days Qty: 90 RF: 0 sodium polystyrene sulfonate Powder 15 g PO DAILY RF: 0 polyethylene glycol 3350 [Miralax] 17 gram/dose powder 17 g PO DAILY RF: 0 acetaminophen 325 mg tablet 325 mg PO TID PRN (Reason: Pain) RF: 0 furosemide 40 mg tablet 40 mg PO BID RF: 0 pantoprazole [Protonix] 40 mg tablet,delayed release (DR/EC) 40 mg PO DAILY RF: 0 ferrous sulfate 325 mg (65 mg iron) tablet 325 mg PO DAILY RF: 0 multivitamin with minerals 1 EACH tablet 1 tab PO DAILY RF: 0 aspirin 81 MG tablet 81 mg PO DAILY@0800 Qty: 30 RF: 0 glimepiride 1 MG tablet 1 mg PO DAILY RF: 0 loratadine 10 mg capsule 10 mg PO DAILY PRN (Reason: allergies) RF: 0 diclofenac sodium 1% gel 1 applicatio TRANSDERM. PRN PRN (Reason: SHOULDER PAIN) RF: 0 oxycodone-acetaminophen 10-650 mg Tablet 1 tab PO TID RF: 0 calcium acetate(phosphat bind) 667 mg Capsule 667 mg PO TID RF: 0 nitroglycerin 0.4 mg tablet, sublingual 0.4 mg sublingual Q5M PRN (Reason: Cardiac/Chest Pain :pt wants 3 bottles at once) Qty: 75 RF: 3 isosorbide mononitrate 120 mg tablet extended release 24 hr 120 mg PO DAILY Qty: 90 RF: 3 atorvastatin 40 mg tablet 40 mg PO QHS Qty: 90 RF: 3 clopidogrel 75 mg tablet 75 mg PO DAILY Qty: 90 RF: 3 losartan 25 mg tablet 25 mg PO DAILY Qty: 90 RF: 3 metoprolol tartrate 50 mg tablet 50 mg PO BID Qty: 180 RF: 3 Primary Care Provider: Neal Rodriguez Referrals: Neal Rodriguez MD [Primary Care Provider] - Disposition Disposition: Acute Care Hospital [facility]
[2021-03-01 18:04] LABS: Absolute Lymphocyte Count 1.31 X10^3/uL (0.83-4.51); Absolute Neutrophil Count 10.6 X10^3/uL (2.0-7.7); Basophil# 0.02 X10^3/uL; Basophil% 0.2 % (0-1); Hematocrit 29.7 % (40-54); Hemoglobin 9.8 g/dL (13.0-16.5); Lymphocyte # 1.31 X10^3/ul (0.83-4.51); Mean Corpuscular Hgb 30.9 pg (27.0-32.0); Mean Corpuscular Volume 93.7 fL (80-94); Mean Platelet Vol. 10.9 fl (6.2-12.0); Monocyte# 1.15 X10^3/uL; Monocyte% 8.8 % (0-10); NRBC Flagged by Analyzer 0 % (0-5); Neutrophil # 10.59 X10^3/uL (2.7-7.7); Neutrophil % 80.5 % (47-70); Platelet Count 131 K/mm3 (150-450); RBC Distribution Width CV 14.5 % (11.6-14.6); RBC Distribution Width SD 50.3 fl (35.1-43.9); Red Blood Count 3.17 M/mm3 (4.6-6.2); White Blood Count 13.1 K/mm3 (4.4-11.0)
[2021-03-01 18:23] LABS: AST(SGOT) 16 U/L (15-37); Alanine Aminotransfer ALT/SGPT 25 U/L (16-61); Albumin, Serum 4.2 g/dL (3.2-5.0); Alkaline Phosphatase 103 U/L (45-117); Anion Gap 10 (5-15); BUN 90 mg/dL (7-18); Calcium,Total 9.3 mg/dL (8.5-10.1); Chloride 101 mmol/L (98-107); EST Glomerular Filtration Rate 14 mL/min (>60); Est Glom Filt Rate - Afr Amer 16 mL/min (>60); Estimated Creatinine Clearance 11.81 ml/min; Globulin 4.2 g/dL (2.2-4.2); Glucose 120 mg/dL (74-106); Lipase 136 U/L (73-393); Potassium 4.4 mmol/L (3.5-5.1); Protein, Total 8.4 g/dL (6.4-8.2); Sodium Level 137 mmol/L (136-145); Troponin-I HS 58 pg/mL (3.0-78.0)
--- NOTE | 2021-03-01 19:13 | ED.RN ---
FLuids started by Odilia JENNINGS. Fluids were completed prior to my shift.
--- NOTE | 2021-03-01 19:30 | PCM.HP.STD ---
HPI - General General Date of Admission: 03/01/21 Date of Service: 03/01/21 Chief Complaint: Sore throat, poor intake, fatigue/malaise HPI Narrative The patient is an 80 y/o M w/ PMHx: CKD stage IV, CAD s/p CABG and PCI w/ Hx W[place], HTN, HLD, Chronic Systolic/Diastolic CHF, Diabetes mellitus type II who presents to the [facility] ED on 03/01/21 with history of significant fatigue, malaise, poor oral intake secondary to severe sore throat, bodyaches as well as congestion ongoing x ~ 1 week with debility, unsafe at home, noted to have been on the toilet and unable to get off himself prompting to call EMS. He normally is highly functional, performing all his own ADLs. Patient has been vaccinated with the Pfizer series when it was offered to his age group. His notes being A+ blood type. Patient's did note having accidentally using her 's toothbrush recently but has herself remained asymptomatic. Work-up in the ED included T 97.8, heart rate 95, BP 120/69, respiratory rate 18, 96 to 90% on room air, CBC with WBC 13.1, hemoglobin 9.8, platelet 131 with left shift, CMP with BUN/creatinine 90/4.50, glucose 120, unremarkable hepatic profile, lipase 136, trop 58, rapid Covid testing positive, chest x-ray with no acute cardiopulmonary findings, EKG SR without acute evidence of ischemia. [facility] Medical History (Updated 03/01/21 @ 19:[address] 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 angina pectoris Atherosclerotic heart disease of barrow coronary artery without angina pectoris Barretts esophagus Chronic kidney disease (CKD) CKD stage 4 due to type 2 diabetes mellitus Essential (primary) hypertension Fatigue High risk medication use HLD (hyperlipidemia) Hyperkalemia Non-ST elevated myocardial infarction (non-STEMI) (05/24/19) Shortness of breath steroid injections lumbar Type 2 diabetes mellitus Home Medications tamsulosin 0.4 mg capsule 0.4 mg PO QHS 90 Days #90 cap 11/17/18 [History Last Taken 02/28/21] multivitamin with minerals 1 tab PO DAILY 05/24/19 [History Last Taken 03/01/21] glimepiride 1 mg PO DAILY 10/11/19 [History Last Taken 03/01/21] diclofenac sodium 1 applicatio TRANSDERM. PRN PRN 11/03/19 [History Last Taken Unknown] nitroglycerin 0.4 mg sublingual tablet 0.4 mg SUBLINGUAL Q5M PRN #75 tab 01/24/20 [Rx Last Taken Unknown] polyethylene glycol 3350 17 gram/dose oral powder 17 g PO DAILY 08/31/20 [History Last Taken 02/28/21] sodium polystyrene sulfonate 15 g PO DAILY g 08/31/20 [History Last Taken 02/28/21] atorvastatin 40 mg tablet 40 mg PO QHS #90 tab 09/15/20 [Rx Last Taken 03/01/21] clopidogrel 75 mg tablet 75 mg PO DAILY #90 tab 09/15/20 [Rx Last Taken 03/01/21] isosorbide mononitrate 120 mg tablet,extended release 24 hr 120 mg PO DAILY #90 tab 09/15/20 [Rx Last Taken 03/01/21] losartan 25 mg tablet 25 mg PO DAILY #90 tab 09/15/20 [Rx Last Taken 03/01/21] ferrous sulfate 325 mg (65 mg iron) tablet 325 mg PO DAILY 10/10/20 [History Last Taken 02/28/21] furosemide 40 mg tablet 40 mg PO BID tab 10/10/20 [History Last Taken 03/01/21] pantoprazole 40 mg tablet,delayed release 40 mg PO DAILY 10/10/20 [History Last Taken 03/01/21] metoprolol tartrate 50 mg tablet 50 mg PO BID #180 tab 02/14/21 [Rx Last Taken 03/01/21] acetaminophen 500 mg PO TID 03/01/21 [History Last Taken 03/01/21] aspirin 81 mg PO DAILY@199903/01/21 [History Last Taken 02/28/21] calcium acetate(phosphat bind) 667 mg PO TID 03/01/21 [History Last Taken 03/01/21] oxycodone-acetaminophen 1 tab PO TID PRN 03/01/21 [History Last Taken 03/01/21] Allergy/AdvReac Type Severity Reaction Status Date / Time ramipril [From Altace] Allergy Intermediate cough Verified 03/01/21 16:00 Family History Father Heart disease Myocardial infarction x3, first W[place] at age 49 Brother Diabetes History of PTCA Mother HLD (hyperlipidemia) Surgical History H/O coronary artery bypass surgery (08/16/02) History of coronary artery stent placement (11/10/19) History of left heart catheterization (11/03/19) History of total right knee replacement S/P PTCA (percutaneous transluminal coronary angioplasty) uvulectomy Social History (Updated 03/01/21 @ 20:[address] Latasha Howard MD) household members: spouse Smoking Status: Never smoker alcohol intake: current alcohol intake frequency: 0-2 drinks per day Alcohol type: hard liquor substance use type: does not use ROS ROS Narrative Admission Review of Systems: CONSTITUTIONAL: No weight loss, fever, chills, + weakness or fatigue. HEENT: + Sore throat. Eyes: No visual loss, blurred vision, double vision or yellow sclerae. Ears, Nose, Throat: No hearing loss, sneezing, congestion, runny nose. SKIN: No rash or itching, lesions, wounds. CARDIOVASCULAR: No chest pain, chest pressure or chest discomfort, palpitations, edema, orthopnea, syncopal events. RESPIRATORY: + Mild cough, clear sputum. No shortness of breath, wheezing, hemoptysis. GASTROINTESTINAL: + anorexia, No nausea, vomiting or diarrhea, abdominal pain, melena, BRBPR. GENITOURINARY: No dysuria, frequency, urgency or retention. NEUROLOGICAL: No headache, dizziness, syncope, paralysis, ataxia, numbness or tingling in the extremities, focal weakness, change in bowel or bladder control, seizure. MUSCULOSKELETAL: No muscle, back pain, joint pain or stiffness. HEMATOLOGIC: + anemia, bleeding or bruising. LYMPHATICS: No enlarged nodes. No history of splenectomy. PSYCHIATRIC: No history of depression or anxiety. ENDOCRINOLOGIC: No reports of sweating, cold or heat intolerance. No polyuria or polydipsia. ALLERGIES: No history of asthma, hives, eczema or rhinitis. Vital Signs Vital Signs Vital Signs: 03/01/21 15:56 03/01/21 18:02 Temperature 97.8 F Temperature Source Temporal Pulse Rate 97 95 Respiratory Rate 18 18 Blood Pressure 121/20 H 128/69 H Blood Pressure Mean 53 88 Pulse Ox 98 96 Oxygen Delivery Method Room Air Room Air Weight Weight: 176 lb Body Mass Index (BMI) 28.4 Physical Exam Narrative Physical Examination: General: Awake, alert, oriented x 3 and cooperative, seated upright in the ED bed in no apparent distress, fatigued appearing, flushed. Skin: Mildly flushed color, normal turgor, no icterus, no cyanosis. HEENT: AT/NC, EOMI, PERRLA, dry MM, no carotid bruits or JVD noted. Lungs: Diminished, > decrease BL bases, mildly decreased effort, no evidence of any distress, no rales, ronchi or wheezing. Heart: Regular rate and rhythm; no gallop, rub audible. Abdomen: Soft, NTTP, ND, normal BS, no HSM. Extremities: No cyanosis, clubbing, or edema. Neurological: Patient awake, alert, oriented as noted, cognitive function appears baseline intact; pupils equally reactive to light and accommodation, cranial nerves II-XII grossly normal, moving all 4 extremities, no focal deficits, strength moderately to severely globally decreased secondary to acute presentation. Psychiatric: Affect appears fatigued, ill appearing, no acute evidence of depressive or anxiety feelings. Results Lab / Micro Data Result Diagrams: 03/01/21 17:55 03/01/21 17:55 Labs: Laboratory Results - last 24 hr 03/01/21 17:55: WBC 13.1 H, RBC 3.17 L, Hgb 9.8 L, Hct 29.7 L, MCV 93.7, MCH 30.9, MCHC 33.0, RDW Std Deviation 50.3 H, RDW Coeff of Nica 14.5, Plt Count 131 L, MPV 10.9, Immature Gran % (Auto) 0.500, Neut % (Auto) 80.5 H, Lymph % (Auto) 10.0 L, [place] % (Auto) 8.8, Eos % (Auto) 0.0, Baso % (Auto) 0.2, Absolute Neuts (auto) 10.6 H, Absolute Lymphs (auto) 1.31, Nucleated RBC % 0 03/01/21 17:55: Sodium 137, Potassium 4.4, Chloride 101, Carbon Dioxide 26.0, Anion Gap 10, BUN 90 H, Creatinine 4.50 H, Estim Creat Clear Calc 11.81, Est GFR (MDRD) Af Amer 16 L, Est GFR (MDRD) Non-Af 14 L, BUN/Creatinine Ratio 20.0, Glucose 120 H, Calcium 9.3, Total Bilirubin 0.80, AST 16, ALT 25, Alkaline Phosphatase 103, Troponin I High Sens 58, Total Protein 8.4 H, Albumin 4.2, Globulin 4.2, Albumin/Globulin Ratio 1.0, Lipase 136 Micro: Microbiology 03/01/21 17:55 Nasal Secretion SARS-CoV-2 Antigen (Rapid) - Final SARS-CoV-2 (COVID 19) Radiology Impression Chest X-Ray 03/01/21 17:21 IMPRESSION: No acute findings. Electronically Signed: Fang Pavon MD at 18:39 EDT Tel , Service support , Assessment & Plan Assessment/Plan (1) COVID-19: (2) Acute kidney injury: PLAN: The patient is an 80 y/o M w/ PMHx: CKD stage IV, CAD s/p CABG and PCI w/ Hx [place], HTN, HLD, Chronic Systolic/Diastolic CHF, Diabetes mellitus type II who presents to the [facility] ED on 03/01/21 with history of significant fatigue, malaise, poor oral intake secondary to severe sore throat, bodyaches as well as congestion ongoing x ~ 1 week with debility, unsafe at home, noted to have been on the toilet and unable to get off himself prompting to call EMS. 1. Acute Viral Syndrome, COVID-19 with associated Adult FTT: Will admit to the [facility] telemetry unit under COVID precautions, will maintain on oxygen with wean as tolerated to room air, PRN albuterol, HOB, IS parameters w/ pending sputum cultures, respiratory viral panel and urine antigens, will obtain D-dimer, procalcitonin, CRP, CPK, Ferritin, LDH, trop and BNP, continue supportive care including q 2 hour turning including prone given no prone bed availability and judicious hydration, closely monitor for worsening status for ARDS and multiorgan failure, will initiate IV decadron if hypoxia onset noted, given renal disease not remdesivir candidate. PT/OT/CM consultations for discharge planning. Given weakness, debility may require SNF. 2. LIBIA on CKD stage IV: Secondary to acute presentation as noted #1. Admission BUN/Cr 90/4.50, prior baseline creatinine noted to be most recently 12/01/2019 creatinine 2.79 however has primarily ranged 2.8-3.5. Will judiciously hydrate given underlying heart failure history, hold nephrotoxic medications and repeat chemistry in AM. If no improvement would plan FeNa assessment as well as renal ultrasound if necessary and nephrology consultation. Patient follows w/ [facility] Dr. Rubio. 3. CAD: Status post CABG and PCI, will continue patient aspirin, Plavix, metoprolol, statin therapy, temporarily holding patient losartan given LBIIA as noted. 4. Chronic Systolic/Diastolic CHF: We will continue patient aspirin, Plavix, metoprolol, statin therapy, temporally holding patient losartan and Lasix given LIBIA. Most recent echocardiogram noted 11/03/19 with noted normal LV size, EF 50%, inferior basal akinetic, posterior basal hypokinetic, basal inferioseptal mildly hypokinetic, mid-inferior akinetic, LA moderately enlarged, mild TVI, trisinus/trileaflet AV, mild ALIN, PASP 24 mmHg. 5. Diabetes mellitus type II: Hold oral home regimen, allow ADA diet, accu checks w/ ISS. 6. Hypertension: Continue home regimen including metoprolol, isosorbide, holding Lasix as well as losartan temporarily given LIBIA as noted, PRN hydralazine. 7. Hyperlipidemia: Continue home statin regimen. 8. Chronic anemia, AOCD, iron deficiency anemia: Admission hemoglobin 9.8, baseline 9, stable, continue iron supplementation and trend CBC. 9. GERD: We will continue patient home PPI. 10. BPH: We will continue patient home Flomax regimen. 11. DVT prophylaxis: SCDs, heparin. 12. CODE status: Patient HCPOA is not set up however his would be his primary decision-maker he notes and living will is currently in place. Did encourage him to discuss these items with case management/social work given age and comorbidities. Discussed CODE status at length including difference between FULL code, DNR-CCA and DNR-CC status. Following discussions about the differences in these status, requested DNR-CCA, no intubation status. Advanced Care Planning Face to Face Time: 16 minutes. Charges/Coding Visit Charges Inpatient E&M: 97437 Init Hosp L3 Procedures Hospitalists Procedures: 35556 Advncd Care Plan 30 Min
[2021-03-01 20:46] LABS: BNP,B-Type NATRIURETIC PEPTIDE 1418.7 pg/mL (0-100); Ferritin 1032 ng/mL (26-388); LDH 184 U/L (87-241); Magnesium 1.6 mg/dL (1.6-2.6)
[2021-03-01 21:15] LABS: D-Dimer Quantitative (DVT/PE) 0.86 FEU/ug/m (0.27-0.49)
[2021-03-01 21:27] LABS: Procalcitonin 7.75 ng/mL (0.00-0.09)
[2021-03-01 22:05] LABS: Bacteria 0 SEEN /hpf (None Seen); Mucous, Urine 0 SEEN /hpf (<or=2+); White Blood Cells 0 SEEN /hpf (0-5)
[2021-03-01 22:08] LABS: Color, Urine Yellow (Yellow); Glucose, Dipstick Normal (Normal); Ketone-Dipstick Negative (Negative); Leukocyte Esterase-Dipstick Negative /ul (Negative); Nitrite-Dipstick Negative (Negative); Occult Blood-Urine 150 /ul (Negative); Protein-Dipstick 100 mg/dl (Negative); Urine Bilirubin Dipstick Negative (Negative); Urine Clarity Sl. Cloudy (Clear); Urine Urobilinogen Normal (Normal)
[2021-03-01] MEDS: oxyCODONE 5 MG Tablet 10 MG PO (22:08)
[2021-03-01] MEDS: Metoprolol Tartrate 50 MG Tablet PO (22:08)
[2021-03-01] MEDS: Tamsulosin HCl 0.4 MG Capsule PO (22:08)
[2021-03-01] MEDS: Atorvastatin Calcium 40 MG Tablet PO (22:08)
[2021-03-01] MEDS: Heparin Injection (Vial) 5,000 UNIT/ML VIAL 5000 UNIT SC (22:09)
[2021-03-01] MEDS: 0.9% Saline Lock 10 ML Syringe IV (22:11)
[2021-03-01] MEDS: 0.9% Normal Saline 1,000 ML 100 ML IV (22:11)
[2021-03-01 22:29] LABS: Red Blood Cells-Urine 5-10 SEEN /hpf (0-5); Squamous Epithelial Cells - UA 0-5 SEEN /hpf (0-5)
[2021-03-01 22:55] LABS: Bedside Glucose 75 mg/dL (70-110)
[2021-03-01 22:55] LABS: Bedside Glucose 90 mg/dL (70-110)
[2021-03-02] VITALS (26 sets, daily range): BP systolic 129–164; BP diastolic 60–99; PULSE 58–127; RESP 12–41; TEMP 36.3–38.8; O2SAT 80–98
--- NOTE | 2021-03-02 00:20 | EKG12_ITS ---
Test Reason : RHYTHM CHANGE Blood Pressure : / mmHG Vent. Rate : 058 BPM Atrial Rate : 234 BPM P-R Int : 000 ms QRS Dur : 096 ms QT Int : 480 ms P-R-T Axes : 000 -13 144 degrees QTc Int : 471 ms Atrial Flutter with 4:1 block Left ventricular hypertrophy with repolarization abnormality Abnormal ECG When compared with ECG of 11-NOV-2019 05:02, Junctional rhythm has replaced Sinus rhythm T wave inversion less evident in Anterior leads Confirmed by JAYMIE ZAMORA, SUKUMAR ([id number]), general expeditor JASMIN HAND ([id number]) on 03/05/2021 9:36:35 AM Referred By: SAMMY Confirmed By:SUKUMAR COON MD
[2021-03-02] MEDS: APIXABAN 2.5 MG TABLET PO ×3 (01:52→21:25)
[2021-03-02] MEDS: 0.9% Saline Lock 10 ML Syringe IV (01:52)
[2021-03-02 02:27] LABS: Thyroid Stim Hormone (TSH) 0.29 uIU/mL (0.358-3.74)
[2021-03-02] MEDS: oxyCODONE 5 MG Tablet 10 MG PO ×3 (05:56→21:25)
[2021-03-02 06:10] LABS: Bedside Glucose 68 mg/dL (70-110)
[2021-03-02 06:51] LABS: Bedside Glucose 86 mg/dL (70-110)
--- NOTE | 2021-03-02 06:53 | NURSING ---
pt BG this am 68, gave pt Oj and snack. made Dr. Howard aware. rechecked, Bg went up to 86. pt still drinking Oj and ordering BF.
[2021-03-02] MEDS: guaiFENesin 10 ML UDC (200MG/10ML) 20 ML PO (08:42)
[2021-03-02] MEDS: Acetaminophen 325 MG Tablet 650 MG PO ×3 (08:43→20:20)
[2021-03-02] MEDS: Clopidogrel Bisulfate 75 MG Tablet PO (08:50)
[2021-03-02] MEDS: Calcium Acetate 667 MG Capsule PO ×3 (08:50→18:09)
[2021-03-02] MEDS: Pantoprazole Sodium 40 MG Tablet PO (08:50)
[2021-03-02] MEDS: Metoprolol Tartrate 50 MG Tablet PO ×2 (08:50→21:24)
[2021-03-02] MEDS: Sodium Polystyrene Sulfonate 15 GM/60 ML UDC PO (08:51)
[2021-03-02] MEDS: Glucerna Shake 120 ML LIQUID PO (08:51)
[2021-03-02] MEDS: Multivitamins,Ther W-Minerals Tablet 1 TABLET PO (08:51)
[2021-03-02] MEDS: Ferrous Sulfate 325 MG Tablet PO (08:51)
[2021-03-02] MEDS: Aspirin E.C. 81 MG Tablet PO (08:51)
[2021-03-02] MEDS: Phenol/Sodium Phenolate 180ML 5 SPRAY MUCOUS MEM (09:00)
[2021-03-02] MEDS: 0.9% Normal Saline 1,000 ML 100 ML IV ×2 (10:28→20:20)
--- NOTE | 2021-03-02 12:05 | CASEMGMT ---
MICHAELA MCCOLLUM Assessment: Face to Face with pt for initial transition planning/care coordination assessment. RN VEDA introduced self and role at [facility], pt voices understanding and consents to assessment. Pt is A/O x4 and answers all questions appropriately at this time. Pt sitting up in chair in no distress. Care providers, pharmacy, and demographics verified/updated. Lab entered room as this RN VEDA was leaving. Admitting Dx: Covid, LIBIA PCP:Jennifer Specialists: Joanne, nephro; Grazyna, cardio; Quan ortho Preferred Pharmacy: [facility] [place] Insurance: [employer] [facility] Prescription Benefit: yes LW/HPOA: Pt states he has a LW but does not have a DPOA. He denies need for info regarding this. LNOK: Loren Werner, ; Zev Werner, son Living Arrangements: Pt lives with in a 2 story house with two steps to enter with a rail. Pt reports being I in ADL's and denies concerns at home. Transportation: Pt drives self and denies concerns with transportation. DME/HHC/SNF: Pt has a rollator in his car, a cane in the house and in the car, a walker on every level of the house and an elevator in his home. He denies previous HHC or SNF stays. Pt states he was tested at [facility]. Pt was negative but is in the process of being tested again. They have been using separate bedrooms and bathrooms in the home. He states their family has been bringing supplies and groceries to their home. Pt provided with a local in network list of DME companies, pt chose [employer] should he need home O2. Green sheet on chart in case pt is dc'd this weekend. Pt states no concerns with going home at time of dc. Pt states no further concerns/needs. CM to follow. Advised pt to ask CM if any further question/concerns/needs arise, voices understanding. Pt Goal: Home Plan: Home
[2021-03-02 12:32] LABS: Absolute Lymphocyte Count 1.66 X10^3/uL (0.83-4.51); Basophil# 0.01 X10^3/uL; Basophil% 0.1 % (0-1); Hematocrit 28.1 % (40-54); Lymphocyte # 1.66 X10^3/ul (0.83-4.51); Lymphocyte % 19.3 % (19-41); Mean Corpuscular Hgb 30.6 pg (27.0-32.0); Mean Corpuscular Volume 95.6 fL (80-94); Mean Platelet Vol. 11.1 fl (6.2-12.0); Monocyte# 0.88 X10^3/uL; Monocyte% 10.3 % (0-10); NRBC Flagged by Analyzer 0 % (0-5); Neutrophil # 5.97 X10^3/uL (2.7-7.7); Neutrophil % 69.6 % (47-70); Platelet Count 126 K/mm3 (150-450); RBC Distribution Width CV 14.7 % (11.6-14.6); RBC Distribution Width SD 51.8 fl (35.1-43.9); Red Blood Count 2.94 M/mm3 (4.6-6.2); White Blood Count 8.6 K/mm3 (4.4-11.0)
[2021-03-02 12:51] LABS: Bedside Glucose 115 mg/dL (70-110)
[2021-03-02 13:13] LABS: ALB/GLOB Ratio 0.9 RATIO (0.9-2.4); AST(SGOT) 19 U/L (15-37); Alanine Aminotransfer ALT/SGPT 21 U/L (16-61); Albumin, Serum 3.7 g/dL (3.2-5.0); Alkaline Phosphatase 86 U/L (45-117); Anion Gap 9 (5-15); BUN 88 mg/dL (7-18); BUN/Creat Ratio 22.3 RATIO (10-20); Calcium,Total 8.8 mg/dL (8.5-10.1); Chloride 105 mmol/L (98-107); Creatinine, Serum 3.94 mg/dL (0.70-1.30); EST Glomerular Filtration Rate 16 mL/min (>60); Est Glom Filt Rate - Afr Amer 19 mL/min (>60); Estimated Creatinine Clearance 13.49 ml/min; Globulin 3.9 g/dL (2.2-4.2); Glucose 104 mg/dL (74-106); Potassium 4.2 mmol/L (3.5-5.1); Protein, Total 7.6 g/dL (6.4-8.2); Sodium Level 138 mmol/L (136-145)
--- NOTE | 2021-03-02 13:26 | PCS.PANDOC ---
PANDEMIC DOCUMENTATION INITIATED: Date: 02/19/2021 Time: 190
--- NOTE | 2021-03-02 16:17 | CON.PCM.CA_ITS ---
Assessment & Plan Assessment/Plan (1) H/O coronary artery bypass surgery: PLAN: He is status post coronary artery bypass surgery. At this particular time he appears to be stable with no evidence of angina. My recommen dation is therefore to continue the current medical therapy without making any changes. (2) History of coronary artery stent placement: PLAN: He is status post previous angioplasty and stenting as discussed above. It does not appear that there is any significant anginal episode and I would recommend no changes at this particular time. (3) Essential (primary) hypertension: PLAN: His blood pressure appears to be under good control. I would recommend continuing the same medical therapy with no changes. (4) HLD (hyperlipidemia): QUALIFIERS: Hyperlipidemia type: pure hypercholesterolemia Qualified Code(s): E78.00 - Pure hypercholesterolemia, unspecified PLAN: We will continue with risk factor modification. (5) Paroxysmal atrial flutter: PLAN: He does appear to have developed atrial fibrillation and flutter. As you know this is not uncommon with COVID-19 infections. Due to his renal dysfunction I do agree with Eliquis 2.5 mg twice a day. His ventricular response rate is controlled. I do not think there is a reason for echoc ardiographic imaging at this particular time. We will continue to manage him expectantly. Thank you for allowing me to participate in the care of your patient. Please don't hesitate to call if any issues arise. HPI Consult Data Date of Consult: 03/02/21 HPI Narrative HPI Narrative: JADYN RAMOS, is a 80 M who presents to the emergency room with we akness and a mild cough as well as shortness of breath. He was evaluated and diagnosed as having a COVID-19 infection. He apparently has been vaccinated earlier on this year. An EKG that was obtained demonstrated evidence of atrial flutter with a controlled ventricular response rate and cardiology was called for further evaluation as well as inputs. He is a gentleman with a history of coronary artery disease status post coronary artery bypass surgery. He had a left internal mammary artery to left anterior descending artery which was noted to be preserved and patent the circumflex artery had moderate disease in the mid segment and the saphenous vein graft to the right coronary artery was noted to be patent. He had a stress test which was abnormal and underwent a diagnostic heart catheterization where he was noted to have a 99% stenosis of the SVG to the OM. He underwent stenting of this vessel. He underwent repeat heart catheterization October 2019 that showed a distal anastomotic post stent area approximately 90% stenosis. He underwent staged procedure with a drug-eluting stent placed to SVG to OM on 11/10/2019. Pt denies chest, arm, jaw, or neck discomfort. His exercise tolerance is stable. Pt denies symptoms of CHF, palpitations, lightheadedness, dizziness, near synco pal or syncopal episodes. Pt denies claudication issues. Pt. denies orthopnea, PND, fever, chills, chronic cough, blood in urine, blood in stool, or myalgia. He feels his fatigue/ energy level it is improved. His blood pressure is mildly elevated today. At his last visit he had expressed concerns about whether he should have his care continued at the [facility] or whether he should consolidate his care at the [facility]. Nevertheless he did present here for further evaluation and management. He appears to be stable at this time though he says that he has experienced mild jitteriness. [facility] Medical History Abnormal electrocardiogram Abnormal nuclear stress test Abnormal result of cardiovascular function study, unspecified Acute combined systolic (congestive) and diastolic (congestive) heart failure Acute coronary syndrome Atherosclerosis of coronary artery bypass graft without angina pectoris Atherosclerotic heart disease of [place] coronary artery without angina pectoris Barretts esophagus Chronic kidney disease (CKD) CKD stage 4 due to type 2 diabetes mellitus Diabetes Essential (primary) hypertension Fatigue High risk medication use HLD (hyperlipidemia) Hyperkalemia Non-ST elevated myocardial infarction (non-STEMI) (05/24/19) Shortness of breath steroid injections lumbar Type 2 diabetes mellitus Home Medications tamsulosin 0.4 mg capsule 0.4 mg PO QHS 90 Days #90 cap 11/17/18 [History Last Taken 02/28/21] multivitamin with minerals 1 tab PO DAILY 05/24/19 [History Last Taken 03/01/21] glimepiride 1 mg PO DAILY 10/11/19 [History Last Taken 03/01/21] diclofenac sodium 1 applicatio TRANSDERM. PRN PRN 11/03/19 [History Last Taken Unknown] nitroglycerin 0.4 mg sublingual tablet 0.4 mg SUBLINGUAL Q5M PRN #75 tab 01/24/20 [Rx Last Taken Unknown] polyethylene glycol 3350 17 gram/dose oral powder 17 g PO DAILY 08/31/20 [History Last Taken 02/28/21] sodium polystyrene sulfonate 15 g PO DAILY g 08/31/20 [History Last Taken 02/28/21] atorvastatin 40 mg tablet 40 mg PO QHS #90 tab 09/15/20 [Rx Last Taken 03/01/21] clopidogrel 75 mg tablet 75 mg PO DAILY #90 tab 09/15/20 [Rx Last Taken 03/01/21] isosorbide mononitrate 120 mg tablet,extended release 24 hr 120 mg PO DAILY #90 tab 09/15/20 [Rx Last Taken 03/01/21] losartan 25 mg tablet 25 mg PO DAILY #90 tab 09/15/20 [Rx Last Taken 03/01/21] ferrous sulfate 325 mg (65 mg iron) tablet 325 mg PO DAILY 10/10/20 [History Last Taken 02/28/21] furosemide 40 mg tablet 40 mg PO BID tab 10/10/20 [History Last Taken 03/01/21] pantoprazole 40 mg tablet,delayed release 40 mg PO DAILY 10/10/20 [History Last Taken 03/01/21] metoprolol tartrate 50 mg tablet 50 mg PO BID #180 tab 02/14/21 [Rx Last Taken 03/01/21] acetaminophen 500 mg PO TID 03/01/21 [History Last Taken 03/01/21] aspirin 81 mg PO DAILY@199903/01/21 [History Last Taken 02/28/21] calcium acetate(phosphat bind) 667 mg PO TID 03/01/21 [History Last Taken 03/01/21] oxycodone-acetaminophen 1 tab PO TID PRN 03/01/21 [History Last Taken 03/01/21] Allergy/AdvReac Type Severity Reaction Status Date / Time ramipril [From Altace] Allergy Intermediate cough Verified 03/01/21 16:00 Family History Father Heart disease Myocardial infarction x3, first SC at age 49 Brother Diabetes History of PTCA Mother HLD (hyperlipidemia) Surgical History H/O coronary artery bypass surgery (08/16/02) History of coronary artery stent placement (11/10/19) History of left heart catheterization (11/03/19) History of total right knee replacement S/P PTCA (percutaneous transluminal coronary angioplasty) uvulectomy Social History household members: spouse Smoking Status: Never smoker alcohol intake: current alcohol intake frequency: 0-2 drinks per day Alcohol type: hard liquor substance use type: does not use ROS Constitutional Constitutional: Denies fever(s) or weight loss Eyes Eyes: Reports systems reviewed and no addt'l complaints, except as documented ENT HEENT: Reports systems reviewed and no addt'l complaints, except as documented Cardiovascular Cardiovascular: Denies chest pain at rest, chest pain with activity, dyspnea at rest, dyspnea on exertion, edema, palpitations or paroxysmal nocturnal dyspnea Respiratory/Chest Respiratory/Chest: Reports dry cough and dyspnea on exertion; Denies productive cough, shortness of breath at rest or shortness of breath with exertion Gastrointestinal Gastrointestinal: Denies change in bowel habits, nausea, vomiting or weight changes Genitourinary Genitourinary: Denies difficulty urinating Musculoskeletal Musculoskeletal: Denies joint stiffness or muscle weakness Integumentary Integumentary: Denies lesions Neurologic Neurologic: Denies dizziness or syncope Psychiatric Psychiatric: Denies anxiety Endocrine Endocrinology: Denies excessive sweating or fatigue Hematologic/Lymphatic Hematologic/Lymphatic: Denies anemia Allergic/Immunologic Allergic/Immunologic: Denies seasonal rhinorrhea Physical Exam Const oriented x3 HEENT head/scalp atraumatic Chest inspection of chest normal Cardio Cardio Narrative: Irregular heart rate Extremity no pedal edema Objective Data Vital Signs: Vital Signs Temp Pulse Resp BP Pulse Ox 99.4 F H 81 20 H 150/69 H 92 03/02/21 15:27 03/02/21 15:49 03/02/21 15:27 03/02/21 15:27 03/02/21 15:27 Oxygen Flow Rate (L/min) 2 Oxygen Delivery Method Nasal Cannula Weight: 173 lb Body Mass Index (BMI) 27.6 Intake & Output: Intake and Output for Last 24 Hours 02/28/21 03/01/21 03/02/21 23:59 23:59 23:59 Intake Total 48.33 / 48.33 1555.67 / 1555.67 Output Total 350 / 350 1300 / 1300 Balance -301.67 / -301.67 255.67 / 255.67 Lab / Micro Data Result Diagrams: 03/02/21 12:10 03/02/21 12:10 Labs: Laboratory Results - last 24 hr 03/01/21 17:55: WBC 13.1 H, RBC 3.17 L, Hgb 9.8 L, Hct 29.7 L, MCV 93.7, MCH 30.9, MCHC 33.0, RDW Std Deviation 50.3 H, RDW Coeff of Nica 14.5, Plt Count 131 L, MPV 10.9, Immature Gran % (Auto) 0.500, Neut % (Auto) 80.5 H, Lymph % (Auto) 10.0 L, [place] % (Auto) 8.8, Eos % (Auto) 0.0, Baso % (Auto) 0.2, Absolute Neuts (auto) 10.6 H, Absolute Lymphs (auto) 1.31, Nucleated RBC % 0 03/01/21 17:55: Sodium 137, Potassium 4.4, Chloride 101, Carbon Dioxide 26.0, Anion Gap 10, BUN 90 H, Creatinine 4.50 H, Estim Creat Clear Calc 11.81, Est GFR (MDRD) Af Amer 16 L, Est GFR (MDRD) Non-Af 14 L, BUN/Creatinine Ratio 20.0, Glucose 120 H, Calcium 9.3, Total Bilirubin 0.80, AST 16, ALT 25, Alkaline Phosphatase 103, Troponin I High Sens 58, Total Protein 8.4 H, Albumin 4.2, Globulin 4.2, Albumin/Globulin Ratio 1.0, Lipase 136 03/01/21 17:55: Phosphorus 5.0 H, Magnesium 1.6, Ferritin 1032 H, Lactate Dehydrogenase 184, C-React Prot Ext Range 33.00 H 03/01/21 17:55: B-Natriuretic Peptide 1418.7 H 03/01/21 17:55: TSH 0.29 L 03/01/21 19:55: Urine Color Yellow, Urine Clarity Sl. Cloudy, Urine pH 7.0, Ur Specific [place] 1.010, Urine Protein 100 H, Urine Glucose (UA) Normal, Urine Ketones Negative, Urine Occult Blood 150 H, Urine Nitrite Negative, Urine Bilirubin Negative, Urine Urobilinogen Normal, Ur Leukocyte Esterase Negative, Urine RBC 5-10 SEEN, Urine WBC 0 SEEN, Ur Squamous Epith Cells 0-5 SEEN, Urine Bacteria 0 SEEN, Urine Mucus 0 SEEN 03/01/21 20:30: D-Dimer Quant (PE/DVT) 0.86 H* 03/01/21 20:45: Procalcitonin 7.75 H 03/01/21 22:06: POC Glucose 75 03/01/21 22:38: POC Glucose 90 03/02/21 06:01: POC Glucose 68 L 03/02/21 06:44: POC Glucose 86 03/02/21 12:10: WBC 8.6, RBC 2.94 L, Hgb 9.0 L, Hct 28.1 L, MCV 95.6 H, MCH 30.6, MCHC 32.0, RDW Std Deviation 51.8 H, RDW Coeff of Nica 14.7 H, Plt Count 126 L, MPV 11.1, Immature Gran % (Auto) 0.700, Neut % (Auto) 69.6, Lymph % (Auto) 19.3, [place] % (Auto) 10.3 H, Eos % (Auto) 0.0, Baso % (Auto) 0.1, Absolute Neuts (auto) 6.0, Absolute Lymphs (auto) 1.66, Nucleated RBC % 0 03/02/21 12:10: Sodium 138, Potassium 4.2, Chloride 105, Carbon Dioxide 24.0, Anion Gap 9, BUN 88 H, Creatinine 3.94 H, Estim Creat Clear Calc 13.49, Est GFR (MDRD) Af Amer 19 L, Est GFR (MDRD) Non-Af 16 L, BUN/Creatinine Ratio 22.3 H, Glucose 104, Calcium 8.8, Total Bilirubin 1.00, AST 19, ALT 21, Alkaline Phosphatase 86, Total Protein 7.6, Albumin 3.7, Globulin 3.9, Albumin/Globulin Ratio 0.9 03/02/21 12:38: POC Glucose 115 H Micro: Microbiology 03/01/21 22:44 Sputum, Expectorated/Coughed Gram Stain - Final 03/01/21 21:00 Interface Orders Respiratory Panel (PCR) - Final 03/01/21 19:55 Urine, Clean Catch Streptococcus pneumoniae Antigen (M - Final 03/01/21 19:55 Urine, Clean Catch Legionella Antigen - Final 03/01/21 17:55 Nasal Secretion SARS-CoV-2 Antigen (Rapid) - Final SARS-CoV-2 (COVID 19) Cardiology Labs/Tests 03/01/21 17:55: WBC 13.1 H, RBC 3.17 L, Hgb 9.8 L, Hct 29.7 L, MCV 93.7, MCH 30.9, MCHC 33.0, Plt Count 131 L, MPV 10.9, Immature Gran % (Auto) 0.500, Neut % (Auto) 80.5 H, Lymph % (Auto) 10.0 L, [place] % (Auto) 8.8, Eos % (Auto) 0.0, Baso % (Auto) 0.2, Absolute Neuts (auto) 10.6 H, Nucleated RBC % 0 03/01/21 17:55: Sodium 137, Potassium 4.4, Chloride 101, Carbon Dioxide 26.0, Anion Gap 10, BUN 90 H, Creatinine 4.50 H, Est GFR (MDRD) Af Amer 16 L, Est GFR (MDRD) Non-Af 14 L, BUN/Creatinine Ratio 20.0, Glucose 120 H, Calcium 9.3, Total Bilirubin 0.80 03/01/21 17:55: Phosphorus 5.0 H, Magnesium 1.6, Ferritin 1032 H 03/01/21 17:55: B-Natriuretic Peptide 1418.7 H 03/01/21 19:55: Urine Color Yellow, Urine Clarity Sl. Cloudy, Urine pH 7.0, Ur Specific [place] 1.010, Urine Protein 100 H, Urine Glucose (UA) Normal, Urine Ketones Negative, Urine Occult Blood 150 H, Urine Nitrite Negative, Urine Bilirubin Negative, Urine Urobilinogen Normal, Ur Leukocyte Esterase Negative, Urine RBC 5-10 SEEN, Urine WBC 0 SEEN 03/01/21 20:30: D-Dimer Quant (PE/DVT) 0.86 H* 03/02/21 12:10: WBC 8.6, RBC 2.94 L, Hgb 9.0 L, Hct 28.1 L, MCV 95.6 H, MCH 30.6, MCHC 32.0, Plt Count 126 L, MPV 11.1, Immature Gran % (Auto) 0.700, Neut % (Auto) 69.6, Lymph % (Auto) 19.3, [place] % (Auto) 10.3 H, Eos % (Auto) 0.0, Baso % (Auto) 0.1, Absolute Neuts (auto) 6.0, Nucleated RBC % 0 03/02/21 12:10: Sodium 138, Potassium 4.2, Chloride 105, Carbon Dioxide 24.0, Anion Gap 9, BUN 88 H, Creatinine 3.94 H, Est GFR (MDRD) Af Amer 19 L, Est GFR (MDRD) Non-Af 16 L, BUN/Creatinine Ratio 22.3 H, Glucose 104, Calcium 8.8, Total Bilirubin 1.00 Rhythm: EKG: ECHO: Stress Test: Cardiac Cath: PCI: CT Surgery: Holter monitor: EPS: PPM: CXR: Chest CT Scan: Radiography Diagnostic Testing: Radiology Impression Chest X-Ray 03/01/21 17:21 IMPRESSION: No acute findings. Electronically Signed: Fang Pavon MD at 18:39 EDT Tel , Service support ,
--- NOTE | 2021-03-02 16:17 | PN_ITS ---
Subjective Subjective Patient seen and examined. He had no complaints today, and denied any shortness of breath, cough, chest pain, palpitations, dizziness, nausea or vomiting. Review of systems is otherwise negative. Objective Data Objective Data Vital Signs: Vital Signs Temp Pulse Resp BP Pulse Ox 99.4 F H 81 20 H 150/69 H 92 03/02/21 15:27 03/02/21 15:49 03/02/21 15:27 03/02/21 15:27 03/02/21 15:27 Oxygen Flow Rate (L/min) 2 Oxygen Delivery Method Nasal Cannula Weight: 173 lb Body Mass Index (BMI) 27.6 Intake & Output: Intake and Output for Last 24 Hours 02/28/21 03/01/21 03/02/21 23:59 23:59 23:59 Intake Total 48.33 / 48.33 1555.67 / 1555.67 Output Total 350 / 350 1300 / 1300 Balance -301.67 / -301.67 255.67 / 255.67 Lab / Micro Data Result Diagrams: 03/02/21 12:10 03/02/21 12:10 Labs: Laboratory Results - last 24 hr 03/01/21 17:55: WBC 13.1 H, RBC 3.17 L, Hgb 9.8 L, Hct 29.7 L, MCV 93.7, MCH 30.9, MCHC 33.0, RDW Std Deviation 50.3 H, RDW Coeff of Nica 14.5, Plt Count 131 L, MPV 10.9, Immature Gran % (Auto) 0.500, Neut % (Auto) 80.5 H, Lymph % (Auto) 10.0 L, [place] % (Auto) 8.8, Eos % (Auto) 0.0, Baso % (Auto) 0.2, Absolute Neuts (auto) 10.6 H, Absolute Lymphs (auto) 1.31, Nucleated RBC % 0 03/01/21 17:55: Sodium 137, Potassium 4.4, Chloride 101, Carbon Dioxide 26.0, Anion Gap 10, BUN 90 H, Creatinine 4.50 H, Estim Creat Clear Calc 11.81, Est GFR (MDRD) Af Amer 16 L, Est GFR (MDRD) Non-Af 14 L, BUN/Creatinine Ratio 20.0, Glucose 120 H, Calcium 9.3, Total Bilirubin 0.80, AST 16, ALT 25, Alkaline Phosphatase 103, Troponin I High Sens 58, Total Protein 8.4 H, Albumin 4.2, Globulin 4.2, Albumin/Globulin Ratio 1.0, Lipase 136 03/01/21 17:55: Phosphorus 5.0 H, Magnesium 1.6, Ferritin 1032 H, Lactate Dehydrogenase 184, C-React Prot Ext Range 33.00 H 03/01/21 17:55: B-Natriuretic Peptide 1418.7 H 03/01/21 17:55: TSH 0.29 L 03/01/21 19:55: Urine Color Yellow, Urine Clarity Sl. Cloudy, Urine pH 7.0, Ur Specific [place] 1.010, Urine Protein 100 H, Urine Glucose (UA) Normal, Urine Ketones Negative, Urine Occult Blood 150 H, Urine Nitrite Negative, Urine Bilirubin Negative, Urine Urobilinogen Normal, Ur Leukocyte Esterase Negative, Urine RBC 5-10 SEEN, Urine WBC 0 SEEN, Ur Squamous Epith Cells 0-5 SEEN, Urine Bacteria 0 SEEN, Urine Mucus 0 SEEN 03/01/21 20:30: D-Dimer Quant (PE/DVT) 0.86 H* 03/01/21 20:45: Procalcitonin 7.75 H 03/01/21 22:06: POC Glucose 75 03/01/21 22:38: POC Glucose 90 03/02/21 06:01: POC Glucose 68 L 03/02/21 06:44: POC Glucose 86 03/02/21 12:10: WBC 8.6, RBC 2.94 L, Hgb 9.0 L, Hct 28.1 L, MCV 95.6 H, MCH 30.6, MCHC 32.0, RDW Std Deviation 51.8 H, RDW Coeff of Nica 14.7 H, Plt Count 126 L, MPV 11.1, Immature Gran % (Auto) 0.700, Neut % (Auto) 69.6, Lymph % (Auto) 19.3, [place] % (Auto) 10.3 H, Eos % (Auto) 0.0, Baso % (Auto) 0.1, Absolute Neuts (auto) 6.0, Absolute Lymphs (auto) 1.66, Nucleated RBC % 0 03/02/21 12:10: Sodium 138, Potassium 4.2, Chloride 105, Carbon Dioxide 24.0, Anion Gap 9, BUN 88 H, Creatinine 3.94 H, Estim Creat Clear Calc 13.49, Est GFR (MDRD) Af Amer 19 L, Est GFR (MDRD) Non-Af 16 L, BUN/Creatinine Ratio 22.3 H, Glucose 104, Calcium 8.8, Total Bilirubin 1.00, AST 19, ALT 21, Alkaline Phosphatase 86, Total Protein 7.6, Albumin 3.7, Globulin 3.9, Albumin/Globulin Ratio 0.9 03/02/21 12:38: POC Glucose 115 H Micro: Microbiology 03/01/21 22:44 Sputum, Expectorated/Coughed Gram Stain - Final 03/01/21 21:00 Interface Orders Respiratory Panel (PCR) - Final 03/01/21 19:55 Urine, Clean Catch Streptococcus pneumoniae Antigen (M - Final 03/01/21 19:55 Urine, Clean Catch Legionella Antigen - Final 03/01/21 17:55 Nasal Secretion SARS-CoV-2 Antigen (Rapid) - Final SARS-CoV-2 (COVID 19) Radiography Diagnostic Testing: Radiology Impression Chest X-Ray 03/01/21 17:21 IMPRESSION: No acute findings. Electronically Signed: Fang Pavon MD at 18:39 EDT Tel , Service support , Physical Exam Const alert, oriented x3 and no apparent distress General Appearance: cooperative HEENT normocephalic, head/scalp atraumatic and moist oral mucous membranes Eyes PERRL and EOMs intact bilaterally Neck no lymphadenopathy, supple and no JVD Lymph Lymphatic: no lymphadenopathy noted Resp Resp Narrative: mildly diminished breath sounds bibasally, no wheezes or crackles. On room air. Cardio regular rate, regular rhythm, S1 normal heart sound, S2 normal heart sound and no murmurs GI normal to inspection, nondistended, normoactive bowel sounds, soft to palpation, non-tender and non-distended Extremity normal capillary refill and no clubbing, cyanosis or edema General Extremity: no tenderness to palpation of joints or extremities Skin General Skin Exam: turgor normal Neuro CN's II-XII intact bilaterally and deep tendon reflexes 2+ bilaterally Motor Exam: strength 5/5 throughout Psych affect normal Assessment & Plan Assessment/Plan (1) COVID-19: (2) Acute kidney injury: PLAN: #COVID 19 infection * patient has remained on room air. * on decadron. Not on remdesivir as he is not hypoxic * give oxygen as needed and titrate to maintain sats >905 * breathing treatment prn with bronchodilators * #LIBIA on CKD IV * Cr was 4.5, with a baseline of 2.79; Cr is down to 3.94 * being hydrated with IVF * Cr has trended downwards * #Atrial flutter * patient noted to be in atrial flutter when he was admitted. Is a new diagnosis * may be related to covid. * on metoprolol * cardiology consulted * most recent 2D echo in 10/2019 showed EF of 50% with akinesia and hypokinesia of the LV, and mild aortic valve insufficiency, and tricuspid valve insufficiency * on losartan and lasix, which were held due to LIBIA on CKD * #Hyperlipidemia: on statin #Hypertension: on metoprolol. lasix and losartan held o/a of [place] on CKD #GERD; on PPI #BPH: on flomax #Diabetes mellitus: on ISS. Accuchecks ACHS. #DVT prophylaxis: heparin. Code status: full code Charges/Coding Visit Charges Inpatient E&M: 07988 Subs Hosp L3
--- NOTE | 2021-03-02 20:18 | PCM.HOSP.N ---
Hospitalist Note Patient with increased oxygen requirements, 15L, airvo will be set-up, may potentially need to transition to BIPAP. Will add pulmonary consultation to patient care plan and update Dr. Cr of patient status. Given hypoxia and oxygen needs will start decadron now and continue x 10 doses also.
[2021-03-02] MEDS: dexAMETHasone 4 MG/ML Vial 6 MG IV (21:25)
--- NOTE | 2021-03-02 21:41 | EKG12_ITS ---
Test Reason : CP Blood Pressure : / mmHG Vent. Rate : 109 BPM Atrial Rate : 122 BPM P-R Int : 000 ms QRS Dur : 098 ms QT Int : 328 ms P-R-T Axes : 000 -02 087 degrees QTc Int : 441 ms Atrial Flutter with variable block Nonspecific ST and T wave abnormality Abnormal ECG When compared with ECG of 02-MAR-2021 00:41, MANUAL COMPARISON REQUIRED, DATA IS UNCONFIRMED Confirmed by JAYMIE ZAMORA, SUKUMAR ([id number]), content editor JASMIN HAND ([id number]) on 03/06/2021 9:47:32 AM Referred By: SAMMY Confirmed By:SUKUMAR COON MD
[2021-03-02] MEDS: Furosemide 40 MG/4 ML Vial IV (22:06)
--- NOTE | 2021-03-02 22:30 | RAD_ITS ---
STUDY: X-RAY CHEST REASON FOR EXAM: Male, 80 years old. Dyspnea. TECHNIQUE: Single AP portable view of the chest. COMPARISON: 03/01/2021. FINDINGS: There is patchy interstitial infiltrates in both lung bases not present on the previous study. There is no demonstrated pleural abnormality. Normal size heart. Stable median sternotomy wires and evidence of CABG procedure. Normal mediastinum and dani. Normal visualized pulmonary arteries. There is atherosclerotic calcification of the aortic arch with tortuosity. Normal visualized thoracic spine. Normal visualized ribs, clavicles, and shoulders. There is no demonstrated abnormality of the visualized soft tissue structures of the upper abdomen. RAD/Chest 1 View (Portable) IMPRESSION: Patchy bibasilar infiltrates. Question atypical viral pneumonia. There is no other interval change. Electronically Signed: Darryl Umana DO at 23:29 EDT Tel [phone], Service support ,
[2021-03-02 22:46] LABS: Base Excess -6 mmol/L (-2 to +2); Blood Gas Specimen Type ART; Comment 14/8; FI02 60; O2 Delivery Device BiPAP; PEEP 8; PO2 100 mmHG (75-100); RR 12; SITE R Brach; SO2 98 % (95-99); Total Carbon Dioxide 20 mmol/L; pCO2 29.4 mmHg (35-45); pH 7.42 (7.35-7.45)
--- NOTE | 2021-03-02 22:49 | CPS ---
rt called to 301 due to sob. patient was on airvo 20 lpm 90%. Patients hr was 127 bpm, rr 42 bpm. lung sounds reveal rhonchi bilaterally. patient orally suctioned via yankaur times 1. moderate amount of clear secretions removed. no adverse reaction noted. dr. gibson in room and gave order for bipap setup.
[2021-03-02 23:18] LABS: Troponin-I HS 290 pg/mL (3.0-78.0)
[2021-03-03] VITALS (23 sets, daily range): BP systolic 118–162; BP diastolic 53–103; PULSE 99–122; RESP 12–46; TEMP 36.3–37.3; O2SAT 90–99
[2021-03-03 00:16] LABS: Bedside Glucose 129 mg/dL (70-110)
[2021-03-03 00:25] LABS: Bedside Glucose 172 mg/dL (70-110)
[2021-03-03 00:46] LABS: Troponin-I HS 688 pg/mL (3.0-78.0)
[2021-03-03 05:20] LABS: Troponin-I HS 1758 pg/mL (3.0-78.0)
--- NOTE | 2021-03-03 06:53 | EX.PCM.CONCC ---
Assessment & Plan Assessment/Plan (1) COVID-19: PLAN: RECOMMENDATIONS: 1. Stop supplemental IV fluids. 2. Could consider additional attempts at diuresis, bearing in mind that his renal status may worsen. 3. Continue heated high flow oxygen and wean FiO2 to maintain oxygen saturations at or above 90%. 4. Continue Decadron to complete 10-day treatment course. 5. Continue Eliquis as ordered. IMPRESSIONS: 1. Acute hypoxemic respiratory failure Most likely multifactorial in etiology with COVID-19 pneumonia and possible superimposed pulmonary edema contributing. The patient's BNP is significantly elevated. However, attempts to diurese the patient will be limited by his underlying renal dysfunction. He is currently requiring heated high flow oxygen with a high FiO2 requirement to maintain saturations. Agree with continuing Decadron as ordered. The patient is a DNR CCA without intubation. If his respiratory status were to worsen, BiPAP could be utilized. However, in light of his multisystem organ failure, goals of care discussion with the patient's family should be considered. 2. Encephalopathy Likely metabolic in etiology. Continue supportive measures. 3. Non-ST segment elevation LA/atrial flutter Cardiology is currently following. Recommending conservative management. 4. Acute on chronic kidney disease Likely multifactorial in etiology. The patient was previously receiving supplemental IV fluid hydration. However, in light of his decompensated respiratory status, I would recommend discontinuation of fluids. 5. Advanced age/hyperlipidemia/GERD/diabetes mellitus Complicates care, management, recovery and prognosis. Continue home medications as indicated. UPDATE: After my evaluation of the patient, I was contacted by the hospitalist who indicated that she had discussed the patient's clinical state with his and she is interested in pursuing hospice care services. Therefore, I will sign off from a pulmonary/critical care perspective. Please call with any additional questions. This note was generated with [employer] software. It may contain incorrect words, spelling, and punctuation that were not noted in checking the note before signing. HPI Consult Data Date of Consult: 03/04/21 HPI Narrative Reason for Consultation: Acute hypoxemic respiratory failure secondary to COVID-19 pneumonia HPI Narrative: The patient is an 80-year-old male, with a history as outlined below, who presented to the emergency department on March 01 with fatigue, malaise, myalgias and nasal congestion. The patient was previously vaccinated for coronavirus. His symptoms have been present for approximately 1 week. The patient is quite somnolent this morning's only very limited history could be obtained. On presentation to the emergency department, the patient was noted to be afebrile and hemodynamically stable. He was initially maintaining appropriate oxygen saturations on room air. Initial laboratory evaluation revealed an elevated white blood cell count to 13,000. D-dimer was elevated at 0.86. Chemistry profile was notable for a creatinine of 4.50. Initial troponin was negative. BNP was elevated to 1418. Procalcitonin was elevated to 7.75. Chest x-ray demonstrated no acute cardiopulmonary process. The patient was initially admitted to the medical surgical floor, where he was placed on Decadron. The patient was treated with supplemental IV fluids due to his renal insufficiency. During the evening hours of March 02 the patient decompensated from a respiratory perspective, requiring ever increasing amounts of supplemental oxygen. As of this morning, the patient is now requiring BiPAP support with an FiO2 of 60%. The patient is currently documented to be overall net +900 mL for the hospital admission. The patient also spiked a fever overnight with a T-max of 101.8 ?F. Chest x-ray from last night revealed patchy bilateral infiltrates. Sputum Gram stain from 03/01 demonstrated 4+ gram-positive cocci. Respiratory viral panel was negative. Strep and urine Legionella antigens were negative. [facility], [facility] Medical History Abnormal electrocardiogram Abnormal nuclear stress test Abnormal result of cardiovascular function study, unspecified Acute combined systolic (congestive) and diastolic (congestive) heart failure Acute coronary syndrome Atherosclerosis of coronary artery bypass graft without angina pectoris Atherosclerotic heart disease of [place] coronary artery without angina pectoris Barretts esophagus Chronic kidney disease (CKD) CKD stage 4 due to type 2 diabetes mellitus Diabetes Essential (primary) hypertension Fatigue High risk medication use HLD (hyperlipidemia) Hyperkalemia Non-ST elevated myocardial infarction (non-STEMI) (05/24/19) Shortness of breath steroid injections lumbar Type 2 diabetes mellitus Home Medications tamsulosin 0.4 mg capsule 0.4 mg PO QHS 90 Days #90 cap 11/17/18 [History Last Taken 02/28/21] multivitamin with minerals 1 tab PO DAILY 05/24/19 [History Last Taken 03/01/21] glimepiride 1 mg PO DAILY 10/11/19 [History Last Taken 03/01/21] diclofenac sodium 1 applicatio TRANSDERM. PRN PRN 11/03/19 [History Last Taken Unknown] nitroglycerin 0.4 mg sublingual tablet 0.4 mg SUBLINGUAL Q5M PRN #75 tab 01/24/20 [Rx Last Taken Unknown] polyethylene glycol 3350 17 gram/dose oral powder 17 g PO DAILY 08/31/20 [History Last Taken 02/28/21] sodium polystyrene sulfonate 15 g PO DAILY g 08/31/20 [History Last Taken 02/28/21] atorvastatin 40 mg tablet 40 mg PO QHS #90 tab 09/15/20 [Rx Last Taken 03/01/21] clopidogrel 75 mg tablet 75 mg PO DAILY #90 tab 09/15/20 [Rx Last Taken 03/01/21] isosorbide mononitrate 120 mg tablet,extended release 24 hr 120 mg PO DAILY #90 tab 09/15/20 [Rx Last Taken 03/01/21] losartan 25 mg tablet 25 mg PO DAILY #90 tab 09/15/20 [Rx Last Taken 03/01/21] ferrous sulfate 325 mg (65 mg iron) tablet 325 mg PO DAILY 10/10/20 [History Last Taken 02/28/21] furosemide 40 mg tablet 40 mg PO BID tab 10/10/20 [History Last Taken 03/01/21] pantoprazole 40 mg tablet,delayed release 40 mg PO DAILY 10/10/20 [History Last Taken 03/01/21] metoprolol tartrate 50 mg tablet 50 mg PO BID #180 tab 02/14/21 [Rx Last Taken 03/01/21] acetaminophen 500 mg PO TID 03/01/21 [History Last Taken 03/01/21] aspirin 81 mg PO DAILY@199903/01/21 [History Last Taken 02/28/21] calcium acetate(phosphat bind) 667 mg PO TID 03/01/21 [History Last Taken 03/01/21] oxycodone-acetaminophen 1 tab PO TID PRN 03/01/21 [History Last Taken 03/01/21] Allergy/AdvReac Type Severity Reaction Status Date / Time ramipril [From Altace] Allergy Intermediate cough Verified 03/01/21 16:00 Family History Father Heart disease Myocardial infarction x3, first LA at age 49 Brother Diabetes History of PTCA Mother HLD (hyperlipidemia) Surgical History H/O coronary artery bypass surgery (08/16/02) History of coronary artery stent placement (11/10/19) History of left heart catheterization (11/03/19) History of total right knee replacement S/P PTCA (percutaneous transluminal coronary angioplasty) uvulectomy Social History household members: spouse Smoking Status: Never smoker alcohol intake: current alcohol intake frequency: 0-2 drinks per day Alcohol type: hard liquor substance use type: does not use ROS Review of Systems ROS Unobtainable: due to mental status Physical Exam Const Constitutional Narrative: The patient is somnolent and tremulous, sitting upright in bed. He will awaken to questioning but then falls quickly back to sleep. General Appearance: ill appearing HEENT normocephalic and head/scalp atraumatic Eyes PERRL and conjunctivae normal Neck supple General: trachea midline Resp Effort and Inspection: tachypneic and labored Auscultation: diminished lung sounds; Negative for rales, rhonchi or wheezes Cardio S1 normal heart sound and S2 normal heart sound Rate: tachycardic GI normal to inspection, nondistended, normoactive bowel sounds Extremity no clubbing, cyanosis or edema Skin no rashes or lesions noted Neuro no focal motor deficits Psych Mood & Affect: flat affect Lab / Micro Data Result Diagrams: 03/03/21 07:03 03/03/21 07:03 Labs: Laboratory Results - last 24 hr 03/02/21 12:10: WBC 8.6, RBC 2.94 L, Hgb 9.0 L, Hct 28.1 L, MCV 95.6 H, MCH 30.6, MCHC 32.0, RDW Std Deviation 51.8 H, RDW Coeff of Nica 14.7 H, Plt Count 126 L, MPV 11.1, Immature Gran % (Auto) 0.700, Neut % (Auto) 69.6, Lymph % (Auto) 19.3, [place] % (Auto) 10.3 H, Eos % (Auto) 0.0, Baso % (Auto) 0.1, Absolute Neuts (auto) 6.0, Absolute Lymphs (auto) 1.66, Nucleated RBC % 0 03/02/21 12:10: Sodium 138, Potassium 4.2, Chloride 105, Carbon Dioxide 24.0, Anion Gap 9, BUN 88 H, Creatinine 3.94 H, Estim Creat Clear Calc 13.49, Est GFR (MDRD) Af Amer 19 L, Est GFR (MDRD) Non-Af 16 L, BUN/Creatinine Ratio 22.3 H, Glucose 104, Calcium 8.8, Total Bilirubin 1.00, AST 19, ALT 21, Alkaline Phosphatase 86, Total Protein 7.6, Albumin 3.7, Globulin 3.9, Albumin/Globulin Ratio 0.9 03/02/21 12:38: POC Glucose 115 H 03/02/21 17:14: POC Glucose 129 H 03/02/21 22:30: Troponin I High Sens 290 H* 03/02/21 23:57: POC Glucose 172 H 03/03/21 00:03: Troponin I High Sens 688 H* 03/03/21 04:40: Troponin I High Sens 1758 H* Micro: Microbiology 03/01/21 22:44 Sputum, Expectorated/Coughed Gram Stain - Final ABG Data ABG results: ABG 03/02/21 22:41 Specimen Type ART Sample Site R Brach pH 7.42 Bicarbonate Actual 19.0 L Total CO2 20 Base Excess -6 L O2 Saturation 98 O2 % 60 ABG pCO2 29.4 L ABG pO2 100 Douglas Test N/A Respiration Rate 12 O2 Delivery Device BiPAP POC PEEP 8 Clinical Comments 17/02 Radiology Impression Chest X-Ray 03/02/21 22:30 IMPRESSION: Patchy bibasilar infiltrates. Question atypical viral pneumonia. There is no other interval change. Electronically Signed: Darryl Umana DO at 23:29 EDT Tel [phone], Service support , Charges/Coding Visit Charges Inpatient E&M: 27669 Init Hosp L3
[2021-03-03] MEDS: oxyCODONE 5 MG Tablet 10 MG PO ×3 (06:58→21:34)
[2021-03-03 07:10] LABS: Bedside Glucose 153 mg/dL (70-110)
--- NOTE | 2021-03-03 07:38 | NURSING ---
Updated on Ham's night.
[2021-03-03] MEDS: Aspirin E.C. 81 MG Tablet PO (08:31)
[2021-03-03] MEDS: Calcium Acetate 667 MG Capsule PO ×3 (08:31→17:13)
[2021-03-03] MEDS: Multivitamins,Ther W-Minerals Tablet 1 TABLET PO (08:31)
[2021-03-03] MEDS: Ferrous Sulfate 325 MG Tablet PO (08:31)
[2021-03-03 09:31] LABS: Absolute Lymphocyte Count 0.96 X10^3/uL (0.83-4.51); Absolute Neutrophil Count 5.8 X10^3/uL (2.0-7.7); Basophil# 0.01 X10^3/uL; Basophil% 0.1 % (0-1); Hematocrit 30.1 % (40-54); Hemoglobin 9.4 g/dL (13.0-16.5); Lymphocyte # 0.96 X10^3/ul (0.83-4.51); Lymphocyte % 13.5 % (19-41); Mean Corp Hgb Conc 31.2 g/dL (32-36); Mean Corpuscular Hgb 30.6 pg (27.0-32.0); Mean Platelet Vol. 11.6 fl (6.2-12.0); Monocyte# 0.34 X10^3/uL; Monocyte% 4.8 % (0-10); NRBC Flagged by Analyzer 0 % (0-5); Neutrophil # 5.75 X10^3/uL (2.7-7.7); POSITIVE MORPHOLOGY YES; Platelet Count 130 K/mm3 (150-450); RBC Distribution Width CV 14.6 % (11.6-14.6); RBC Distribution Width SD 52.7 fl (35.1-43.9); Red Blood Count 3.07 M/mm3 (4.6-6.2); White Blood Count 7.1 K/mm3 (4.4-11.0)
[2021-03-03 09:35] LABS: Differential Indicated SCAN CRITERIA MET
[2021-03-03 09:52] LABS: ALB/GLOB Ratio 0.9 RATIO (0.9-2.4); AST(SGOT) 34 U/L (15-37); Alanine Aminotransfer ALT/SGPT 28 U/L (16-61); Albumin, Serum 3.6 g/dL (3.2-5.0); Alkaline Phosphatase 78 U/L (45-117); Anion Gap 17 (5-15); BUN 91 mg/dL (7-18); BUN/Creat Ratio 22.1 RATIO (10-20); Calcium,Total 9.1 mg/dL (8.5-10.1); Chloride 104 mmol/L (98-107); Creatinine, Serum 4.11 mg/dL (0.70-1.30); EST Glomerular Filtration Rate 15 mL/min (>60); Est Glom Filt Rate - Afr Amer 18 mL/min (>60); Estimated Creatinine Clearance 12.94 ml/min; Globulin 4.2 g/dL (2.2-4.2); Glucose 185 mg/dL (74-106); Potassium 4.3 mmol/L (3.5-5.1); Protein, Total 7.8 g/dL (6.4-8.2); Sodium Level 139 mmol/L (136-145)
--- NOTE | 2021-03-03 10:05 | PCM.PN.CARD ---
Subjective Subjective Patient seen and evaluated. Required further oxygen through the night Objective Data Vital Signs: Vital Signs Temp Pulse Resp BP Pulse Ox 98.5 F 102 H 36 H 162/86 H 90 03/03/21 08:17 03/03/21 08:17 03/03/21 08:24 03/03/21 08:17 03/03/21 08:17 Oxygen Flow Rate (L/min) 40 Oxygen Delivery Method Airvo Weight: 172 lb 13.478 oz Body Mass Index (BMI) 27.6 Intake & Output: Intake and Output for Last 24 Hours 03/01/21 03/02/21 03/03/21 23:59 23:59 23:59 Intake Total 48.33 / 48.33 2942.34 / 2942.34 Output Total 350 / 350 1300 / 1450 450 / 450 Balance -301.67 / -301.67 1642.34 / 1492.34 -450 / -450 Lab / Micro Data Result Diagrams: 03/03/21 07:03 03/03/21 07:03 Labs: Laboratory Results - last 24 hr 03/02/21 12:10: WBC 8.6, RBC 2.94 L, Hgb 9.0 L, Hct 28.1 L, MCV 95.6 H, MCH 30.6, MCHC 32.0, RDW Std Deviation 51.8 H, RDW Coeff of Nica 14.7 H, Plt Count 126 L, MPV 11.1, Immature Gran % (Auto) 0.700, Neut % (Auto) 69.6, Lymph % (Auto) 19.3, [place] % (Auto) 10.3 H, Eos % (Auto) 0.0, Baso % (Auto) 0.1, Absolute Neuts (auto) 6.0, Absolute Lymphs (auto) 1.66, Nucleated RBC % 0 03/02/21 12:10: Sodium 138, Potassium 4.2, Chloride 105, Carbon Dioxide 24.0, Anion Gap 9, BUN 88 H, Creatinine 3.94 H, Estim Creat Clear Calc 13.49, Est GFR (MDRD) Af Amer 19 L, Est GFR (MDRD) Non-Af 16 L, BUN/Creatinine Ratio 22.3 H, Glucose 104, Calcium 8.8, Total Bilirubin 1.00, AST 19, ALT 21, Alkaline Phosphatase 86, Total Protein 7.6, Albumin 3.7, Globulin 3.9, Albumin/Globulin Ratio 0.9 03/02/21 12:38: POC Glucose 115 H 03/02/21 17:14: POC Glucose 129 H 03/02/21 22:30: Troponin I High Sens 290 H* 03/02/21 23:57: POC Glucose 172 H 03/03/21 00:03: Troponin I High Sens 688 H* 03/03/21 04:40: Troponin I High Sens 1758 H* 03/03/21 06:56: POC Glucose 153 H 03/03/21 07:03: WBC 7.1, RBC 3.07 L, Hgb 9.4 L, Hct 30.1 L, MCV 98.0 H, MCH 30.6, MCHC 31.2 L, RDW Std Deviation 52.7 H, RDW Coeff of Nica 14.6, Plt Count 130 L, MPV 11.6, Immature Gran % (Auto) 0.600, Neut % (Auto) 81.0 H, Lymph % (Auto) 13.5 L, [place] % (Auto) 4.8, Eos % (Auto) 0.0, Baso % (Auto) 0.1, Absolute Neuts (auto) 5.8, Absolute Lymphs (auto) 0.96, Nucleated RBC % 0 03/03/21 07:03: Sodium 139, Potassium 4.3, Chloride 104, Carbon Dioxide 18.0 L, Anion Gap 17 H, BUN 91 H, Creatinine 4.11 H, Estim Creat Clear Calc 12.94, Est GFR (MDRD) Af Amer 18 L, Est GFR (MDRD) Non-Af 15 L, BUN/Creatinine Ratio 22.1 H, Glucose 185 H, Calcium 9.1, Total Bilirubin 1.60 H, AST 34, ALT 28, Alkaline Phosphatase 78, Total Protein 7.8, Albumin 3.6, Globulin 4.2, Albumin/Globulin Ratio 0.9 03/03/21 07:03: B-Natriuretic Peptide 4688.4 H Micro: Microbiology 03/01/21 22:44 Sputum, Expectorated/Coughed Gram Stain - Final ABG Data ABG results: ABG 03/02/21 22:41 Specimen Type ART Sample Site R Brach pH 7.42 Bicarbonate Actual 19.0 L Total CO2 20 Base Excess -6 L O2 Saturation 98 O2 % 60 ABG pCO2 29.4 L ABG pO2 100 Douglas Test N/A Respiration Rate 12 O2 Delivery Device BiPAP POC PEEP 8 Clinical Comments 17/02 Cardiology Labs/Tests 03/02/21 12:10: WBC 8.6, RBC 2.94 L, Hgb 9.0 L, Hct 28.1 L, MCV 95.6 H, MCH 30.6, MCHC 32.0, Plt Count 126 L, MPV 11.1, Immature Gran % (Auto) 0.700, Neut % (Auto) 69.6, Lymph % (Auto) 19.3, [place] % (Auto) 10.3 H, Eos % (Auto) 0.0, Baso % (Auto) 0.1, Absolute Neuts (auto) 6.0, Nucleated RBC % 0 03/02/21 12:10: Sodium 138, Potassium 4.2, Chloride 105, Carbon Dioxide 24.0, Anion Gap 9, BUN 88 H, Creatinine 3.94 H, Est GFR (MDRD) Af Amer 19 L, Est GFR (MDRD) Non-Af 16 L, BUN/Creatinine Ratio 22.3 H, Glucose 104, Calcium 8.8, Total Bilirubin 1.00 03/02/21 22:41: pH 7.42, Bicarbonate Actual 19.0 L, Base Excess -6 L, O2 Saturation 98, ABG pCO2 29.4 L, ABG pO2 100, [place] Test N/A 03/03/21 07:03: WBC 7.1, RBC 3.07 L, Hgb 9.4 L, Hct 30.1 L, MCV 98.0 H, MCH 30.6, MCHC 31.2 L, Plt Count 130 L, MPV 11.6, Immature Gran % (Auto) 0.600, Neut % (Auto) 81.0 H, Lymph % (Auto) 13.5 L, [place] % (Auto) 4.8, Eos % (Auto) 0.0, Baso % (Auto) 0.1, Absolute Neuts (auto) 5.8, Nucleated RBC % 0 03/03/21 07:03: Sodium 139, Potassium 4.3, Chloride 104, Carbon Dioxide 18.0 L, Anion Gap 17 H, BUN 91 H, Creatinine 4.11 H, Est GFR (MDRD) Af Amer 18 L, Est GFR (MDRD) Non-Af 15 L, BUN/Creatinine Ratio 22.1 H, Glucose 185 H, Calcium 9.1, Total Bilirubin 1.60 H 03/03/21 07:03: B-Natriuretic Peptide 4688.4 H Rhythm: EKG: ECHO: Stress Test: Cardiac Cath: PCI: CT Surgery: Holter monitor: EPS: PPM: CXR: Chest CT Scan: Radiography Diagnostic Testing: Radiology Impression Chest X-Ray 03/02/21 22:30 IMPRESSION: Patchy bibasilar infiltrates. Question atypical viral pneumonia. There is no other interval change. Electronically Signed: Darryl Umana DO at 23:29 EDT Tel [phone], Service support , Physical Exam Const oriented x3 HEENT head/scalp atraumatic Chest inspection of chest normal Resp Auscultation: diminished lung sounds Cardio Cardio Narrative: Irregular heart rate Extremity no pedal edema Assessment & Plan Assessment/Plan (1) H/O coronary artery bypass surgery: PLAN: He is status post coronary artery bypass surgery. At this particular time he appears to be stable with no evidence of angina. Though he has cardiac enzyme abnormalities. My recommendation is therefore to continue the current medical therapy without making any changes. (2) History of coronary artery stent placement: PLAN: He is status post previous angioplasty and stenting as discussed above. It does not appear that there is any significant anginal episode and I would recommend no changes at this particular time. His cardiac enzymes are significant for an non-ST elevation myocardial infarction. He is at fairly high risk for worsening renal failure and dialysis if he undergoes an invasive dye related procedure at this particular time. Would continue to assess him to see how stable he is before suggesting the above. (3) Essential (primary) hypertension: PLAN: His blood pressure appears to be under good control. I would recommend continuing the same medical therapy with no changes, except holding back on the losartan. (4) HLD (hyperlipidemia): QUALIFIERS: Hyperlipidemia type: pure hypercholesterolemia Qualified Code(s): E78.00 - Pure hypercholesterolemia, unspecified PLAN: We will continue with risk factor modification. (5) Paroxysmal atrial flutter: PLAN: He does appear to have developed atrial fibrillation and flutter. As you know this is not uncommon with COVID-19 infections. Due to his renal dysfunction I do agree with Eliquis 2.5 mg twice a day. His ventricular response rate is controlled. Would recommend increasing his beta-deneen to 75 mg twice a day I do not think there is a reason for echocardiographic imaging at this particular time-as this would not significantly change therapy. We will continue to manage him expectantly. Thank you for allowing me to participate in the care of your patient. Please don't hesitate to call if any issues arise. (6) Acute combined systolic (congestive) and diastolic (congestive) heart failure: PLAN: Has evidence of systolic and diastolic heart failure The above is likely on the basis of his Covid, atrial flutter, and coronary artery disease. We will continue IV diuresis until the patient is stable enough. His prognosis is rather guarded. Thank you for allowing me to participate in the care of your patient. Please don't hesitate to call if any issues arise.
[2021-03-03 10:06] LABS: Hypochromasia 1+
[2021-03-03 10:07] LABS: Acanthocytes RARE; Platelet Estimate SLT DEC (ADEQ)
[2021-03-03] MEDS: Insulin Lispro 100 UNIT/ML INSULN.PEN SC ×2 (10:47→21:28)
[2021-03-03] MEDS: APIXABAN 2.5 MG TABLET PO ×2 (10:50→21:23)
[2021-03-03] MEDS: dexAMETHasone 4 MG/ML Vial 6 MG IV (10:50)
[2021-03-03] MEDS: Furosemide 40 MG/4 ML Vial IV ×2 (10:52→17:13)
[2021-03-03] MEDS: Sodium Polystyrene Sulfonate 15 GM/60 ML UDC PO (10:52)
[2021-03-03] MEDS: Pantoprazole Sodium 40 MG Tablet PO (10:53)
[2021-03-03] MEDS: Clopidogrel Bisulfate 75 MG Tablet PO (10:53)
[2021-03-03] MEDS: Metoprolol Tartrate 50 MG Tablet PO (10:54)
[2021-03-03 11:25] LABS: Bedside Glucose 198 mg/dL (70-110)
--- NOTE | 2021-03-03 17:01 | PN.HOSP_ITS ---
Subjective Subjective Patient seen and examined. Patient deteriorated acutely from respiratory standpoint overnight and became very tachypneic and tachycardic. He required initiation of BiPAP and was started on remdesivir and Decadron. He was very weak and lethargic this morning which is totally unlike how he was yesterday. He was tachypneic and tachycardic and on BiPAP at time of review. He had no active complaints though and review of systems otherwise negative. Creatinine is trended upwards to 4.11 today. Objective Data Objective Data Vital Signs: Vital Signs Temp Pulse Resp BP Pulse Ox 98.7 F 112 H 44 H 151/81 H 97 03/03/21 14:04 03/03/21 15:55 03/03/21 15:55 03/03/21 14:04 03/03/21 15:55 Oxygen Flow Rate (L/min) 55 Oxygen Delivery Method Airvo Weight: 172 lb 13.478 oz Body Mass Index (BMI) 27.6 Intake & Output: Intake and Output for Last 24 Hours 03/01/21 03/02/21 03/03/21 23:59 23:59 23:59 Intake Total 48.33 / 48.33 2942.34 / 2942.34 Output Total 350 / 350 1300 / 1450 1000 / 1000 Balance -301.67 / -301.67 1642.34 / 1492.34 -1000 / -1000 Lab / Micro Data Result Diagrams: 03/03/21 07:03 03/03/21 07:03 Labs: Laboratory Results - last 24 hr 03/02/21 17:14: POC Glucose 129 H 03/02/21 22:30: Troponin I High Sens 290 H* 03/02/21 23:57: POC Glucose 172 H 03/03/21 00:03: Troponin I High Sens 688 H* 03/03/21 04:40: Troponin I High Sens 1758 H* 03/03/21 06:56: POC Glucose 153 H 03/03/21 07:03: WBC 7.1, RBC 3.07 L, Hgb 9.4 L, Hct 30.1 L, MCV 98.0 H, MCH 30.6, MCHC 31.2 L, RDW Std Deviation 52.7 H, RDW Coeff of Nica 14.6, Plt Count 130 L, MPV 11.6, Immature Gran % (Auto) 0.600, Neut % (Auto) 81.0 H, Lymph % (Auto) 13.5 L, [place] % (Auto) 4.8, Eos % (Auto) 0.0, Baso % (Auto) 0.1, Absolute Neuts (auto) 5.8, Absolute Lymphs (auto) 0.96, Nucleated RBC % 0, Platelet Estimate SLT DEC, Hypochromasia 1+, Acanthocytes (Spur) RARE 03/03/21 07:03: Sodium 139, Potassium 4.3, Chloride 104, Carbon Dioxide 18.0 L, Anion Gap 17 H, BUN 91 H, Creatinine 4.11 H, Estim Creat Clear Calc 12.94, Est GFR (MDRD) Af Amer 18 L, Est GFR (MDRD) Non-Af 15 L, BUN/Creatinine Ratio 22.1 H , Glucose 185 H, Calcium 9.1, Total Bilirubin 1.60 H, AST 34, ALT 28, Alkaline Phosphatase 78, Total Protein 7.8, Albumin 3.6, Globulin 4.2, Albumin/Globulin Ratio 0.9 03/03/21 07:03: B-Natriuretic Peptide 4688.4 H 03/03/21 10:45: POC Glucose 198 H Micro: Microbiology 03/01/21 22:44 Sputum, Expectorated/Coughed Gram Stain - Final 03/01/21 22:44 Sputum, Expectorated/Coughed Respiratory Culture - Preliminary Appears to be normal respiratory jose. Further studies to follow. 03/01/21 19:55 Urine, Midstream Urine Culture - Preliminary Culture exhibits no growth. 03/01/21 21:00 Interface Orders Respiratory Panel (PCR) - Final 03/01/21 19:55 Urine, Clean Catch Streptococcus pneumoniae Antigen (M - Final 03/01/21 19:55 Urine, Clean Catch Legionella Antigen - Final 03/01/21 17:55 Nasal Secretion SARS-CoV-2 Antigen (Rapid) - Final SARS-CoV-2 (COVID 19) ABG Data ABG results: ABG 03/02/21 22:41 Specimen Type ART Sample Site R Brach pH 7.42 Bicarbonate Actual 19.0 L Total CO2 20 Base Excess -6 L O2 Saturation 98 O2 % 60 ABG pCO2 29.4 L ABG pO2 100 Douglas Test N/A Respiration Rate 12 O2 Delivery Device BiPAP POC PEEP 8 Clinical Comments 14/8 Radiography Diagnostic Testing: Radiology Impression Chest X-Ray 03/02/21 22:30 IMPRESSION: Patchy bibasilar infiltrates. Question atypical viral pneumonia. There is no other interval change. Electronically Signed: Darryl Umana DO at 23:29 EDT Tel [phone], Service support , Physical Exam Const alert and no apparent distress General Appearance: cooperative Orientation / Consciousness: lethargic Exam Limitations: altered mental status HEENT normocephalic, head/scalp atraumatic and moist oral mucous membranes Head and Scalp: normocephalic Eyes PERRL and EOMs intact bilaterally Neck no lymphadenopathy, supple and no JVD Lymph Lymphatic: no lymphadenopathy noted Resp Resp Narrative: Coarse crackles bilaterally in all lung [place]. On BiPAP. Tachypneic. Cardio regular rhythm, S1 normal heart sound, S2 normal heart sound and no murmurs Cardio Narrative: Tachycardic. GI normal to inspection, nondistended, normoactive bowel sounds, soft to palpation, non-tender and non-distended Extremity normal to inspection, full ROM, normal capillary refill and no clubbing, cyanosis or edema General Extremity: no tenderness to palpation of joints or extremities Peripheral Pulses: Yes pulses 2+ throughout Skin no rashes or lesions noted General Skin Exam: turgor normal Neuro CN's II-XII intact bilaterally and deep tendon reflexes 2+ bilaterally Neuro Narrative: lethargic, drowsy Sensorium / Orientation: awake Assessment & Plan Assessment/Plan (1) COVID-19: (2) Acute kidney injury: PLAN: #Acute hypoxic respiratory failure due to COVID 19 infection * Patient currently on BiPAP. He is tachypneic and tachycardic. * Chest x-ray done last night showed patchy bibasilar infiltrates question atypical viral pneumonia. * Is currently on remdesivir and Decadron. On BiPAP. * Pulmonology consulted. Titrate oxygen to maintain saturation above 90%. Breathing treatments with bronchodilators. * #COVID 19 infection * As above under respiratory failure. * #Non-STEMI * Creatinine trended up markedly and BNP was also markedly elevated. * Cardiology consulted. Patient is critically ill. * Conservative management for now due to his worsening kidney function as he is at high risk for worsening renal failure and dialysis if he undergoes cardiac cath with diet. * #LIBIA on CKD IV * Cr trended up slightly to 4.17. * being hydrated with IVF * * #Atrial flutter * may be related to covid. * on metoprolol; increased to 75mg twice daily. * cardiology consulted * most recent 2D echo in 10/2019 showed EF of 50% with akinesia and hypokinesia of the LV, and mild aortic valve insufficiency, and tricuspid valve insufficiency * on losartan and lasix, which were held due to LIBIA on CKD * sarted on eliquis 2.5mg bid * #Hyperlipidemia: on statin #Hypertension: on metoprolol. lasix and losartan held o/a of Libia on CKD #GERD; on PPI #BPH: on flomax #Diabetes mellitus: on ISS. Accuchecks ACHS. #DVT prophylaxis: on eliquis 2.5mg bid Code status: DNRCCA no intubation Prognosis: Patient's prognosis is very poor. I did discuss CODE STATUS with him today again and he confirmed that he was DNR CCA no intubation. Patient was quite lethargic so I did call his and broached hospice care with her as patient is very ill and may need intubation which she does not want. was willing to talk to hospice and so hospice team consulted. After hospice discussed with patient and his , patient's is thinking of sending him to inpatient hospice facility tomorrow. Total [id number] time about advanced care planning?18 minutes. Charges/Coding Visit Charges Inpatient E&M: 93298 Subs Hosp L3 Procedures Hospitalists Procedures: 97052 Advncd Care Plan 30 Min
[2021-03-03] MEDS: 0.9% Saline Lock 10 ML Syringe IV (17:13)
[2021-03-03 17:31] LABS: Bedside Glucose 189 mg/dL (70-110)
[2021-03-03] MEDS: Metoprolol Tartrate 25 MG Tablet 75 MG PO (21:22)
[2021-03-03] MEDS: Tamsulosin HCl 0.4 MG Capsule PO (21:22)
[2021-03-03] MEDS: Atorvastatin Calcium 40 MG Tablet PO (21:22)
[2021-03-04] VITALS (8 sets, daily range): BP systolic 132; BP diastolic 81–85; PULSE 81–105; RESP 28–38; TEMP 36.1–36.3; O2SAT 94–97
[2021-03-04 01:01] LABS: Bedside Glucose 214 mg/dL (70-110)
[2021-03-04] MEDS: oxyCODONE 5 MG Tablet 10 MG PO (06:29)
[2021-03-04] MEDS: Insulin Lispro 100 UNIT/ML INSULN.PEN SC (06:29)
[2021-03-04 06:45] LABS: Bedside Glucose 216 mg/dL (70-110)
[2021-03-04] MEDS: Calcium Acetate 667 MG Capsule PO (08:23)
[2021-03-04] MEDS: Aspirin E.C. 81 MG Tablet PO (08:23)
[2021-03-04] MEDS: Multivitamins,Ther W-Minerals Tablet 1 TABLET PO (08:23)
[2021-03-04] MEDS: Ferrous Sulfate 325 MG Tablet PO (08:23)
--- NOTE | 2021-03-04 11:41 | NURSING ---
[facility] here to transport patient to [facility] at this time. and hospice staff aware.
--- NOTE | 2021-03-04 16:31 | DS.PCM_ITS ---
Providers Date of Admission: 03/01/21 Primary Care Physician: Dr. Neal Rodriguez MD Consultations 03/02/21 01:29 Consult: Cardiology Routine Consulting Provider: Raffaele Theodore Reason for Consult: Appearance new onset atrial flutter, admitted w/ COVID EMERGENT Consult: No MD Notified: Yes Date Notified: 03/02/21 Time Notified: 01:29 Method of Notification: cortext 03/02/21 20:20 Consult: Event Executive / Pulmonary Medicine Routine Consulting Provider: Froy Cr Reason for Consult: Resp failure, COVID EMERGENT Consult: No Notified: Yes Date Notified: 03/02/21 Time Notified: 20:20 Method of Notification: cortext 03/03/21 10:25 Consult: Hospice / Palliative Care Routine Consulting Provider: [facility] Reason for Consult: acute hypoxic resepiratory failure, covid 19 infection, LIBIA on CKD, nstemi EMERGENT Consult: No MD Notified: Yes Date Notified: 03/03/21 Time Notified: 11:14 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 PRN PRN 11/03/19 nitroglycerin 0.4 mg sublingual tablet 0.4 mg SUBLINGUAL Q5M PRN #75 tab 01/24/20 polyethylene glycol 3350 17 gram/dose oral powder 17 g PO DAILY 08/31/20 sodium polystyrene sulfonate 15 g PO DAILY g 08/31/20 atorvastatin 40 mg tablet 40 mg PO QHS #90 tab 09/15/20 clopidogrel 75 mg tablet 75 mg PO DAILY #90 tab 09/15/20 isosorbide mononitrate 120 mg tablet,extended release 24 hr 120 mg PO DAILY #90 tab 09/15/20 losartan 25 mg tablet 25 mg PO DAILY #90 tab 09/15/20 ferrous sulfate 325 mg (65 mg iron) tablet 325 mg PO DAILY 10/10/20 furosemide 40 mg tablet 40 mg PO BID tab 10/10/20 pantoprazole 40 mg tablet,delayed release 40 mg PO DAILY 10/10/20 metoprolol tartrate 50 mg tablet 50 mg PO BID #180 tab 02/14/21 acetaminophen 500 mg PO TID 03/01/21 aspirin 81 mg PO DAILY@2000 03/01/21 calcium acetate(phosphat bind) 667 mg PO TID 03/01/21 oxycodone-acetaminophen 1 tab PO TID PRN 03/01/21 Hospital Course Procedures None Summary of Care Provided Minutes Spent on Discharge: 50 Hospital Course: Patient is an 80-year-old male with an extensive past medical history as outlined was admitted through the ED on 03/01/2021 with a complaint of fatigue, malaise, poor oral intake and severe sore throat as well as body aches and nasal congestion which have been going on for about a week. He had asso ciated debility and and not been able to perform his activities of daily living at home. He was noted to have been on the toilet and could not get up from the toilet and so his called the EMS. Patient had apparently been vaccinated with the [place] vaccines but cannot remember exactly when he was vaccinated. Admission, Covid test done was positive and chest x-ray showed no acute cardiopulmonary findings. Creatinine was however noted to be elevated at 4.5 with a baseline of around 2.79. He was also noted to be in atrial flutter when he was admitted which was a new diagnosis. Patient was admitted and managed for acute COVID-19 infection as well as LIBIA on CKD stage IV and newly diagnosed atrial flutter. Cardiology was consulted and he was started on p.o. metoprolol. His nephrotoxic medications were held. He was also hydrated with IV fluids. Patient's hospital course was complicated by sudden onset worsening shortness of breath which required patient being initiated on BiPAP. His kidney function also worsened and his high-sensitivity troponins trended upwards. He was star cleo on BiPAP and critical care was also consulted. Fluids were discontinued and patient was started on IV Decadron as well as remdesivir. He was also on Eliquis on account of newly diagnosed A. fib. Patient remains very lethargic and frail. Non-STEMI was also added onto his diagnosis on account of his troponins trending upwards. Cardiology advocated conservative management for now due to concerns of worsening renal failure and possible dialysis if he underwent cardiac cath with dye in setting of LIBIA on CKD stage IV. 2D echo done in October 2019 showed EF of 50% with akinesia and hypokinesia of the left ventricle and mild aortic valve insufficiency as well as tricuspid valve insufficiency. Due to patient's critically ill state and poor prognosis, goals of care was discussed with patient's who opted for hospice consult. Hospice evaluated patient and he was deemed as fit for inpatient hospice admission. Patient was discharged to the hospice medical facility on 03/04/2021. Patient was seen and examined prior to discharge. Patient was very frail and lethargic and was on air Vo. Unable to do review of systems on account of patient's frailty. Physical Exam Const Constitutional Narrative: very frail and lethargic Orientation / Consciousness: lethargic Exam Limitations: altered mental status HEENT normocephalic, head/scalp atraumatic and moist oral mucous membranes Eyes PERRL and EOMs intact bilaterally Neck no lymphadenopathy, supple and no JVD Lymph Lymphatic: no lymphadenopathy noted Resp Resp Narrative: Coarse crackles bilaterally in all lung [place]. On AirVo. Tachypneic. Cardio regular rate, S1 normal heart sound, S2 normal heart sound and no murmurs Cardio Narrative: afib, rate controlled GI normal to inspection, nondistended, normoactive bowel sounds, soft to palpation, non-tender and non-distended Extremity normal to inspection, full ROM, normal capillary refill and no clubbing, cyanosis or edema General Extremity: no tenderness to palpation of joints or extremities Skin no rashes or lesions noted General Skin Exam: turgor normal Neuro deep tendon reflexes 2+ bilaterally Neuro Narrative: lethargic, drowsy Weight / BMI Weight Weight: 173 lb 1.006 oz Body Mass Index (BMI) 27.6 ABG / Lab / Microbiology Data Result Diagrams: 03/03/21 07:03 03/03/21 07:03 Laboratory: Laboratory Results - last 24 hr 03/03/21 17:11: POC Glucose 189 H 03/03/21 21:16: POC Glucose 214 H 03/04/21 06:27: POC Glucose 216 H Microbiology: Microbiology 03/01/21 22:44 Sputum, Expectorated/Coughed Gram Stain - Final 03/01/21 22:44 Sputum, Expectorated/Coughed Respiratory Culture - Final 03/01/21 19:55 Urine, Midstream Urine Culture - Final Culture exhibits no growth. 03/01/21 21:00 Interface Orders Respiratory Panel (PCR) - Final 03/01/21 19:55 Urine, Clean Catch Streptococcus pneumoniae Antigen (M - Final 03/01/21 19:55 Urine, Clean Catch Legionella Antigen - Final 03/01/21 17:55 Nasal Secretion SARS-CoV-2 Antigen (Rapid) - Final SARS-CoV-2 (COVID 19) Meaningful Use Info Meaningful Use Diagnoses (Choose all that apply): None applicable Discharge Plan Admission Admit Date/Time: 03/01/21 19:45 Primary Reason for Your Visit: COVID 19 infection, respiratory failure, LIBIA oN CKD IV, Nonstemi Attending Provider: Tamika Pacheco Primary Care Provider: Neal Rodriguez Consulting Providers: Raffaele Theodore ; Froy Cr ; Oksana Castaneda ; Samir Gonzales ; Josie Montero ; Nicole Noble ; Alicia Carrera ; Barbie Roblero GASTROENTEROLOGY PHYSICIAN Instructions Patient Instructions: ED Chest Pain, Noncardiac Discharge Orders/Prescriptions Prescriptions: No Action tamsulosin 0.4 mg capsule 0.4 mg PO QHS 90 Days Qty: 90 RF: 0 sodium polystyrene sulfonate Powder 15 g PO DAILY RF: 0 polyethylene glycol 3350 [Miralax] 17 gram/dose powder 17 g PO DAILY RF: 0 furosemide 40 mg tablet 40 mg PO BID RF: 0 pantoprazole [Protonix] 40 mg tablet,delayed release (DR/EC) 40 mg PO DAILY RF: 0 ferrous sulfate 325 mg (65 mg iron) tablet 325 mg PO DAILY RF: 0 multivitamin with minerals 1 EACH tablet 1 tab PO DAILY RF: 0 glimepiride 1 MG tablet 1 mg PO DAILY RF: 0 diclofenac sodium 1% gel 1 applicatio TRANSDERM. PRN PRN (Reason: SHOULDER PAIN) RF: 0 calcium acetate(phosphat bind) 667 mg Capsule 667 mg PO TID RF: 0 acetaminophen 500 mg Tablet 500 mg PO TID RF: 0 oxycodone-acetaminophen 10-325 mg tablet 1 tab PO TID PRN (Reason: Pain) RF: 0 aspirin 81 MG tablet,delayed release (DR/EC) 81 mg PO DAILY@1999 RF: 0 nitroglycerin 0.4 mg tablet, sublingual 0.4 mg sublingual Q5M PRN (Reason: Cardiac/Chest Pain :pt wants 3 bottles at once) Qty: 75 RF: 3 isosorbide mononitrate 120 mg tablet extended release 24 hr 120 mg PO DAILY Qty: 90 RF: 3 atorvastatin 40 mg tablet 40 mg PO QHS Qty: 90 RF: 3 clopidogrel 75 mg tablet 75 mg PO DAILY Qty: 90 RF: 3 losartan 25 mg tablet 25 mg PO DAILY Qty: 90 RF: 3 metoprolol tartrate 50 mg tablet 50 mg PO BID Qty: 180 RF: 3 Referrals / Follow Up: Neal Rodriguez MD [Primary Care Provider] - Disposition Disposition (needs filled in before D/C Order can be placed): Hospice in Medical Facility Charges/Coding Visit Charges Inpatient E&M: 94378 Disch Hosp
== END 2021-03-04 11:44 | disposition hospice, inpatient (51) | DRG 177 ==
LOC: ED 19:39 → MS3 03-02 06:44
PROVIDERS: Internal Medicine Critical Care Medicine; Admitting Provider Family Medicine; Emergency Provider Emergency Medicine; PCP Family Medicine; Visit Provider Student in an Organized Health Care Education/Training Program
DX: U07.1 COVID-19 (principal); I21.4 Non-ST elevation (NSTEMI) myocardial infarction; I50.43 Acute on chronic combined systolic (congestive) and diastolic (congestive) heart failure; J12.82 Pneumonia due to coronavirus disease 2019; J96.01 Acute respiratory failure with hypoxia; G93.41 Metabolic encephalopathy; I48.92 Unspecified atrial flutter; N17.9 Acute kidney failure, unspecified; N18.4 Chronic kidney disease, stage 4 (severe); I25.810 Atherosclerosis of coronary artery bypass graft(s) without angina pectoris; I13.0 Hypertensive heart and chronic kidney disease with heart failure and stage 1 through stage 4 chronic kidney disease, or unspecified chronic kidney disease; I48.0 Paroxysmal atrial fibrillation; E11.22 Type 2 diabetes mellitus with diabetic chronic kidney disease; D63.1 Anemia in chronic kidney disease; K21.9 Gastro-esophageal reflux disease without esophagitis; N40.0 Benign prostatic hyperplasia without lower urinary tract symptoms; I25.2 Old myocardial infarction; I25.10 Atherosclerotic heart disease of native coronary artery without angina pectoris; E78.00 Pure hypercholesterolemia, unspecified; Z66 Do not resuscitate; Z95.5 Presence of coronary angioplasty implant and graft; Z79.02 Long term (current) use of antithrombotics/antiplatelets; Z79.84 Long term (current) use of oral hypoglycemic drugs; Z79.82 Long term (current) use of aspirin; Z79.899 Other long term (current) drug therapy
CPT/HCPCS: 36415; 36600; 71045; 80053; 81001; 82728; 82803; 82962; 83615; 83690; 83735; 83880; 84100; 84145; 84443; 84484; 85025; 85379; 86140; 87070; 87086; 87205; 87426; 87449; 87633; 93005; 94002; 94003; 94660; 97162; 97166; 97802; 99251; 99285; J7030; J7040; A4216; G0463; J1940